=== PATIENT | male | born 1930 | race Caucasian/White ===

== ENCOUNTER → 2018-02-10 | Emergency (ER) | payer MEDICARE, OTHER ==
[~2018-02-10] VITALS: Ht 175.3 cm; Wt 63.5 kg
[~2018-02-10] MED LIST: ASPI-983 PO; CARV25TA PO; CEPH-507 PO; HYDR12.5 PO; LISI40TA PO; MINO2.5T PO; MULT-1029 PO; NAPR1TAB25 PO; NF-MINO10T PO; ONDA4TAB10 PO; OXYMETAZOLINE (AFRIN) 0.05% NA 15 ML BTL ONE; PANT40TA3 PO; SUCR1TAB PO; TRANEXAMIC ACID 100 MG/ML 10 ML INJECTION IV ONE
--- NOTE | 2018-02-10 14:48 | ED EENT ---
History of Present Illness General Chief Complaint: Nasal Problems Stated Complaint: NOSE BLEED Nursing Triage Note: PT BEGAN EXPERIENCING A SPONTANEOUS NOSE BLEED AROUND NOON TODAY, HAS BEEN UNABLE TO CONTROL WITH DIRECT PRESSURE, TAKES ASPIRIN AND PLAVIX Source: patient Exam Limitations: no limitations History of Present Illness Date Seen by Provider: Feb 10, 2018 Time Seen by Provider: 14:46 Initial Comments To ER per private vehicle with a right-sided nosebleed since noon today. Normally he is able to resolve these with direct pressure and an ice pack. He takes aspirin and Plavix for coronary artery disease. No recent illness. He is had 2 of these episodes of epistaxis in the past but is able to resolve them at home with direct pressure. Timing/Duration: abrupt Severity: moderate Location: nose Prearrival Treatment: squeezing nostrils Allergies and Home Medications Allergies Coded Allergies: Penicillins (Verified Allergy, Unknown, 10/26/15) Home Medications Aspirin 81 Mg Tablet.dr, 81 MG PO HS, (Reported) Carvedilol 25 Mg Tablet, 25 MG PO BID, (Reported) Minoxidil 10 Mg Tab, 10 MG PO DAILY, (Reported) Minoxidil 2.5 Mg Tablet, 2.5 MG PO HS, (Reported) Multivit-Min/FA/Lycopene/Lut 1 Each Tablet, 1 TAB PO DAILY, (Reported) Ondansetron HCl 4 Mg Tablet, 4 MG PO Q4H PRN for NAUSEA, (Reported) Pantoprazole Sodium 40 Mg Tablet.dr, 40 MG PO DAILY, (Reported) Sucralfate 1 Gm Tablet, 1 GM PO ACHS Prescribed by: ELAINE PRAKASH on 11/01/15 0916 Patient Home Medication List Home Medication List Reviewed: Yes Review of Systems Review of Systems Constitutional: see HPI Eyes: No Symptoms Reported Ears: No Symptoms Reported Nose: see HPI Mouth: no symptoms reported Throat: no symptoms reported Respiratory: no symptoms reported Cardiovascular: no symptoms reported Musculoskeletal: no symptoms reported Past Hrbybug-Arascy-Nrxmvd Hx Patient Social History Recent Foreign Travel: No Contact w/Someone Who Travel: No Recent Infectious Disease Expo: No Recent Hopitalizations: No Immunizations Up To Date Date of Pneumonia Vaccine: Sep 29, 2013 Date of Influenza Vaccine: Dec 30, 2014 Seasonal Allergies Seasonal Allergies: No Past Medical History Respiratory: No 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 9.6oz. 63.050615sh; 18.9 BMI Method:Stated General Appearance: WD/WN, no apparent distress Eyes: bilateral eye normal inspection, bilateral eye PERRL, bilateral eye EOMI Ears: bilateral ear auricle normal, bilateral ear canal normal, bilateral ear TM normal Nose: other (illness for 0.0The active nosebleed from the right side. Initially this was believed to be from Quick Suboxone plexus. This was cauterized chemically with silver nitrate sticks but did not control the bleeding. There is a bit more blood coming from further posterior that I'm not able to visualize. A 7.5 cm anterior/posterior rapid Rhino inflatable nasal tampon was inserted and saturated) eczema casted. We will reevaluate in 30 minutes) Neck: non-tender, full range of motion Cardiovascular: regular rate, rhythm, no murmur Respiratory: no respiratory distress, no accessory muscle use Gastrointestinal: normal bowel sounds, non tender Neurologic/Psychiatric: alert, normal mood/affect, oriented x 3 Skin: normal color, warm/dry Progress/Results/Core Measures Results/Orders Lab Results Laboratory Tests Test 02/10/18 17:45 Range/Units White Blood Count 8.0 4.3-11.0 10^3/uL Red Blood Count 3.73 L 4.35-5.85 10^6/uL Hemoglobin 11.5 L 13.3-17.7 G/DL Hematocrit 35 L 40-54 % Mean Corpuscular Volume 94 80-99 FL Mean Corpuscular Hemoglobin 31 25-34 PG Mean Corpuscular Hemoglobin Concent 33 32-36 G/DL Red Cell Distribution Width 13.8 10.0-14.5 % Platelet Count 339 130-400 10^3/uL Mean Platelet Volume 9.3 7.4-10.4 FL My Orders Orders - CARLOS EDUARDO ALVAREZ APRN Tranexamic Acid Injection (Cyklokapron I (02/10/18 14:45) Oxymetazoline 0.05% Nasal [place] (Afrin 0. (02/10/18 15:47) Iv Heplock-Insert (Order) (02/10/18 16:26) Cbc No Diff (02/10/18 16:26) Medications Given in ED Current Medications Medications Dose Ordered Sig/Joaquim Route Start Time Stop Time Status Last Admin Dose Admin Tranexamic Acid 1,000 mg STK-MED ONCE IV 02/10/18 14:40 02/10/18 14:41 DC 02/10/18 14:44 1,000 MG Vital Signs/I&O 02/10/18 14:27 Temp 97.9 Pulse 83 Resp 18 B/P (MAP) 155/69 (97) Pulse Ox 97 O2 Delivery Room Air Blood Pressure Mean: 97 Departure Communication (Admissions) I saturated a rapid Rhino anterior posterior 7.5 cm nasal tampon in TXA placed in the nose left in place for about 30 minutes and waited. I then removed this and there was increased bleeding from the right side of the nose. We then placed another rapid Rhino with Afrin in the nose. Despite placing this and clearing out the oropharynx about an hour ago I reviewed this again now and there is a new clot in the oropharynx with a small amount of active blood in the oropharynx. I spoke with Jelly Goss, nurse practitioner with Dr. Chatman. She'll be out to see the patient. 1753-[address] Rosa Goss here to evaluate pt. has removed clot, placed 2 merocel sponges. Will dc home as bleeding has stopped. Keflex prophylaxis, and follow up on saturday. Impression Primary Impression: Epistaxis Disposition: HOME, SELF-CARE Condition: Stable Departure-Patient Inst. Decision time for Depature: 17:52 Referrals: ERROL CHATMAN MD, JACQUELINE S DO (PCP/Family) Primary Care Physician Patient Instructions: Nosebleeds (DC) Add. Discharge Instructions: call call Dr. Chatman's office tomorrow to make an appointment to be seen on Saturday. Keep these nasal sponges moist with Afrin nasal spray. Return to ER for any recurrent bleeding. Antibiotics as directed. All discharge instructions reviewed with patient and/or family. Voiced understanding. Scripts Cephalexin (Keflex) 500 Mg Capsule 500 MG PO TID, #21 CAP Prov: CARLOS EDUARDO ALVAREZ APRN 02/10/18 Copy Copies To 1: ERROL CHATMAN MD, PETER J APRN Feb 10, 2018 14:48
[2018-02-10 17:47] LABS: HEMOGLOBIN 11.5 G/DL (13.3-17.7); MEAN PLATELET VOLUME 9.3 FL (7.4-10.4); RED BLOOD COUNT 3.73 10^6/uL (4.35-5.85); RED CELL DISTRIBUTION WIDTH 13.8 % (10.0-14.5)
--- NOTE | 2018-02-10 17:59 | Progress Note-Standard ---
Standard Progress Note Progress Notes/Assess & Plan Time Seen by a Provider: 17:30 Progress/Assessment & Plan Epistaxis Patient had posterior nosebleed. After informed consent was obtained 2 nasal packings were placed posterior in the right nare and flooded with Afrin. Hemostasis resulted. The packing was secured to the right nare. Patient was placed on Keflex and encouraged to keep packing moist with Afrin and nasal saline. Will make appointment with our office tomorrow for packing removal on Saturday. Final Diagnosis epistaxis DESMOND LUNA JAVA PROJECT MANAGER Feb 10, 2018 17:59
[2018-02-10 18:56] VITALS: BP 155/69
== END | disposition home or self-care (01) ==
LOC: EDUNIT# 13:59 → ER 14:00
DX: R04.0 Epistaxis (principal); I25.10 Atherosclerotic heart disease of native coronary artery without angina pectoris; Z95.810 Presence of automatic (implantable) cardiac defibrillator; Z79.82 Long term (current) use of aspirin; Z79.02 Long term (current) use of antithrombotics/antiplatelets; Z88.0 Allergy status to penicillin
CPT/HCPCS: 36415; 85027; 99284

== ENCOUNTER 2019-08-15 18:26 | Emergency (ER) | payer MEDICARE, OTHER ==
[~2019-08-15] VITALS: Ht 175 cm; Wt 59.0 kg
[~2019-08-15 18:26] MED LIST changes: +ONDA-105 PO; -ONDA4TAB10 PO; -OXYMETAZOLINE (AFRIN) 0.05% NA 15 ML BTL ONE; +OXYMETAZOLINE (AFRIN) 0.05% NA 30 ML BTL ONE; -TRANEXAMIC ACID 100 MG/ML 10 ML INJECTION IV ONE
--- OUTSIDE RECORDS SUMMARY | 2019-08-15 18:34 | XMS REPORT | CCD ---
Author Author Arnoldo Kaba D.O. Organization [facility] Address [address] [place] [address] Phone Care Team Providers Care Fire Management Technician Name Role Phone PP Unavailable CCM Unavailable Summary Purpose Interface Exchange Insurance Providers Payer name Policy type / Coverage type Covered democrat ID Effective Begin Date Effective End Date WPS MEDICARE PART B [place] Medicare Part B [id number] 2019 Unknown Medicare Part B [id number] 2019 Unknown Family History Family History data not found Social History No Social History data Allergies, Adverse Reactions, Alerts Substance Reaction Codes Entered Date Inactivated Date Status _ Unknown 11/29/2009 No Inactive Date Active * NO KNOWN FOOD ALLERGIES Unknown 11/29/2009 No Inactiv e Date Active PENICILLINS Unknown 11/29/2009 No Inactive Date Active Problems Condition Codes Effective Dates Condition Status Abnormal weight loss ICD-9: 783.21 ICD-10: R63.4 01/16/2016 Active Anemia, unspecified ICD-9: 285.9 ICD-10: D64.9 07/16/2016 Active Encounter for general adult medical examination with a bnormal findings ICD-9: V70.0 ICD-10: Z00.01 06/29/2019 Active Essential (primary) hypertension ICD-9: 401.9 ICD-10: I10 06/23/2018 Active Hypothyroidism, unspecified ICD-9: 244.9 ICD-10: E03.9 02/01/2017 Active Mixed hyperlipidemia ICD-9: 272.4 ICD-10: E78.2 06/29/2019 Active FLU VACCINE ICD-9: V04.81 ICD-10: Z23 12/25/2018 Active Disease of esophagus, unspecified ICD-9: 530.9 ICD-10: K22.9 01/16/2016 Active Pain in left knee ICD-9: 719.46 ICD-10: M25.562 07/30/2018 Active Hyperglycemia, unspecified ICD-9: 790.29 ICD-10: R73.9 01/29/2017 Active Localized edema ICD-9: 782.3 ICD-10: R60.0 07/16/2016 Active Duodenal ulcer, unspecified as acute or chronic, without hemorrhage or perforation ICD-9: 532.90 ICD-10: K26.9 01/16/2016 Active Diarrhea, unspecified ICD-9: 787.91 ICD-10: R19.7 03/09/2013 Active Nausea with vomiting, unspecified ICD-9: 787.01 ICD-10: R11.2 10/25/2015 Active Toxic gastroenteritis and colitis ICD-9: 787.91 ICD-10: K52.1 03/09/2013 Active ANEMIA NOS ICD-9: 285.9 03/09/2013 Active DIARRHEA ICD-9: 787.91 03/09/2013 Active MALAISE AND FATIGUE ICD-9: 780.79 03/09/2013 Active Gout Unknown 11/29/2009 Active Hypertension Unknown 11/29/2009 Active Right foot pain ICD-9: 729.5 11/29/2009 Active Medications Medication Codes Instructions Start Date Stop Date Status Fill Instructions levothyroxine 50 mcg tablet RxNorm: 723898 TAKE 1 TABLET DAILY 08/31 No Stop Date Active Synthroid 25 mcg tablet RxNorm: 376812 1 Tablet(s) PO QD 07/23/2017 0 09/20/2017 Inactive carvedilol 12.5 mg tablet RxNorm: 493613 1 Tablet(s) PO BID 018 07/16/2017 Inactive pantoprazole 40 mg tablet,delayed release RxNorm: 507486 1 Tablet(s) PO QD for stomach 04/18/2017 10/09/2017 Inactive pantoprazole 40 mg tablet,delayed release RxNorm: 235304 1 Tablet(s) PO QD for stomach 01/17/2017 04/18/2017 Inactive Colestid 1 gram tablet RxNorm: 6854851 1 Tablet(s) PO QD 01/17/2017 0 07/16/2017 Inactive carvedilol 12.5 mg tablet RxNorm: 204566 1 Tablet(s) PO BID 017 04/18/2017 Inactive carvedilol 12.5 mg tablet RxNorm: 425034 1 Tablet(s) PO BID 017 01/15/2017 Inactive pantoprazole 40 mg tablet,delayed release RxNorm: 314365 1 Tablet(s) PO QD for stomach 10/25/2016 01/16/2017 Inactive pantoprazole 40 mg tablet,delayed release RxNorm: 545059 1 Tablet(s) PO QD for stomach 07/24/2016 10/21/2016 Inactive Colestid 1 gram tablet RxNorm: 3587653 1 Tablet(s) PO QD 07/16/2016 1 Inactive pantoprazole 40 mg tablet,delayed release RxNorm: 549151 1 Tablet(s) PO QD for stomach 04/25/2016 07/23/2016 Inactive pantoprazole 40 mg tablet,delayed release RxNorm: 621138 1 Tablet(s) PO QD for stomach 02/27/2016 04/24/2016 Inactive Colestid 1 gram tablet RxNorm: 3097650 1 Tablet(s) PO QD 01/18/2016 0 07/15/2016 Inactive sucralfate 1 gram tablet RxNorm: 955244 1 Tablet(s) PO BID 01/17/20 16 07/15/2016 Inactive ondansetron HCl 4 mg tablet RxNorm: 553591 1 Tablet(s) PO Q4H as needed for nausea 01/17/2016 10/09/2017 Inactive pantoprazole 40 mg tablet,delayed release RxNorm: 072923 1 Tablet(s) PO QD for stomach 12/26/2015 02/23/2016 Inactive ondansetron HCl 4 mg tablet RxNorm: 913305 1 Tablet(s) PO Q4H as needed for nausea 12/13/2015 01/16/2016 Inactive colestipol 1 gram tablet RxNorm: 0418527 1 Tablet(s) PO QD 12/13/19 16 01/11/2016 Inactive sucralfate 1 gram tablet RxNorm: 762817 1 Tablet(s) PO QID (before meals and at bedtime) 11/09/2015 06/22/2018 Inactive pantoprazole 40 mg tablet,delayed release RxNorm: 061467 1 Tablet(s) PO QD for stomach 10/26/2015 12/24/2015 Inactive Zofran 4 mg tablet RxNorm: 033106 1 Tablet(s) PO Q4H as needed for nausea 10/26/2015 12/12/2015 Inactive Flagyl 500 mg tablet RxNorm: 778566 1 Tablet(s) PO TID 03/09/2013 Inactive Colchicine 0.6 mg Tab RxNorm: 558760 1 Tablet(s) PO TID take one tablet three times daily 11/29/2009 12/08/2009 Inactive minoxidil 2.5 mg tablet RxNorm: 454265 1 Tablet(s) PO QHS No Start Da te Active minoxidil 10 mg tablet RxNorm: 759251 1 Tablet(s) PO QAM No Start Date Active Aspirin 81 mg Tab RxNorm: 977645 1 Tablet(s) PO QD No Start Date Active Centrum Silver tablet RxNorm: 1 Tablet(s) PO QD No Start Date Active Lasix 40 mg tablet RxNorm: 753053 1 Tablet(s) PO QD No Start Date Active Klor-Con M20 mEq tablet,extended release RxNorm: 4447619 1 Table t(s) PO QD No Start Date Active levothyroxine 50 mcg tablet RxNorm: 696966 1 Tablet(s) PO QD No Sta rt Date 09/21/2018 Inactive Lisinopril 40 mg Tab RxNorm: 896655 1 Tablet(s) PO QD No Start Date 0 11/08/2015 Inactive Colestid 1 gram tablet RxNorm: 5087503 1 Tablet(s) PO QD No Start D ate 01/17/2016 Inactive carvedilol 25 mg tablet RxNorm: 111572 1/2 Tablet(s) PO BID No Star t Date 01/15/2017 Inactive Centrum Silver Oral RxNorm: Oral No Start Date 11/08/2015 Inact kris furosemide 20 mg tablet RxNorm: 982746 1 Tablet(s) PO QAM No Start Date 01/28/2017 Inactive Carvedilol 25 mg Tab RxNorm: 463269 1 Tablet(s) PO BID No Start Date 01/15/2017 Inactive Minoxidil 2.5 mg Tab RxNorm: 005448 1 Tablet(s) PO BID No Start Date 11/08/2015 Inactive sucralfate 1 gram tablet RxNorm: 737348 1 Tablet(s) PO BID as n eeded No Start Date 10/09/2017 Inactive ondansetron HCl 4 mg tablet RxNorm: 255589 1 Tablet(s) PO Q4H as needed for nausea No Start Date 12/12/2015 Inactive Hydrochlorothiazide 12.5 mg Tab RxNorm: 054981 1 Tablet(s) PO QAM N o Start Date 11/08/2015 Inactive sucralfate 1 gram tablet RxNorm: 838615 1 Tablet(s) PO BID No Start Date 01/16/2016 Inactive Flintstones Complete (iron) 18 mg iron chewable tablet RxNor m: 2 Tablet(s) PO BID No Start Date 07/16/2017 Inactive Medication Administered No Medication Administered data Immunizations Vaccine Codes Date Status Influenza CVX: 135 12/25/2018 Complete Influenza CVX: 135 12/25/2018 Complete Results Observation Observation Code Item Item Code Result Date S ervice Location IRON 01783 Iron 77 ug/dL 06/29/2019 Unknown GFR CALC 4660585 GFR Non Afr Amr 37 mL/min 06/29/2019 Unk nown GFR CALC 4186973 GFR Afr Amr 45 mL/min 06/29/2019 Unknown COMPREHENSIVE METABOLIC 32840 AST 17 U/L 2019 Unknown COMPREHENSIVE METABOLIC 88753 ALT 12 U/L 2019 Unknown COMPREHENSIVE METABOLIC 87963 BUN 41 mg/dL 2019 Unknown COMPREHENSIVE METABOLIC 50683 ALBUMIN 4.2 g/dL 2019 Unknown COMPREHENSIVE METABOLIC 99356 CHLORIDE 107 mmol/L 06/28 Unknown COMPREHENSIVE METABOLIC 85932 Bili Total 0.3 mg/dL 06/28 Unknown COMPREHENSIVE METABOLIC 24490 ALK PHOS 77 U/L 2019 Unknown COMPREHENSIVE METABOLIC 71387 SODIUM 142 mmol/L 06/28 Unknown COMPREHENSIVE METABOLIC 72329 CREATININE 1.74 mg/dL 06/01 Unknown COMPREHENSIVE METABOLIC 73258 CALCIUM 9.0 mg/dL 2019 Unknown COMPREHENSIVE METABOLIC 75413 POTASSIUM 4.1 mmol/L 06/28 Unknown COMPREHENSIVE METABOLIC 49572 Total Protein 6.7 g/dL Unknown COMPREHENSIVE METABOLIC 08427 Glucose 107 mg/dL 2019 Unknown COMPREHENSIVE METABOLIC 75271 Bicarbonate 22 mmol/L 06/01 Unknown COMPREHENSIVE METABOLIC 23152 AGAP 13 mmol/L 2019 Unknown IRON 72435 Iron 53 ug/dL 12/22/2018 Unknown FREE T4 53881 T4 Free 1.05 ng/dL 12/22/2018 Unknown FERRITIN 67138 FERRITIN 126.5 ng/mL 12/22/2018 Unknown COMPLETE BLOOD COUNT 6804702 WBC 7.7 10e9/L 12/23/19 19 Unknown COMPLETE BLOOD COUNT [id number] RBC 3.60 10e12/L 2018 Unknown COMPLETE BLOOD COUNT 1446394 HEMOGLOBIN 10.9 g/dL 12/23/19 19 Unknown COMPLETE BLOOD COUNT 7626363 HEMATOCRIT 34.4 % 12/23/19 19 Unknown COMPLETE BLOOD COUNT 5213997 MCV 95.6 fL 9 Unknown COMPLETE BLOOD COUNT 2547258 MCH 30.3 pg 9 Unknown COMPLETE BLOOD COUNT 9631818 MCHC 31.7 g/dL 9 Unknown COMPLETE BLOOD COUNT 0934044 PLATELET COUNT 364 10e9/L Unknown COMPLETE BLOOD COUNT 2267377 Mean Plt Volume 9.8 fL Unknown COMPLETE BLOOD COUNT 2487827 Neut Auto 81.4 % 9 Unknown COMPLETE BLOOD COUNT 0796891 Lymph Auto 12.4 % 12/23/19 19 Unknown COMPLETE BLOOD COUNT 6186036 [place] Auto 4.5 % 9 Unknown COMPLETE BLOOD COUNT 6705803 RDW 14.2 % 9 Unknown COMPLETE BLOOD COUNT 3071141 Eos Auto 1.3 % 9 Unknown COMPLETE BLOOD COUNT 7630739 Baso Auto 0.4 % 9 Unknown COMPLETE BLOOD COUNT [id number] Neutrophil Abs 6.27 10e9/L Unknown COMPLETE BLOOD COUNT 6366741 Lymphocyte Abs 0.95 10e9/L Unknown COMPLETE BLOOD COUNT 5501017 Monocyte Abs 0.35 10e9/L 12/01 Unknown COMPLETE BLOOD COUNT 9867060 Eosinophil Abs 0.10 10e9/L Unknown COMPLETE BLOOD COUNT 1446156 RDW-SD 47.2 fL 9 Unknown COMPLETE BLOOD COUNT 2302485 Basophil Abs 0.03 10e9/L 12/01 Unknown COMPREHENSIVE METABOLIC 89072 AST 19 U/L 2018 Unknown COMPREHENSIVE METABOLIC 20604 ALT 13 U/L 2018 Unknown COMPREHENSIVE METABOLIC 66744 BUN 41 mg/dL 2018 Unknown COMPREHENSIVE METABOLIC 93107 ALBUMIN 4.3 g/dL 2018 Unknown COMPREHENSIVE METABOLIC 49928 CHLORIDE 103 mmol/L 12/22 Unknown COMPREHENSIVE METABOLIC 46280 Bili Total 0.3 mg/dL 12/22 Unknown COMPREHENSIVE METABOLIC 00679 ALK PHOS 86 U/L 2018 Unknown COMPREHENSIVE METABOLIC 58108 SODIUM 138 mmol/L 12/22 Unknown COMPREHENSIVE METABOLIC 87624 CREATININE 1.69 mg/dL 12/01 Unknown COMPREHENSIVE METABOLIC 88053 CALCIUM 9.2 mg/dL 2018 Unknown COMPREHENSIVE METABOLIC 35794 POTASSIUM 4.3 mmol/L 12/22 Unknown COMPREHENSIVE METABOLIC 53469 Total Protein 6.9 g/dL Unknown COMPREHENSIVE METABOLIC 96933 Glucose 105 mg/dL 2018 Unknown COMPREHENSIVE METABOLIC 53004 Bicarbonate 21 mmol/L 12/01 Unknown COMPREHENSIVE METABOLIC 55431 AGAP 14 mmol/L 2018 Unknown THYROID STIMULATING HORMONE 48400 TSH 6.015 uIU/mL 12/22/2018 Unknown VITAMIN B 12 52232 VITAMIN B12 615 pg/mL 12/22/2018 Unkn own GFR CALC 2628194 GFR Non Afr Amr 38 mL/min 12/22/2018 Unk nown GFR CALC 8055788 GFR Afr Amr 47 mL/min 12/22/2018 Unknown FERRITIN 85470 FERRITIN 113.7 ng/mL 06/24/2018 Unknown VITAMIN B 12 11334 VITAMIN B12 651 pg/mL 06/24/2018 Unkn own COMPLETE BLOOD COUNT 8716098 WBC 6.3 10e9/L 06/24/19 19 Unknown COMPLETE BLOOD COUNT 9704862 RBC 3.33 10e12/L 2018 Unknown COMPLETE BLOOD COUNT 8769514 HEMOGLOBIN 9.8 g/dL 06/24/19 19 Unknown COMPLETE BLOOD COUNT 9984184 HEMATOCRIT 31.6 % 06/24/19 19 Unknown COMPLETE BLOOD COUNT 8379888 MCV 94.9 fL 9 Unknown COMPLETE BLOOD COUNT 9220092 MCH 29.4 pg 9 Unknown COMPLETE BLOOD COUNT 1249273 MCHC 31.0 g/dL 9 Unknown COMPLETE BLOOD COUNT 2717698 PLATELET COUNT 319 10e9/L Unknown COMPLETE BLOOD COUNT 2554975 Mean Plt Volume 9.4 fL Unknown COMPLETE BLOOD COUNT 5928761 Neut Auto 78.0 % 9 Unknown COMPLETE BLOOD COUNT 7079472 Lymph Auto 14.4 % 06/24/19 19 Unknown COMPLETE BLOOD COUNT 4298953 [place] Auto 5.2 % 9 Unknown COMPLETE BLOOD COUNT 4152138 RDW 14.2 % 9 Unknown COMPLETE BLOOD COUNT 5268102 Eos Auto 2.1 % 9 Unknown COMPLETE BLOOD COUNT 3383772 Baso Auto 0.3 % 9 Unknown COMPLETE BLOOD COUNT 3805889 Neutrophil Abs 4.91 10e9/L Unknown COMPLETE BLOOD COUNT 5124473 Lymphocyte Abs 0.91 10e9/L Unknown COMPLETE BLOOD COUNT 5663609 Monocyte Abs 0.33 10e9/L 05/31 Unknown COMPLETE BLOOD COUNT 8379826 Eosinophil Abs 0.13 10e9/L Unknown COMPLETE BLOOD COUNT 1932158 RDW-SD 47.0 fL 9 Unknown COMPLETE BLOOD COUNT [id number] Basophil Abs 0.02 10e9/L 05/31 Unknown THYROID STIMULATING HORMONE 22837 TSH 4.709 uIU/mL 06/23/2018 Unknown IRON 35039 Iron 52 ug/dL 06/23/2018 Unknown COMPREHENSIVE METABOLIC 36829 AST 16 U/L 2018 Unknown COMPREHENSIVE METABOLIC 81151 ALT 10 U/L 2018 Unknown COMPREHENSIVE METABOLIC 16730 BUN 27 mg/dL 2018 Unknown COMPREHENSIVE METABOLIC 42979 ALBUMIN 4.3 g/dL 2018 Unknown COMPREHENSIVE METABOLIC 04289 CHLORIDE 110 mmol/L 06/23 Unknown COMPREHENSIVE METABOLIC 27167 Bili Total 0.4 mg/dL 06/23 Unknown COMPREHENSIVE METABOLIC 64129 ALK PHOS 68 U/L 2018 Unknown COMPREHENSIVE METABOLIC 94765 SODIUM 140 mmol/L 06/23 Unknown COMPREHENSIVE METABOLIC 09866 CREATININE 1.60 mg/dL 05/31 Unknown COMPREHENSIVE METABOLIC 44702 CALCIUM 9.2 mg/dL 2018 Unknown COMPREHENSIVE METABOLIC 57718 POTASSIUM 4.6 mmol/L 06/23 Unknown COMPREHENSIVE METABOLIC 18829 Total Protein 6.8 g/dL Unknown COMPREHENSIVE METABOLIC 72079 Glucose 110 mg/dL 2018 Unknown COMPREHENSIVE METABOLIC 59299 Bicarbonate 19 mmol/L 05/31 Unknown COMPREHENSIVE METABOLIC 81071 AGAP 11 mmol/L 2018 Unknown GFR CALC 4368990 GFR Non Afr Amr 41 mL/min 06/23/2018 Unk nown GFR CALC 6584696 GFR Afr Amr 50 mL/min 06/23/2018 Unknown COMPLETE BLOOD COUNT 4435606 WBC 6.6 10e9/L 01/21/20 18 Unknown COMPLETE BLOOD COUNT 6765825 RBC 3.64 10e12/L 2017 Unknown COMPLETE BLOOD COUNT 4091819 HEMOGLOBIN 11.0 g/dL 01/21/20 18 Unknown COMPLETE BLOOD COUNT 8353716 HEMATOCRIT 34.6 % 01/21/20 18 Unknown COMPLETE BLOOD COUNT 9709506 MCV 95.1 fL 8 Unknown COMPLETE BLOOD COUNT 6348720 MCH 30.2 pg 8 Unknown COMPLETE BLOOD COUNT 9173331 MCHC 31.8 g/dL 8 Unknown COMPLETE BLOOD COUNT 8842513 PLATELET COUNT 386 10e9/L Unknown COMPLETE BLOOD COUNT 1643494 Mean Plt Volume 9.6 fL Unknown COMPLETE BLOOD COUNT 6704993 Neut Auto 76.6 % 8 Unknown COMPLETE BLOOD COUNT 4728428 Lymph Auto 15.6 % 01/21/20 18 Unknown COMPLETE BLOOD COUNT 4216192 [place] Auto 5.3 % 8 Unknown COMPLETE BLOOD COUNT 6685773 RDW 13.8 % 8 Unknown COMPLETE BLOOD COUNT 7348024 Eos Auto 2.0 % 8 Unknown COMPLETE BLOOD COUNT 0067938 Baso Auto 0.5 % 8 Unknown COMPLETE BLOOD COUNT 5064828 Neutrophil Abs 5.06 10e9/L Unknown COMPLETE BLOOD COUNT 0144012 Lymphocyte Abs 1.03 10e9/L Unknown COMPLETE BLOOD COUNT 6871829 Monocyte Abs 0.35 10e9/L 12/31 Unknown COMPLETE BLOOD COUNT 0568906 Eosinophil Abs 0.13 10e9/L Unknown COMPLETE BLOOD COUNT 0129530 RDW-SD 45.5 fL 8 Unknown COMPLETE BLOOD COUNT 8946669 Basophil Abs 0.03 10e9/L 12/31 Unknown COMPREHENSIVE METABOLIC 78579 AST 17 U/L 2017 Unknown COMPREHENSIVE METABOLIC 51792 ALT 14 U/L 2017 Unknown COMPREHENSIVE METABOLIC 39309 BUN 55 mg/dL 2017 Unknown COMPREHENSIVE METABOLIC 61575 ALBUMIN 4.2 g/dL 2017 Unknown COMPREHENSIVE METABOLIC 11815 CHLORIDE 106 mmol/L 01/20 Unknown COMPREHENSIVE METABOLIC 06974 Bili Total 0.4 mg/dL 01/20 Unknown COMPREHENSIVE METABOLIC 05338 ALK PHOS 75 U/L 2017 Unknown COMPREHENSIVE METABOLIC 34891 SODIUM 137 mmol/L 01/20 Unknown COMPREHENSIVE METABOLIC 44210 CREATININE 1.99 mg/dL 12/31 Unknown COMPREHENSIVE METABOLIC 51970 CALCIUM 9.5 mg/dL 2017 Unknown COMPREHENSIVE METABOLIC 03464 POTASSIUM 4.6 mmol/L 01/20 Unknown COMPREHENSIVE METABOLIC 89467 Total Protein 7.9 g/dL Unknown COMPREHENSIVE METABOLIC 87590 Glucose 105 mg/dL 2017 Unknown COMPREHENSIVE METABOLIC 73463 Bicarbonate 22 mmol/L 12/31 Unknown COMPREHENSIVE METABOLIC 05113 AGAP 9 mmol/L 2017 Unknown THYROID STIMULATING HORMONE 86637 TSH 6.119 uIU/mL 01/20/2018 Unknown GFR CALC 2123464 GFR Non Afr Amr 32 mL/min 01/20/2018 Unk nown GFR CALC 0873805 GFR Afr Amr 39 mL/min 01/20/2018 Unknown FREE T4 24331 T4 Free 1.11 ng/dL 01/20/2018 Unknown GFR CALC 3613819 GFR Non Afr Amr 38 mL/min 10/03/2017 Unk nown GFR CALC 8471319 GFR Afr Amr 46 mL/min 10/03/2017 Unknown COMPREHENSIVE METABOLIC 64223 AST 15 U/L 2017 Unknown COMPREHENSIVE METABOLIC 86655 ALT 10 U/L 2017 Unknown COMPREHENSIVE METABOLIC 57622 BUN 41 mg/dL 2017 Unknown COMPREHENSIVE METABOLIC 94290 ALBUMIN 4.0 g/dL 2017 Unknown COMPREHENSIVE METABOLIC 77326 CHLORIDE 105 mmol/L 10/03 Unknown COMPREHENSIVE METABOLIC 73945 Bili Total 0.4 mg/dL 10/03 Unknown COMPREHENSIVE METABOLIC 44521 ALK PHOS 71 U/L 2017 Unknown COMPREHENSIVE METABOLIC 83390 SODIUM 140 mmol/L 10/03 Unknown COMPREHENSIVE METABOLIC 45138 CREATININE 1.72 mg/dL 07/2017 Unknown COMPREHENSIVE METABOLIC 84742 CALCIUM 9.1 mg/dL 2017 Unknown COMPREHENSIVE METABOLIC 53882 POTASSIUM 4.1 mmol/L 10/03 Unknown COMPREHENSIVE METABOLIC 47535 Total Protein 6.5 g/dL Unknown COMPREHENSIVE METABOLIC 39196 Glucose 101 mg/dL 2017 Unknown COMPREHENSIVE METABOLIC 83122 Bicarbonate 23 mmol/L 07/2017 Unknown COMPREHENSIVE METABOLIC 21816 AGAP 12 mmol/L 2017 Unknown FREE T4 09491 T4 Free 0.81 ng/dL 10/03/2017 Unknown THYROID STIMULATING HORMONE 59012 TSH 10.964 uIU/m L 10/03/2017 Unknown COMPLETE BLOOD COUNT 7884414 WBC 5.6 10e9/L 10/04/19 18 Unknown COMPLETE BLOOD COUNT 5102364 RBC 3.36 10e12/L 2017 Unknown COMPLETE BLOOD COUNT 6065659 HEMOGLOBIN 10.3 g/dL 10/04/19 18 Unknown COMPLETE BLOOD COUNT 5871716 HEMATOCRIT 32.0 % 10/04/19 18 Unknown COMPLETE BLOOD COUNT 7177404 MCV 95.2 fL 8 Unknown COMPLETE BLOOD COUNT 8014036 MCH 30.7 pg 8 Unknown COMPLETE BLOOD COUNT 5905320 MCHC 32.2 g/dL 8 Unknown COMPLETE BLOOD COUNT 0233461 PLATELET COUNT 250 10e9/L 07/2017 Unknown COMPLETE BLOOD COUNT 7890900 Mean Plt Volume 10.2 fL 07/2017 Unknown COMPLETE BLOOD COUNT 0960864 Neut Auto 75.9 % 8 Unknown COMPLETE BLOOD COUNT 2692167 Lymph Auto 17.2 % 10/04/19 18 Unknown COMPLETE BLOOD COUNT 0659002 [place] Auto 5.3 % 8 Unknown COMPLETE BLOOD COUNT 1721524 RDW 14.0 % 8 Unknown COMPLETE BLOOD COUNT 0491340 Eos Auto 1.2 % 8 Unknown COMPLETE BLOOD COUNT 0867177 Baso Auto 0.4 % 8 Unknown COMPLETE BLOOD COUNT 7340359 Neutrophil Abs 4.25 10e9/L Unknown COMPLETE BLOOD COUNT 7158678 Lymphocyte Abs 0.96 10e9/L Unknown COMPLETE BLOOD COUNT 5790189 Monocyte Abs 0.30 10e9/L 07/2017 Unknown COMPLETE BLOOD COUNT 1255049 Eosinophil Abs 0.07 10e9/L Unknown COMPLETE BLOOD COUNT 6554142 RDW-SD 45.8 fL 8 Unknown COMPLETE BLOOD COUNT 8356172 Basophil Abs 0.02 10e9/L 07/2017 Unknown FREE T4 62666 T4 Free 0.87 ng/dL 07/17/2017 Unknown COMPREHENSIVE METABOLIC 37333 AST 19 U/L 2017 Unknown COMPREHENSIVE METABOLIC 36185 ALT 13 U/L 2017 Unknown COMPREHENSIVE METABOLIC 09261 BUN 48 mg/dL 2017 Unknown COMPREHENSIVE METABOLIC 98154 ALBUMIN 4.4 g/dL 2017 Unknown COMPREHENSIVE METABOLIC 64747 CHLORIDE 105 mmol/L 07/17 Unknown COMPREHENSIVE METABOLIC 66610 Bili Total 0.4 mg/dL 07/17 Unknown COMPREHENSIVE METABOLIC 23256 ALK PHOS 64 U/L 2017 Unknown COMPREHENSIVE METABOLIC 15161 SODIUM 141 mmol/L 07/17 Unknown COMPREHENSIVE METABOLIC 46760 CREATININE 1.72 mg/dL 06/30 Unknown COMPREHENSIVE METABOLIC 63651 CALCIUM 9.8 mg/dL 2017 Unknown COMPREHENSIVE METABOLIC 55561 POTASSIUM 4.6 mmol/L 07/17 Unknown COMPREHENSIVE METABOLIC 63178 Total Protein 7.0 g/dL Unknown COMPREHENSIVE METABOLIC 90610 Glucose 105 mg/dL 2017 Unknown COMPREHENSIVE METABOLIC 95358 Bicarbonate 25 mmol/L 06/30 Unknown COMPREHENSIVE METABOLIC 67956 AGAP 11 mmol/L 2017 Unknown LIPID GROUP 84061 Cholesterol 162 mg/dL 07/17/2017 Unkno wn LIPID GROUP 16726 Triglyceride 126 mg/dL 07/17/2017 Unkn own LIPID GROUP 48192 HDL CHOLESTEROL 39 mg/dL 07/17/2017 U nknown LIPID GROUP 74280 Chol/HDL Ratio 4.15 ratio 07/17/2017 U nknown LIPID GROUP 13344 NON-HDL Chol 123 mg/dL 07/17/2017 Unkn own LIPID GROUP 81859 LDL Cholesterol 98 mg/dL 07/17/2017 U nknown GLYCOSYLATED HEMOGLOBIN TEST 54956 Hgb A1c 24277-7 5.0 % 0 07/17/2017 Unknown THYROID STIMULATING HORMONE 17117 TSH 28.780 uIU/m L 07/17/2017 Unknown MEAN GLUC 3837881 Calc Mean Gluc 97 mg/dL 07/17/2017 Unkn own GFR CALC 6238862 GFR Non Afr Amr 38 mL/min 07/17/2017 Unk nown GFR CALC 6552519 GFR Afr Amr 46 mL/min 07/17/2017 Unknown COMPLETE BLOOD COUNT 3634873 WBC 5.8 10e9/L 07/18/19 18 Unknown COMPLETE BLOOD COUNT 0882182 RBC 3.47 10e12/L 2017 Unknown COMPLETE BLOOD COUNT 9929932 HEMOGLOBIN 10.7 g/dL 07/18/19 18 Unknown COMPLETE BLOOD COUNT 1613458 HEMATOCRIT 34.0 % 07/18/19 18 Unknown COMPLETE BLOOD COUNT 1220576 MCV 98.0 fL 8 Unknown COMPLETE BLOOD COUNT 3468971 MCH 30.8 pg 8 Unknown COMPLETE BLOOD COUNT 3253617 MCHC 31.5 g/dL 8 Unknown COMPLETE BLOOD COUNT 4318163 PLATELET COUNT 254 10e9/L Unknown COMPLETE BLOOD COUNT 4790326 Mean Plt Volume 10.0 fL Unknown COMPLETE BLOOD COUNT 7891142 Neut Auto 77.2 % 8 Unknown COMPLETE BLOOD COUNT 3384877 Lymph Auto 15.2 % 07/18/19 18 Unknown COMPLETE BLOOD COUNT 5524530 [place] Auto 5.4 % 8 Unknown COMPLETE BLOOD COUNT 4659997 RDW 13.9 % 8 Unknown COMPLETE BLOOD COUNT 6219181 Eos Auto 1.7 % 8 Unknown COMPLETE BLOOD COUNT 1836359 Baso Auto 0.5 % 8 Unknown COMPLETE BLOOD COUNT 0363009 Neutrophil Abs 4.48 10e9/L Unknown COMPLETE BLOOD COUNT 5943575 Lymphocyte Abs 0.88 10e9/L Unknown COMPLETE BLOOD COUNT 1854673 Monocyte Abs 0.31 10e9/L 06/30 Unknown COMPLETE BLOOD COUNT 6127511 Eosinophil Abs 0.10 10e9/L Unknown COMPLETE BLOOD COUNT 8585198 RDW-SD 48.0 fL 8 Unknown COMPLETE BLOOD COUNT 6438006 Basophil Abs 0.03 10e9/L 06/30 Unknown FREE T4 37356 T4 Free 0.79 ng/dL 01/31/2017 Unknown GLYCOSYLATED HEMOGLOBIN TEST 45860 Hgb A1c 57006-1 5.2 % 1 04/01/2016 Unknown MEAN GLUC 5662965 Calc Mean Gluc 103 mg/dL 01/30/2017 Unkn own IRON 66677 Iron 62 ug/dL 01/29/2017 Unknown COMPREHENSIVE METABOLIC 16324 AST 25 U/L 2016 Unknown COMPREHENSIVE METABOLIC 33998 ALT 29 U/L 2016 Unknown COMPREHENSIVE METABOLIC 47723 BUN 41 mg/dL 2016 Unknown COMPREHENSIVE METABOLIC 39793 ALBUMIN 4.4 g/dL 2016 Unknown COMPREHENSIVE METABOLIC 53550 CHLORIDE 111 mmol/L 01/29 Unknown COMPREHENSIVE METABOLIC 76244 Bili Total 0.3 mg/dL 01/29 Unknown COMPREHENSIVE METABOLIC 06650 ALK PHOS 68 U/L 2016 Unknown COMPREHENSIVE METABOLIC 41741 SODIUM 142 mmol/L 01/29 Unknown COMPREHENSIVE METABOLIC 26608 CREATININE 1.69 mg/dL 01/01 Unknown COMPREHENSIVE METABOLIC 97695 CALCIUM 9.0 mg/dL 2016 Unknown COMPREHENSIVE METABOLIC 71013 POTASSIUM 4.0 mmol/L 01/29 Unknown COMPREHENSIVE METABOLIC 91610 Total Protein 6.9 g/dL Unknown COMPREHENSIVE METABOLIC 93865 Glucose 166 mg/dL 2016 Unknown COMPREHENSIVE METABOLIC 48533 Bicarbonate 22 mmol/L 01/01 Unknown COMPREHENSIVE METABOLIC 94827 AGAP 9 mmol/L 2016 Unknown VITAMIN B 12 44556 VITAMIN B12 603 pg/mL 01/29/2017 Unkn own COMPLETE BLOOD COUNT 7101997 WBC 5.7 10e9/L 01/30/20 17 Unknown COMPLETE BLOOD COUNT 3317575 RBC 3.56 10e12/L 2016 Unknown COMPLETE BLOOD COUNT 6249075 HEMOGLOBIN 10.7 g/dL 01/30/20 17 Unknown COMPLETE BLOOD COUNT 4113388 HEMATOCRIT 33.8 % 01/30/20 17 Unknown COMPLETE BLOOD COUNT 8242372 MCV 94.9 fL 7 Unknown COMPLETE BLOOD COUNT 3835853 MCH 30.1 pg 7 Unknown COMPLETE BLOOD COUNT 6207737 MCHC 31.7 g/dL 7 Unknown COMPLETE BLOOD COUNT 0816401 PLATELET COUNT 284 10e9/L Unknown COMPLETE BLOOD COUNT 6294647 Mean Plt Volume 10.0 fL Unknown COMPLETE BLOOD COUNT 0454152 Neut Auto 79.4 % 7 Unknown COMPLETE BLOOD COUNT [id number] Lymph Auto 13.6 % 01/30/20 17 Unknown COMPLETE BLOOD COUNT [id number] [place] Auto 4.4 % 7 Unknown COMPLETE BLOOD COUNT [id number] RDW 14.9 % 7 Unknown COMPLETE BLOOD COUNT [id number] Eos Auto 2.1 % 7 Unknown COMPLETE BLOOD COUNT [id number] Baso Auto 0.5 % 7 Unknown COMPLETE BLOOD COUNT [id number] Neutrophil Abs 4.53 10e9/L Unknown COMPLETE BLOOD COUNT [id number] Lymphocyte Abs 0.78 10e9/L Unknown COMPLETE BLOOD COUNT [id number] Monocyte Abs 0.25 10e9/L 01/01 Unknown COMPLETE BLOOD COUNT [id number] Eosinophil Abs 0.12 10e9/L Unknown COMPLETE BLOOD COUNT [id number] RDW-SD 49.6 fL 7 Unknown COMPLETE BLOOD COUNT [id number] Basophil Abs 0.03 10e9/L 01/01 Unknown THYROID STIMULATING HORMONE 52041 TSH 26.132 uIU/m L 01/29/2017 Unknown GFR CALC [id number] GFR Non Afr Amr 39 mL/min 01/29/2017 Unk nown GFR CALC [id number] GFR Afr Amr 47 mL/min 01/29/2017 Unknown COMPREHENSIVE METABOLIC 37574 AST 19 U/L 2016 Unknown COMPREHENSIVE METABOLIC 87224 ALT 19 U/L 2016 Unknown COMPREHENSIVE METABOLIC 07265 BUN 30 mg/dL 2016 Unknown COMPREHENSIVE METABOLIC 53616 ALBUMIN 3.9 g/dL 2016 Unknown COMPREHENSIVE METABOLIC 86650 CHLORIDE 107 mmol/L 07/16 Unknown COMPREHENSIVE METABOLIC 24523 Bili Total 0.4 mg/dL 07/16 Unknown COMPREHENSIVE METABOLIC 02465 ALK PHOS 56 U/L 2016 Unknown COMPREHENSIVE METABOLIC 39242 SODIUM 139 mmol/L 07/16 Unknown COMPREHENSIVE METABOLIC 77889 CREATININE 1.50 mg/dL 06/30 Unknown COMPREHENSIVE METABOLIC 01362 CALCIUM 8.7 mg/dL 2016 Unknown COMPREHENSIVE METABOLIC 60640 POTASSIUM 4.2 mmol/L 07/16 Unknown COMPREHENSIVE METABOLIC 93560 Total Protein 6.5 g/dL Unknown COMPREHENSIVE METABOLIC 09280 Glucose 139 mg/dL 2016 Unknown COMPREHENSIVE METABOLIC 71371 Bicarbonate 20 mmol/L 06/30 Unknown COMPREHENSIVE METABOLIC 25838 AGAP 12 mmol/L 2016 Unknown COMPLETE BLOOD COUNT [id number] WBC 5.7 10e9/L 07/17/19 17 Unknown COMPLETE BLOOD COUNT [id number] RBC 3.10 10e12/L 2016 Unknown COMPLETE BLOOD COUNT [id number] HEMOGLOBIN 9.4 g/dL 07/17/19 17 Unknown COMPLETE BLOOD COUNT [id number] HEMATOCRIT 29.6 % 07/17/19 17 Unknown COMPLETE BLOOD COUNT [id number] MCV 95.5 fL 7 Unknown COMPLETE BLOOD COUNT 0869801 MCH 30.3 pg 7 Unknown COMPLETE BLOOD COUNT 0300402 MCHC 31.8 g/dL 7 Unknown COMPLETE BLOOD COUNT 0970487 PLATELET COUNT 286 10e9/L Unknown COMPLETE BLOOD COUNT 0271092 Mean Plt Volume 9.9 fL Unknown COMPLETE BLOOD COUNT 7282916 Neut Auto 79.4 % 7 Unknown COMPLETE BLOOD COUNT [id number] Lymph Auto 14.5 % 07/17/19 17 Unknown COMPLETE BLOOD COUNT 0034442 [place] Auto 4.6 % 7 Unknown COMPLETE BLOOD COUNT 0871314 RDW 14.2 % 7 Unknown COMPLETE BLOOD COUNT 7727158 Eos Auto 1.1 % 7 Unknown COMPLETE BLOOD COUNT 6732161 Baso Auto 0.4 % 7 Unknown COMPLETE BLOOD COUNT [id number] Neutrophil Abs 4.53 10e9/L Unknown COMPLETE BLOOD COUNT 2975617 Lymphocyte Abs 0.83 10e9/L Unknown COMPLETE BLOOD COUNT [id number] Monocyte Abs 0.26 10e9/L 06/30 Unknown COMPLETE BLOOD COUNT [id number] Eosinophil Abs 0.06 10e9/L Unknown COMPLETE BLOOD COUNT [id number] RDW-SD 47.4 fL 7 Unknown COMPLETE BLOOD COUNT [id number] Basophil Abs 0.02 10e9/L 06/30 Unknown GFR CALC [id number] GFR Non Afr Amr 44 mL/min 07/16/2016 Unk nown GFR CALC [id number] GFR Afr Amr 54 mL/min 07/16/2016 Unknown COMPLETE BLOOD COUNT [id number] WBC 4.3 10e9/L 11/08/19 16 Unknown COMPLETE BLOOD COUNT [id number] RBC 3.22 10e12/L 2015 Unknown COMPLETE BLOOD COUNT [id number] HEMOGLOBIN 9.5 g/dL 11/08/19 16 Unknown COMPLETE BLOOD COUNT [id number] HEMATOCRIT 29.7 % 11/08/19 16 Unknown COMPLETE BLOOD COUNT [id number] MCV 92.2 fL 6 Unknown COMPLETE BLOOD COUNT [id number] MCH 29.5 pg 6 Unknown COMPLETE BLOOD COUNT 1347288 MCHC 32.0 g/dL 6 Unknown COMPLETE BLOOD COUNT [id number] PLATELET COUNT 269 10e9/L 12/2015 Unknown COMPLETE BLOOD COUNT 1088362 Mean Plt Volume 9.3 fL 12/2015 Unknown COMPLETE BLOOD COUNT 0536517 Neut Auto 71.4 % 6 Unknown COMPLETE BLOOD COUNT [id number] Lymph Auto 20.2 % 11/08/19 16 Unknown COMPLETE BLOOD COUNT [id number] [place] Auto 5.1 % 6 Unknown COMPLETE BLOOD COUNT 8599841 RDW 15.2 % 6 Unknown COMPLETE BLOOD COUNT [id number] Eos Auto 2.6 % 6 Unknown COMPLETE BLOOD COUNT 8192096 Baso Auto 0.7 % 6 Unknown COMPLETE BLOOD COUNT [id number] Neutrophil Abs 3.07 10e9/L Unknown COMPLETE BLOOD COUNT [id number] Lymphocyte Abs 0.87 10e9/L Unknown COMPLETE BLOOD COUNT [id number] Monocyte Abs 0.22 10e9/L 12/2015 Unknown COMPLETE BLOOD COUNT [id number] Eosinophil Abs 0.11 10e9/L Unknown COMPLETE BLOOD COUNT 8465742 RDW-SD 49.0 fL 6 Unknown COMPLETE BLOOD COUNT [id number] Basophil Abs 0.03 10e9/L 12/2015 Unknown GFR CALC [id number] GFR Non Afr Amr 42 mL/min 11/08/2015 Unk nown GFR CALC [id number] GFR Afr Amr 51 mL/min 11/08/2015 [place] [address] Glucose 102 mg/dL 11/07 [place] [address] CREATININE 1.57 mg/dL 12/2015 [place] [address] BUN 18 mg/dL 11/07 [place] [address] SODIUM 140 mmol/L 12/2015 [place] [address] POTASSIUM 3.8 mmol/L 12/2015 [place] [address] CHLORIDE 113 mmol/L 12/2015 [place] [address] Bicarbonate 21 mmol/L 12/2015 [place] [address] AGAP 6 mmol/L 11/07 [place] [address] CALCIUM 8.8 mg/dL 11/07 Unknown COMPLETE BLOOD COUNT 0693536 WBC 8.3 10e9/L 10/26/19 16 Unknown COMPLETE BLOOD COUNT [id number] RBC 2.55 10e12/L 2015 Unknown COMPLETE BLOOD COUNT [id number] HEMOGLOBIN 7.7 g/dL 10/26/19 16 Unknown COMPLETE BLOOD COUNT 7667337 HEMATOCRIT 24.0 % 10/26/19 16 Unknown COMPLETE BLOOD COUNT 7689293 MCV 94.1 fL 6 Unknown COMPLETE BLOOD COUNT 0287432 MCH 30.2 pg 6 Unknown COMPLETE BLOOD COUNT 7105250 MCHC 32.1 g/dL 6 Unknown COMPLETE BLOOD COUNT 3928487 PLATELET COUNT 292 10e9/L Unknown COMPLETE BLOOD COUNT 8015710 Mean Plt Volume 9.8 fL Unknown COMPLETE BLOOD COUNT 2085967 Neut Auto 83.8 % 6 Unknown COMPLETE BLOOD COUNT 2443581 Lymph Auto 11.3 % 10/26/19 16 Unknown COMPLETE BLOOD COUNT 8725095 [place] Auto 4.1 % 6 Unknown COMPLETE BLOOD COUNT 7950621 RDW 14.7 % 6 Unknown COMPLETE BLOOD COUNT 4595249 Eos Auto 0.7 % 6 Unknown COMPLETE BLOOD COUNT 1740091 Baso Auto 0.1 % 6 Unknown COMPLETE BLOOD COUNT 5346933 Neutrophil Abs 6.96 10e9/L Unknown COMPLETE BLOOD COUNT 6750531 Lymphocyte Abs 0.94 10e9/L Unknown COMPLETE BLOOD COUNT 8173299 Monocyte Abs 0.34 10e9/L 09/30 Unknown COMPLETE BLOOD COUNT 7174264 Eosinophil Abs 0.06 10e9/L Unknown COMPLETE BLOOD COUNT 1978763 RDW-SD 48.2 fL 6 Unknown COMPLETE BLOOD COUNT [id number] Basophil Abs 0.01 10e9/L 09/30 Unknown LIPASE 73509 Lipase Lvl 24 IU/L 10/26/2015 Unknown FREE T4 64332 T4 Free 1.15 ng/dL 10/26/2015 Unknown COMPREHENSIVE METABOLIC 10051 AST 12 U/L 2015 Unknown COMPREHENSIVE METABOLIC 28316 ALT 9 U/L 2015 Unknown COMPREHENSIVE METABOLIC 52638 BUN 92 mg/dL 2015 Unknown COMPREHENSIVE METABOLIC 76314 ALBUMIN 3.8 g/dL 2015 Unknown COMPREHENSIVE METABOLIC 59315 CHLORIDE 98 mmol/L 2015 Unknown COMPREHENSIVE METABOLIC 75272 Bili Total 0.4 mg/dL 10/25 Unknown COMPREHENSIVE METABOLIC 92982 ALK PHOS 53 U/L 2015 Unknown COMPREHENSIVE METABOLIC 75736 SODIUM 139 mmol/L 10/25 Unknown COMPREHENSIVE METABOLIC 81579 CREATININE 4.70 mg/dL 09/30 Unknown COMPREHENSIVE METABOLIC 41305 CALCIUM 9.1 mg/dL 2015 Unknown COMPREHENSIVE METABOLIC 90954 POTASSIUM 4.5 mmol/L 10/25 Unknown COMPREHENSIVE METABOLIC 37998 Total Protein 6.6 g/dL Unknown COMPREHENSIVE METABOLIC 32048 Glucose 128 mg/dL 2015 Unknown COMPREHENSIVE METABOLIC 40851 Bicarbonate 29 mmol/L 09/30 Unknown COMPREHENSIVE METABOLIC 79875 AGAP 12 mmol/L 2015 Unknown GFR CALC 1668721 GFR Non Afr Amr 12 mL/min 10/26/2015 Unk nown GFR CALC 3393816 GFR Afr Amr 14 mL/min 10/26/2015 Unknown GLYCOSYLATED HEMOGLOBIN TEST 11801 Hgb A1c 54391-5 5.0 % 0 10/26/2015 Unknown AMYLASE 59270 Amylase Lvl 45 IU/L 10/26/2015 Unknown THYROID STIMULATING HORMONE 69740 TSH 6.114 uIU/mL 10/26/2015 Unknown MEAN GLUC 9905412 Mean Glucose 97 mg/dL 10/26/2015 Unknow n VITAMIN B 12 FOLIC ACID 98562|07318 VIT B 12 961 PG/ML 11/2012 Unknown VITAMIN B 12 FOLIC ACID 38464|31992 FOLIC ACID >24.0 NG/ML 1 05/10/2012 Unknown COMPREHENSIVE METABOLIC 74148 AST 19 U/L 2012 Unknown COMPREHENSIVE METABOLIC 25673 ALT 19 IU/L 2012 Unknown COMPREHENSIVE METABOLIC 48653 BUN 21 MG/DL 2012 Unknown COMPREHENSIVE METABOLIC 30390 ALBUMIN 4.4 GM/DL 2012 Unknown COMPREHENSIVE METABOLIC 48880 CHLORIDE 102 MMOL/L 03/09 Unknown COMPREHENSIVE METABOLIC 68924 BILI TOT 0.4 MG/DL 2012 Unknown COMPREHENSIVE METABOLIC 51684 ALK PHOS 60 U/L 2012 Unknown COMPREHENSIVE METABOLIC 53616 SODIUM 137 MMOL/L 03/09 Unknown COMPREHENSIVE METABOLIC 23557 CREATININE 1.36 MG/DL 11/2012 Unknown COMPREHENSIVE METABOLIC 02010 CALCIUM 9.7 MG/DL 2012 Unknown COMPREHENSIVE METABOLIC 88501 POTASSIUM 4.3 MMOL/L 03/09 Unknown COMPREHENSIVE METABOLIC 88863 PROT TOT 6.8 GM/DL 2012 Unknown COMPREHENSIVE METABOLIC 66557 Glucose 143 MG/DL 2012 Unknown COMPREHENSIVE METABOLIC 87938 BICARB 27 MMOL/L 2012 Unknown COMPREHENSIVE METABOLIC 11929 ANION GAP 8 MEQ/L 2012 Unknown C-REACTIVE PROTEIN (CRP) QUANT 17212 CRP 0.8 MG/DL 03/09/2013 Unknown COMPLETE BLOOD COUNT 5077949 WBC 7.6 10e9/L 03/09/20 13 Unknown COMPLETE BLOOD COUNT 6554737 RBC 3.78 10e12/L 2012 Unknown COMPLETE BLOOD COUNT 0796115 HGB 11.3 g/dL 3 Unknown COMPLETE BLOOD COUNT 2907065 HCT DET 35.6 % 3 Unknown COMPLETE BLOOD COUNT 1834888 MCV 94.2 fL 3 Unknown COMPLETE BLOOD COUNT 1804523 MCH 29.9 pg 3 Unknown COMPLETE BLOOD COUNT 8251202 MCHC 31.7 g/dL 3 Unknown COMPLETE BLOOD COUNT 9942019 PLT 314 10e9/L 03/09/20 13 Unknown COMPLETE BLOOD COUNT 5470064 MPV 9.7 fL 3 Unknown COMPLETE BLOOD COUNT 0889797 [place] % 78.7 % 3 Unknown COMPLETE BLOOD COUNT 3424127 LY % 13.7 % 3 Unknown COMPLETE BLOOD COUNT 8722062 MON % 5.0 % 3 Unknown COMPLETE BLOOD COUNT 5447849 EOS % 2.1 % 3 Unknown COMPLETE BLOOD COUNT 7731222 BASO % 0.5 % 3 Unknown COMPLETE BLOOD COUNT 4838878 RDW 13.7 % 3 Unknown COMPLETE BLOOD COUNT 7874955 ABS [place] 5.98 10e9/L 013 Unknown COMPLETE BLOOD COUNT 9567662 ABS LYMPH 1.04 10e9/L 013 Unknown COMPLETE BLOOD COUNT 6125927 ABS MONO 0.38 10e9/L 013 Unknown COMPLETE BLOOD COUNT 4408699 ABS EOS 0.16 10e9/L 013 Unknown COMPLETE BLOOD COUNT 7547848 ABS BASO 0.04 10e9/L 013 Unknown COMPLETE BLOOD COUNT 2006903 RDW-SD 45.7 fL 3 Unknown FREE T4 91680 FREE T4 1.12 NG/DL 03/09/2013 Unknown GFR CALC 6663834 GFR AA >60 ML/MIN 03/09/2013 Unknown GFR CALC 7565935 GFR NON-AA 50.0L ML/MIN 03/09/2013 Unkno wn THYROID STIMULATING HORMONE 55381 TSH 6.689 uIU/ML 03/09/2013 Unknown IRON 47456 IRON TEST 58 UG/DL 03/09/2013 Unknown COMPLETE BLOOD COUNT 93820 WBC 6.0 10e9/L 11/30/19 10 Unknown COMPLETE BLOOD COUNT 91539 RBC 4.29 10e12/L 2009 Unknown COMPLETE BLOOD COUNT 34396 HGB 12.8 g/dL 0 Unknown COMPLETE BLOOD COUNT 87563 HCT DET 39.3 % 0 Unknown COMPLETE BLOOD COUNT 83549 MCV 91.6 fL 0 Unknown COMPLETE BLOOD COUNT 86349 MCH 29.8 pg 0 Unknown COMPLETE BLOOD COUNT 16315 MCHC 32.6 g/dL 0 Unknown COMPLETE BLOOD COUNT 56725 PLT 262 10e9/L 11/30/19 10 Unknown COMPLETE BLOOD COUNT 92280 MPV 9.8 fL 0 Unknown COMPLETE BLOOD COUNT 10557 [place] % 71.4 % 0 Unknown COMPLETE BLOOD COUNT 40508 LY % 20.0 % 0 Unknown COMPLETE BLOOD COUNT 24384 MON % 7.5 % 0 Unknown COMPLETE BLOOD COUNT 57793 EOS % 0.8 % 0 Unknown COMPLETE BLOOD COUNT 64203 BASO % 0.3 % 0 Unknown COMPLETE BLOOD COUNT 83926 RDW 13.5 % 0 Unknown COMPLETE BLOOD COUNT 72825 ABS [place] 4.28 10e9/L 010 Unknown COMPLETE BLOOD COUNT 01084 ABS LYMPH 1.20 10e9/L 010 Unknown COMPLETE BLOOD COUNT 54743 ABS MONO 0.45 10e9/L 010 Unknown COMPLETE BLOOD COUNT 77038 ABS EOS 0.05 10e9/L 010 Unknown COMPLETE BLOOD COUNT 91253 ABS BASO 0.02 10e9/L 010 Unknown COMPLETE BLOOD COUNT 76539 RDW-SD 44.4 fL 0 Unknown URIC ACID 60761 URIC ACID 9.5 MG/DL 11/29/2009 Unknown GFR CALC 3657915 GFR AA 55.0L ML/MIN 11/29/2009 Unknow n GFR CALC 5217696 GFR NON-AA 46.0L ML/MIN 11/29/2009 Unkno wn COMPREHENSIVE METABOLIC 93953 AST 14 U/L 2009 Unknown COMPREHENSIVE METABOLIC 92352 ALT 12 IU/L 2009 Unknown COMPREHENSIVE METABOLIC 34763 BUN 23 MG/DL 2009 Unknown COMPREHENSIVE METABOLIC 13290 ALBUMIN 4.5 GM/DL 2009 Unknown COMPREHENSIVE METABOLIC 97380 CHLORIDE 104 MMOL/L 11/29 Unknown COMPREHENSIVE METABOLIC 72771 BILI TOT 0.5 MG/DL 2009 Unknown COMPREHENSIVE METABOLIC 52217 ALK PHOS 58 U/L 2009 Unknown COMPREHENSIVE METABOLIC 79355 SODIUM 138 MMOL/L 11/29 Unknown COMPREHENSIVE METABOLIC 11369 CREATININE 1.49 MG/DL 11/01 Unknown COMPREHENSIVE METABOLIC 49170 CALCIUM 9.5 MG/DL 2009 Unknown COMPREHENSIVE METABOLIC 45461 POTASSIUM 4.2 MMOL/L 11/29 Unknown COMPREHENSIVE METABOLIC 94108 PROT TOT 6.9 GM/DL 2009 Unknown COMPREHENSIVE METABOLIC 87737 Glucose 159 MG/DL 2009 Unknown COMPREHENSIVE METABOLIC 81397 BICARB 24 MMOL/L 2009 Unknown COMPREHENSIVE METABOLIC 47491 ANION GAP 10 MEQ/L 2009 Unknown Procedures Procedure Codes Date PPPS, subseq visit CPT-4: G0439 06/29/2019 ROUTINE VENIPUNCTURE CPT-4: 46894 06/29/2019 ASSAY OF FREE THYROXINE CPT-4: 75175 06/29/2019 ASSAY THYROID STIM HORMONE CPT-4: 53754 06/29/2019 COMPREHEN METABOLIC PANEL CPT-4: 78560 06/29/2019 COMPLETE CBC W/AUTO DIFF WBC CPT-4: 98957 06/29/2019 ASSAY OF IRON CPT-4: 92033 06/29/2019 ASSAY OF FERRITIN CPT-4: 48252 06/29/2019 FLU VACC PRSV FREE INC ANTIG 65 AND OLDER CPT-4: 88206 12/25/2018 FLU VACC PRSV FREE INC ANTIG 65 AND OLDER CPT-4: 50402 12/25/2018 ADMIN INFLUENZA VIRUS VAC CPT-4: G0008 12/25/2018 ROUTINE VENIPUNCTURE CPT-4: 42733 12/22/2018 ASSAY OF FREE THYROXINE CPT-4: 87531 12/22/2018 ASSAY THYROID STIM HORMONE CPT-4: 55187 12/22/2018 COMPREHEN METABOLIC PANEL CPT-4: 96759 12/22/2018 COMPLETE CBC W/AUTO DIFF WBC CPT-4: 21188 12/22/2018 ASSAY OF IRON CPT-4: 92277 12/22/2018 ASSAY OF FERRITIN CPT-4: 86209 12/22/2018 VITAMIN B-12 CPT-4: 06696 12/22/2018 ROUTINE VENIPUNCTURE CPT-4: 17944 06/23/2018 COMPLETE CBC W/AUTO DIFF WBC CPT-4: 10420 06/23/2018 COMPREHEN METABOLIC PANEL CPT-4: 39089 06/23/2018 ASSAY OF IRON CPT-4: 26049 06/23/2018 ASSAY THYROID STIM HORMONE CPT-4: 31091 06/23/2018 ASSAY OF FERRITIN CPT-4: 42363 06/23/2018 VITAMIN B-12 CPT-4: 30697 06/23/2018 ROUTINE VENIPUNCTURE CPT-4: 59648 01/20/2018 COMPLETE CBC W/AUTO DIFF WBC CPT-4: 83629 01/20/2018 COMPREHEN METABOLIC PANEL CPT-4: 53276 01/20/2018 ASSAY OF FREE THYROXINE CPT-4: 75659 01/20/2018 ASSAY THYROID STIM HORMONE CPT-4: 58808 01/20/2018 ROUTINE VENIPUNCTURE CPT-4: 95911 10/03/2017 ASSAY THYROID STIM HORMONE CPT-4: 53291 10/03/2017 ASSAY OF FREE THYROXINE CPT-4: 35272 10/03/2017 COMPLETE CBC W/AUTO DIFF WBC CPT-4: 48969 10/03/2017 COMPREHEN METABOLIC PANEL CPT-4: 44831 10/03/2017 ROUTINE VENIPUNCTURE CPT-4: 85018 07/17/2017 ASSAY OF FREE THYROXINE CPT-4: 72451 07/17/2017 ASSAY THYROID STIM HORMONE CPT-4: 22582 07/17/2017 COMPREHEN METABOLIC PANEL CPT-4: 32380 07/17/2017 COMPLETE CBC W/AUTO DIFF WBC CPT-4: 00284 07/17/2017 LIPID PANEL CPT-4: 78526 07/17/2017 A1C HPLC CPT-4: 55287 07/17/2017 ROUTINE VENIPUNCTURE CPT-4: 04366 01/29/2017 ASSAY THYROID STIM HORMONE CPT-4: 31921 01/29/2017 COMPREHEN METABOLIC PANEL CPT-4: 14237 01/29/2017 COMPLETE CBC W/AUTO DIFF WBC CPT-4: 17338 01/29/2017 ASSAY OF IRON CPT-4: 65141 01/29/2017 VITAMIN B-12 CPT-4: 98083 01/29/2017 A1C HPLC CPT-4: 34217 01/29/2017 ASSAY OF FREE THYROXINE CPT-4: 02417 01/29/2017 ROUTINE VENIPUNCTURE CPT-4: 89457 07/16/2016 COMPREHEN METABOLIC PANEL CPT-4: 58305 07/16/2016 COMPLETE CBC W/AUTO DIFF WBC CPT-4: 29174 07/16/2016 ROUTINE VENIPUNCTURE CPT-4: 04666 03/09/2013 ASSAY OF FREE THYROXINE CPT-4: 23695 03/09/2013 ASSAY THYROID STIM HORMONE CPT-4: 67380 03/09/2013 COMPREHEN METABOLIC PANEL CPT-4: 55686 03/09/2013 COMPLETE CBC W/AUTO DIFF WBC CPT-4: 57850 03/09/2013 C-REACTIVE PROTEIN CPT-4: 62535 03/09/2013 VITAMIN B 12 FOLIC ACID CPT-4: 97562|93186 03/09/2013 ASSAY OF IRON CPT-4: 51785 03/09/2013 PRESCRIP TRANSMIT VIA ERX SY CPT-4: G8553 03/09/2013 ASSAY OF BLOOD/URIC ACID CPT-4: 56117 11/29/2009 COMPLETE CBC W/AUTO DIFF WBC CPT-4: 19028 11/29/2009 COMPREHEN METABOLIC PANEL CPT-4: 73914 11/29/2009 ROUTINE VENIPUNCTURE CPT-4: 61443 11/29/2009 PRESCRIP TRANSMIT VIA ERX SY CPT-4: G8553 11/29/2009 Vital Signs Date Vital 06/29/2019 Blood Pressure 1: 126/54 Code: 8480-6 BMI: 19.7 Code: 43616-8 Heart Rate 1: 72 bpm Height: 5'7" Respiratory Rate: 20 bpm SpO2: 99% Tempera ture: 36.8 (C) / 98.2 (F) Weight: 126 lbs 12/22/2018 Blood Pressure 1: 132/72 Code: 8480-6 Heart Rate 1: 80 bpm SpO2: 99% Temperature: 36.6 (C) / 97.9 (F) Weight: 133 lbs 07/30/2018 Blood Pressure 1: 128/52 Code: 8480-6 Heart Rate 1: 73 bpm Respiratory Rate: 18 bpm SpO2: 96% Temperature: 37.1 (C) / 98.8 (F) We ight: 135 lbs 06/23/2018 Blood Pressure 1: 132/60 Code: 8480-6 Heart Rate 1: 84 bpm Respiratory Rate: 20 bpm SpO2: 95% Temperature: 36.7 (C) / 98.1 (F) We ight: 140 lbs 01/20/2018 Blood Pressure 1: 136/62 Code: 8480-6 BMI: 20.5 Code: 87254-4 Heart Rate 1: 76 bpm Height: 5'8" Respiratory Rate: 20 bpm SpO2: 96% Tempera ture: 36.6 (C) / 97.8 (F) Weight: 135 lbs 10/10/2017 Blood Pressure 1: 126/56 Code: 8480-6 BMI: 21.3 Code: 46175-6 Heart Rate 1: 72 bpm Height: 5'8" Respiratory Rate: 20 bpm SpO2: 96% Tempera ture: 36.8 (C) / 98.2 (F) Weight: 140 lbs 07/17/2017 Blood Pressure 1: 124/56 Code: 8480-6 BMI: 21.0 Code: 69046-0 Heart Rate 1: 68 bpm Height: 5'8" Respiratory Rate: 20 bpm Temperature: 36 .6 (C) / 97.9 (F) Weight: 138 lbs 01/29/2017 Blood Pressure 1: 142/48 Code: 8480-6 BMI: 20.8 Code: 84765-3 Heart Rate 1: 86 bpm Height: 5'8" Respiratory Rate: 20 bpm SpO2: 98% Tempera ture: 36.3 (C) / 97.3 (F) Weight: 137 lbs 07/16/2016 Blood Pressure 1: 126/54 Code: 8480-6 BMI: 22.4 Code: 11912-5 Heart Rate 1: 84 bpm Height: 5'8" Respiratory Rate: 20 bpm SpO2: 96% Tempera ture: 37.0 (C) / 98.6 (F) Weight: 147 lbs 01/17/2016 Blood Pressure 1: 128/64 Code: 8480-6 BMI: 20.2 Code: 40765-0 Heart Rate 1: 84 bpm Height: 5'8" Respiratory Rate: 20 bpm Temperature: 36 .8 (C) / 98.2 (F) Weight: 133 lbs 12/13/2015 Blood Pressure 1: 114/48 Code: 8480-6 BMI: 19.2 Code: 32795-3 Heart Rate 1: 76 bpm Height: 5'8" Respiratory Rate: 20 bpm SpO2: 95% Tempera ture: 36.8 (C) / 98.2 (F) Weight: 126 lbs 11/08/2015 Blood Pressure 1: 116/48 Code: 8480-6 BMI: 22.4 Code: 56491-9 Heart Rate 1: 84 bpm Height: 5'8" Respiratory Rate: 20 bpm Temperature: 36 .7 (C) / 98.1 (F) Weight: 147 lbs 10/26/2015 Blood Pressure 1: 114/48 Code: 8480-6 BMI: 20.2 Code: 01427-9 Heart Rate 1: 100 bpm Height: 5'8" Respiratory Rate: 20 bpm Temperature: 36 .9 (C) / 98.4 (F) Weight: 133 lbs 03/09/2013 Blood Pressure 1: 154/78 Code: 8480-6 BMI: 25.5 Code: 13925-3 Heart Rate 1: 68 bpm Height: 5'8" Respiratory Rate: 20 bpm Temperature: 36 .9 (C) / 98.5 (F) Weight: 168 lbs 11/29/2009 Blood Pressure 1: 122/72 Code: 8480-6 BMI: 27.1 Code: 02482-5 Heart Rate 1: 76 bpm Height: 5'8" Temperature: 37.4 (C) / 99.3 (F) Weight: 178 lbs Functional Status No Functional Status data Reason For Visit Reason For Visit Effective Dates Notes well man exam (65+ years) 06/29/2019 Annual [facility] injection(s) 12/25/2018 flu shot follow up 12/22/2018 on the right side of her nose. follow up 07/30/2018 left knee - twisted in on Saturday follow up 06/23/2018 follow up 01/20/2018 follow up 10/10/2017 lab draw 10/03/2017 follow up 07/17/2017 follow up 01/29/2017 6 Month follow up 07/16/2016 6mo fwup follow up 01/17/2016 1mo fwup follow up 12/13/2015 follow up 11/08/2015 Hospital fwup weight loss 10/26/2015 diarrhea 03/09/2013 gout established 11/29/2009 Encounters Encounter Performer Location Codes Date ([id number]) NURSE/OUTPATIENT VISIT EST Diagnosis: FLU VACCINE[ICD10: Z23] Honey MÉNDEZ [employer] CPT-4: 94154 12/25/2018 ([id number]) OFFICE/OUTPATIENT VISIT EST Diagnosis: Essential (primary) hypertension[ICD10: I10] Diagnosis: Hypothyroidism, unspecified[ICD10: E03.9] Diagnosis: Anemia, unspecified[ICD10: D64.9] Diagnosis: Abnormal weight loss[ICD10: R63.4] Diagnosis: Disease of esophagus, 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] Honey [facility] [employer] CPT-4: 52909 12/22/2018 ([id number]) OFFICE/OUTPATIENT VISIT EST Diagnosis: Pain in left knee[ICD10: M25.562] Honey KABA DO [facility] CPT-4: 97854 07/30/2018 ([id number]) OFFICE/OUTPATIENT VISIT EST Diagnosis: Anemia, unspecified[ICD10: D64.9] Diagnosis: Hypothyroidism, unspecified[ICD10: E03.9] Diagnosis: Essential (primary) hypertension[ICD10: I10] Honey KABA DO [facility] CPT-4: 52431 06/23/2018 ([id number]) OFFICE/OUTPATIENT VISIT EST Diagnosis: Hypothyroidism, unspecified[ICD10: E03.9] Diagnosis: Anemia, unspecified[ICD10: D64.9] Diagnosis: Disease of esophagus, 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] Honey KABA DO [facility] CPT-4: 16235 01/20/2018 ([id number]) OFFICE/OUTPATIENT VISIT EST Diagnosis: Hypothyroidism, unspecified[ICD10: E03.9] Diagnosis: Anemia, unspecified[ICD10: D64.9] Diagnosis: Disease of esophagus, 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] Honey KABA [facility] CPT-4: 16452 10/10/2017 ([id number]) NURSE/OUTPATIENT VISIT EST Diagnosis: Hypothyroidism, unspecified[ICD10: E03.9] Diagnosis: Anemia, unspecified[ICD10: D64.9] Diagnosis: Localized edema[ICD10: R60.0] Honey KABA DO [facility] CPT-4: 59604 10/03/2017 ([id number]) OFFICE/OUTPATIENT VISIT EST Diagnosis: Hypothyroidism, unspecified[ICD10: E03.9] Diagnosis: Anemia, unspecified[ICD10: D64.9] Diagnosis: Duodenal ulcer, unspecified as acute or chronic, without hemorrhage or perforation[ICD10: K26.9] Diagnosis: Disease of esophagus, 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] Diagnosis: Hyperglycemia, unspecified[ICD10: R73.9] Honey KABA DO [facility] CPT-4: 18319 07/17/2017 ([id number]) OFFICE/OUTPATIENT VISIT EST Diagnosis: Abnormal weight loss[ICD10: R63.4] Diagnosis: Diarrhea, unspecified[ICD10: R19.7] Diagnosis: Anemia, unspecified[ICD10: D64.9] Diagnosis: Hyperglycemia, unspecified[ICD10: R73.9] Honey KABA DO [facility] CPT-4: 37833 01/29/2017 ([id number]) OFFICE/OUTPATIENT VISIT EST Diagnosis: Diarrhea, unspecified[ICD10: R19.7] Diagnosis: Localized edema[ICD10: R60.0] Diagnosis: Anemia, unspecified[ICD10: D64.9] Honey KABA [employer] [facility] CPT-4: 09430 07/16/2016 ([id number]) OFFICE/OUTPATIENT VISIT EST Diagnosis: Duodenal ulcer, unspecified as acute or chronic, without hemorrhage or perforation[ICD10: K26.9] Diagnosis: Disease of esophagus, 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] Diagnosis: Abnormal weight loss[ICD10: R63.4] Diagnosis: Diarrhea, unspecified[ICD10: R19.7] Honey KABA [employer] [facility] CPT-4: 22574 01/17/2016 OFFICE/OUTPATIENT VISIT EST Diagnosis: Duodenal ulcer, unspecified as acute or chronic, without hemorrhage or perforation[ICD10: K26.9] Diagnosis: Abnormal weight loss[ICD10: R63.4] Diagnosis: Diarrhea, unspecified[ICD10: R19.7] Diagnosis: Disease of esophagus, 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] Honey KABA [employer] [facility] CPT-4: 20060 12/13/2015 ([id number]) OFFICE/OUTPATIENT VISIT EST Diagnosis: Duodenal ulcer, unspecified as acute or chronic, without hemorrhage or perforation[ICD10: K26.9] Diagnosis: Disease of esophagus, 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 CPT-4: 59860 03/09/2013 ([id number]) OFFICE/OUTPATIENT VISIT, EST Honey GLEZ Leta KABA [employer] CPT-4: 63209 11/29/2009 Plan of Care Planned Activity Notes Codes Status Date Visit Diagnosis Plan: Abnormal weight loss Discussion: Patient has refused further workup and testing as he has had numerous siblings as well as his with cancer and watched them go through suffering from treatment so would not want any cancer treatment ICD-9 : 783.21 ICD-10 : R63.4 06/29/2019 Visit Diagnosis Plan: Anemia, unspecified Discussion: Check CBC, iron, ferritin ICD-9 : 285.9 ICD-10 : D64.9 06/29/2019 Visit Diagnosis Plan: Encounter for [facility] adult medical examination with abnormal findings Discussion: Mediterranean diet Combinati on of cardio and weight bearing exercise Fasting lab drawn COVID-19 precautions discussed Patient looking at downsizing and moving possibly this summer Fwup 6mos ICD-9 : V70.0 ICD-10 : Z00.01 06/29/2019 Visit Diagnosis Plan: Hypothyroidism, unspecified Disc ussion: Check TSH, Free T4 ICD-9 : 244.9 ICD-10 : E03.9 06/29/2019 Appointment: Honey [facility] [phone] [facility] [address] [facility] [id number] [facility] 12/25/2018 Visit Diagnosis Plan: Disease of esophagus, unspecifie d Discussion: Stable ICD-9 : 530.9 ICD-10 : K22.9 12/22/2018 Visit Diagnosis Plan: Anemia, unspecified Discussion: Check CBC, iron, ferritin, ICD-9 : 285.9 ICD-10 : D64.9 12/22/2018 Visit Diagnosis Plan: Hypothyroidism, unspecified Disc ussion: Update TSH, Free T4 Follow Up: 6 months ICD-9 : 244.9 ICD-10 : E03.9 12/22/2018 Visit Diagnosis Plan: Abnormal weight loss Discussion: Stable Has deferred further workup ICD-9 : 783.21 ICD-10 : R63.4 12/22/2018 Visit Diagnosis Plan: Essential (primary) hypertension Discussion: Stable ICD-9 : 401.9 ICD-10 : I10 12/22/2018 Appointment: Honey Kaba WPtel: [address] [place] [address] US FOLLOW UP 12/22/2018 Appointment: Honey Kaba WPtel: [address] [place] [address] US CANCELED 12/16/2018 Visit Diagnosis Plan: Pain in left knee Discussion: RI CE Topical icy hot Notify if worsens ICD-9 : 719.46 ICD-10 : M25.562 07/30/2018 Appointment: Honey Kaba WPtel: [address] [place] [address] [place] FOLLOW UP 07/30/2018 Visit Diagnosis Plan: Essential (primary) hypertension Discussion: Stable ICD-9 : 401.9 ICD-10 : I10 06/23/2018 Visit Diagnosis Plan: Hypothyroidism, unspecified Disc ussion: Check TSH, Free T4 Follow Up: 6 months ICD-9 : 244.9 ICD-10 : E03.9 06/23/2018 Visit Diagnosis Plan: Anemia, unspecified Discussion: Check CBC, iron ICD-9 : 285.9 ICD-10 : D64.9 06/23/2018 Appointment: Honey Kabatel: [address] [place] [address] [place] FOLLOW UP 06/23/2018 Visit Diagnosis Plan: Disease of esophagus, unspecifie d Discussion: GI symptoms and weight stable Fwup in May ICD-9 : 530.9 ICD-10 : K22.9 01/20/2018 Visit Diagnosis Plan: Anemia, unspecified Discussion: Check CBC, iron ICD-9 : 285.9 ICD-10 : D64.9 01/20/2018 Visit Diagnosis Plan: Hypothyroidism, unspecified Disc ussion: Check TSH, free T4 Had flu shot Recommend Shingrix ICD-9 : 244.9 ICD-10 : E03.9 01/20/2018 Appointment: Honey Kaba WPtel: [address] [place], [place] [phone] FOLLOW UP 01/20/2018 Patient Education: Patient Medication Summary Completed 01/20/2018 Appointment: Honey Kaba WPtel: [address] [place], [place] [phone] [place] CANCELED 01/13/2018 Visit Diagnosis Plan: Anemia, unspecified Discussion: H/H stable Follow Up: 3 months ICD-9 : 285.9 ICD-10 : D64.9 10/10/2017 Visit Diagnosis Plan: Disease of esophagus, unspecifie d Discussion: Stable Patient has refused any further workup on esophageal mass and has been stable Daughter at visit today and did discuss this with both her and the patient ICD-9 : 530.9 ICD-10 : K22.9 10/10/2017 Visit Diagnosis Plan: Hypothyroidism, unspecified Disc ussion: Increase levothyroxine to 50mcg po daily Check TSH and free T4 in 3mos ICD-9 : 244.9 ICD-10 : E03.9 10/10/2017 Appointment: Honey Kaba WPtel: [address] [place], [place] [phone] FOLLOW UP 10/10/2017 Patient Education: Patient Medication Summary Completed 10/10/2017 Appointment: Honey Kaba WPtel: [address] [place], [place] [phone] US LAB 10/03/2017 Patient Education: Patient Medication Summary Completed 10/03/2017 Visit Diagnosis Plan: Anemia, unspecified Discussion: Check CBC ICD-9 : 285.9 ICD-10 : D64.9 07/17/2017 Visit Diagnosis Plan: Disease of esophagus, unspecifie d Discussion: Stable Has chose to not pursue further workup at this time ICD-9 : 530.9 ICD-10 : K22.9 07/17/2017 Visit Diagnosis Plan: Hyperglycemia, unspecified Follo w Up: 6 months ICD-9 : 790.29 ICD-10 : R73.9 07/17/2017 Visit Diagnosis Plan: Duodenal ulcer, un specified as acute or chronic, without hemorrhage or perforation Discussion: Stable with current meds ICD-9 : 532.90 ICD-10 : K26.9 07/17/2017 Visit Diagnosis Plan: Hypothyroidism, unspecified Disc ussion: Check TSH, Free T4 ICD-9 : 244.9 ICD-10 : E03.9 07/17/2017 Appointment: Honey Kaba WPtel: [address] [place], [place] [id number] [place] FOLLOW UP 07/17/2017 Patient Education: Patient Medication Summary Completed 07/17/2017 Patient Education: Patient Medication Summary Completed 02/01/2017 Care Plan: US EXAM OF HEAD AND NECK IN C : 37352-0 Pending 02/01/2017 Visit Diagnosis Plan: Anemia, unspecified Discussion: Check CBC, B12, iron Had flu shot Follow Up: 6 months ICD-9 : 285.9 ICD-10 : D64.9 01/29/2017 Visit Diagnosis Plan: Diarrhea, unspecified Discussion : Ongoing Patient continues to refuse going back in to look at esophageal mass or updating scopes ICD-9 : 787.91 ICD-10 : R19.7 01/29/2017 Visit Diagnosis Plan: Abnormal weight loss Discussion: Down from last visit but states appetite is good and did have lasix dose increased by cardiology a month ago so has lost some weight from getting rid of excess fluid ICD-9 : 783.21 ICD-10 : R63.4 01/29/2017 Appointment: Honey Kaba WPtel: [address] [place], [place] [id number] [place] CHECK UP 01/29/2017 Patient Education: Patient Medication Summary Completed 01/29/2017 App[facility]ment: Honey [facility]aba [facility]el[id number] 01/16/17 1455---refilled carvedilol for patient to (km) CANCELED 01/16/2017 Visit Plan: Patient has deferred any fur ther fwup on esophageal lesion/further scopes 07/16/2016 Visit Diagnosis Plan: Diarrhea, unspecified Discussion : Restart colestid ICD-9 : 787.91 ICD-10 : R19.7 07/16/2016 Visit NOS Plan: Follow Up: As needed Plan Notes: Patient has deferred any furth... 07/16/2016 Visit Diagnosis Plan: Localized edema Discussion: Can try the lasix at every other day--alternate 20mg with 40mg and take potassium daily Check CMP Follow Up: 3 months ICD-9 : 782.3 ICD-10 : R60.0 07/16/2016 Visit Diagnosis Plan: Anemia, unspecified Discussion: Check CBC ICD-9 : 285.9 ICD-10 : D64.9 07/16/2016 Appointment: Honey Kaba WPtel: [address] [place], [place] [phone] 07/12 confirmed ~sl FOLLOW UP 07/16/2016 Patient Education: Patient Medication Summary Completed 07/16/2016 Visit Plan: Continue current meds Patien t wants to hold on any further workup on esophageal mass--wants quality of life at this time rather then any workup or treatment for cancer 01/17/2016 Appointment: Honey Kaba WPtel: [address] [place], [place] [phone] 01/15 lm~sl...confirmed~lb FOLLOW UP 12/30 Patient Education: Patient Medication Summary Completed 01/17/2016 Visit Plan: Continue pantoprazole at 40m g daily Decrease sucralfate to BID Decrease Coreg to 12.5mg po BID Add colestid 1 gram daily Patient still does not want to do further evaluation on esophagus mass Diet as tolerated 12/13/2015 Appointment: Honey Kaba WPtel: [id number] 12/11 confirmed~sl FOLLOW UP 12/13/2015 Patient Education: Patient Medication Summary Completed 12/13/2015 Visit Plan: Continue off NSAIDs Continue protonix Check CBC and Chem 7 Pathology results from EGD discussed Patient not sure if he wants to repeat EGD for another biopsy of esophageal mass--sees Dr. Wang tomorrow Recheck 1month 11/08/2015 Appointment: Honey Kaba WPtel: [address] [place] [address] 11/06 confirmed~sl WORK IN 11/08/2015 Patient Education: Patient Medication Summary Completed 11/08/2015 Visit Plan: Check CBC, CMP, TSH, Free T4 , HbA1C, Amylase, Lipase Check CT scan of abdomen/pelvis Will need EGD and colonoscopy pending results of above Could also be gallbladder related but big concern for cancer Protonix daily and zofran prn 10/26/2015 Appointment: Honey Kaba WPtel: [address] [place] [address] 10/24 confirmed~sl ACUTE ILLNESS 10/26/2015 Patient Education: Patient Medication Summary Completed 10/26/2015 Care Plan: CT PELVIS W/O DYE LOINC : 361 08-9 Pending 10/26/2015 Care Plan: CT ABDOMEN W/O DYE LOINC : 36 103-0 Pending 10/26/2015 Appointment: Mara Stewart [address] [place] [address] RESCHEDULED 10/11/2015 Appointment: Honey Kaba WPtel: [address] [place] [address] ACUTE ILLNESS 12/09/2013 Appointment: Honey Kaba WPtel: [address] [place] [address] ACUTE ILLNESS 03/09/2013 Patient Education: Patient Medication Summary Completed 03/09/2013 Appointment: Amelie Carcamo WPtel: [address] [place] [address] ACUTE ILLNESS 11/29/2009 Patient Education: Patient Medication Summary Completed 11/29/2009 Instructions Comment . Patient has deferred any further fwup on esophageal lesion/further scopes . Continue current meds Patient wants to hold on any further workup on esophageal mass--wants quality of life at this time rather then any workup or treatment for cancer . Continue pantoprazole at 40mg daily Decrease sucralfate to BID Decrease Coreg to 12.5mg po BID Add colestid 1 gram daily Patient still does not want to do further evaluation on esophagus mass Diet as tolerated . Continue off NSAIDs Continue protonix Check CBC and Chem 7 Pathology results from EGD discussed Patient not sure if he wants to repeat EGD for another biopsy of esophageal mass--sees Dr. Wang tomorrow Recheck 1month . Check CBC, CMP, TSH, Free T4, HbA1C, A mylase, Lipase Check CT scan of abdomen/pelvis Will need EGD and colonoscopy pending results of above Could also be gallbladder related but big concern for cancer Protonix daily and zofran prn Medical Equipment No Medical Equipment data Health Concerns Section Health Concerns data not found Goals Section Goals data not found Interventions Section Interventions data not found Health Status Evaluations/Outcomes Section Health Status Evaluations/Outcomes data not found Advance Directives No Advance Directive data
--- NOTE | 2019-08-15 18:35 | NUR ---
7.5 RHINO ROCKET INSERTED IN R NOSTRIL BY Adina SAINI
--- OUTSIDE RECORDS SUMMARY | 2019-08-15 18:35 | XMS REPORT | CCD ---
Author Author Arnoldo Kaba D.O. Organization [facility] Address [address] [place] [address] Phone Care Team Providers Care Linux Security Administrator Name Role Phone PP Unavailable CCM Unavailable Summary Purpose Interface Exchange Insurance Providers Payer name Policy type / Coverage type Covered republican ID Effective Begin Date Effective End Date WPS MEDICARE PART B [place] Medicare Part B [id number] 2019 Unknown Medicare Part B [id number] 2019 Unknown Family History Family History data [...] Fill Instructions levothyroxine 50 mcg tablet RxNorm: 863883 TAKE 1 TABLET DAILY 08/31 No Stop Date Active Synthroid 25 mcg tablet RxNorm: 036773 1 Tablet(s) PO QD 07/23/2017 0 09/20/2017 Inactive carvedilol 12.5 mg tablet RxNorm: 192616 1 Tablet(s) PO BID 018 07/16/2017 Inactive pantoprazole 40 mg tablet,delayed release RxNorm: 702286 1 Tablet(s) PO QD for stomach 04/18/2017 10/09/2017 Inactive pantoprazole 40 mg tablet,delayed release RxNorm: 121718 1 Tablet(s) PO QD for stomach 01/17/2017 04/18/2017 Inactive Colestid 1 gram tablet RxNorm: 5705016 1 Tablet(s) PO QD 01/17/2017 0 07/16/2017 Inactive carvedilol 12.5 mg tablet RxNorm: 966146 1 Tablet(s) PO BID 017 04/18/2017 Inactive carvedilol 12.5 mg tablet RxNorm: 740775 1 Tablet(s) PO BID 017 01/15/2017 Inactive pantoprazole 40 mg tablet,delayed release RxNorm: 326963 1 Tablet(s) PO QD for stomach 10/25/2016 01/16/2017 Inactive pantoprazole 40 mg tablet,delayed release RxNorm: 860448 1 Tablet(s) PO QD for stomach 07/24/2016 10/21/2016 Inactive Colestid 1 gram tablet RxNorm: 6945368 1 Tablet(s) PO QD 07/16/2016 1 Inactive pantoprazole 40 mg tablet,delayed release RxNorm: 653764 1 Tablet(s) PO QD for stomach 04/25/2016 07/23/2016 Inactive pantoprazole 40 mg tablet,delayed release RxNorm: 234059 1 Tablet(s) PO QD for stomach 02/27/2016 04/24/2016 Inactive Colestid 1 gram tablet RxNorm: 9142110 1 Tablet(s) PO QD 01/18/2016 0 07/15/2016 Inactive sucralfate 1 gram tablet RxNorm: 844914 1 Tablet(s) PO BID 01/17/20 16 07/15/2016 Inactive ondansetron HCl 4 mg tablet RxNorm: 100288 1 Tablet(s) PO Q4H as needed for nausea 01/17/2016 10/09/2017 Inactive pantoprazole 40 mg tablet,delayed release RxNorm: 595116 1 Tablet(s) PO QD for stomach 12/26/2015 02/23/2016 Inactive ondansetron HCl 4 mg tablet RxNorm: 717255 1 Tablet(s) PO Q4H as needed for nausea 12/13/2015 01/16/2016 Inactive colestipol 1 gram tablet RxNorm: 7516659 1 Tablet(s) PO QD 12/13/19 16 01/11/2016 Inactive sucralfate 1 gram tablet RxNorm: 099076 1 Tablet(s) PO QID (before meals and at bedtime) 11/09/2015 06/22/2018 Inactive pantoprazole 40 mg tablet,delayed release RxNorm: 853654 1 Tablet(s) PO QD for stomach 10/26/2015 12/24/2015 Inactive Zofran 4 mg tablet RxNorm: 591552 1 Tablet(s) PO Q4H as needed for nausea 10/26/2015 12/12/2015 Inactive Flagyl 500 mg tablet RxNorm: 326154 1 Tablet(s) PO TID 03/09/2013 Inactive Colchicine 0.6 mg Tab RxNorm: 765768 1 Tablet(s) PO TID take one tablet three times daily 11/29/2009 12/08/2009 Inactive minoxidil 2.5 mg tablet RxNorm: 945479 1 Tablet(s) PO QHS No Start Da te Active minoxidil 10 mg tablet RxNorm: 744061 1 Tablet(s) PO QAM No Start Date Active Aspirin 81 mg Tab RxNorm: 751801 1 Tablet(s) PO QD No Start Date Active Centrum Silver tablet RxNorm: 1 Tablet(s) PO QD No Start Date Active Lasix 40 mg tablet RxNorm: 121632 1 Tablet(s) PO QD No Start Date Active Klor-Con M20 mEq tablet,extended release RxNorm: 5529015 1 Table t(s) PO QD No Start Date Active levothyroxine 50 mcg tablet RxNorm: 223859 1 Tablet(s) PO QD No Sta rt Date 09/21/2018 Inactive Lisinopril 40 mg Tab RxNorm: 724650 1 Tablet(s) PO QD No Start Date 0 11/08/2015 Inactive Colestid 1 gram tablet RxNorm: 8531446 1 Tablet(s) PO QD No Start D ate 01/17/2016 Inactive carvedilol 25 mg tablet RxNorm: 598629 1/2 Tablet(s) PO BID No Star t Date 01/15/2017 Inactive Centrum Silver Oral RxNorm: Oral No Start Date 11/08/2015 Inact kris furosemide 20 mg tablet RxNorm: 404375 1 Tablet(s) PO QAM No Start Date 01/28/2017 Inactive Carvedilol 25 mg Tab RxNorm: 155225 1 Tablet(s) PO BID No Start Date 01/15/2017 Inactive Minoxidil 2.5 mg Tab RxNorm: 580801 1 Tablet(s) PO BID No Start Date 11/08/2015 Inactive sucralfate 1 gram tablet RxNorm: 677579 1 Tablet(s) PO BID as n eeded No Start Date 10/09/2017 Inactive ondansetron HCl 4 mg tablet RxNorm: 242344 1 Tablet(s) PO Q4H as needed for nausea No Start Date 12/12/2015 Inactive Hydrochlorothiazide 12.5 mg Tab RxNorm: 120763 1 Tablet(s) PO QAM N o Start Date 11/08/2015 Inactive sucralfate 1 gram tablet RxNorm: 527473 1 Tablet(s) PO BID No Start Date 01/16/2016 Inactive Flintstones Complete (iron) 18 mg iron chewable tablet RxNor m: 2 Tablet(s) PO BID No Start Date 07/16/2017 Inactive Medication Administered No Medication Administered data Immunizations Vaccine Codes Date Status Influenza CVX: 135 12/25/2018 Complete Influenza CVX: 135 12/25/2018 Complete Results Observation Observation Code Item Item Code Result Date S ervice Location IRON 84309 Iron 53 ug/dL 12/22/2018 Unknown FREE T4 03929 T4 Free 1.05 ng/dL 12/22/2018 Unknown FERRITIN 13445 FERRITIN 126.5 ng/mL 12/22/2018 Unknown COMPLETE BLOOD COUNT 6294887 WBC 7.7 10e9/L 12/23/19 19 Unknown COMPLETE BLOOD COUNT [id number] RBC 3.60 10e12/L 2018 Unknown COMPLETE BLOOD COUNT 0946960 HEMOGLOBIN 10.9 g/dL 12/23/19 19 Unknown COMPLETE BLOOD COUNT 3858469 HEMATOCRIT 34.4 % 12/23/19 19 Unknown COMPLETE BLOOD COUNT 2819538 MCV 95.6 fL 9 Unknown COMPLETE BLOOD COUNT 3282982 MCH 30.3 pg 9 Unknown COMPLETE BLOOD COUNT 3202237 MCHC 31.7 g/dL 9 Unknown COMPLETE BLOOD COUNT [id number] PLATELET COUNT 364 10e9/L Unknown COMPLETE BLOOD COUNT 7910827 Mean Plt Volume 9.8 fL Unknown COMPLETE BLOOD COUNT 3474923 Neut Auto 81.4 % 9 Unknown COMPLETE BLOOD COUNT 6626376 Lymph Auto 12.4 % 12/23/19 19 Unknown COMPLETE BLOOD COUNT 8364830 [place] Auto 4.5 % 9 Unknown COMPLETE BLOOD COUNT 1293276 RDW 14.2 % 9 Unknown COMPLETE BLOOD COUNT 7190099 Eos Auto 1.3 % 9 Unknown COMPLETE BLOOD COUNT 2350381 Baso Auto 0.4 % 9 Unknown COMPLETE BLOOD COUNT 3718030 Neutrophil Abs 6.27 10e9/L Unknown COMPLETE BLOOD COUNT 4756611 Lymphocyte Abs 0.95 10e9/L Unknown COMPLETE BLOOD COUNT 9763262 Monocyte Abs 0.35 10e9/L 12/01 Unknown COMPLETE BLOOD COUNT 3125269 Eosinophil Abs 0.10 10e9/L Unknown COMPLETE BLOOD COUNT 5238469 RDW-SD 47.2 fL 9 Unknown COMPLETE BLOOD COUNT 5883584 Basophil Abs 0.03 10e9/L 12/01 Unknown COMPREHENSIVE METABOLIC 79668 AST 19 U/L 2018 Unknown COMPREHENSIVE METABOLIC 31941 ALT 13 U/L 2018 Unknown COMPREHENSIVE METABOLIC 72067 BUN 41 mg/dL 2018 Unknown COMPREHENSIVE METABOLIC 98429 ALBUMIN 4.3 g/dL 2018 Unknown COMPREHENSIVE METABOLIC 40169 CHLORIDE 103 mmol/L 12/22 Unknown COMPREHENSIVE METABOLIC 95568 Bili Total 0.3 mg/dL 12/22 Unknown COMPREHENSIVE METABOLIC 00586 ALK PHOS 86 U/L 2018 Unknown COMPREHENSIVE METABOLIC 17348 SODIUM 138 mmol/L 12/22 Unknown COMPREHENSIVE METABOLIC 04702 CREATININE 1.69 mg/dL 12/01 Unknown COMPREHENSIVE METABOLIC 01791 CALCIUM 9.2 mg/dL 2018 Unknown COMPREHENSIVE METABOLIC 90272 POTASSIUM 4.3 mmol/L 12/22 Unknown COMPREHENSIVE METABOLIC 81081 Total Protein 6.9 g/dL Unknown COMPREHENSIVE METABOLIC 20800 Glucose 105 mg/dL 2018 Unknown COMPREHENSIVE METABOLIC 03422 Bicarbonate 21 mmol/L 12/01 Unknown COMPREHENSIVE METABOLIC 97585 AGAP 14 mmol/L 2018 Unknown THYROID STIMULATING HORMONE 51229 TSH 6.015 uIU/mL 12/22/2018 Unknown VITAMIN B 12 18883 VITAMIN B12 615 pg/mL 12/22/2018 Unkn own GFR CALC 0786460 GFR Non Afr Amr 38 mL/min 12/22/2018 Unk nown GFR CALC 7017863 GFR Afr Amr 47 mL/min 12/22/2018 Unknown FERRITIN 13354 FERRITIN 113.7 ng/mL 06/24/2018 Unknown VITAMIN B 12 87567 VITAMIN B12 651 pg/mL 06/24/2018 Unkn own COMPLETE BLOOD COUNT 1366949 WBC 6.3 10e9/L 06/24/19 19 Unknown COMPLETE BLOOD COUNT 6582704 RBC 3.33 10e12/L 2018 Unknown COMPLETE BLOOD COUNT 0996038 HEMOGLOBIN 9.8 g/dL 06/24/19 19 Unknown COMPLETE BLOOD COUNT 7783275 HEMATOCRIT 31.6 % 06/24/19 19 Unknown COMPLETE BLOOD COUNT 9748046 MCV 94.9 fL 9 Unknown COMPLETE BLOOD COUNT 4230632 MCH 29.4 pg 9 Unknown COMPLETE BLOOD COUNT 6369566 MCHC 31.0 g/dL 9 Unknown COMPLETE BLOOD COUNT 5953265 PLATELET COUNT 319 10e9/L Unknown COMPLETE BLOOD COUNT 8461959 Mean Plt Volume 9.4 fL Unknown COMPLETE BLOOD COUNT 4022802 Neut Auto 78.0 % 9 Unknown COMPLETE BLOOD COUNT 7275490 Lymph Auto 14.4 % 06/24/19 19 Unknown COMPLETE BLOOD COUNT 0041767 [place] Auto 5.2 % 9 Unknown COMPLETE BLOOD COUNT 7757567 RDW 14.2 % 9 Unknown COMPLETE BLOOD COUNT 5976033 Eos Auto 2.1 % 9 Unknown COMPLETE BLOOD COUNT 8700191 Baso Auto 0.3 % 9 Unknown COMPLETE BLOOD COUNT 3577067 Neutrophil Abs 4.91 10e9/L Unknown COMPLETE BLOOD COUNT 8688139 Lymphocyte Abs 0.91 10e9/L Unknown COMPLETE BLOOD COUNT 9998271 Monocyte Abs 0.33 10e9/L 05/31 Unknown COMPLETE BLOOD COUNT 8810191 Eosinophil Abs 0.13 10e9/L Unknown COMPLETE BLOOD COUNT 0017025 RDW-SD 47.0 fL 9 Unknown COMPLETE BLOOD COUNT 2133827 Basophil Abs 0.02 10e9/L 05/31 Unknown THYROID STIMULATING HORMONE 29952 TSH 4.709 uIU/mL 06/23/2018 Unknown IRON 49832 Iron 52 ug/dL 06/23/2018 Unknown COMPREHENSIVE METABOLIC 63828 AST 16 U/L 2018 Unknown COMPREHENSIVE METABOLIC 65102 ALT 10 U/L 2018 Unknown COMPREHENSIVE METABOLIC 78068 BUN 27 mg/dL 2018 Unknown COMPREHENSIVE METABOLIC 31559 ALBUMIN 4.3 g/dL 2018 Unknown COMPREHENSIVE METABOLIC 32284 CHLORIDE 110 mmol/L 06/23 Unknown COMPREHENSIVE METABOLIC 68878 Bili Total 0.4 mg/dL 06/23 Unknown COMPREHENSIVE METABOLIC 01625 ALK PHOS 68 U/L 2018 Unknown COMPREHENSIVE METABOLIC 46303 SODIUM 140 mmol/L 06/23 Unknown COMPREHENSIVE METABOLIC 32659 CREATININE 1.60 mg/dL 05/31 Unknown COMPREHENSIVE METABOLIC 01589 CALCIUM 9.2 mg/dL 2018 Unknown COMPREHENSIVE METABOLIC 91471 POTASSIUM 4.6 mmol/L 06/23 Unknown COMPREHENSIVE METABOLIC 44540 Total Protein 6.8 g/dL Unknown COMPREHENSIVE METABOLIC 31099 Glucose 110 mg/dL 2018 Unknown COMPREHENSIVE METABOLIC 85361 Bicarbonate 19 mmol/L 05/31 Unknown COMPREHENSIVE METABOLIC 09020 AGAP 11 mmol/L 2018 Unknown GFR CALC 9823591 GFR Non Afr Amr 41 mL/min 06/23/2018 Unk nown GFR CALC 6530387 GFR Afr Amr 50 mL/min 06/23/2018 Unknown COMPLETE BLOOD COUNT 9449348 WBC 6.6 10e9/L 01/21/20 18 Unknown COMPLETE BLOOD COUNT 8898691 RBC 3.64 10e12/L 2017 Unknown COMPLETE BLOOD COUNT 0285701 HEMOGLOBIN 11.0 g/dL 01/21/20 18 Unknown COMPLETE BLOOD COUNT 0330431 HEMATOCRIT 34.6 % 01/21/20 18 Unknown COMPLETE BLOOD COUNT 3961365 MCV 95.1 fL 8 Unknown COMPLETE BLOOD COUNT 2183488 MCH 30.2 pg 8 Unknown COMPLETE BLOOD COUNT 5434169 MCHC 31.8 g/dL 8 Unknown COMPLETE BLOOD COUNT 7142984 PLATELET COUNT 386 10e9/L Unknown COMPLETE BLOOD COUNT 7679657 Mean Plt Volume 9.6 fL Unknown COMPLETE BLOOD COUNT 3714691 Neut Auto 76.6 % 8 Unknown COMPLETE BLOOD COUNT 9043605 Lymph Auto 15.6 % 01/21/20 18 Unknown COMPLETE BLOOD COUNT 4022033 [place] Auto 5.3 % 8 Unknown COMPLETE BLOOD COUNT 8623437 RDW 13.8 % 8 Unknown COMPLETE BLOOD COUNT 6452684 Eos Auto 2.0 % 8 Unknown COMPLETE BLOOD COUNT 2765888 Baso Auto 0.5 % 8 Unknown COMPLETE BLOOD COUNT 1642699 Neutrophil Abs 5.06 10e9/L Unknown COMPLETE BLOOD COUNT 6185784 Lymphocyte Abs 1.03 10e9/L Unknown COMPLETE BLOOD COUNT 8677516 Monocyte Abs 0.35 10e9/L 12/31 Unknown COMPLETE BLOOD COUNT 7559509 Eosinophil Abs 0.13 10e9/L Unknown COMPLETE BLOOD COUNT 3543151 RDW-SD 45.5 fL 8 Unknown COMPLETE BLOOD COUNT 0097264 Basophil Abs 0.03 10e9/L 12/31 Unknown COMPREHENSIVE METABOLIC 33058 AST 17 U/L 2017 Unknown COMPREHENSIVE METABOLIC 23466 ALT 14 U/L 2017 Unknown COMPREHENSIVE METABOLIC 08379 BUN 55 mg/dL 2017 Unknown COMPREHENSIVE METABOLIC 26435 ALBUMIN 4.2 g/dL 2017 Unknown COMPREHENSIVE METABOLIC 86623 CHLORIDE 106 mmol/L 01/20 Unknown COMPREHENSIVE METABOLIC 00639 Bili Total 0.4 mg/dL 01/20 Unknown COMPREHENSIVE METABOLIC 21931 ALK PHOS 75 U/L 2017 Unknown COMPREHENSIVE METABOLIC 25679 SODIUM 137 mmol/L 01/20 Unknown COMPREHENSIVE METABOLIC 88673 CREATININE 1.99 mg/dL 12/31 Unknown COMPREHENSIVE METABOLIC 20486 CALCIUM 9.5 mg/dL 2017 Unknown COMPREHENSIVE METABOLIC 85837 POTASSIUM 4.6 mmol/L 01/20 Unknown COMPREHENSIVE METABOLIC 03866 Total Protein 7.9 g/dL Unknown COMPREHENSIVE METABOLIC 14062 Glucose 105 mg/dL 2017 Unknown COMPREHENSIVE METABOLIC 13989 Bicarbonate 22 mmol/L 12/31 Unknown COMPREHENSIVE METABOLIC 48957 AGAP 9 mmol/L 2017 Unknown THYROID STIMULATING HORMONE 23887 TSH 6.119 uIU/mL 01/20/2018 Unknown GFR CALC 4797190 GFR Non Afr Amr 32 mL/min 01/20/2018 Unk nown GFR CALC 3010899 GFR Afr Amr 39 mL/min 01/20/2018 Unknown FREE T4 43969 T4 Free 1.11 ng/dL 01/20/2018 Unknown GFR CALC 5406984 GFR Non Afr Amr 38 mL/min 10/03/2017 Unk nown GFR CALC 0359564 GFR Afr Amr 46 mL/min 10/03/2017 Unknown COMPREHENSIVE METABOLIC 02545 AST 15 U/L 2017 Unknown COMPREHENSIVE METABOLIC 28723 ALT 10 U/L 2017 Unknown COMPREHENSIVE METABOLIC 69182 BUN 41 mg/dL 2017 Unknown COMPREHENSIVE METABOLIC 77090 ALBUMIN 4.0 g/dL 2017 Unknown COMPREHENSIVE METABOLIC 36506 CHLORIDE 105 mmol/L 10/03 Unknown COMPREHENSIVE METABOLIC 82868 Bili Total 0.4 mg/dL 10/03 Unknown COMPREHENSIVE METABOLIC 50975 ALK PHOS 71 U/L 2017 Unknown COMPREHENSIVE METABOLIC 88659 SODIUM 140 mmol/L 10/03 Unknown COMPREHENSIVE METABOLIC 20294 CREATININE 1.72 mg/dL 07/2017 Unknown COMPREHENSIVE METABOLIC 31199 CALCIUM 9.1 mg/dL 2017 Unknown COMPREHENSIVE METABOLIC 66223 POTASSIUM 4.1 mmol/L 10/03 Unknown COMPREHENSIVE METABOLIC 99999 Total Protein 6.5 g/dL Unknown COMPREHENSIVE METABOLIC 49904 Glucose 101 mg/dL 2017 Unknown COMPREHENSIVE METABOLIC 04330 Bicarbonate 23 mmol/L 07/2017 Unknown COMPREHENSIVE METABOLIC 06001 AGAP 12 mmol/L 2017 Unknown FREE T4 84119 T4 Free 0.81 ng/dL 10/03/2017 Unknown THYROID STIMULATING HORMONE 40965 TSH 10.964 uIU/m L 10/03/2017 Unknown COMPLETE BLOOD COUNT 4735708 WBC 5.6 10e9/L 10/04/19 18 Unknown COMPLETE BLOOD COUNT 6159208 RBC 3.36 10e12/L 2017 Unknown COMPLETE BLOOD COUNT 5422490 HEMOGLOBIN 10.3 g/dL 10/04/19 18 Unknown COMPLETE BLOOD COUNT 4358607 HEMATOCRIT 32.0 % 10/04/19 18 Unknown COMPLETE BLOOD COUNT 1707422 MCV 95.2 fL 8 Unknown COMPLETE BLOOD COUNT 5843808 MCH 30.7 pg 8 Unknown COMPLETE BLOOD COUNT 3810623 MCHC 32.2 g/dL 8 Unknown COMPLETE BLOOD COUNT 4948790 PLATELET COUNT 250 10e9/L 07/2017 Unknown COMPLETE BLOOD COUNT 2181715 Mean Plt Volume 10.2 fL 07/2017 Unknown COMPLETE BLOOD COUNT 3753101 Neut Auto 75.9 % 8 Unknown COMPLETE BLOOD COUNT 3909869 Lymph Auto 17.2 % 10/04/19 18 Unknown COMPLETE BLOOD COUNT 1578480 [place] Auto 5.3 % 8 Unknown COMPLETE BLOOD COUNT 1665939 RDW 14.0 % 8 Unknown COMPLETE BLOOD COUNT 7711801 Eos Auto 1.2 % 8 Unknown COMPLETE BLOOD COUNT 2259078 Baso Auto 0.4 % 8 Unknown COMPLETE BLOOD COUNT 6281699 Neutrophil Abs 4.25 10e9/L Unknown COMPLETE BLOOD COUNT 4701723 Lymphocyte Abs 0.96 10e9/L Unknown COMPLETE BLOOD COUNT 4445884 Monocyte Abs 0.30 10e9/L 07/2017 Unknown COMPLETE BLOOD COUNT 0935553 Eosinophil Abs 0.07 10e9/L Unknown COMPLETE BLOOD COUNT 5256370 RDW-SD 45.8 fL 8 Unknown COMPLETE BLOOD COUNT 8461761 Basophil Abs 0.02 10e9/L 07/2017 Unknown FREE T4 42871 T4 Free 0.87 ng/dL 07/17/2017 Unknown COMPREHENSIVE METABOLIC 32139 AST 19 U/L 2017 Unknown COMPREHENSIVE METABOLIC 31884 ALT 13 U/L 2017 Unknown COMPREHENSIVE METABOLIC 76948 BUN 48 mg/dL 2017 Unknown COMPREHENSIVE METABOLIC 27037 ALBUMIN 4.4 g/dL 2017 Unknown COMPREHENSIVE METABOLIC 32945 CHLORIDE 105 mmol/L 07/17 Unknown COMPREHENSIVE METABOLIC 53772 Bili Total 0.4 mg/dL 07/17 Unknown COMPREHENSIVE METABOLIC 50063 ALK PHOS 64 U/L 2017 Unknown COMPREHENSIVE METABOLIC 82269 SODIUM 141 mmol/L 07/17 Unknown COMPREHENSIVE METABOLIC 54959 CREATININE 1.72 mg/dL 06/30 Unknown COMPREHENSIVE METABOLIC 76951 CALCIUM 9.8 mg/dL 2017 Unknown COMPREHENSIVE METABOLIC 29285 POTASSIUM 4.6 mmol/L 07/17 Unknown COMPREHENSIVE METABOLIC 87812 Total Protein 7.0 g/dL Unknown COMPREHENSIVE METABOLIC 08174 Glucose 105 mg/dL 2017 Unknown COMPREHENSIVE METABOLIC 08700 Bicarbonate 25 mmol/L 06/30 Unknown COMPREHENSIVE METABOLIC 35092 AGAP 11 mmol/L 2017 Unknown LIPID GROUP 97561 Cholesterol 162 mg/dL 07/17/2017 Unkno wn LIPID GROUP 83668 Triglyceride 126 mg/dL 07/17/2017 Unkn own LIPID GROUP 39586 HDL CHOLESTEROL 39 mg/dL 07/17/2017 U nknown LIPID GROUP 64457 Chol/HDL Ratio 4.15 ratio 07/17/2017 U nknown LIPID GROUP 98782 NON-HDL Chol 123 mg/dL 07/17/2017 Unkn own LIPID GROUP 64139 LDL Cholesterol 98 mg/dL 07/17/2017 U nknown GLYCOSYLATED HEMOGLOBIN TEST 88008 Hgb A1c 82497-9 5.0 % 0 07/17/2017 Unknown THYROID STIMULATING HORMONE 05164 TSH 28.780 uIU/m L 07/17/2017 Unknown MEAN GLUC 9887529 Calc Mean Gluc 97 mg/dL 07/17/2017 Unkn own GFR CALC 0342317 GFR Non Afr Amr 38 mL/min 07/17/2017 Unk nown GFR CALC 3502014 GFR Afr Amr 46 mL/min 07/17/2017 Unknown COMPLETE BLOOD COUNT 8823611 WBC 5.8 10e9/L 07/18/19 18 Unknown COMPLETE BLOOD COUNT 2720476 RBC 3.47 10e12/L 2017 Unknown COMPLETE BLOOD COUNT 0995379 HEMOGLOBIN 10.7 g/dL 07/18/19 18 Unknown COMPLETE BLOOD COUNT 4426219 HEMATOCRIT 34.0 % 07/18/19 18 Unknown COMPLETE BLOOD COUNT 7389641 MCV 98.0 fL 8 Unknown COMPLETE BLOOD COUNT 6021574 MCH 30.8 pg 8 Unknown COMPLETE BLOOD COUNT 9387055 MCHC 31.5 g/dL 8 Unknown COMPLETE BLOOD COUNT 2234539 PLATELET COUNT 254 10e9/L Unknown COMPLETE BLOOD COUNT 6835487 Mean Plt Volume 10.0 fL Unknown COMPLETE BLOOD COUNT 0893879 Neut Auto 77.2 % 8 Unknown COMPLETE BLOOD COUNT 0153512 Lymph Auto 15.2 % 07/18/19 18 Unknown COMPLETE BLOOD COUNT 0187104 [place] Auto 5.4 % 8 Unknown COMPLETE BLOOD COUNT 7403123 RDW 13.9 % 8 Unknown COMPLETE BLOOD COUNT 3727828 Eos Auto 1.7 % 8 Unknown COMPLETE BLOOD COUNT 4894004 Baso Auto 0.5 % 8 Unknown COMPLETE BLOOD COUNT 4192142 Neutrophil Abs 4.48 10e9/L Unknown COMPLETE BLOOD COUNT 4010681 Lymphocyte Abs 0.88 10e9/L Unknown COMPLETE BLOOD COUNT 6284752 Monocyte Abs 0.31 10e9/L 06/30 Unknown COMPLETE BLOOD COUNT 7016780 Eosinophil Abs 0.10 10e9/L Unknown COMPLETE BLOOD COUNT 2973751 RDW-SD 48.0 fL 8 Unknown COMPLETE BLOOD COUNT 0618326 Basophil Abs 0.03 10e9/L 06/30 Unknown FREE T4 79146 T4 Free 0.79 ng/dL 01/31/2017 Unknown GLYCOSYLATED HEMOGLOBIN TEST 79970 Hgb A1c 52956-8 5.2 % 1 04/01/2016 Unknown MEAN GLUC 6966741 Calc Mean Gluc 103 mg/dL 01/30/2017 Unkn own IRON 23546 Iron 62 ug/dL 01/29/2017 Unknown COMPREHENSIVE METABOLIC 26168 AST 25 U/L 2016 Unknown COMPREHENSIVE METABOLIC 43585 ALT 29 U/L 2016 Unknown COMPREHENSIVE METABOLIC 06912 BUN 41 mg/dL 2016 Unknown COMPREHENSIVE METABOLIC 47034 ALBUMIN 4.4 g/dL 2016 Unknown COMPREHENSIVE METABOLIC 89366 CHLORIDE 111 mmol/L 01/29 Unknown COMPREHENSIVE METABOLIC 55977 Bili Total 0.3 mg/dL 01/29 Unknown COMPREHENSIVE METABOLIC 09833 ALK PHOS 68 U/L 2016 Unknown COMPREHENSIVE METABOLIC 56227 SODIUM 142 mmol/L 01/29 Unknown COMPREHENSIVE METABOLIC 15530 CREATININE 1.69 mg/dL 01/01 Unknown COMPREHENSIVE METABOLIC 85617 CALCIUM 9.0 mg/dL 2016 Unknown COMPREHENSIVE METABOLIC 99996 POTASSIUM 4.0 mmol/L 01/29 Unknown COMPREHENSIVE METABOLIC 77006 Total Protein 6.9 g/dL Unknown COMPREHENSIVE METABOLIC 07611 Glucose 166 mg/dL 2016 Unknown COMPREHENSIVE METABOLIC 23976 Bicarbonate 22 mmol/L 01/01 Unknown COMPREHENSIVE METABOLIC 23392 AGAP 9 mmol/L 2016 Unknown VITAMIN B 12 42511 VITAMIN B12 603 pg/mL 01/29/2017 Unkn own COMPLETE BLOOD COUNT 6291127 WBC 5.7 10e9/L 01/30/20 17 Unknown COMPLETE BLOOD COUNT 7212598 RBC 3.56 10e12/L 2016 Unknown COMPLETE BLOOD COUNT 0713835 HEMOGLOBIN 10.7 g/dL 01/30/20 17 Unknown COMPLETE BLOOD COUNT 9505856 HEMATOCRIT 33.8 % 01/30/20 17 Unknown COMPLETE BLOOD COUNT 8631989 MCV 94.9 fL 7 Unknown COMPLETE BLOOD COUNT 6071809 MCH 30.1 pg 7 Unknown COMPLETE BLOOD COUNT 0772131 MCHC 31.7 g/dL 7 Unknown COMPLETE BLOOD COUNT 5950995 PLATELET COUNT 284 10e9/L Unknown COMPLETE BLOOD COUNT 4576900 Mean Plt Volume 10.0 fL Unknown COMPLETE BLOOD COUNT 3269250 Neut Auto 79.4 % 7 Unknown COMPLETE BLOOD COUNT 8098900 Lymph Auto 13.6 % 01/30/20 17 Unknown COMPLETE BLOOD COUNT 8791496 [place] Auto 4.4 % 7 Unknown COMPLETE BLOOD COUNT 0638494 RDW 14.9 % 7 Unknown COMPLETE BLOOD COUNT 8538658 Eos Auto 2.1 % 7 Unknown COMPLETE BLOOD COUNT 7040834 Baso Auto 0.5 % 7 Unknown COMPLETE BLOOD COUNT 4682684 Neutrophil Abs 4.53 10e9/L Unknown COMPLETE BLOOD COUNT 0634492 Lymphocyte Abs 0.78 10e9/L Unknown COMPLETE BLOOD COUNT 6672042 Monocyte Abs 0.25 10e9/L 01/01 Unknown COMPLETE BLOOD COUNT 9973487 Eosinophil Abs 0.12 10e9/L Unknown COMPLETE BLOOD COUNT 3487710 RDW-SD 49.6 fL 7 Unknown COMPLETE BLOOD COUNT 9400814 Basophil Abs 0.03 10e9/L 01/01 Unknown THYROID STIMULATING HORMONE 92779 TSH 26.132 uIU/m L 01/29/2017 Unknown GFR CALC 5135407 GFR Non Afr Amr 39 mL/min 01/29/2017 Unk nown GFR CALC 6411867 GFR Afr Amr 47 mL/min 01/29/2017 Unknown COMPREHENSIVE METABOLIC 45848 AST 19 U/L 2016 Unknown COMPREHENSIVE METABOLIC 90633 ALT 19 U/L 2016 Unknown COMPREHENSIVE METABOLIC 58286 BUN 30 mg/dL 2016 Unknown COMPREHENSIVE METABOLIC 15014 ALBUMIN 3.9 g/dL 2016 Unknown COMPREHENSIVE METABOLIC 93433 CHLORIDE 107 mmol/L 07/16 Unknown COMPREHENSIVE METABOLIC 54488 Bili Total 0.4 mg/dL 07/16 Unknown COMPREHENSIVE METABOLIC 54258 ALK PHOS 56 U/L 2016 Unknown COMPREHENSIVE METABOLIC 75135 SODIUM 139 mmol/L 07/16 Unknown COMPREHENSIVE METABOLIC 28223 CREATININE 1.50 mg/dL 06/30 Unknown COMPREHENSIVE METABOLIC 62345 CALCIUM 8.7 mg/dL 2016 Unknown COMPREHENSIVE METABOLIC 16770 POTASSIUM 4.2 mmol/L 07/16 Unknown COMPREHENSIVE METABOLIC 15004 Total Protein 6.5 g/dL Unknown COMPREHENSIVE METABOLIC 32196 Glucose 139 mg/dL 2016 Unknown COMPREHENSIVE METABOLIC 86471 Bicarbonate 20 mmol/L 06/30 Unknown COMPREHENSIVE METABOLIC 68416 AGAP 12 mmol/L 2016 Unknown COMPLETE BLOOD COUNT 6094066 WBC 5.7 10e9/L 07/17/19 17 Unknown COMPLETE BLOOD COUNT 7822520 RBC 3.10 10e12/L 2016 Unknown COMPLETE BLOOD COUNT 8827502 HEMOGLOBIN 9.4 g/dL 07/17/19 17 Unknown COMPLETE BLOOD COUNT 8139447 HEMATOCRIT 29.6 % 07/17/19 17 Unknown COMPLETE BLOOD COUNT 7335548 MCV 95.5 fL 7 Unknown COMPLETE BLOOD COUNT 8799176 MCH 30.3 pg 7 Unknown COMPLETE BLOOD COUNT 2027837 MCHC 31.8 g/dL 7 Unknown COMPLETE BLOOD COUNT 9171893 PLATELET COUNT 286 10e9/L Unknown COMPLETE BLOOD COUNT 9286981 Mean Plt Volume 9.9 fL Unknown COMPLETE BLOOD COUNT 3489453 Neut Auto 79.4 % 7 Unknown COMPLETE BLOOD COUNT 8759560 Lymph Auto 14.5 % 07/17/19 17 Unknown COMPLETE BLOOD COUNT 1868815 [place] Auto 4.6 % 7 Unknown COMPLETE BLOOD COUNT 2374828 RDW 14.2 % 7 Unknown COMPLETE BLOOD COUNT 9074182 Eos Auto 1.1 % 7 Unknown COMPLETE BLOOD COUNT 2694472 Baso Auto 0.4 % 7 Unknown COMPLETE BLOOD COUNT [id number] Neutrophil Abs 4.53 10e9/L Unknown COMPLETE BLOOD COUNT [id number] Lymphocyte Abs 0.83 10e9/L Unknown COMPLETE BLOOD COUNT [id number] Monocyte Abs 0.26 10e9/L 06/30 Unknown COMPLETE BLOOD COUNT [id number] Eosinophil Abs 0.06 10e9/L Unknown COMPLETE BLOOD COUNT [id number] RDW-SD 47.4 fL 7 Unknown COMPLETE BLOOD COUNT [id number] Basophil Abs 0.02 10e9/L 06/30 Unknown GFR CALC [id number] GFR Non Afr Amr 44 mL/min 07/16/2016 Unk nown GFR CALC [id number] GFR Afr Amr 54 mL/min 07/16/2016 Unknown COMPLETE BLOOD COUNT [id number] WBC 4.3 10e9/L 11/08/19 16 Unknown COMPLETE BLOOD COUNT [id number] RBC 3.22 10e12/L 2015 Unknown COMPLETE BLOOD COUNT [id number] HEMOGLOBIN 9.5 g/dL 11/08/19 16 Unknown COMPLETE BLOOD COUNT [id number] HEMATOCRIT 29.7 % 11/08/19 16 Unknown COMPLETE BLOOD COUNT [id number] MCV 92.2 fL 6 Unknown COMPLETE BLOOD COUNT [id number] MCH 29.5 pg 6 Unknown COMPLETE BLOOD COUNT [id number] MCHC 32.0 g/dL 6 Unknown COMPLETE BLOOD COUNT [id number] PLATELET COUNT 269 10e9/L 12/2015 Unknown COMPLETE BLOOD COUNT [id number] Mean Plt Volume 9.3 fL 12/2015 Unknown COMPLETE BLOOD COUNT [id number] Neut Auto 71.4 % 6 Unknown COMPLETE BLOOD COUNT [id number] Lymph Auto 20.2 % 11/08/19 16 Unknown COMPLETE BLOOD COUNT [id number] [place] Auto 5.1 % 6 Unknown COMPLETE BLOOD COUNT [id number] RDW 15.2 % 6 Unknown COMPLETE BLOOD COUNT [id number] Eos Auto 2.6 % 6 Unknown COMPLETE BLOOD COUNT [id number] Baso Auto 0.7 % 6 Unknown COMPLETE BLOOD COUNT [id number] Neutrophil Abs 3.07 10e9/L Unknown COMPLETE BLOOD COUNT [id number] Lymphocyte Abs 0.87 10e9/L Unknown COMPLETE BLOOD COUNT [id number] Monocyte Abs 0.22 10e9/L 12/2015 Unknown COMPLETE BLOOD COUNT [id number] Eosinophil Abs 0.11 10e9/L Unknown COMPLETE BLOOD COUNT [id number] RDW-SD 49.0 fL 6 Unknown COMPLETE BLOOD COUNT [id number] Basophil Abs 0.03 10e9/L 12/2015 Unknown GFR CALC [id number] GFR Non Afr Amr 42 mL/min 11/08/2015 Unk nown GFR CALC [id number] GFR Afr Amr 51 mL/min 11/08/2015 [place] [address] Glucose 102 mg/dL 11/07 [place] [address] CREATININE 1.57 mg/dL 12/2015 [place] [address] BUN 18 mg/dL 11/07 [place] [address] SODIUM 140 mmol/L 12/2015 [place] [address] POTASSIUM 3.8 mmol/L 12/2015 [place] [address] CHLORIDE 113 mmol/L 12/2015 [place] [address] Bicarbonate 21 mmol/L 12/2015 [place] [address] AGAP 6 mmol/L 11/07 [place] [address] CALCIUM 8.8 mg/dL 11/07 Unknown COMPLETE BLOOD COUNT [id number] WBC 8.3 10e9/L 10/26/19 16 Unknown COMPLETE BLOOD COUNT [id number] RBC 2.55 10e12/L 2015 Unknown COMPLETE BLOOD COUNT [id number] HEMOGLOBIN 7.7 g/dL 10/26/19 16 Unknown COMPLETE BLOOD COUNT [id number] HEMATOCRIT 24.0 % 10/26/19 16 Unknown COMPLETE BLOOD COUNT [id number] MCV 94.1 fL 6 Unknown COMPLETE BLOOD COUNT [id number] MCH 30.2 pg 6 Unknown COMPLETE BLOOD COUNT [id number] MCHC 32.1 g/dL 6 Unknown COMPLETE BLOOD COUNT [id number] PLATELET COUNT 292 10e9/L Unknown COMPLETE BLOOD COUNT [id number] Mean Plt Volume 9.8 fL Unknown COMPLETE BLOOD COUNT [id number] Neut Auto 83.8 % 6 Unknown COMPLETE BLOOD COUNT [id number] Lymph Auto 11.3 % 10/26/19 16 Unknown COMPLETE BLOOD COUNT [id number] [place] Auto 4.1 % 6 Unknown COMPLETE BLOOD COUNT [id number] RDW 14.7 % 6 Unknown COMPLETE BLOOD COUNT [id number] Eos Auto 0.7 % 6 Unknown COMPLETE BLOOD COUNT 1094623 Baso Auto 0.1 % 6 Unknown COMPLETE BLOOD COUNT [id number] Neutrophil Abs 6.96 10e9/L Unknown COMPLETE BLOOD COUNT [id number] Lymphocyte Abs 0.94 10e9/L Unknown COMPLETE BLOOD COUNT [id number] Monocyte Abs 0.34 10e9/L 09/30 Unknown COMPLETE BLOOD COUNT [id number] Eosinophil Abs 0.06 10e9/L Unknown COMPLETE BLOOD COUNT [id number] RDW-SD 48.2 fL 6 Unknown COMPLETE BLOOD COUNT [id number] Basophil Abs 0.01 10e9/L 09/30 Unknown LIPASE 44078 Lipase Lvl 24 IU/L 10/26/2015 Unknown FREE T4 12900 T4 Free 1.15 ng/dL 10/26/2015 Unknown COMPREHENSIVE METABOLIC 35567 AST 12 U/L 2015 Unknown COMPREHENSIVE METABOLIC 47759 ALT 9 U/L 2015 Unknown COMPREHENSIVE METABOLIC 42919 BUN 92 mg/dL 2015 Unknown COMPREHENSIVE METABOLIC 01557 ALBUMIN 3.8 g/dL 2015 Unknown COMPREHENSIVE METABOLIC 95879 CHLORIDE 98 mmol/L 2015 Unknown COMPREHENSIVE METABOLIC 74387 Bili Total 0.4 mg/dL 10/25 Unknown COMPREHENSIVE METABOLIC 20372 ALK PHOS 53 U/L 2015 Unknown COMPREHENSIVE METABOLIC 59238 SODIUM 139 mmol/L 10/25 Unknown COMPREHENSIVE METABOLIC 18460 CREATININE 4.70 mg/dL 09/30 Unknown COMPREHENSIVE METABOLIC 18965 CALCIUM 9.1 mg/dL 2015 Unknown COMPREHENSIVE METABOLIC 33089 POTASSIUM 4.5 mmol/L 10/25 Unknown COMPREHENSIVE METABOLIC 81732 Total Protein 6.6 g/dL Unknown COMPREHENSIVE METABOLIC 22229 Glucose 128 mg/dL 2015 Unknown COMPREHENSIVE METABOLIC 51410 Bicarbonate 29 mmol/L 09/30 Unknown COMPREHENSIVE METABOLIC 32706 AGAP 12 mmol/L 2015 Unknown GFR CALC [id number] GFR Non Afr Amr 12 mL/min 10/26/2015 Unk nown GFR CALC [id number] GFR Afr Amr 14 mL/min 10/26/2015 Unknown GLYCOSYLATED HEMOGLOBIN TEST 09387 Hgb A1c 64459-1 5.0 % 0 10/26/2015 Unknown AMYLASE 44498 Amylase Lvl 45 IU/L 10/26/2015 Unknown THYROID STIMULATING HORMONE 17619 TSH 6.114 uIU/mL 10/26/2015 Unknown MEAN GLUC 0477091 Mean Glucose 97 mg/dL 10/26/2015 Unknow n VITAMIN B 12 FOLIC ACID 35302|30098 VIT B 12 961 PG/ML 11/2012 Unknown VITAMIN B 12 FOLIC ACID 98146|04491 FOLIC ACID >24.0 NG/ML 1 05/10/2012 Unknown COMPREHENSIVE METABOLIC 46360 AST 19 U/L 2012 Unknown COMPREHENSIVE METABOLIC 73836 ALT 19 IU/L 2012 Unknown COMPREHENSIVE METABOLIC 72755 BUN 21 MG/DL 2012 Unknown COMPREHENSIVE METABOLIC 18632 ALBUMIN 4.4 GM/DL 2012 Unknown COMPREHENSIVE METABOLIC 09216 CHLORIDE 102 MMOL/L 03/09 Unknown COMPREHENSIVE METABOLIC 64420 BILI TOT 0.4 MG/DL 2012 Unknown COMPREHENSIVE METABOLIC 15460 ALK PHOS 60 U/L 2012 Unknown COMPREHENSIVE METABOLIC 17750 SODIUM 137 MMOL/L 03/09 Unknown COMPREHENSIVE METABOLIC 56911 CREATININE 1.36 MG/DL 11/2012 Unknown COMPREHENSIVE METABOLIC 11606 CALCIUM 9.7 MG/DL 2012 Unknown COMPREHENSIVE METABOLIC 00931 POTASSIUM 4.3 MMOL/L 03/09 Unknown COMPREHENSIVE METABOLIC 92653 PROT TOT 6.8 GM/DL 2012 Unknown COMPREHENSIVE METABOLIC 03838 Glucose 143 MG/DL 2012 Unknown COMPREHENSIVE METABOLIC 39956 BICARB 27 MMOL/L 2012 Unknown COMPREHENSIVE METABOLIC 87008 ANION GAP 8 MEQ/L 2012 Unknown C-REACTIVE PROTEIN (CRP) QUANT 34977 CRP 0.8 MG/DL 03/09/2013 Unknown COMPLETE BLOOD COUNT [id number] WBC 7.6 10e9/L 03/09/20 13 Unknown COMPLETE BLOOD COUNT 1048543 RBC 3.78 10e12/L 2012 Unknown COMPLETE BLOOD COUNT [id number] HGB 11.3 g/dL 3 Unknown COMPLETE BLOOD COUNT [id number] HCT DET 35.6 % 3 Unknown COMPLETE BLOOD COUNT [id number] MCV 94.2 fL 3 Unknown COMPLETE BLOOD COUNT 4749596 MCH 29.9 pg 3 Unknown COMPLETE BLOOD COUNT 2386924 MCHC 31.7 g/dL 3 Unknown COMPLETE BLOOD COUNT 3221325 PLT 314 10e9/L 03/09/20 13 Unknown COMPLETE BLOOD COUNT 4558888 MPV 9.7 fL 3 Unknown COMPLETE BLOOD COUNT [id number] TORITO % 78.7 % 3 Unknown COMPLETE BLOOD COUNT [id number] LY % 13.7 % 3 Unknown COMPLETE BLOOD COUNT 1261856 MON % 5.0 % 3 Unknown COMPLETE BLOOD COUNT 2784813 EOS % 2.1 % 3 Unknown COMPLETE BLOOD COUNT [id number] BASO % 0.5 % 3 Unknown COMPLETE BLOOD COUNT 1941816 RDW 13.7 % 3 Unknown COMPLETE BLOOD COUNT [id number] ABS TORITO 5.98 10e9/L 013 Unknown COMPLETE BLOOD COUNT 1480747 ABS LYMPH 1.04 10e9/L 013 Unknown COMPLETE BLOOD COUNT [id number] ABS MONO 0.38 10e9/L 013 Unknown COMPLETE BLOOD COUNT [id number] ABS EOS 0.16 10e9/L 013 Unknown COMPLETE BLOOD COUNT [id number] ABS BASO 0.04 10e9/L 013 Unknown COMPLETE BLOOD COUNT [id number] RDW-SD 45.7 fL 3 Unknown FREE T4 20447 FREE T4 1.12 NG/DL 03/09/2013 Unknown GFR CALC 6259628 GFR AA >60 ML/MIN 03/09/2013 Unknown GFR CALC 5438144 GFR NON-AA 50.0L ML/MIN 03/09/2013 Unkno wn THYROID STIMULATING HORMONE 46099 TSH 6.689 uIU/ML 03/09/2013 Unknown IRON 40441 IRON TEST 58 UG/DL 03/09/2013 Unknown COMPLETE BLOOD COUNT 26579 WBC 6.0 10e9/L 11/30/19 10 Unknown COMPLETE BLOOD COUNT 63407 RBC 4.29 10e12/L 2009 Unknown COMPLETE BLOOD COUNT 27269 HGB 12.8 g/dL 0 Unknown COMPLETE BLOOD COUNT 74692 HCT DET 39.3 % 0 Unknown COMPLETE BLOOD COUNT 85329 MCV 91.6 fL 0 Unknown COMPLETE BLOOD COUNT 87456 MCH 29.8 pg 0 Unknown COMPLETE BLOOD COUNT 70989 MCHC 32.6 g/dL 0 Unknown COMPLETE BLOOD COUNT 70620 PLT 262 10e9/L 11/30/19 10 Unknown COMPLETE BLOOD COUNT 63191 MPV 9.8 fL 0 Unknown COMPLETE BLOOD COUNT 31446 TORITO % 71.4 % 0 Unknown COMPLETE BLOOD COUNT 26710 LY % 20.0 % 0 Unknown COMPLETE BLOOD COUNT 55747 MON % 7.5 % 0 Unknown COMPLETE BLOOD COUNT 58812 EOS % 0.8 % 0 Unknown COMPLETE BLOOD COUNT 01205 BASO % 0.3 % 0 Unknown COMPLETE BLOOD COUNT 20898 RDW 13.5 % 0 Unknown COMPLETE BLOOD COUNT 60369 ABS TORITO 4.28 10e9/L 010 Unknown COMPLETE BLOOD COUNT 15454 ABS LYMPH 1.20 10e9/L 010 Unknown COMPLETE BLOOD COUNT 51002 ABS MONO 0.45 10e9/L 010 Unknown COMPLETE BLOOD COUNT 16515 ABS EOS 0.05 10e9/L 010 Unknown COMPLETE BLOOD COUNT 13731 ABS BASO 0.02 10e9/L 010 Unknown COMPLETE BLOOD COUNT 58449 RDW-SD 44.4 fL 0 Unknown URIC ACID 33469 URIC ACID 9.5 MG/DL 11/29/2009 Unknown GFR CALC 0597821 GFR AA 55.0L ML/MIN 11/29/2009 Unknow n GFR CALC 4887174 GFR NON-AA 46.0L ML/MIN 11/29/2009 Unkno wn COMPREHENSIVE METABOLIC 66555 AST 14 U/L 2009 Unknown COMPREHENSIVE METABOLIC 75659 ALT 12 IU/L 2009 Unknown COMPREHENSIVE METABOLIC 27021 BUN 23 MG/DL 2009 Unknown COMPREHENSIVE METABOLIC 76200 ALBUMIN 4.5 GM/DL 2009 Unknown COMPREHENSIVE METABOLIC 54751 CHLORIDE 104 MMOL/L 11/29 Unknown COMPREHENSIVE METABOLIC 40377 BILI TOT 0.5 MG/DL 2009 Unknown COMPREHENSIVE METABOLIC 77417 ALK PHOS 58 U/L 2009 Unknown COMPREHENSIVE METABOLIC 25394 SODIUM 138 MMOL/L 11/29 Unknown COMPREHENSIVE METABOLIC 75302 CREATININE 1.49 MG/DL 11/01 Unknown COMPREHENSIVE METABOLIC 99929 CALCIUM 9.5 MG/DL 2009 Unknown COMPREHENSIVE METABOLIC 11942 POTASSIUM 4.2 MMOL/L 11/29 Unknown COMPREHENSIVE METABOLIC 44386 PROT TOT 6.9 GM/DL 2009 Unknown COMPREHENSIVE METABOLIC 70733 Glucose 159 MG/DL 2009 Unknown COMPREHENSIVE METABOLIC 93120 BICARB 24 MMOL/L 2009 Unknown COMPREHENSIVE METABOLIC 43717 ANION GAP 10 MEQ/L 2009 Unknown Procedures Procedure Codes Date PPPS, subseq visit CPT-4: G0439 06/29/2019 ROUTINE VENIPUNCTURE CPT-4: 09444 06/29/2019 ASSAY OF FREE THYROXINE CPT-4: 23216 06/29/2019 ASSAY THYROID STIM HORMONE CPT-4: 29132 06/29/2019 COMPREHEN METABOLIC PANEL CPT-4: 12668 06/29/2019 COMPLETE CBC W/AUTO DIFF WBC CPT-4: 80129 06/29/2019 ASSAY OF IRON CPT-4: 88670 06/29/2019 ASSAY OF FERRITIN CPT-4: 61630 06/29/2019 FLU VACC PRSV FREE INC ANTIG 65 AND OLDER CPT-4: 69802 12/25/2018 FLU VACC PRSV FREE INC ANTIG 65 AND OLDER CPT-4: 85696 12/25/2018 ADMIN INFLUENZA VIRUS VAC CPT-4: G0008 12/25/2018 ROUTINE VENIPUNCTURE CPT-4: 03376 12/22/2018 ASSAY OF FREE THYROXINE CPT-4: 56401 12/22/2018 ASSAY THYROID STIM HORMONE CPT-4: 68889 12/22/2018 COMPREHEN METABOLIC PANEL CPT-4: 69814 12/22/2018 COMPLETE CBC W/AUTO DIFF WBC CPT-4: 74906 12/22/2018 ASSAY OF IRON CPT-4: 35222 12/22/2018 ASSAY OF FERRITIN CPT-4: 46471 12/22/2018 VITAMIN B-12 CPT-4: 29666 12/22/2018 ROUTINE VENIPUNCTURE CPT-4: 14858 06/23/2018 COMPLETE CBC W/AUTO DIFF WBC CPT-4: 60532 06/23/2018 COMPREHEN METABOLIC PANEL CPT-4: 47497 06/23/2018 ASSAY OF IRON CPT-4: 26292 06/23/2018 ASSAY THYROID STIM HORMONE CPT-4: 78141 06/23/2018 ASSAY OF FERRITIN CPT-4: 97495 06/23/2018 VITAMIN B-12 CPT-4: 82233 06/23/2018 ROUTINE VENIPUNCTURE CPT-4: 62909 01/20/2018 COMPLETE CBC W/AUTO DIFF WBC CPT-4: 32688 01/20/2018 COMPREHEN METABOLIC PANEL CPT-4: 95794 01/20/2018 ASSAY OF FREE THYROXINE CPT-4: 66976 01/20/2018 ASSAY THYROID STIM HORMONE CPT-4: 80719 01/20/2018 ROUTINE VENIPUNCTURE CPT-4: 24662 10/03/2017 ASSAY THYROID STIM HORMONE CPT-4: 87489 10/03/2017 ASSAY OF FREE THYROXINE CPT-4: 62151 10/03/2017 COMPLETE CBC W/AUTO DIFF WBC CPT-4: 66300 10/03/2017 COMPREHEN METABOLIC PANEL CPT-4: 07285 10/03/2017 ROUTINE VENIPUNCTURE CPT-4: 12391 07/17/2017 ASSAY OF FREE THYROXINE CPT-4: 23093 07/17/2017 ASSAY THYROID STIM HORMONE CPT-4: 79886 07/17/2017 COMPREHEN METABOLIC PANEL CPT-4: 95206 07/17/2017 COMPLETE CBC W/AUTO DIFF WBC CPT-4: 89828 07/17/2017 LIPID PANEL CPT-4: 27610 07/17/2017 A1C HPLC CPT-4: 50499 07/17/2017 ROUTINE VENIPUNCTURE CPT-4: 53797 01/29/2017 ASSAY THYROID STIM HORMONE CPT-4: 17062 01/29/2017 COMPREHEN METABOLIC PANEL CPT-4: 25336 01/29/2017 COMPLETE CBC W/AUTO DIFF WBC CPT-4: 86684 01/29/2017 ASSAY OF IRON CPT-4: 47168 01/29/2017 VITAMIN B-12 CPT-4: 31797 01/29/2017 A1C HPLC CPT-4: 30983 01/29/2017 ASSAY OF FREE THYROXINE CPT-4: 14640 01/29/2017 ROUTINE VENIPUNCTURE CPT-4: 10564 07/16/2016 COMPREHEN METABOLIC PANEL CPT-4: 72115 07/16/2016 COMPLETE CBC W/AUTO DIFF WBC CPT-4: 72426 07/16/2016 ROUTINE VENIPUNCTURE CPT-4: 51770 03/09/2013 ASSAY OF FREE THYROXINE CPT-4: 50960 03/09/2013 ASSAY THYROID STIM HORMONE CPT-4: 47899 03/09/2013 COMPREHEN METABOLIC PANEL CPT-4: 67515 03/09/2013 COMPLETE CBC W/AUTO DIFF WBC CPT-4: 77935 03/09/2013 C-REACTIVE PROTEIN CPT-4: 42867 03/09/2013 VITAMIN B 12 FOLIC ACID CPT-4: 06197|19308 03/09/2013 ASSAY OF IRON CPT-4: 96293 03/09/2013 PRESCRIP TRANSMIT VIA ERX SY CPT-4: G8553 03/09/2013 ASSAY OF BLOOD/URIC ACID CPT-4: 24708 11/29/2009 COMPLETE CBC W/AUTO DIFF WBC CPT-4: 59538 11/29/2009 COMPREHEN METABOLIC PANEL CPT-4: 90514 11/29/2009 ROUTINE VENIPUNCTURE CPT-4: 06911 11/29/2009 PRESCRIP TRANSMIT VIA ERX SY CPT-4: G8553 11/29/2009 Vital Signs Date Vital 06/29/2019 Blood Pressure 1: 126/54 Code: 8480-6 BMI: 19.7 Code: 29700-4 Heart Rate 1: 72 bpm Height: 5'7" [...] 1: 136/62 Code: 8480-6 BMI: 20.5 Code: 45428-9 Heart Rate 1: 76 bpm Height: 5'8" Respiratory Rate: 20 bpm SpO2: 96% Tempera ture: 36.6 (C) / 97.8 (F) Weight: 135 lbs 10/10/2017 Blood Pressure 1: 126/56 Code: 8480-6 BMI: 21.3 Code: 95401-4 Heart Rate 1: 72 bpm Height: 5'8" Respiratory Rate: 20 bpm SpO2: 96% Tempera ture: 36.8 (C) / 98.2 (F) Weight: 140 lbs 07/17/2017 Blood Pressure 1: 124/56 Code: 8480-6 BMI: 21.0 Code: 68602-6 Heart Rate 1: 68 bpm Height: 5'8" Respiratory Rate: 20 bpm Temperature: 36 .6 (C) / 97.9 (F) Weight: 138 lbs 01/29/2017 Blood Pressure 1: 142/48 Code: 8480-6 BMI: 20.8 Code: 82041-2 Heart Rate 1: 86 bpm Height: 5'8" Respiratory Rate: 20 bpm SpO2: 98% Tempera ture: 36.3 (C) / 97.3 (F) Weight: 137 lbs 07/16/2016 Blood Pressure 1: 126/54 Code: 8480-6 BMI: 22.4 Code: 43176-3 Heart Rate 1: 84 bpm Height: 5'8" Respiratory Rate: 20 bpm SpO2: 96% Tempera ture: 37.0 (C) / 98.6 (F) Weight: 147 lbs 01/17/2016 Blood Pressure 1: 128/64 Code: 8480-6 BMI: 20.2 Code: 11851-4 Heart Rate 1: 84 bpm Height: 5'8" Respiratory Rate: 20 bpm Temperature: 36 .8 (C) / 98.2 (F) Weight: 133 lbs 12/13/2015 Blood Pressure 1: 114/48 Code: 8480-6 BMI: 19.2 Code: 66306-4 Heart Rate 1: 76 bpm Height: 5'8" Respiratory Rate: 20 bpm SpO2: 95% Tempera ture: 36.8 (C) / 98.2 (F) Weight: 126 lbs 11/08/2015 Blood Pressure 1: 116/48 Code: 8480-6 BMI: 22.4 Code: 17090-8 Heart Rate 1: 84 bpm Height: 5'8" Respiratory Rate: 20 bpm Temperature: 36 .7 (C) / 98.1 (F) Weight: 147 lbs 10/26/2015 Blood Pressure 1: 114/48 Code: 8480-6 BMI: 20.2 Code: 72805-7 Heart Rate 1: 100 bpm Height: 5'8" Respiratory Rate: 20 bpm Temperature: 36 .9 (C) / 98.4 (F) Weight: 133 lbs 03/09/2013 Blood Pressure 1: 154/78 Code: 8480-6 BMI: 25.5 Code: 51470-2 Heart Rate 1: 68 bpm Height: 5'8" Respiratory Rate: 20 bpm Temperature: 36 .9 (C) / 98.5 (F) Weight: 168 lbs 11/29/2009 Blood Pressure 1: 122/72 Code: 8480-6 BMI: 27.1 Code: 68823-2 Heart Rate 1: 76 bpm Height: 5'8" [...] 11/29/2009 Encounters Encounter Performer Location Codes Date ([id number]) NURSE/OUTPATIENT VISIT EST Diagnosis: FLU VACCINE[ICD10: Z23] Honey TORRES DO [email or web address] CPT-4: 25550 12/25/2018 ([id number]) OFFICE/OUTPATIENT VISIT EST Diagnosis: Essential (primary) hypertension[ICD10: I10] Diagnosis: Hypothyroidism, unspecified[ICD10: E03.9] Diagnosis: Anemia, unspecified[ICD10: D64.9] Diagnosis: Abnormal weight loss[ICD10: R63.4] Diagnosis: Disease of esophagus, 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] Honey KABA DO [email or web address] CPT-4: 28133 12/22/2018 ([id number]) OFFICE/OUTPATIENT VISIT EST Diagnosis: Pain in left knee[ICD10: M25.562] Honey KABA DO [email or web address] CPT-4: 51247 07/30/2018 ([id number]) OFFICE/OUTPATIENT VISIT EST Diagnosis: Anemia, unspecified[ICD10: D64.9] Diagnosis: Hypothyroidism, unspecified[ICD10: E03.9] Diagnosis: Essential (primary) hypertension[ICD10: I10] Honey KABA DO [email or web address] CPT-4: 34195 06/23/2018 ([id number]) OFFICE/OUTPATIENT VISIT EST Diagnosis: Hypothyroidism, unspecified[ICD10: E03.9] Diagnosis: Anemia, unspecified[ICD10: D64.9] Diagnosis: Disease of esophagus, 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] Honey KABA DO [email or web address] CPT-4: 58521 01/20/2018 ([id number]) OFFICE/OUTPATIENT VISIT EST Diagnosis: Hypothyroidism, unspecified[ICD10: E03.9] Diagnosis: Anemia, unspecified[ICD10: D64.9] Diagnosis: Disease of esophagus, 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] Honey KABA DO [email or web address] CPT-4: 22763 10/10/2017 ([id number]) NURSE/OUTPATIENT VISIT EST Diagnosis: Hypothyroidism, unspecified[ICD10: E03.9] Diagnosis: Anemia, unspecified[ICD10: D64.9] Diagnosis: Localized edema[ICD10: R60.0] Honey KABA DO [facility] CPT-4: 30110 10/03/2017 ([id number]) OFFICE/OUTPATIENT VISIT EST Diagnosis: Hypothyroidism, unspecified[ICD10: E03.9] Diagnosis: Anemia, unspecified[ICD10: D64.9] Diagnosis: Duodenal ulcer, unspecified as acute or chronic, without hemorrhage or perforation[ICD10: K26.9] Diagnosis: Disease of esophagus, 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] Diagnosis: Hyperglycemia, unspecified[ICD10: R73.9] Honey MOLINE Leta KABA DO [facility] CPT-4: 79837 07/17/2017 ([id number]) OFFICE/OUTPATIENT VISIT EST Diagnosis: Abnormal weight loss[ICD10: R63.4] Diagnosis: Diarrhea, unspecified[ICD10: R19.7] Diagnosis: Anemia, unspecified[ICD10: D64.9] Diagnosis: Hyperglycemia, unspecified[ICD10: R73.9] Honey MOLINE Leta KABA [employer] [facility] CPT-4: 57151 01/29/2017 ([id number]) OFFICE/OUTPATIENT VISIT EST Diagnosis: Diarrhea, unspecified[ICD10: R19.7] Diagnosis: Localized edema[ICD10: R60.0] Diagnosis: Anemia, unspecified[ICD10: D64.9] Honey Sunilmookfausto MELISSA Pino Leta KABA [employer] [facility] CPT-4: 47532 07/16/2016 ([id number]) OFFICE/OUTPATIENT VISIT EST Diagnosis: Duodenal ulcer, unspecified as acute or chronic, without hemorrhage or perforation[ICD10: K26.9] Diagnosis: Disease of esophagus, 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] Diagnosis: Abnormal weight loss[ICD10: R63.4] Diagnosis: Diarrhea, unspecified[ICD10: R19.7] Honey JOHNSON Leta KABA [employer] [facility] CPT-4: 32694 01/17/2016 OFFICE/OUTPATIENT VISIT EST Diagnosis: Duodenal ulcer, unspecified as acute or chronic, without hemorrhage or perforation[ICD10: K26.9] Diagnosis: Abnormal weight loss[ICD10: R63.4] Diagnosis: Diarrhea, unspecified[ICD10: R19.7] Diagnosis: Disease of esophagus, 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] Honey KABA [employer] [facility] CPT-4: 56019 12/13/2015 ([id number]) OFFICE/OUTPATIENT VISIT EST Diagnosis: Duodenal ulcer, unspecified as acute or chronic, without hemorrhage or perforation[ICD10: K26.9] Diagnosis: Disease of esophagus, 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] Honey KABA DO [facility] CPT-4: 49580 11/08/2015 ([id number]) OFFICE/OUTPATIENT VISIT EST Diagnosis: Nausea with vomiting, unspecified[ICD10: R11.2] Diagnosis: Toxic gastroenteritis and colitis[ICD10: K52.1] Diagnosis: Abnormal weight loss[ICD10: R63.4] Honey Sunilmookfausto BARNES [employer] [facility] CPT-4: 64615 10/26/2015 ([id number]) OFFICE/OUTPATIENT VISIT EST Diagnosis: DIARRHEA[ICD9: 787.91] Diagnosis: MALAISE AND FATIGUE[ICD9: 780.79] Diagnosis: ANEMIA NOS[ICD9: 285.9] Honey BARNES [employer] [facility] CPT-4: 21097 03/09/2013 ([id number]) OFFICE/OUTPATIENT VISIT, EST Honey Barbermookfausto KABA [employer] [facility] CPT-4: 82962 11/29/2009 Plan of Care Planned Activity Notes Codes Status Date Visit Diagnosis Plan: Hypothyroidism, unspecified Disc ussion: Check TSH, Free T4 ICD-9 : 244.9 ICD-10 : E03.9 06/29/2019 Visit Diagnosis Plan: Encounter for [facility] adult medical examination with abnormal findings Discussion: Mediterranean diet Combinati on of cardio and weight bearing exercise Fasting lab drawn COVID-19 precautions discussed Patient looking at downsizing and moving possibly this summer Fwup 6mos ICD-9 : V70.0 ICD-10 : Z00.01 06/29/2019 Visit Diagnosis Plan: Anemia, unspecified Discussion: Check CBC, iron, ferritin ICD-9 : 285.9 ICD-10 : D64.9 06/29/2019 Visit Diagnosis Plan: Abnormal weight loss Discussion: Patient has refused further workup and testing as he has had numerous siblings as well as his with cancer and watched them go through suffering from treatment so would not want any cancer treatment ICD-9 : 783.21 ICD-10 : R63.4 06/29/2019 Appointment: Honey Kaba WPtel: [address] [place], [place] [phone] [place] INJECTION 12/25/2018 Visit Diagnosis Plan: Disease [...] : I10 12/22/2018 Appointment: Honey Kaba WPtel: [address] [place], [place] [phone] [place] FOLLOW UP 12/22/2018 Appointment: Honey Kaba WPtel: [address] [place], [place] [phone] [place] CANCELED 12/16/2018 Visit Diagnosis Plan: Pain in left knee Discussion: RI CE Topical icy hot Notify if worsens ICD-9 : 719.46 ICD-10 : M25.562 07/30/2018 Appointment: Honey Kaba WPtel: [address] [place], [place] [phone] [place] FOLLOW UP 07/30/2018 Visit Diagnosis Plan: Essential (primary) hypertension Discussion: Stable ICD-9 : 401.9 ICD-10 : I10 06/23/2018 Visit Diagnosis Plan: Anemia, unspecified Discussion: Check CBC, iron ICD-9 : 285.9 ICD-10 : D64.9 06/23/2018 Visit Diagnosis Plan: Hypothyroidism, unspecified Disc ussion: Check TSH, Free T4 Follow Up: 6 months ICD-9 : 244.9 ICD-10 : E03.9 06/23/2018 Appointment: Honey Kaba WPtel: [address] [place] [address] [place] FOLLOW UP 06/23/2018 Visit Diagnosis Plan: Disease of esophagus, unspecifie d Discussion: GI symptoms and weight stable Fwup in May ICD-9 : 530.9 ICD-10 : K22.9 01/20/2018 Visit Diagnosis Plan: Hypothyroidism, unspecified Disc ussion: Check TSH, free T4 Had flu shot Recommend Shingrix ICD-9 : 244.9 ICD-10 : E03.9 01/20/2018 Visit Diagnosis Plan: Anemia, unspecified Discussion: Check CBC, iron ICD-9 : 285.9 ICD-10 : D64.9 01/20/2018 Appointment: Honey Kaba WPtel: [address] [place] [address] [place] FOLLOW UP 01/20/2018 Patient Education: Patient Medication Summary Completed 01/20/2018 Appointment: Honey Kaba WPtel: [address] [place], [place] [phone] [place] CANCELED 01/13/2018 Visit Diagnosis Plan: Hypothyroidism, unspecified Disc ussion: Increase levothyroxine to 50mcg po daily Check TSH and free T4 in 3mos ICD-9 : 244.9 ICD-10 : E03.9 10/10/2017 Visit Diagnosis Plan: Disease of esophagus, unspecifie d Discussion: Stable Patient has refused any further workup on esophageal mass and has been stable Daughter at visit today and did discuss this with both her and the patient ICD-9 : 530.9 ICD-10 : K22.9 10/10/2017 Visit Diagnosis Plan: Anemia, unspecified Discussion: H/H stable Follow Up: 3 months ICD-9 : 285.9 ICD-10 : D64.9 10/10/2017 Appointment: Honey Kaba WPtel: [address] [place], [place] [phone] FOLLOW UP 10/10/2017 Patient Education: Patient Medication Summary Completed 10/10/2017 Appointment: Honey Kaba WPtel: [address] [place], [place] [phone] [place] LAB 10/03/2017 Patient Education: Patient Medication Summary Completed 10/03/2017 Visit Diagnosis Plan: Duodenal ulcer, un specified as acute or chronic, without hemorrhage or perforation Discussion: Stable with current meds ICD-9 : 532.90 ICD-10 : K26.9 07/17/2017 Visit Diagnosis Plan: Hypothyroidism, unspecified Disc ussion: Check TSH, Free T4 ICD-9 : 244.9 ICD-10 : E03.9 07/17/2017 Visit Diagnosis Plan: Disease of esophagus, unspecifie d Discussion: Stable Has chose to not pursue further workup at this time ICD-9 : 530.9 ICD-10 : K22.9 07/17/2017 Visit Diagnosis Plan: Hyperglycemia, unspecified Follo w Up: 6 months ICD-9 : 790.29 ICD-10 : R73.9 07/17/2017 Visit Diagnosis Plan: Anemia, unspecified Discussion: Check CBC ICD-9 : 285.9 ICD-10 : D64.9 07/17/2017 Appointment: Honey Kaba WPtel: [address] [place], [place] [phone] US FOLLOW UP 07/17/2017 Patient Education: Patient Medication Summary Completed 07/17/2017 Patient Education: Patient Medication Summary Completed 02/01/2017 Care Plan: US EXAM OF HEAD AND NECK LOIN C : [id number] Pending 02/01/2017 Visit Diagnosis Plan: Anemia, unspecified Discussion: Check CBC, B12, iron Had flu shot Follow Up: 6 months ICD-9 : 285.9 ICD-10 : D64.9 01/29/2017 Visit Diagnosis Plan: Abnormal weight loss Discussion: Down from last visit but states appetite is good and did have lasix dose increased by cardiology a month ago so has lost some weight from getting rid of excess fluid ICD-9 : 783.21 ICD-10 : R63.4 01/29/2017 Visit Diagnosis Plan: Diarrhea, unspecified Discussion : Ongoing Patient continues to refuse going back in to look at esophageal mass or updating scopes ICD-9 : 787.91 ICD-10 : R19.7 01/29/2017 Appointment: Honey Kaba WPtel: [phone] [facility] [address] CHECK UP 01/29/2017 Patient Education: Patient Medication Summary Completed 01/29/2017 Appointment: Honey Kaba WPtel: [phone] [facility] [address] 01/16/17 1455---refilled carvedilol for patient to () CANCELED 01/16/2017 Visit Plan: Patient has deferred any fur ther fwup on esophageal lesion/further scopes 07/16/2016 Visit Diagnosis Plan: Diarrhea, unspecified Discussion : Restart colestid ICD-9 : 787.91 ICD-10 : R19.7 07/16/2016 Visit Diagnosis Plan: Localized edema Discussion: Can try the lasix at every other day--alternate 20mg with 40mg and take potassium daily Check CMP Follow Up: 3 months ICD-9 : 782.3 ICD-10 : R60.0 07/16/2016 Visit Diagnosis Plan: Anemia, unspecified Discussion: Check CBC ICD-9 : 285.9 ICD-10 : D64.9 07/16/2016 Visit NOS Plan: Follow Up: As needed Plan Notes: Patient has deferred any furth... 07/16/2016 Appointment: Honey Kaba WPtel: [phone] [facility] [address] 07/12 confirmed ~sl FOLLOW UP 07/16/2016 Patient Education: Patient Medication Summary Completed 07/16/2016 Visit Plan: Continue current meds Patien t wants to hold on any further workup on esophageal mass--wants quality of life at this time rather then any workup or treatment for cancer 01/17/2016 [facility]ment[phone] [facility] 01/15 lm~sl...confirmed~lb FOLLOW UP 12/30 Patient Education: Patient Medication Summary Completed 01/17/2016 Visit Plan: Continue pantoprazole at 40m g daily Decrease sucralfate to BID Decrease Coreg to 12.5mg po BID Add colestid 1 gram daily Patient 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 Wang tomorrow Recheck 1month 11/08/2015 Appointment: Honey Kaba WPtel: [address] [place] [id number] 11/06 confirmed~sl WORK IN 11/08/2015 Patient Education: Patient Medication Summary Completed 11/08/2015 Visit Plan: Check CBC, CMP, TSH, Free T4 , HbA1C, Amylase, Lipase Check CT scan of abdomen/pelvis Will need EGD and colonoscopy pending results of above Could also be gallbladder related but big concern for cancer Protonix daily and zofran prn 10/26/2015 App[facility]ment: [facility]el[facility] [phone] [facility] 10/24 confirmed~sl ACUTE ILLNESS 10/26/2015 Patient Education: Patient Medication Summary Completed 10/26/2015 Care Plan: CT PELVIS W/O DYE LOINC : 361 08-9 Pending 10/26/2015 Care Plan: CT ABDOMEN W/O DYE LOINC : 36 103-0 Pending 10/26/2015 [facility] [facility] 10/11/2015 Appointment: Honey Kabatel: [phone] [facility] [address] ACUTE ILLNESS 12/09/2013 Appointment: Honey Kaba WPtel: [phone] [facility] [address] ACUTE ILLNESS 03/09/2013 Patient Education: Patient Medication Summary Completed 03/09/2013 Appointment: Amelie Carcamo WPtel: [phone] [facility] ACUTE ILLNESS 11/29/2009 Patient Education: Patient Medication [...]
--- OUTSIDE RECORDS SUMMARY | 2019-08-15 18:36 | XMS REPORT | CCD ---
Author Author Arnoldo Kaba D.O. Organization [facility] Address [address] [place] [address] Phone Care Team Providers Care Biotechnologist Name Role Phone PP Unavailable CCM Unavailable Summary Purpose Interface Exchange Insurance Providers Payer name Policy type / Coverage type Covered green party ID Effective Begin Date Effective End Date W[place] MEDICARE PART B [place] Medicare Part B [id number] 2018 Unknown Medicare Part B [id number] 2018 Unknown Family History Family History data not [...] Fill Instructions levothyroxine 50 mcg tablet RxNorm: 646870 TAKE 1 TABLET DAILY 08/31 No Stop Date Active Synthroid 25 mcg tablet RxNorm: 132817 1 Tablet(s) PO QD 07/23/2017 0 09/20/2017 Inactive carvedilol 12.5 mg tablet RxNorm: 488725 1 Tablet(s) PO BID 018 07/16/2017 Inactive pantoprazole 40 mg tablet,delayed release RxNorm: 379587 1 Tablet(s) PO QD for stomach 04/18/2017 10/09/2017 Inactive pantoprazole 40 mg tablet,delayed release RxNorm: 030252 1 Tablet(s) PO QD for stomach 01/17/2017 04/18/2017 Inactive Colestid 1 gram tablet RxNorm: 7908080 1 Tablet(s) PO QD 01/17/2017 0 07/16/2017 Inactive carvedilol 12.5 mg tablet RxNorm: 719457 1 Tablet(s) PO BID 017 04/18/2017 Inactive carvedilol 12.5 mg tablet RxNorm: 018331 1 Tablet(s) PO BID 017 01/15/2017 Inactive pantoprazole 40 mg tablet,delayed release RxNorm: 701787 1 Tablet(s) PO QD for stomach 10/25/2016 01/16/2017 Inactive pantoprazole 40 mg tablet,delayed release RxNorm: 331393 1 Tablet(s) PO QD for stomach 07/24/2016 10/21/2016 Inactive Colestid 1 gram tablet RxNorm: 8875440 1 Tablet(s) PO QD 07/16/2016 1 Inactive pantoprazole 40 mg tablet,delayed release RxNorm: 445102 1 Tablet(s) PO QD for stomach 04/25/2016 07/23/2016 Inactive pantoprazole 40 mg tablet,delayed release RxNorm: 584453 1 Tablet(s) PO QD for stomach 02/27/2016 04/24/2016 Inactive Colestid 1 gram tablet RxNorm: 9372614 1 Tablet(s) PO QD 01/18/2016 0 07/15/2016 Inactive sucralfate 1 gram tablet RxNorm: 470888 1 Tablet(s) PO BID 01/17/20 16 07/15/2016 Inactive ondansetron HCl 4 mg tablet RxNorm: 384431 1 Tablet(s) PO Q4H as needed for nausea 01/17/2016 10/09/2017 Inactive pantoprazole 40 mg tablet,delayed release RxNorm: 608754 1 Tablet(s) PO QD for stomach 12/26/2015 02/23/2016 Inactive ondansetron HCl 4 mg tablet RxNorm: 947700 1 Tablet(s) PO Q4H as needed for nausea 12/13/2015 01/16/2016 Inactive colestipol 1 gram tablet RxNorm: 3200635 1 Tablet(s) PO QD 12/13/19 16 01/11/2016 Inactive sucralfate 1 gram tablet RxNorm: 418397 1 Tablet(s) PO QID (before meals and at bedtime) 11/09/2015 06/22/2018 Inactive pantoprazole 40 mg tablet,delayed release RxNorm: 677923 1 Tablet(s) PO QD for stomach 10/26/2015 12/24/2015 Inactive Zofran 4 mg tablet RxNorm: 794299 1 Tablet(s) PO Q4H as needed for nausea 10/26/2015 12/12/2015 Inactive Flagyl 500 mg tablet RxNorm: 240591 1 Tablet(s) PO TID 03/09/2013 Inactive Colchicine 0.6 mg Tab RxNorm: 521104 1 Tablet(s) PO TID take one tablet three times daily 11/29/2009 12/08/2009 Inactive minoxidil 2.5 mg tablet RxNorm: 728319 1 Tablet(s) PO QHS No Start Da te Active minoxidil 10 mg tablet RxNorm: 427552 1 Tablet(s) PO QAM No Start Date Active Aspirin 81 mg Tab RxNorm: 357669 1 Tablet(s) PO QD No Start Date Active Centrum Silver tablet RxNorm: 1 Tablet(s) PO QD No Start Date Active Lasix 40 mg tablet RxNorm: 757374 1 Tablet(s) PO QD No Start Date Active Klor-Con M20 mEq tablet,extended release RxNorm: 6104550 1 Table t(s) PO QD No Start Date Active levothyroxine 50 mcg tablet RxNorm: 222690 1 Tablet(s) PO QD No Sta rt Date 09/21/2018 Inactive Lisinopril 40 mg Tab RxNorm: 672777 1 Tablet(s) PO QD No Start Date 0 11/08/2015 Inactive Colestid 1 gram tablet RxNorm: 5626762 1 Tablet(s) PO QD No Start D ate 01/17/2016 Inactive carvedilol 25 mg tablet RxNorm: 091602 1/2 Tablet(s) PO BID No Star t Date 01/15/2017 Inactive Centrum Silver Oral RxNorm: Oral No Start Date 11/08/2015 Inact kris furosemide 20 mg tablet RxNorm: 012927 1 Tablet(s) PO QAM No Start Date 01/28/2017 Inactive Carvedilol 25 mg Tab RxNorm: 153274 1 Tablet(s) PO BID No Start Date 01/15/2017 Inactive Minoxidil 2.5 mg Tab RxNorm: 521270 1 Tablet(s) PO BID No Start Date 11/08/2015 Inactive sucralfate 1 gram tablet RxNorm: 925044 1 Tablet(s) PO BID as n eeded No Start Date 10/09/2017 Inactive ondansetron HCl 4 mg tablet RxNorm: 644853 1 Tablet(s) PO Q4H as needed for nausea No Start Date 12/12/2015 Inactive Hydrochlorothiazide 12.5 mg Tab RxNorm: 941362 1 Tablet(s) PO QAM N o Start Date 11/08/2015 Inactive sucralfate 1 gram tablet RxNorm: 629310 1 Tablet(s) PO BID No Start Date 01/16/2016 Inactive Flintstones Complete (iron) 18 mg iron chewable tablet RxNor m: 2 Tablet(s) PO BID No Start Date 07/16/2017 Inactive Medication Administered No Medication Administered data Immunizations Vaccine Codes Date Status Influenza CVX: 135 12/25/2018 Complete Influenza CVX: 135 12/25/2018 Complete Results Observation Observation Code Item Item Code Result Date S ervice Location IRON 68724 Iron 53 ug/dL 12/22/2018 Unknown FREE T4 97343 T4 Free 1.05 ng/dL 12/22/2018 Unknown FERRITIN 42837 FERRITIN 126.5 ng/mL 12/22/2018 Unknown COMPLETE BLOOD COUNT [id number] WBC 7.7 10e9/L 12/23/19 19 Unknown COMPLETE BLOOD COUNT [id number] RBC 3.60 10e12/L 2018 Unknown COMPLETE BLOOD COUNT [id number] HEMOGLOBIN 10.9 g/dL 12/23/19 19 Unknown COMPLETE BLOOD COUNT [id number] HEMATOCRIT 34.4 % 12/23/19 19 Unknown COMPLETE BLOOD COUNT 1508187 MCV 95.6 fL 9 Unknown COMPLETE BLOOD COUNT 0935358 MCH 30.3 pg 9 Unknown COMPLETE BLOOD COUNT 7959735 MCHC 31.7 g/dL 9 Unknown COMPLETE BLOOD COUNT 6079515 PLATELET COUNT 364 10e9/L Unknown COMPLETE BLOOD COUNT 9701760 Mean Plt Volume 9.8 fL Unknown COMPLETE BLOOD COUNT 8385259 Neut Auto 81.4 % 9 Unknown COMPLETE BLOOD COUNT 0206408 Lymph Auto 12.4 % 12/23/19 19 Unknown COMPLETE BLOOD COUNT 9383145 [place] Auto 4.5 % 9 Unknown COMPLETE BLOOD COUNT 7113849 RDW 14.2 % 9 Unknown COMPLETE BLOOD COUNT 8693237 Eos Auto 1.3 % 9 Unknown COMPLETE BLOOD COUNT 5433629 Baso Auto 0.4 % 9 Unknown COMPLETE BLOOD COUNT 2261231 Neutrophil Abs 6.27 10e9/L Unknown COMPLETE BLOOD COUNT 3962227 Lymphocyte Abs 0.95 10e9/L Unknown COMPLETE BLOOD COUNT 1058651 Monocyte Abs 0.35 10e9/L 12/01 Unknown COMPLETE BLOOD COUNT 5060492 Eosinophil Abs 0.10 10e9/L Unknown COMPLETE BLOOD COUNT 1177174 RDW-SD 47.2 fL 9 Unknown COMPLETE BLOOD COUNT [id number] Basophil Abs 0.03 10e9/L 12/01 Unknown COMPREHENSIVE METABOLIC 12516 AST 19 U/L 2018 Unknown COMPREHENSIVE METABOLIC 69694 ALT 13 U/L 2018 Unknown COMPREHENSIVE METABOLIC 37944 BUN 41 mg/dL 2018 Unknown COMPREHENSIVE METABOLIC 49236 ALBUMIN 4.3 g/dL 2018 Unknown COMPREHENSIVE METABOLIC 62840 CHLORIDE 103 mmol/L 12/22 Unknown COMPREHENSIVE METABOLIC 56705 Bili Total 0.3 mg/dL 12/22 Unknown COMPREHENSIVE METABOLIC 46268 ALK PHOS 86 U/L 2018 Unknown COMPREHENSIVE METABOLIC 56118 SODIUM 138 mmol/L 12/22 Unknown COMPREHENSIVE METABOLIC 89648 CREATININE 1.69 mg/dL 12/01 Unknown COMPREHENSIVE METABOLIC 29883 CALCIUM 9.2 mg/dL 2018 Unknown COMPREHENSIVE METABOLIC 90612 POTASSIUM 4.3 mmol/L 12/22 Unknown COMPREHENSIVE METABOLIC 42242 Total Protein 6.9 g/dL Unknown COMPREHENSIVE METABOLIC 81595 Glucose 105 mg/dL 2018 Unknown COMPREHENSIVE METABOLIC 28764 Bicarbonate 21 mmol/L 12/01 Unknown COMPREHENSIVE METABOLIC 16321 AGAP 14 mmol/L 2018 Unknown THYROID STIMULATING HORMONE 24280 TSH 6.015 uIU/mL 12/22/2018 Unknown VITAMIN B 12 95895 VITAMIN B12 615 pg/mL 12/22/2018 Unkn own GFR CALC 6245947 GFR Non Afr Amr 38 mL/min 12/22/2018 Unk nown GFR CALC 9160072 GFR Afr Amr 47 mL/min 12/22/2018 Unknown FERRITIN 16466 FERRITIN 113.7 ng/mL 06/24/2018 Unknown VITAMIN B 12 48736 VITAMIN B12 651 pg/mL 06/24/2018 Unkn own COMPLETE BLOOD COUNT 7241075 WBC 6.3 10e9/L 06/24/19 19 Unknown COMPLETE BLOOD COUNT 2077515 RBC 3.33 10e12/L 2018 Unknown COMPLETE BLOOD COUNT 6681388 HEMOGLOBIN 9.8 g/dL 06/24/19 19 Unknown COMPLETE BLOOD COUNT 5572399 HEMATOCRIT 31.6 % 06/24/19 19 Unknown COMPLETE BLOOD COUNT 0897982 MCV 94.9 fL 9 Unknown COMPLETE BLOOD COUNT 1948022 MCH 29.4 pg 9 Unknown COMPLETE BLOOD COUNT 0226921 MCHC 31.0 g/dL 9 Unknown COMPLETE BLOOD COUNT 6828041 PLATELET COUNT 319 10e9/L Unknown COMPLETE BLOOD COUNT 1936930 Mean Plt Volume 9.4 fL Unknown COMPLETE BLOOD COUNT 0343586 Neut Auto 78.0 % 9 Unknown COMPLETE BLOOD COUNT 4917356 Lymph Auto 14.4 % 06/24/19 19 Unknown COMPLETE BLOOD COUNT 1812914 [place] Auto 5.2 % 9 Unknown COMPLETE BLOOD COUNT 3163976 RDW 14.2 % 9 Unknown COMPLETE BLOOD COUNT 2574878 Eos Auto 2.1 % 9 Unknown COMPLETE BLOOD COUNT 2909979 Baso Auto 0.3 % 9 Unknown COMPLETE BLOOD COUNT 8816341 Neutrophil Abs 4.91 10e9/L Unknown COMPLETE BLOOD COUNT 5914923 Lymphocyte Abs 0.91 10e9/L Unknown COMPLETE BLOOD COUNT 3358460 Monocyte Abs 0.33 10e9/L 05/31 Unknown COMPLETE BLOOD COUNT 1148070 Eosinophil Abs 0.13 10e9/L Unknown COMPLETE BLOOD COUNT 5245077 RDW-SD 47.0 fL 9 Unknown COMPLETE BLOOD COUNT [id number] Basophil Abs 0.02 10e9/L 05/31 Unknown THYROID STIMULATING HORMONE 50692 TSH 4.709 uIU/mL 06/23/2018 Unknown IRON 18349 Iron 52 ug/dL 06/23/2018 Unknown COMPREHENSIVE METABOLIC 60157 AST 16 U/L 2018 Unknown COMPREHENSIVE METABOLIC 84159 ALT 10 U/L 2018 Unknown COMPREHENSIVE METABOLIC 36297 BUN 27 mg/dL 2018 Unknown COMPREHENSIVE METABOLIC 30076 ALBUMIN 4.3 g/dL 2018 Unknown COMPREHENSIVE METABOLIC 54099 CHLORIDE 110 mmol/L 06/23 Unknown COMPREHENSIVE METABOLIC 90484 Bili Total 0.4 mg/dL 06/23 Unknown COMPREHENSIVE METABOLIC 52543 ALK PHOS 68 U/L 2018 Unknown COMPREHENSIVE METABOLIC 84053 SODIUM 140 mmol/L 06/23 Unknown COMPREHENSIVE METABOLIC 68302 CREATININE 1.60 mg/dL 05/31 Unknown COMPREHENSIVE METABOLIC 96846 CALCIUM 9.2 mg/dL 2018 Unknown COMPREHENSIVE METABOLIC 05597 POTASSIUM 4.6 mmol/L 06/23 Unknown COMPREHENSIVE METABOLIC 06866 Total Protein 6.8 g/dL Unknown COMPREHENSIVE METABOLIC 13694 Glucose 110 mg/dL 2018 Unknown COMPREHENSIVE METABOLIC 60706 Bicarbonate 19 mmol/L 05/31 Unknown COMPREHENSIVE METABOLIC 37759 AGAP 11 mmol/L 2018 Unknown GFR CALC 8950073 GFR Non Afr Amr 41 mL/min 06/23/2018 Unk nown GFR CALC 0552081 GFR Afr Amr 50 mL/min 06/23/2018 Unknown COMPLETE BLOOD COUNT 8834092 WBC 6.6 10e9/L 01/21/20 18 Unknown COMPLETE BLOOD COUNT [id number] RBC 3.64 10e12/L 2017 Unknown COMPLETE BLOOD COUNT 1811485 HEMOGLOBIN 11.0 g/dL 01/21/20 18 Unknown COMPLETE BLOOD COUNT 3453494 HEMATOCRIT 34.6 % 01/21/20 18 Unknown COMPLETE BLOOD COUNT 0864316 MCV 95.1 fL 8 Unknown COMPLETE BLOOD COUNT 0935816 MCH 30.2 pg 8 Unknown COMPLETE BLOOD COUNT 3834456 MCHC 31.8 g/dL 8 Unknown COMPLETE BLOOD COUNT 1264692 PLATELET COUNT 386 10e9/L Unknown COMPLETE BLOOD COUNT 3932874 Mean Plt Volume 9.6 fL Unknown COMPLETE BLOOD COUNT 4098378 Neut Auto 76.6 % 8 Unknown COMPLETE BLOOD COUNT 0782971 Lymph Auto 15.6 % 01/21/20 18 Unknown COMPLETE BLOOD COUNT 2439653 [place] Auto 5.3 % 8 Unknown COMPLETE BLOOD COUNT 8225536 RDW 13.8 % 8 Unknown COMPLETE BLOOD COUNT 0531587 Eos Auto 2.0 % 8 Unknown COMPLETE BLOOD COUNT 6057970 Baso Auto 0.5 % 8 Unknown COMPLETE BLOOD COUNT 8757300 Neutrophil Abs 5.06 10e9/L Unknown COMPLETE BLOOD COUNT 6459695 Lymphocyte Abs 1.03 10e9/L Unknown COMPLETE BLOOD COUNT 7748981 Monocyte Abs 0.35 10e9/L 12/31 Unknown COMPLETE BLOOD COUNT 4576618 Eosinophil Abs 0.13 10e9/L Unknown COMPLETE BLOOD COUNT 6887834 RDW-SD 45.5 fL 8 Unknown COMPLETE BLOOD COUNT 1369318 Basophil Abs 0.03 10e9/L 12/31 Unknown COMPREHENSIVE METABOLIC 01220 AST 17 U/L 2017 Unknown COMPREHENSIVE METABOLIC 55886 ALT 14 U/L 2017 Unknown COMPREHENSIVE METABOLIC 27176 BUN 55 mg/dL 2017 Unknown COMPREHENSIVE METABOLIC 97401 ALBUMIN 4.2 g/dL 2017 Unknown COMPREHENSIVE METABOLIC 87946 CHLORIDE 106 mmol/L 01/20 Unknown COMPREHENSIVE METABOLIC 60633 Bili Total 0.4 mg/dL 01/20 Unknown COMPREHENSIVE METABOLIC 06798 ALK PHOS 75 U/L 2017 Unknown COMPREHENSIVE METABOLIC 78340 SODIUM 137 mmol/L 01/20 Unknown COMPREHENSIVE METABOLIC 72499 CREATININE 1.99 mg/dL 12/31 Unknown COMPREHENSIVE METABOLIC 54224 CALCIUM 9.5 mg/dL 2017 Unknown COMPREHENSIVE METABOLIC 12035 POTASSIUM 4.6 mmol/L 01/20 Unknown COMPREHENSIVE METABOLIC 47559 Total Protein 7.9 g/dL Unknown COMPREHENSIVE METABOLIC 36457 Glucose 105 mg/dL 2017 Unknown COMPREHENSIVE METABOLIC 37670 Bicarbonate 22 mmol/L 12/31 Unknown COMPREHENSIVE METABOLIC 97063 AGAP 9 mmol/L 2017 Unknown THYROID STIMULATING HORMONE 21371 TSH 6.119 uIU/mL 01/20/2018 Unknown GFR CALC 0283220 GFR Non Afr Amr 32 mL/min 01/20/2018 Unk nown GFR CALC 2718227 GFR Afr Amr 39 mL/min 01/20/2018 Unknown FREE T4 60475 T4 Free 1.11 ng/dL 01/20/2018 Unknown GFR CALC 9955980 GFR Non Afr Amr 38 mL/min 10/03/2017 Unk nown GFR CALC 4170896 GFR Afr Amr 46 mL/min 10/03/2017 Unknown COMPREHENSIVE METABOLIC 70506 AST 15 U/L 2017 Unknown COMPREHENSIVE METABOLIC 41110 ALT 10 U/L 2017 Unknown COMPREHENSIVE METABOLIC 82338 BUN 41 mg/dL 2017 Unknown COMPREHENSIVE METABOLIC 83065 ALBUMIN 4.0 g/dL 2017 Unknown COMPREHENSIVE METABOLIC 71833 CHLORIDE 105 mmol/L 10/03 Unknown COMPREHENSIVE METABOLIC 58293 Bili Total 0.4 mg/dL 10/03 Unknown COMPREHENSIVE METABOLIC 94476 ALK PHOS 71 U/L 2017 Unknown COMPREHENSIVE METABOLIC 40847 SODIUM 140 mmol/L 10/03 Unknown COMPREHENSIVE METABOLIC 82382 CREATININE 1.72 mg/dL 07/2017 Unknown COMPREHENSIVE METABOLIC 91156 CALCIUM 9.1 mg/dL 2017 Unknown COMPREHENSIVE METABOLIC 47054 POTASSIUM 4.1 mmol/L 10/03 Unknown COMPREHENSIVE METABOLIC 74534 Total Protein 6.5 g/dL Unknown COMPREHENSIVE METABOLIC 94797 Glucose 101 mg/dL 2017 Unknown COMPREHENSIVE METABOLIC 65855 Bicarbonate 23 mmol/L 07/2017 Unknown COMPREHENSIVE METABOLIC 24031 AGAP 12 mmol/L 2017 Unknown FREE T4 95005 T4 Free 0.81 ng/dL 10/03/2017 Unknown THYROID STIMULATING HORMONE 96624 TSH 10.964 uIU/m L 10/03/2017 Unknown COMPLETE BLOOD COUNT 8306375 WBC 5.6 10e9/L 10/04/19 18 Unknown COMPLETE BLOOD COUNT 0990412 RBC 3.36 10e12/L 2017 Unknown COMPLETE BLOOD COUNT 7478458 HEMOGLOBIN 10.3 g/dL 10/04/19 18 Unknown COMPLETE BLOOD COUNT 1323145 HEMATOCRIT 32.0 % 10/04/19 18 Unknown COMPLETE BLOOD COUNT 2097180 MCV 95.2 fL 8 Unknown COMPLETE BLOOD COUNT 5529119 MCH 30.7 pg 8 Unknown COMPLETE BLOOD COUNT 3886635 MCHC 32.2 g/dL 8 Unknown COMPLETE BLOOD COUNT 6015448 PLATELET COUNT 250 10e9/L 07/2017 Unknown COMPLETE BLOOD COUNT 0664622 Mean Plt Volume 10.2 fL 07/2017 Unknown COMPLETE BLOOD COUNT 3052933 Neut Auto 75.9 % 8 Unknown COMPLETE BLOOD COUNT 4207863 Lymph Auto 17.2 % 10/04/19 18 Unknown COMPLETE BLOOD COUNT 1018426 [place] Auto 5.3 % 8 Unknown COMPLETE BLOOD COUNT 6010450 RDW 14.0 % 8 Unknown COMPLETE BLOOD COUNT 3236571 Eos Auto 1.2 % 8 Unknown COMPLETE BLOOD COUNT 2757710 Baso Auto 0.4 % 8 Unknown COMPLETE BLOOD COUNT 1769630 Neutrophil Abs 4.25 10e9/L Unknown COMPLETE BLOOD COUNT 3756680 Lymphocyte Abs 0.96 10e9/L Unknown COMPLETE BLOOD COUNT 3609109 Monocyte Abs 0.30 10e9/L 07/2017 Unknown COMPLETE BLOOD COUNT 7131965 Eosinophil Abs 0.07 10e9/L Unknown COMPLETE BLOOD COUNT 3456716 RDW-SD 45.8 fL 8 Unknown COMPLETE BLOOD COUNT 1568012 Basophil Abs 0.02 10e9/L 07/2017 Unknown FREE T4 54552 T4 Free 0.87 ng/dL 07/17/2017 Unknown COMPREHENSIVE METABOLIC 48428 AST 19 U/L 2017 Unknown COMPREHENSIVE METABOLIC 35563 ALT 13 U/L 2017 Unknown COMPREHENSIVE METABOLIC 39711 BUN 48 mg/dL 2017 Unknown COMPREHENSIVE METABOLIC 16888 ALBUMIN 4.4 g/dL 2017 Unknown COMPREHENSIVE METABOLIC 15868 CHLORIDE 105 mmol/L 07/17 Unknown COMPREHENSIVE METABOLIC 02218 Bili Total 0.4 mg/dL 07/17 Unknown COMPREHENSIVE METABOLIC 41692 ALK PHOS 64 U/L 2017 Unknown COMPREHENSIVE METABOLIC 46746 SODIUM 141 mmol/L 07/17 Unknown COMPREHENSIVE METABOLIC 43550 CREATININE 1.72 mg/dL 06/30 Unknown COMPREHENSIVE METABOLIC 66557 CALCIUM 9.8 mg/dL 2017 Unknown COMPREHENSIVE METABOLIC 08729 POTASSIUM 4.6 mmol/L 07/17 Unknown COMPREHENSIVE METABOLIC 66000 Total Protein 7.0 g/dL Unknown COMPREHENSIVE METABOLIC 92689 Glucose 105 mg/dL 2017 Unknown COMPREHENSIVE METABOLIC 78878 Bicarbonate 25 mmol/L 06/30 Unknown COMPREHENSIVE METABOLIC 53657 AGAP 11 mmol/L 2017 Unknown LIPID GROUP 40729 Cholesterol 162 mg/dL 07/17/2017 Unkno wn LIPID GROUP 60875 Triglyceride 126 mg/dL 07/17/2017 Unkn own LIPID GROUP 98959 HDL CHOLESTEROL 39 mg/dL 07/17/2017 U nknown LIPID GROUP 26561 Chol/HDL Ratio 4.15 ratio 07/17/2017 U nknown LIPID GROUP 59261 NON-HDL Chol 123 mg/dL 07/17/2017 Unkn own LIPID GROUP 81927 LDL Cholesterol 98 mg/dL 07/17/2017 U nknown GLYCOSYLATED HEMOGLOBIN TEST 57552 Hgb A1c 93965-5 5.0 % 0 07/17/2017 Unknown THYROID STIMULATING HORMONE 04821 TSH 28.780 uIU/m L 07/17/2017 Unknown MEAN GLUC 7207351 Calc Mean Gluc 97 mg/dL 07/17/2017 Unkn own GFR CALC 4358995 GFR Non Afr Amr 38 mL/min 07/17/2017 Unk nown GFR CALC 9142976 GFR Afr Amr 46 mL/min 07/17/2017 Unknown COMPLETE BLOOD COUNT 9374761 WBC 5.8 10e9/L 07/18/19 18 Unknown COMPLETE BLOOD COUNT 3653604 RBC 3.47 10e12/L 2017 Unknown COMPLETE BLOOD COUNT 0660139 HEMOGLOBIN 10.7 g/dL 07/18/19 18 Unknown COMPLETE BLOOD COUNT 5080222 HEMATOCRIT 34.0 % 07/18/19 18 Unknown COMPLETE BLOOD COUNT 9822093 MCV 98.0 fL 8 Unknown COMPLETE BLOOD COUNT 7591738 MCH 30.8 pg 8 Unknown COMPLETE BLOOD COUNT 7930217 MCHC 31.5 g/dL 8 Unknown COMPLETE BLOOD COUNT 2813098 PLATELET COUNT 254 10e9/L Unknown COMPLETE BLOOD COUNT 1487800 Mean Plt Volume 10.0 fL Unknown COMPLETE BLOOD COUNT 3536416 Neut Auto 77.2 % 8 Unknown COMPLETE BLOOD COUNT 8398894 Lymph Auto 15.2 % 07/18/19 18 Unknown COMPLETE BLOOD COUNT 7236108 [place] Auto 5.4 % 8 Unknown COMPLETE BLOOD COUNT 4011647 RDW 13.9 % 8 Unknown COMPLETE BLOOD COUNT 8114527 Eos Auto 1.7 % 8 Unknown COMPLETE BLOOD COUNT 2174320 Baso Auto 0.5 % 8 Unknown COMPLETE BLOOD COUNT 5143065 Neutrophil Abs 4.48 10e9/L Unknown COMPLETE BLOOD COUNT 5849446 Lymphocyte Abs 0.88 10e9/L Unknown COMPLETE BLOOD COUNT 4677192 Monocyte Abs 0.31 10e9/L 06/30 Unknown COMPLETE BLOOD COUNT 2785477 Eosinophil Abs 0.10 10e9/L Unknown COMPLETE BLOOD COUNT 8795645 RDW-SD 48.0 fL 8 Unknown COMPLETE BLOOD COUNT 3560878 Basophil Abs 0.03 10e9/L 06/30 Unknown FREE T4 07066 T4 Free 0.79 ng/dL 01/31/2017 Unknown GLYCOSYLATED HEMOGLOBIN TEST 74660 Hgb A1c 49389-0 5.2 % 1 04/01/2016 Unknown MEAN GLUC 5976495 Calc Mean Gluc 103 mg/dL 01/30/2017 Unkn own IRON 57929 Iron 62 ug/dL 01/29/2017 Unknown COMPREHENSIVE METABOLIC 31081 AST 25 U/L 2016 Unknown COMPREHENSIVE METABOLIC 19854 ALT 29 U/L 2016 Unknown COMPREHENSIVE METABOLIC 84690 BUN 41 mg/dL 2016 Unknown COMPREHENSIVE METABOLIC 01353 ALBUMIN 4.4 g/dL 2016 Unknown COMPREHENSIVE METABOLIC 01351 CHLORIDE 111 mmol/L 01/29 Unknown COMPREHENSIVE METABOLIC 58844 Bili Total 0.3 mg/dL 01/29 Unknown COMPREHENSIVE METABOLIC 07768 ALK PHOS 68 U/L 2016 Unknown COMPREHENSIVE METABOLIC 22417 SODIUM 142 mmol/L 01/29 Unknown COMPREHENSIVE METABOLIC 43039 CREATININE 1.69 mg/dL 01/01 Unknown COMPREHENSIVE METABOLIC 99866 CALCIUM 9.0 mg/dL 2016 Unknown COMPREHENSIVE METABOLIC 52360 POTASSIUM 4.0 mmol/L 01/29 Unknown COMPREHENSIVE METABOLIC 19268 Total Protein 6.9 g/dL Unknown COMPREHENSIVE METABOLIC 54312 Glucose 166 mg/dL 2016 Unknown COMPREHENSIVE METABOLIC 18477 Bicarbonate 22 mmol/L 01/01 Unknown COMPREHENSIVE METABOLIC 38415 AGAP 9 mmol/L 2016 Unknown VITAMIN B 12 75163 VITAMIN B12 603 pg/mL 01/29/2017 Unkn own COMPLETE BLOOD COUNT 4464648 WBC 5.7 10e9/L 01/30/20 17 Unknown COMPLETE BLOOD COUNT 6997788 RBC 3.56 10e12/L 2016 Unknown COMPLETE BLOOD COUNT 4738631 HEMOGLOBIN 10.7 g/dL 01/30/20 17 Unknown COMPLETE BLOOD COUNT 8062883 HEMATOCRIT 33.8 % 01/30/20 17 Unknown COMPLETE BLOOD COUNT 6161888 MCV 94.9 fL 7 Unknown COMPLETE BLOOD COUNT 6531397 MCH 30.1 pg 7 Unknown COMPLETE BLOOD COUNT 7418437 MCHC 31.7 g/dL 7 Unknown COMPLETE BLOOD COUNT 0455154 PLATELET COUNT 284 10e9/L Unknown COMPLETE BLOOD COUNT 5748184 Mean Plt Volume 10.0 fL Unknown COMPLETE BLOOD COUNT 3499380 Neut Auto 79.4 % 7 Unknown COMPLETE BLOOD COUNT 0806746 Lymph Auto 13.6 % 01/30/20 17 Unknown COMPLETE BLOOD COUNT 4374694 [place] Auto 4.4 % 7 Unknown COMPLETE BLOOD COUNT 6942302 RDW 14.9 % 7 Unknown COMPLETE BLOOD COUNT 8074560 Eos Auto 2.1 % 7 Unknown COMPLETE BLOOD COUNT 7459498 Baso Auto 0.5 % 7 Unknown COMPLETE BLOOD COUNT 7662782 Neutrophil Abs 4.53 10e9/L Unknown COMPLETE BLOOD COUNT 2479557 Lymphocyte Abs 0.78 10e9/L Unknown COMPLETE BLOOD COUNT 7724469 Monocyte Abs 0.25 10e9/L 01/01 Unknown COMPLETE BLOOD COUNT 2198383 Eosinophil Abs 0.12 10e9/L Unknown COMPLETE BLOOD COUNT 4583163 RDW-SD 49.6 fL 7 Unknown COMPLETE BLOOD COUNT 0069062 Basophil Abs 0.03 10e9/L 01/01 Unknown THYROID STIMULATING HORMONE 56765 TSH 26.132 uIU/m L 01/29/2017 Unknown GFR CALC 7215727 GFR Non Afr Amr 39 mL/min 01/29/2017 Unk nown GFR CALC 2412635 GFR Afr Amr 47 mL/min 01/29/2017 Unknown COMPREHENSIVE METABOLIC 84903 AST 19 U/L 2016 Unknown COMPREHENSIVE METABOLIC 67542 ALT 19 U/L 2016 Unknown COMPREHENSIVE METABOLIC 67671 BUN 30 mg/dL 2016 Unknown COMPREHENSIVE METABOLIC 74581 ALBUMIN 3.9 g/dL 2016 Unknown COMPREHENSIVE METABOLIC 52898 CHLORIDE 107 mmol/L 07/16 Unknown COMPREHENSIVE METABOLIC 75626 Bili Total 0.4 mg/dL 07/16 Unknown COMPREHENSIVE METABOLIC 46338 ALK PHOS 56 U/L 2016 Unknown COMPREHENSIVE METABOLIC 98007 SODIUM 139 mmol/L 07/16 Unknown COMPREHENSIVE METABOLIC 33328 CREATININE 1.50 mg/dL 06/30 Unknown COMPREHENSIVE METABOLIC 59744 CALCIUM 8.7 mg/dL 2016 Unknown COMPREHENSIVE METABOLIC 78697 POTASSIUM 4.2 mmol/L 07/16 Unknown COMPREHENSIVE METABOLIC 69713 Total Protein 6.5 g/dL Unknown COMPREHENSIVE METABOLIC 93754 Glucose 139 mg/dL 2016 Unknown COMPREHENSIVE METABOLIC 20780 Bicarbonate 20 mmol/L 06/30 Unknown COMPREHENSIVE METABOLIC 58896 AGAP 12 mmol/L 2016 Unknown COMPLETE BLOOD COUNT 1457453 WBC 5.7 10e9/L 07/17/19 17 Unknown COMPLETE BLOOD COUNT 1839554 RBC 3.10 10e12/L 2016 Unknown COMPLETE BLOOD COUNT 2812775 HEMOGLOBIN 9.4 g/dL 07/17/19 17 Unknown COMPLETE BLOOD COUNT 3224907 HEMATOCRIT 29.6 % 07/17/19 17 Unknown COMPLETE BLOOD COUNT 0542490 MCV 95.5 fL 7 Unknown COMPLETE BLOOD COUNT 0441349 MCH 30.3 pg 7 Unknown COMPLETE BLOOD COUNT 3291739 MCHC 31.8 g/dL 7 Unknown COMPLETE BLOOD COUNT 6411732 PLATELET COUNT 286 10e9/L Unknown COMPLETE BLOOD COUNT 5053492 Mean Plt Volume 9.9 fL Unknown COMPLETE BLOOD COUNT 1696818 Neut Auto 79.4 % 7 Unknown COMPLETE BLOOD COUNT 7006460 Lymph Auto 14.5 % 07/17/19 17 Unknown COMPLETE BLOOD COUNT 0404955 [place] Auto 4.6 % 7 Unknown COMPLETE BLOOD COUNT 2794172 RDW 14.2 % 7 Unknown COMPLETE BLOOD COUNT 7246597 Eos Auto 1.1 % 7 Unknown COMPLETE BLOOD COUNT 2313011 Baso Auto 0.4 % 7 Unknown COMPLETE BLOOD COUNT 1144760 Neutrophil Abs 4.53 10e9/L Unknown COMPLETE BLOOD COUNT [id number] Lymphocyte Abs 0.83 10e9/L Unknown COMPLETE BLOOD COUNT [id number] Monocyte Abs 0.26 10e9/L 06/30 Unknown COMPLETE BLOOD COUNT [id number] Eosinophil Abs 0.06 10e9/L Unknown COMPLETE BLOOD COUNT [id number] RDW-SD 47.4 fL 7 Unknown COMPLETE BLOOD COUNT [id number] Basophil Abs 0.02 10e9/L 06/30 Unknown GFR CALC [id number] GFR Non Afr Amr 44 mL/min 07/16/2016 Unk nown GFR CALC [id number] GFR Afr Amr 54 mL/min 07/16/2016 Unknown COMPLETE BLOOD COUNT [id number] WBC 4.3 10e9/L 11/08/19 16 Unknown COMPLETE BLOOD COUNT [id number] RBC 3.22 10e12/L 2015 Unknown COMPLETE BLOOD COUNT [id number] HEMOGLOBIN 9.5 g/dL 11/08/19 16 Unknown COMPLETE BLOOD COUNT [id number] HEMATOCRIT 29.7 % 11/08/19 16 Unknown COMPLETE BLOOD COUNT [id number] MCV 92.2 fL 6 Unknown COMPLETE BLOOD COUNT [id number] MCH 29.5 pg 6 Unknown COMPLETE BLOOD COUNT [id number] MCHC 32.0 g/dL 6 Unknown COMPLETE BLOOD COUNT [id number] PLATELET COUNT 269 10e9/L 12/2015 Unknown COMPLETE BLOOD COUNT [id number] Mean Plt Volume 9.3 fL 12/2015 Unknown COMPLETE BLOOD COUNT [id number] Neut Auto 71.4 % 6 Unknown COMPLETE BLOOD COUNT [id number] Lymph Auto 20.2 % 11/08/19 16 Unknown COMPLETE BLOOD COUNT [id number] [place] Auto 5.1 % 6 Unknown COMPLETE BLOOD COUNT [id number] RDW 15.2 % 6 Unknown COMPLETE BLOOD COUNT [id number] Eos Auto 2.6 % 6 Unknown COMPLETE BLOOD COUNT [id number] Baso Auto 0.7 % 6 Unknown COMPLETE BLOOD COUNT [id number] Neutrophil Abs 3.07 10e9/L Unknown COMPLETE BLOOD COUNT [id number] Lymphocyte Abs 0.87 10e9/L Unknown COMPLETE BLOOD COUNT [id number] Monocyte Abs 0.22 10e9/L 12/2015 Unknown COMPLETE BLOOD COUNT [id number] Eosinophil Abs 0.11 10e9/L Unknown COMPLETE BLOOD COUNT [id number] RDW-SD 49.0 fL 6 Unknown COMPLETE BLOOD COUNT [id number] Basophil Abs 0.03 10e9/L 12/2015 Unknown GFR CALC [id number] GFR Non Afr Amr 42 mL/min 11/08/2015 Unk nown GFR CALC 9846823 GFR Afr Amr 51 mL/min 11/08/2015 [place] [address] Glucose 102 mg/dL 11/07 [place] [address] CREATININE 1.57 mg/dL 12/2015 [place] [address] BUN 18 mg/dL 11/07 [place] [address] SODIUM 140 mmol/L 12/2015 [place] [address] POTASSIUM 3.8 mmol/L 12/2015 [place] [address] CHLORIDE 113 mmol/L 12/2015 [place] [address] Bicarbonate 21 mmol/L 12/2015 [place] [address] AGAP 6 mmol/L 11/07 [place] [address] CALCIUM 8.8 mg/dL 11/07 Unknown COMPLETE BLOOD COUNT [id number] WBC 8.3 10e9/L 10/26/19 16 Unknown COMPLETE BLOOD COUNT [id number] RBC 2.55 10e12/L 2015 Unknown COMPLETE BLOOD COUNT [id number] HEMOGLOBIN 7.7 g/dL 10/26/19 16 Unknown COMPLETE BLOOD COUNT [id number] HEMATOCRIT 24.0 % 10/26/19 16 Unknown COMPLETE BLOOD COUNT [id number] MCV 94.1 fL 6 Unknown COMPLETE BLOOD COUNT 8121006 MCH 30.2 pg 6 Unknown COMPLETE BLOOD COUNT 8968282 MCHC 32.1 g/dL 6 Unknown COMPLETE BLOOD COUNT [id number] PLATELET COUNT 292 10e9/L Unknown COMPLETE BLOOD COUNT 6864016 Mean Plt Volume 9.8 fL Unknown COMPLETE BLOOD COUNT [id number] Neut Auto 83.8 % 6 Unknown COMPLETE BLOOD COUNT [id number] Lymph Auto 11.3 % 10/26/19 16 Unknown COMPLETE BLOOD COUNT [id number] [place] Auto 4.1 % 6 Unknown COMPLETE BLOOD COUNT [id number] RDW 14.7 % 6 Unknown COMPLETE BLOOD COUNT [id number] Eos Auto 0.7 % 6 Unknown COMPLETE BLOOD COUNT 0814575 Baso Auto 0.1 % 6 Unknown COMPLETE BLOOD COUNT [id number] Neutrophil Abs 6.96 10e9/L Unknown COMPLETE BLOOD COUNT 6204754 Lymphocyte Abs 0.94 10e9/L Unknown COMPLETE BLOOD COUNT [id number] Monocyte Abs 0.34 10e9/L 09/30 Unknown COMPLETE BLOOD COUNT [id number] Eosinophil Abs 0.06 10e9/L Unknown COMPLETE BLOOD COUNT [id number] RDW-SD 48.2 fL 6 Unknown COMPLETE BLOOD COUNT [id number] Basophil Abs 0.01 10e9/L 09/30 Unknown LIPASE 40402 Lipase Lvl 24 IU/L 10/26/2015 Unknown FREE T4 66080 T4 Free 1.15 ng/dL 10/26/2015 Unknown COMPREHENSIVE METABOLIC 87476 AST 12 U/L 2015 Unknown COMPREHENSIVE METABOLIC 63330 ALT 9 U/L 2015 Unknown COMPREHENSIVE METABOLIC 15720 BUN 92 mg/dL 2015 Unknown COMPREHENSIVE METABOLIC 36906 ALBUMIN 3.8 g/dL 2015 Unknown COMPREHENSIVE METABOLIC 06343 CHLORIDE 98 mmol/L 2015 Unknown COMPREHENSIVE METABOLIC 77799 Bili Total 0.4 mg/dL 10/25 Unknown COMPREHENSIVE METABOLIC 28947 ALK PHOS 53 U/L 2015 Unknown COMPREHENSIVE METABOLIC 09632 SODIUM 139 mmol/L 10/25 Unknown COMPREHENSIVE METABOLIC 94569 CREATININE 4.70 mg/dL 09/30 Unknown COMPREHENSIVE METABOLIC 55462 CALCIUM 9.1 mg/dL 2015 Unknown COMPREHENSIVE METABOLIC 90030 POTASSIUM 4.5 mmol/L 10/25 Unknown COMPREHENSIVE METABOLIC 93158 Total Protein 6.6 g/dL Unknown COMPREHENSIVE METABOLIC 01557 Glucose 128 mg/dL 2015 Unknown COMPREHENSIVE METABOLIC 69610 Bicarbonate 29 mmol/L 09/30 Unknown COMPREHENSIVE METABOLIC 15604 AGAP 12 mmol/L 2015 Unknown GFR CALC 0220953 GFR Non Afr Amr 12 mL/min 10/26/2015 Unk nown GFR CALC 7646648 GFR Afr Amr 14 mL/min 10/26/2015 Unknown GLYCOSYLATED HEMOGLOBIN TEST 54363 Hgb A1c 38248-5 5.0 % 0 10/26/2015 Unknown AMYLASE 64913 Amylase Lvl 45 IU/L 10/26/2015 Unknown THYROID STIMULATING HORMONE 55840 TSH 6.114 uIU/mL 10/26/2015 Unknown MEAN GLUC 5133356 Mean Glucose 97 mg/dL 10/26/2015 Unknow n VITAMIN B 12 FOLIC ACID 16202|96008 VIT B 12 961 PG/ML 11/2012 Unknown VITAMIN B 12 FOLIC ACID 08663|74548 FOLIC ACID >24.0 NG/ML 1 05/10/2012 Unknown COMPREHENSIVE METABOLIC 87114 AST 19 U/L 2012 Unknown COMPREHENSIVE METABOLIC 62776 ALT 19 IU/L 2012 Unknown COMPREHENSIVE METABOLIC 35788 BUN 21 MG/DL 2012 Unknown COMPREHENSIVE METABOLIC 02988 ALBUMIN 4.4 GM/DL 2012 Unknown COMPREHENSIVE METABOLIC 29015 CHLORIDE 102 MMOL/L 03/09 Unknown COMPREHENSIVE METABOLIC 78903 BILI TOT 0.4 MG/DL 2012 Unknown COMPREHENSIVE METABOLIC 43763 ALK PHOS 60 U/L 2012 Unknown COMPREHENSIVE METABOLIC 06552 SODIUM 137 MMOL/L 03/09 Unknown COMPREHENSIVE METABOLIC 61866 CREATININE 1.36 MG/DL 11/2012 Unknown COMPREHENSIVE METABOLIC 42642 CALCIUM 9.7 MG/DL 2012 Unknown COMPREHENSIVE METABOLIC 57047 POTASSIUM 4.3 MMOL/L 03/09 Unknown COMPREHENSIVE METABOLIC 78817 PROT TOT 6.8 GM/DL 2012 Unknown COMPREHENSIVE METABOLIC 98745 Glucose 143 MG/DL 2012 Unknown COMPREHENSIVE METABOLIC 71412 BICARB 27 MMOL/L 2012 Unknown COMPREHENSIVE METABOLIC 74728 ANION GAP 8 MEQ/L 2012 Unknown C-REACTIVE PROTEIN (CRP) QUANT 14173 CRP 0.8 MG/DL 03/09/2013 Unknown COMPLETE BLOOD COUNT 3697957 WBC 7.6 10e9/L 03/09/20 13 Unknown COMPLETE BLOOD COUNT 0974943 RBC 3.78 10e12/L 2012 Unknown COMPLETE BLOOD COUNT 7980470 HGB 11.3 g/dL 3 Unknown COMPLETE BLOOD COUNT 0978115 HCT DET 35.6 % 3 Unknown COMPLETE BLOOD COUNT 9409535 MCV 94.2 fL 3 Unknown COMPLETE BLOOD COUNT 0559839 MCH 29.9 pg 3 Unknown COMPLETE BLOOD COUNT 7922625 MCHC 31.7 g/dL 3 Unknown COMPLETE BLOOD COUNT 6255630 PLT 314 10e9/L 03/09/20 13 Unknown COMPLETE BLOOD COUNT 9635145 MPV 9.7 fL 3 Unknown COMPLETE BLOOD COUNT 1390465 [place] % 78.7 % 3 Unknown COMPLETE BLOOD COUNT 0119518 LY % 13.7 % 3 Unknown COMPLETE BLOOD COUNT 5175609 MON % 5.0 % 3 Unknown COMPLETE BLOOD COUNT 2302274 EOS % 2.1 % 3 Unknown COMPLETE BLOOD COUNT 3890705 BASO % 0.5 % 3 Unknown COMPLETE BLOOD COUNT 3419156 RDW 13.7 % 3 Unknown COMPLETE BLOOD COUNT 6254938 ABS [place]OR[place] 5.98 10e9/L 013 Unknown COMPLETE BLOOD COUNT 5433300 ABS LYMPH 1.04 10e9/L 013 Unknown COMPLETE BLOOD COUNT [id number] ABS MONO 0.38 10e9/L 013 Unknown COMPLETE BLOOD COUNT 2980241 ABS EOS 0.16 10e9/L 013 Unknown COMPLETE BLOOD COUNT 7899982 ABS BASO 0.04 10e9/L 013 Unknown COMPLETE BLOOD COUNT 8866808 RDW-SD 45.7 fL 3 Unknown FREE T4 03226 FREE T4 1.12 NG/DL 03/09/2013 Unknown GFR CALC 4030400 GFR AA >60 ML/MIN 03/09/2013 Unknown GFR CALC 8934385 GFR NON-AA 50.0L ML/MIN 03/09/2013 Unkno wn THYROID STIMULATING HORMONE 68213 TSH 6.689 uIU/ML 03/09/2013 Unknown IRON 14051 IRON TEST 58 UG/DL 03/09/2013 Unknown COMPLETE BLOOD COUNT 29204 WBC 6.0 10e9/L 11/30/19 10 Unknown COMPLETE BLOOD COUNT 54709 RBC 4.29 10e12/L 2009 Unknown COMPLETE BLOOD COUNT 03206 HGB 12.8 g/dL 0 Unknown COMPLETE BLOOD COUNT 24999 HCT DET 39.3 % 0 Unknown COMPLETE BLOOD COUNT 86659 MCV 91.6 fL 0 Unknown COMPLETE BLOOD COUNT 19602 MCH 29.8 pg 0 Unknown COMPLETE BLOOD COUNT 08620 MCHC 32.6 g/dL 0 Unknown COMPLETE BLOOD COUNT 66860 PLT 262 10e9/L 11/30/19 10 Unknown COMPLETE BLOOD COUNT 48510 MPV 9.8 fL 0 Unknown COMPLETE BLOOD COUNT 07131 [place] % 71.4 % 0 Unknown COMPLETE BLOOD COUNT 44397 LY % 20.0 % 0 Unknown COMPLETE BLOOD COUNT 54408 MON % 7.5 % 0 Unknown COMPLETE BLOOD COUNT 20760 EOS % 0.8 % 0 Unknown COMPLETE BLOOD COUNT 29022 BASO % 0.3 % 0 Unknown COMPLETE BLOOD COUNT 43628 RDW 13.5 % 0 Unknown COMPLETE BLOOD COUNT 78871 ABS [place]OR[place] 4.28 10e9/L 010 Unknown COMPLETE BLOOD COUNT 81830 ABS LYMPH 1.20 10e9/L 010 Unknown COMPLETE BLOOD COUNT 10118 ABS MONO 0.45 10e9/L 010 Unknown COMPLETE BLOOD COUNT 05466 ABS EOS 0.05 10e9/L 010 Unknown COMPLETE BLOOD COUNT 17550 ABS BASO 0.02 10e9/L 010 Unknown COMPLETE BLOOD COUNT 53011 RDW-SD 44.4 fL 0 Unknown URIC ACID 13753 URIC ACID 9.5 MG/DL 11/29/2009 Unknown GFR CALC 1296257 GFR AA 55.0L ML/MIN 11/29/2009 Unknow n GFR CALC 0610594 GFR NON-AA 46.0L ML/MIN 11/29/2009 Unkno wn COMPREHENSIVE METABOLIC 36933 AST 14 U/L 2009 Unknown COMPREHENSIVE METABOLIC 84376 ALT 12 IU/L 2009 Unknown COMPREHENSIVE METABOLIC 92183 BUN 23 MG/DL 2009 Unknown COMPREHENSIVE METABOLIC 66724 ALBUMIN 4.5 GM/DL 2009 Unknown COMPREHENSIVE METABOLIC 52928 CHLORIDE 104 MMOL/L 11/29 Unknown COMPREHENSIVE METABOLIC 29534 BILI TOT 0.5 MG/DL 2009 Unknown COMPREHENSIVE METABOLIC 89351 ALK PHOS 58 U/L 2009 Unknown COMPREHENSIVE METABOLIC 91406 SODIUM 138 MMOL/L 11/29 Unknown COMPREHENSIVE METABOLIC 62060 CREATININE 1.49 MG/DL 11/01 Unknown COMPREHENSIVE METABOLIC 83240 CALCIUM 9.5 MG/DL 2009 Unknown COMPREHENSIVE METABOLIC 39674 POTASSIUM 4.2 MMOL/L 11/29 Unknown COMPREHENSIVE METABOLIC 44380 PROT TOT 6.9 GM/DL 2009 Unknown COMPREHENSIVE METABOLIC 88749 Glucose 159 MG/DL 2009 Unknown COMPREHENSIVE METABOLIC 77657 BICARB 24 MMOL/L 2009 Unknown COMPREHENSIVE METABOLIC 91669 ANION GAP 10 MEQ/L 2009 Unknown Procedures Procedure Codes Date PPPS, subseq visit CPT-4: G0439 06/29/2019 FLU VACC PRSV FREE INC ANTIG 65 AND OLDER CPT-4: 38222 12/25/2018 FLU VACC PRSV FREE INC ANTIG 65 AND OLDER CPT-4: 41351 12/25/2018 ADMIN INFLUENZA VIRUS VAC CPT-4: G0008 12/25/2018 ROUTINE VENIPUNCTURE CPT-4: 05479 12/22/2018 ASSAY OF FREE THYROXINE CPT-4: 10492 12/22/2018 ASSAY THYROID STIM HORMONE CPT-4: 08327 12/22/2018 COMPREHEN METABOLIC PANEL CPT-4: 90276 12/22/2018 COMPLETE CBC W/AUTO DIFF WBC CPT-4: 31075 12/22/2018 ASSAY OF IRON CPT-4: 59516 12/22/2018 ASSAY OF FERRITIN CPT-4: 98462 12/22/2018 VITAMIN B-12 CPT-4: 07886 12/22/2018 ROUTINE VENIPUNCTURE CPT-4: 77548 06/23/2018 COMPLETE CBC W/AUTO DIFF WBC CPT-4: 57920 06/23/2018 COMPREHEN METABOLIC PANEL CPT-4: 63354 06/23/2018 ASSAY OF IRON CPT-4: 60752 06/23/2018 ASSAY THYROID STIM HORMONE CPT-4: 86540 06/23/2018 ASSAY OF FERRITIN CPT-4: 83503 06/23/2018 VITAMIN B-12 CPT-4: 64378 06/23/2018 ROUTINE VENIPUNCTURE CPT-4: 94287 01/20/2018 COMPLETE CBC W/AUTO DIFF WBC CPT-4: 12729 01/20/2018 COMPREHEN METABOLIC PANEL CPT-4: 45305 01/20/2018 ASSAY OF FREE THYROXINE CPT-4: 66326 01/20/2018 ASSAY THYROID STIM HORMONE CPT-4: 30516 01/20/2018 ROUTINE VENIPUNCTURE CPT-4: 98727 10/03/2017 ASSAY THYROID STIM HORMONE CPT-4: 18471 10/03/2017 ASSAY OF FREE THYROXINE CPT-4: 04499 10/03/2017 COMPLETE CBC W/AUTO DIFF WBC CPT-4: 94606 10/03/2017 COMPREHEN METABOLIC PANEL CPT-4: 81992 10/03/2017 ROUTINE VENIPUNCTURE CPT-4: 79582 07/17/2017 ASSAY OF FREE THYROXINE CPT-4: 70113 07/17/2017 ASSAY THYROID STIM HORMONE CPT-4: 56929 07/17/2017 COMPREHEN METABOLIC PANEL CPT-4: 07123 07/17/2017 COMPLETE CBC W/AUTO DIFF WBC CPT-4: 30846 07/17/2017 LIPID PANEL CPT-4: 57727 07/17/2017 A1C HPLC CPT-4: 53685 07/17/2017 ROUTINE VENIPUNCTURE CPT-4: 37546 01/29/2017 ASSAY THYROID STIM HORMONE CPT-4: 66702 01/29/2017 COMPREHEN METABOLIC PANEL CPT-4: 79203 01/29/2017 COMPLETE CBC W/AUTO DIFF WBC CPT-4: 20713 01/29/2017 ASSAY OF IRON CPT-4: 77597 01/29/2017 VITAMIN B-12 CPT-4: 46151 01/29/2017 A1C HPLC CPT-4: 04053 01/29/2017 ASSAY OF FREE THYROXINE CPT-4: 57979 01/29/2017 ROUTINE VENIPUNCTURE CPT-4: 80452 07/16/2016 COMPREHEN METABOLIC PANEL CPT-4: 06470 07/16/2016 COMPLETE CBC W/AUTO DIFF WBC CPT-4: 80830 07/16/2016 ROUTINE VENIPUNCTURE CPT-4: 55768 03/09/2013 ASSAY OF FREE THYROXINE CPT-4: 59876 03/09/2013 ASSAY THYROID STIM HORMONE CPT-4: 09483 03/09/2013 COMPREHEN METABOLIC PANEL CPT-4: 18748 03/09/2013 COMPLETE CBC W/AUTO DIFF WBC CPT-4: 25581 03/09/2013 C-REACTIVE PROTEIN CPT-4: 47530 03/09/2013 VITAMIN B 12 FOLIC ACID CPT-4: 67565|84480 03/09/2013 ASSAY OF IRON CPT-4: 99555 03/09/2013 PRESCRIP TRANSMIT VIA ERX SY CPT-4: G8553 03/09/2013 ASSAY OF BLOOD/URIC ACID CPT-4: 53654 11/29/2009 COMPLETE CBC W/AUTO DIFF WBC CPT-4: 55445 11/29/2009 COMPREHEN METABOLIC PANEL CPT-4: 91632 11/29/2009 ROUTINE VENIPUNCTURE CPT-4: 00294 11/29/2009 PRESCRIP TRANSMIT VIA ERX SY CPT-4: G8553 11/29/2009 Vital Signs Date Vital 06/29/2019 Blood Pressure 1: 126/54 Code: 8480-6 BMI: 19.7 Code: 24274-5 Heart Rate 1: 72 bpm Height: 5'7" [...] 1: 136/62 Code: 8480-6 BMI: 20.5 Code: 36705-8 Heart Rate 1: 76 bpm Height: 5'8" Respiratory Rate: 20 bpm SpO2: 96% Tempera ture: 36.6 (C) / 97.8 (F) Weight: 135 lbs 10/10/2017 Blood Pressure 1: 126/56 Code: 8480-6 BMI: 21.3 Code: 07123-3 Heart Rate 1: 72 bpm Height: 5'8" Respiratory Rate: 20 bpm SpO2: 96% Tempera ture: 36.8 (C) / 98.2 (F) Weight: 140 lbs 07/17/2017 Blood Pressure 1: 124/56 Code: 8480-6 BMI: 21.0 Code: 34225-5 Heart Rate 1: 68 bpm Height: 5'8" Respiratory Rate: 20 bpm Temperature: 36 .6 (C) / 97.9 (F) Weight: 138 lbs 01/29/2017 Blood Pressure 1: 142/48 Code: 8480-6 BMI: 20.8 Code: 46039-7 Heart Rate 1: 86 bpm Height: 5'8" Respiratory Rate: 20 bpm SpO2: 98% Tempera ture: 36.3 (C) / 97.3 (F) Weight: 137 lbs 07/16/2016 Blood Pressure 1: 126/54 Code: 8480-6 BMI: 22.4 Code: 35218-4 Heart Rate 1: 84 bpm Height: 5'8" Respiratory Rate: 20 bpm SpO2: 96% Tempera ture: 37.0 (C) / 98.6 (F) Weight: 147 lbs 01/17/2016 Blood Pressure 1: 128/64 Code: 8480-6 BMI: 20.2 Code: 17351-2 Heart Rate 1: 84 bpm Height: 5'8" Respiratory Rate: 20 bpm Temperature: 36 .8 (C) / 98.2 (F) Weight: 133 lbs 12/13/2015 Blood Pressure 1: 114/48 Code: 8480-6 BMI: 19.2 Code: 80877-0 Heart Rate 1: 76 bpm Height: 5'8" Respiratory Rate: 20 bpm SpO2: 95% Tempera ture: 36.8 (C) / 98.2 (F) Weight: 126 lbs 11/08/2015 Blood Pressure 1: 116/48 Code: 8480-6 BMI: 22.4 Code: 67715-9 Heart Rate 1: 84 bpm Height: 5'8" Respiratory Rate: 20 bpm Temperature: 36 .7 (C) / 98.1 (F) Weight: 147 lbs 10/26/2015 Blood Pressure 1: 114/48 Code: 8480-6 BMI: 20.2 Code: 35241-6 Heart Rate 1: 100 bpm Height: 5'8" Respiratory Rate: 20 bpm Temperature: 36 .9 (C) / 98.4 (F) Weight: 133 lbs 03/09/2013 Blood Pressure 1: 154/78 Code: 8480-6 BMI: 25.5 Code: 66351-1 Heart Rate 1: 68 bpm Height: 5'8" Respiratory Rate: 20 bpm Temperature: 36 .9 (C) / 98.5 (F) Weight: 168 lbs 11/29/2009 Blood Pressure 1: 122/72 Code: 8480-6 BMI: 27.1 Code: 86722-6 Heart Rate 1: 76 bpm Height: 5'8" [...] 11/29/2009 Encounters Encounter Performer Location Codes Date ([id number]) NURSE/OUTPATIENT VISIT EST Diagnosis: FLU VACCINE[ICD10: Z23] Honey TORRES DO [facility] CPT-4: 08287 12/25/2018 ([id number]) OFFICE/OUTPATIENT VISIT EST Diagnosis: Essential (primary) hypertension[ICD10: I10] Diagnosis: Hypothyroidism, unspecified[ICD10: E03.9] Diagnosis: Anemia, unspecified[ICD10: D64.9] Diagnosis: Abnormal weight loss[ICD10: R63.4] Diagnosis: Disease of esophagus, 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] oHney KABA DO [facility] CPT-4: 25326 12/22/2018 ([id number]) OFFICE/OUTPATIENT VISIT EST Diagnosis: Pain in left knee[ICD10: M25.562] Honey KABA DO [facility] CPT-4: 80406 07/30/2018 ([id number]) OFFICE/OUTPATIENT VISIT EST Diagnosis: Anemia, unspecified[ICD10: D64.9] Diagnosis: Hypothyroidism, unspecified[ICD10: E03.9] Diagnosis: Essential (primary) hypertension[ICD10: I10] Honey KABA DO [facility] CPT-4: 78699 06/23/2018 ([id number]) OFFICE/OUTPATIENT VISIT EST Diagnosis: Hypothyroidism, unspecified[ICD10: E03.9] Diagnosis: Anemia, unspecified[ICD10: D64.9] Diagnosis: Disease of esophagus, 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] Honey KABA DO [facility] CPT-4: 49704 01/20/2018 ([id number]) OFFICE/OUTPATIENT VISIT EST Diagnosis: Hypothyroidism, unspecified[ICD10: E03.9] Diagnosis: Anemia, unspecified[ICD10: D64.9] Diagnosis: Disease of esophagus, 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] Honey KABA DO [facility] CPT-4: 22386 10/10/2017 ([id number]) NURSE/OUTPATIENT VISIT EST Diagnosis: Hypothyroidism, unspecified[ICD10: E03.9] Diagnosis: Anemia, unspecified[ICD10: D64.9] Diagnosis: Localized edema[ICD10: R60.0] Honey KABA DO [facility] CPT-4: 83151 10/03/2017 ([id number]) OFFICE/OUTPATIENT VISIT EST Diagnosis: Hypothyroidism, unspecified[ICD10: E03.9] Diagnosis: Anemia, unspecified[ICD10: D64.9] Diagnosis: Duodenal ulcer, unspecified as acute or chronic, without hemorrhage or perforation[ICD10: K26.9] Diagnosis: Disease of esophagus, 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] Diagnosis: Hyperglycemia, unspecified[ICD10: R73.9] Honey KABA DO [facility] CPT-4: 46996 07/17/2017 ([id number]) OFFICE/OUTPATIENT VISIT EST Diagnosis: Abnormal weight loss[ICD10: R63.4] Diagnosis: Diarrhea, unspecified[ICD10: R19.7] Diagnosis: Anemia, unspecified[ICD10: D64.9] Diagnosis: Hyperglycemia, unspecified[ICD10: R73.9] Honey KABA DO [facility] CPT-4: 80149 01/29/2017 ([id number]) OFFICE/OUTPATIENT VISIT EST Diagnosis: Diarrhea, unspecified[ICD10: R19.7] Diagnosis: Localized edema[ICD10: R60.0] Diagnosis: Anemia, unspecified[ICD10: D64.9] Honey KABA [employer] [facility] CPT-4: 58990 07/16/2016 ([id number]) OFFICE/OUTPATIENT VISIT EST Diagnosis: Duodenal ulcer, unspecified as acute or chronic, without hemorrhage or perforation[ICD10: K26.9] Diagnosis: Disease of esophagus, 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] Diagnosis: Abnormal weight loss[ICD10: R63.4] Diagnosis: Diarrhea, unspecified[ICD10: R19.7] Honey MODavid JOHNSON Leta KABA [employer] [facility] CPT-4: 09880 01/17/2016 OFFICE/OUTPATIENT VISIT EST Diagnosis: Duodenal ulcer, unspecified as acute or chronic, without hemorrhage or perforation[ICD10: K26.9] Diagnosis: Abnormal weight loss[ICD10: R63.4] Diagnosis: Diarrhea, unspecified[ICD10: R19.7] Diagnosis: Disease of esophagus, 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] Honeymabel KABA DO [facility] CPT-4: 74086 12/13/2015 ([id number]) OFFICE/OUTPATIENT VISIT EST Diagnosis: Duodenal ulcer, unspecified as acute or chronic, without hemorrhage or perforation[ICD10: K26.9] Diagnosis: Disease of esophagus, 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] Honey MÉNDEZ Leta KABA [employer] CPT-4: 36555 11/08/2015 ([id number]) OFFICE/OUTPATIENT VISIT EST Diagnosis: Nausea with vomiting, unspecified[ICD10: R11.2] Diagnosis: Toxic gastroenteritis and colitis[ICD10: K52.1] Diagnosis: Abnormal weight loss[ICD10: R63.4] Honey CHAVES DANIELLE KABA [employer] CPT-4: 76920 10/26/2015 ([id number]) OFFICE/OUTPATIENT VISIT EST Diagnosis: DIARRHEA[ICD9: 787.91] Diagnosis: MALAISE AND FATIGUE[ICD9: 780.79] Diagnosis: ANEMIA NOS[ICD9: 285.9] Hnoey MÉNDEZ Leta TORRES [facility] CPT-4: 55665 03/09/2013 ([id number]) OFFICE/OUTPATIENT VISIT, EST Honey GLEZ RamonaBrendan VICTORINA [facility] CPT-4: 56984 11/29/2009 Plan of Care Planned Activity Notes Codes Status Date Visit Diagnosis Plan: Hypothyroidism, unspecified Disc ussion: Check TSH, Free T4 ICD-9 : 244.9 ICD-10 : E03.9 06/29/2019 Visit Diagnosis Plan: Encounter for [facility] adult medical examination with abnormal findings [...] : R63.4 06/29/2019 Appointment: Honey Kaba WPtel: [address] [place], [place] [phone] [place] INJECTION 12/25/2018 Visit Diagnosis Plan: Disease [...] 401.9 ICD-10 : I10 12/22/2018 Appointment: Honey Kabatel: [address] [place] [address] US FOLLOW UP 12/22/2018 Appointment: Honey Kabatel: [address] [place] [address] US CANCELED 12/16/2018 Visit Diagnosis Plan: Pain in left knee Discussion: RI CE Topical icy hot Notify if worsens ICD-9 : 719.46 ICD-10 : M25.562 07/30/2018 Appointment: Honey Kabatel: [address] [place] [address] US FOLLOW UP 07/30/2018 Visit Diagnosis Plan: Essential (primary) hypertension Discussion: Stable ICD-9 : 401.9 ICD-10 : I10 06/23/2018 Visit Diagnosis Plan: Anemia, unspecified Discussion: Check CBC, iron ICD-9 : 285.9 ICD-10 : D64.9 06/23/2018 Visit Diagnosis Plan: Hypothyroidism, unspecified Disc ussion: Check TSH, Free T4 Follow Up: 6 months ICD-9 : 244.9 ICD-10 : E03.9 06/23/2018 Appointment: Honey Kabatel: [address] [place], [place] [phone] [place] FOLLOW UP 06/23/2018 Visit Diagnosis Plan: [...] 285.9 ICD-10 : D64.9 01/20/2018 Appointment: Honey Kabatel: [address] [place] [address] FOLLOW UP 01/20/2018 Patient Education: Patient Medication Summary Completed 01/20/2018 Appointment: Honey Kabatel: [address] [place] [address] US CANCELED 01/13/2018 Visit Diagnosis Plan: Hypothyroidism, [...] 285.9 ICD-10 : D64.9 10/10/2017 Appointment: Honey Kabatel: [address] [place], [place] [phone] US FOLLOW UP 10/10/2017 Patient Education: Patient Medication Summary Completed 10/10/2017 Appointment: Honey Kabatel: [address] [place], [place] [phone] US LAB 10/03/2017 Patient Education: Patient Medication [...] : D64.9 07/17/2017 Appointment: Honey Kaba WPtel: [id number] [facility] 07/17/2017 Patient Education: Patient Medication Summary Completed 07/17/2017 Patient Education: Patient Medication Summary Completed 02/01/2017 Care Plan: US EXAM OF HEAD AND NECK LOIN C : 40074-1 Pending 02/01/2017 Visit Diagnosis Plan: Anemia, unspecified [...] R19.7 01/29/2017 Appointment: Honey Kaba WPtel: [phone] [id number] [facility] 01/29/2017 Patient Education: Patient Medication Summary Completed 01/29/2017 Appointment: Honey Kaba WPtel: [address] [place], [place] [phone] 01/16/17 1455---refilled carvedilol for patient to ([place]) CANCELED 01/16/2017 Visit Plan: Patient has deferred [...] any furth... 07/16/2016 Appointment: Honey Kaba WPtel: [address] [place], [place] [phone] 07/12 confirmed ~sl FOLLOW UP 07/16/2016 Patient Education: Patient Medication Summary Completed 07/16/2016 Visit Plan: Continue current meds Patien t wants to hold on any further workup on esophageal mass--wants quality of life at this time rather then any workup or treatment for cancer 01/17/2016 Appointment: Honey Kaba WPtel: [id number] 01/15 lm~sl...confirmed~lb FOLLOW UP 12/30 Patient Education: Patient Medication Summary Completed 01/17/2016 Visit Plan: Continue pantoprazole at 40m g daily Decrease sucralfate to BID Decrease Coreg to 12.5mg po BID Add colestid 1 gram daily Patient still does not want to do further evaluation on esophagus mass Diet as tolerated 12/13/2015 Appointment: Honey Kaba WPtel: [address] [place], [place] [phone] 12/11 confirmed~sl FOLLOW UP 12/13/2015 Patient Education: Patient Medication Summary Completed 12/13/2015 Visit Plan: Continue off NSAIDs Continue protonix Check CBC and Chem 7 Pathology results from EGD discussed Patient not sure if he wants to repeat EGD for another biopsy of esophageal mass--sees Dr. Wang tomorrow Recheck 1month 11/08/2015 Appointment: Honey Kaba WPtel: [address] [place], [place] [phone] 11/06 confirmed~sl WORK IN 11/08/2015 Patient Education: Patient Medication Summary Completed 11/08/2015 Visit Plan: Check CBC, CMP, TSH, Free T4 , HbA1C, Amylase, Lipase Check CT scan of abdomen/pelvis Will need EGD and colonoscopy pending results of above Could also be gallbladder related but big concern for cancer Protonix daily and zofran prn 10/26/2015 Appointment: Honey Kaba WPtel: [address] [place], [place] [phone] 10/24 confirmed~sl ACUTE ILLNESS 10/26/2015 Patient Education: Patient Medication Summary Completed 10/26/2015 Care Plan: CT PELVIS W/O DYE LOINC : 361 08-9 Pending 10/26/2015 Care Plan: CT ABDOMEN W/O DYE LOINC : 36 103-0 Pending 10/26/2015 Appointment: Mara Stewart [id number] [id number] RESCHEDULED 10/11/2015 Appointment: Honey Kaba WPtel: [address] [place], [place] [phone] ACUTE ILLNESS 12/09/2013 Appointment: Honey Kaba WPtel: [address] [place], [place] [phone] ACUTE ILLNESS 03/09/2013 Patient Education: Patient Medication Summary Completed 03/09/2013 Appointment: Amelie Carcamo WPtel: [phone] [id number] ACUTE ILLNESS 11/29/2009 Patient Education: Patient Medication [...]
--- OUTSIDE RECORDS SUMMARY | 2019-08-15 18:36 | XMS REPORT | CCD ---
Author Author Arnoldo Kaba D.O. Organization [facility] Address [address] [place] [address] Phone Care Team Providers Care Journeyman Pressman Name Role Phone PP Unavailable CCM Unavailable Summary Purpose Interface Exchange Insurance Providers Payer name Policy type / Coverage type Covered green party ID Effective Begin Date Effective End Date WPS MEDICARE PART B [place] Medicare Part B [id number] 2018 Unknown Medicare Part B [id number] 2018 Unknown Family History Family History data [...] Fill Instructions levothyroxine 50 mcg tablet RxNorm: 822184 TAKE 1 TABLET DAILY 08/31 No Stop Date Active Synthroid 25 mcg tablet RxNorm: 610916 1 Tablet(s) PO QD 07/23/2017 0 09/20/2017 Inactive carvedilol 12.5 mg tablet RxNorm: 979054 1 Tablet(s) PO BID 018 07/16/2017 Inactive pantoprazole 40 mg tablet,delayed release RxNorm: 869638 1 Tablet(s) PO QD for stomach 04/18/2017 10/09/2017 Inactive pantoprazole 40 mg tablet,delayed release RxNorm: 990216 1 Tablet(s) PO QD for stomach 01/17/2017 04/18/2017 Inactive Colestid 1 gram tablet RxNorm: 0699074 1 Tablet(s) PO QD 01/17/2017 0 07/16/2017 Inactive carvedilol 12.5 mg tablet RxNorm: 820429 1 Tablet(s) PO BID 017 04/18/2017 Inactive carvedilol 12.5 mg tablet RxNorm: 577820 1 Tablet(s) PO BID 017 01/15/2017 Inactive pantoprazole 40 mg tablet,delayed release RxNorm: 762548 1 Tablet(s) PO QD for stomach 10/25/2016 01/16/2017 Inactive pantoprazole 40 mg tablet,delayed release RxNorm: 610548 1 Tablet(s) PO QD for stomach 07/24/2016 10/21/2016 Inactive Colestid 1 gram tablet RxNorm: 7355406 1 Tablet(s) PO QD 07/16/2016 1 Inactive pantoprazole 40 mg tablet,delayed release RxNorm: 239276 1 Tablet(s) PO QD for stomach 04/25/2016 07/23/2016 Inactive pantoprazole 40 mg tablet,delayed release RxNorm: 928999 1 Tablet(s) PO QD for stomach 02/27/2016 04/24/2016 Inactive Colestid 1 gram tablet RxNorm: 0902325 1 Tablet(s) PO QD 01/18/2016 0 07/15/2016 Inactive sucralfate 1 gram tablet RxNorm: 486764 1 Tablet(s) PO BID 01/17/20 16 07/15/2016 Inactive ondansetron HCl 4 mg tablet RxNorm: 146701 1 Tablet(s) PO Q4H as needed for nausea 01/17/2016 10/09/2017 Inactive pantoprazole 40 mg tablet,delayed release RxNorm: 355329 1 Tablet(s) PO QD for stomach 12/26/2015 02/23/2016 Inactive ondansetron HCl 4 mg tablet RxNorm: 546551 1 Tablet(s) PO Q4H as needed for nausea 12/13/2015 01/16/2016 Inactive colestipol 1 gram tablet RxNorm: 9280666 1 Tablet(s) PO QD 12/13/19 16 01/11/2016 Inactive sucralfate 1 gram tablet RxNorm: 741704 1 Tablet(s) PO QID (before meals and at bedtime) 11/09/2015 06/22/2018 Inactive pantoprazole 40 mg tablet,delayed release RxNorm: 942040 1 Tablet(s) PO QD for stomach 10/26/2015 12/24/2015 Inactive Zofran 4 mg tablet RxNorm: 574241 1 Tablet(s) PO Q4H as needed for nausea 10/26/2015 12/12/2015 Inactive Flagyl 500 mg tablet RxNorm: 356221 1 Tablet(s) PO TID 03/09/2013 Inactive Colchicine 0.6 mg Tab RxNorm: 600115 1 Tablet(s) PO TID take one tablet three times daily 11/29/2009 12/08/2009 Inactive minoxidil 2.5 mg tablet RxNorm: 266421 1 Tablet(s) PO QHS No Start Da te Active minoxidil 10 mg tablet RxNorm: 634156 1 Tablet(s) PO QAM No Start Date Active Aspirin 81 mg Tab RxNorm: 486836 1 Tablet(s) PO QD No Start Date Active Centrum Silver tablet RxNorm: 1 Tablet(s) PO QD No Start Date Active Lasix 40 mg tablet RxNorm: 887306 1 Tablet(s) PO QD No Start Date Active Klor-Con M20 mEq tablet,extended release RxNorm: 9570979 1 Table t(s) PO QD No Start Date Active levothyroxine 50 mcg tablet RxNorm: 512001 1 Tablet(s) PO QD No Sta rt Date 09/21/2018 Inactive Lisinopril 40 mg Tab RxNorm: 768482 1 Tablet(s) PO QD No Start Date 0 11/08/2015 Inactive Colestid 1 gram tablet RxNorm: 1896647 1 Tablet(s) PO QD No Start D ate 01/17/2016 Inactive carvedilol 25 mg tablet RxNorm: 507808 1/2 Tablet(s) PO BID No Star t Date 01/15/2017 Inactive Centrum Silver Oral RxNorm: Oral No Start Date 11/08/2015 Inact kris furosemide 20 mg tablet RxNorm: 087918 1 Tablet(s) PO QAM No Start Date 01/28/2017 Inactive Carvedilol 25 mg Tab RxNorm: 994799 1 Tablet(s) PO BID No Start Date 01/15/2017 Inactive Minoxidil 2.5 mg Tab RxNorm: 889080 1 Tablet(s) PO BID No Start Date 11/08/2015 Inactive sucralfate 1 gram tablet RxNorm: 084337 1 Tablet(s) PO BID as n eeded No Start Date 10/09/2017 Inactive ondansetron HCl 4 mg tablet RxNorm: 712177 1 Tablet(s) PO Q4H as needed for nausea No Start Date 12/12/2015 Inactive Hydrochlorothiazide 12.5 mg Tab RxNorm: 439741 1 Tablet(s) PO QAM N o Start Date 11/08/2015 Inactive sucralfate 1 gram tablet RxNorm: 797659 1 Tablet(s) PO BID No Start Date 01/16/2016 Inactive Flintstones Complete (iron) 18 mg iron chewable tablet RxNor m: 2 Tablet(s) PO BID No Start Date 07/16/2017 Inactive Medication Administered No Medication Administered data Immunizations Vaccine Codes Date Status Influenza CVX: 135 12/25/2018 Complete Influenza CVX: 135 12/25/2018 Complete Results Observation Observation Code Item Item Code Result Date S ervice Location IRON 93197 Iron 53 ug/dL 12/22/2018 Unknown FREE T4 35870 T4 Free 1.05 ng/dL 12/22/2018 Unknown FERRITIN 49685 FERRITIN 126.5 ng/mL 12/22/2018 Unknown COMPLETE BLOOD COUNT [id number] WBC 7.7 10e9/L 12/23/19 19 Unknown COMPLETE BLOOD COUNT [id number] RBC 3.60 10e12/L 2018 Unknown COMPLETE BLOOD COUNT [id number] HEMOGLOBIN 10.9 g/dL 12/23/19 19 Unknown COMPLETE BLOOD COUNT [id number] HEMATOCRIT 34.4 % 12/23/19 19 Unknown COMPLETE BLOOD COUNT [id number] MCV 95.6 fL 9 Unknown COMPLETE BLOOD COUNT 7489907 MCH 30.3 pg 9 Unknown COMPLETE BLOOD COUNT 0126341 MCHC 31.7 g/dL 9 Unknown COMPLETE BLOOD COUNT 2645907 PLATELET COUNT 364 10e9/L Unknown COMPLETE BLOOD COUNT 4696777 Mean Plt Volume 9.8 fL Unknown COMPLETE BLOOD COUNT 5588100 Neut Auto 81.4 % 9 Unknown COMPLETE BLOOD COUNT 5463182 Lymph Auto 12.4 % 12/23/19 19 Unknown COMPLETE BLOOD COUNT 2018220 [place] Auto 4.5 % 9 Unknown COMPLETE BLOOD COUNT 9155415 RDW 14.2 % 9 Unknown COMPLETE BLOOD COUNT 5760551 Eos Auto 1.3 % 9 Unknown COMPLETE BLOOD COUNT 1673806 Baso Auto 0.4 % 9 Unknown COMPLETE BLOOD COUNT 5654749 Neutrophil Abs 6.27 10e9/L Unknown COMPLETE BLOOD COUNT 1096267 Lymphocyte Abs 0.95 10e9/L Unknown COMPLETE BLOOD COUNT 4569063 Monocyte Abs 0.35 10e9/L 12/01 Unknown COMPLETE BLOOD COUNT 5058181 Eosinophil Abs 0.10 10e9/L Unknown COMPLETE BLOOD COUNT 6305120 RDW-SD 47.2 fL 9 Unknown COMPLETE BLOOD COUNT [id number] Basophil Abs 0.03 10e9/L 12/01 Unknown COMPREHENSIVE METABOLIC 91968 AST 19 U/L 2018 Unknown COMPREHENSIVE METABOLIC 96324 ALT 13 U/L 2018 Unknown COMPREHENSIVE METABOLIC 52269 BUN 41 mg/dL 2018 Unknown COMPREHENSIVE METABOLIC 74907 ALBUMIN 4.3 g/dL 2018 Unknown COMPREHENSIVE METABOLIC 81265 CHLORIDE 103 mmol/L 12/22 Unknown COMPREHENSIVE METABOLIC 56115 Bili Total 0.3 mg/dL 12/22 Unknown COMPREHENSIVE METABOLIC 83414 ALK PHOS 86 U/L 2018 Unknown COMPREHENSIVE METABOLIC 42874 SODIUM 138 mmol/L 12/22 Unknown COMPREHENSIVE METABOLIC 95787 CREATININE 1.69 mg/dL 12/01 Unknown COMPREHENSIVE METABOLIC 45970 CALCIUM 9.2 mg/dL 2018 Unknown COMPREHENSIVE METABOLIC 52086 POTASSIUM 4.3 mmol/L 12/22 Unknown COMPREHENSIVE METABOLIC 85107 Total Protein 6.9 g/dL Unknown COMPREHENSIVE METABOLIC 56821 Glucose 105 mg/dL 2018 Unknown COMPREHENSIVE METABOLIC 21568 Bicarbonate 21 mmol/L 12/01 Unknown COMPREHENSIVE METABOLIC 49547 AGAP 14 mmol/L 2018 Unknown THYROID STIMULATING HORMONE 29751 TSH 6.015 uIU/mL 12/22/2018 Unknown VITAMIN B 12 90145 VITAMIN B12 615 pg/mL 12/22/2018 Unkn own GFR CALC 5833349 GFR Non Afr Amr 38 mL/min 12/22/2018 Unk nown GFR CALC 0044024 GFR Afr Amr 47 mL/min 12/22/2018 Unknown FERRITIN 42241 FERRITIN 113.7 ng/mL 06/24/2018 Unknown VITAMIN B 12 44643 VITAMIN B12 651 pg/mL 06/24/2018 Unkn own COMPLETE BLOOD COUNT [id number] WBC 6.3 10e9/L 06/24/19 19 Unknown COMPLETE BLOOD COUNT 2352389 RBC 3.33 10e12/L 2018 Unknown COMPLETE BLOOD COUNT 8906751 HEMOGLOBIN 9.8 g/dL 06/24/19 19 Unknown COMPLETE BLOOD COUNT 8180867 HEMATOCRIT 31.6 % 06/24/19 19 Unknown COMPLETE BLOOD COUNT 1599818 MCV 94.9 fL 9 Unknown COMPLETE BLOOD COUNT 8865842 MCH 29.4 pg 9 Unknown COMPLETE BLOOD COUNT 4205551 MCHC 31.0 g/dL 9 Unknown COMPLETE BLOOD COUNT 2312446 PLATELET COUNT 319 10e9/L Unknown COMPLETE BLOOD COUNT 9976332 Mean Plt Volume 9.4 fL Unknown COMPLETE BLOOD COUNT 0060246 Neut Auto 78.0 % 9 Unknown COMPLETE BLOOD COUNT 3078056 Lymph Auto 14.4 % 06/24/19 19 Unknown COMPLETE BLOOD COUNT 4016421 [place] Auto 5.2 % 9 Unknown COMPLETE BLOOD COUNT 9617199 RDW 14.2 % 9 Unknown COMPLETE BLOOD COUNT 2847063 Eos Auto 2.1 % 9 Unknown COMPLETE BLOOD COUNT 0900580 Baso Auto 0.3 % 9 Unknown COMPLETE BLOOD COUNT 3653842 Neutrophil Abs 4.91 10e9/L Unknown COMPLETE BLOOD COUNT 0998285 Lymphocyte Abs 0.91 10e9/L Unknown COMPLETE BLOOD COUNT 2902323 Monocyte Abs 0.33 10e9/L 05/31 Unknown COMPLETE BLOOD COUNT 4554265 Eosinophil Abs 0.13 10e9/L Unknown COMPLETE BLOOD COUNT 6037295 RDW-SD 47.0 fL 9 Unknown COMPLETE BLOOD COUNT 4206508 Basophil Abs 0.02 10e9/L 05/31 Unknown THYROID STIMULATING HORMONE 38152 TSH 4.709 uIU/mL 06/23/2018 Unknown IRON 65149 Iron 52 ug/dL 06/23/2018 Unknown COMPREHENSIVE METABOLIC 27187 AST 16 U/L 2018 Unknown COMPREHENSIVE METABOLIC 69757 ALT 10 U/L 2018 Unknown COMPREHENSIVE METABOLIC 63337 BUN 27 mg/dL 2018 Unknown COMPREHENSIVE METABOLIC 77669 ALBUMIN 4.3 g/dL 2018 Unknown COMPREHENSIVE METABOLIC 04801 CHLORIDE 110 mmol/L 06/23 Unknown COMPREHENSIVE METABOLIC 26644 Bili Total 0.4 mg/dL 06/23 Unknown COMPREHENSIVE METABOLIC 12383 ALK PHOS 68 U/L 2018 Unknown COMPREHENSIVE METABOLIC 63363 SODIUM 140 mmol/L 06/23 Unknown COMPREHENSIVE METABOLIC 60978 CREATININE 1.60 mg/dL 05/31 Unknown COMPREHENSIVE METABOLIC 43226 CALCIUM 9.2 mg/dL 2018 Unknown COMPREHENSIVE METABOLIC 90504 POTASSIUM 4.6 mmol/L 06/23 Unknown COMPREHENSIVE METABOLIC 66619 Total Protein 6.8 g/dL Unknown COMPREHENSIVE METABOLIC 96813 Glucose 110 mg/dL 2018 Unknown COMPREHENSIVE METABOLIC 71632 Bicarbonate 19 mmol/L 05/31 Unknown COMPREHENSIVE METABOLIC 32420 AGAP 11 mmol/L 2018 Unknown GFR CALC 1090090 GFR Non Afr Amr 41 mL/min 06/23/2018 Unk nown GFR CALC 2991982 GFR Afr Amr 50 mL/min 06/23/2018 Unknown COMPLETE BLOOD COUNT 7263945 WBC 6.6 10e9/L 01/21/20 18 Unknown COMPLETE BLOOD COUNT 5734342 RBC 3.64 10e12/L 2017 Unknown COMPLETE BLOOD COUNT 2514493 HEMOGLOBIN 11.0 g/dL 01/21/20 18 Unknown COMPLETE BLOOD COUNT 4798417 HEMATOCRIT 34.6 % 01/21/20 18 Unknown COMPLETE BLOOD COUNT 9734839 MCV 95.1 fL 8 Unknown COMPLETE BLOOD COUNT 9754806 MCH 30.2 pg 8 Unknown COMPLETE BLOOD COUNT 7557312 MCHC 31.8 g/dL 8 Unknown COMPLETE BLOOD COUNT 6377047 PLATELET COUNT 386 10e9/L Unknown COMPLETE BLOOD COUNT 8630975 Mean Plt Volume 9.6 fL Unknown COMPLETE BLOOD COUNT 4705295 Neut Auto 76.6 % 8 Unknown COMPLETE BLOOD COUNT 9116664 Lymph Auto 15.6 % 01/21/20 18 Unknown COMPLETE BLOOD COUNT 1521159 [place] Auto 5.3 % 8 Unknown COMPLETE BLOOD COUNT 5192031 RDW 13.8 % 8 Unknown COMPLETE BLOOD COUNT 0958662 Eos Auto 2.0 % 8 Unknown COMPLETE BLOOD COUNT 8593242 Baso Auto 0.5 % 8 Unknown COMPLETE BLOOD COUNT 9134167 Neutrophil Abs 5.06 10e9/L Unknown COMPLETE BLOOD COUNT 3771927 Lymphocyte Abs 1.03 10e9/L Unknown COMPLETE BLOOD COUNT 4178491 Monocyte Abs 0.35 10e9/L 12/31 Unknown COMPLETE BLOOD COUNT 1459751 Eosinophil Abs 0.13 10e9/L Unknown COMPLETE BLOOD COUNT 5752360 RDW-SD 45.5 fL 8 Unknown COMPLETE BLOOD COUNT 0139873 Basophil Abs 0.03 10e9/L 12/31 Unknown COMPREHENSIVE METABOLIC 35285 AST 17 U/L 2017 Unknown COMPREHENSIVE METABOLIC 76195 ALT 14 U/L 2017 Unknown COMPREHENSIVE METABOLIC 10657 BUN 55 mg/dL 2017 Unknown COMPREHENSIVE METABOLIC 38671 ALBUMIN 4.2 g/dL 2017 Unknown COMPREHENSIVE METABOLIC 05623 CHLORIDE 106 mmol/L 01/20 Unknown COMPREHENSIVE METABOLIC 11576 Bili Total 0.4 mg/dL 01/20 Unknown COMPREHENSIVE METABOLIC 78489 ALK PHOS 75 U/L 2017 Unknown COMPREHENSIVE METABOLIC 21850 SODIUM 137 mmol/L 01/20 Unknown COMPREHENSIVE METABOLIC 91169 CREATININE 1.99 mg/dL 12/31 Unknown COMPREHENSIVE METABOLIC 22890 CALCIUM 9.5 mg/dL 2017 Unknown COMPREHENSIVE METABOLIC 53374 POTASSIUM 4.6 mmol/L 01/20 Unknown COMPREHENSIVE METABOLIC 19912 Total Protein 7.9 g/dL Unknown COMPREHENSIVE METABOLIC 36840 Glucose 105 mg/dL 2017 Unknown COMPREHENSIVE METABOLIC 34683 Bicarbonate 22 mmol/L 12/31 Unknown COMPREHENSIVE METABOLIC 13971 AGAP 9 mmol/L 2017 Unknown THYROID STIMULATING HORMONE 74983 TSH 6.119 uIU/mL 01/20/2018 Unknown GFR CALC 4634913 GFR Non Afr Amr 32 mL/min 01/20/2018 Unk nown GFR CALC 5284339 GFR Afr Amr 39 mL/min 01/20/2018 Unknown FREE T4 62312 T4 Free 1.11 ng/dL 01/20/2018 Unknown GFR CALC 3349646 GFR Non Afr Amr 38 mL/min 10/03/2017 Unk nown GFR CALC 0639048 GFR Afr Amr 46 mL/min 10/03/2017 Unknown COMPREHENSIVE METABOLIC 54856 AST 15 U/L 2017 Unknown COMPREHENSIVE METABOLIC 38477 ALT 10 U/L 2017 Unknown COMPREHENSIVE METABOLIC 48140 BUN 41 mg/dL 2017 Unknown COMPREHENSIVE METABOLIC 23804 ALBUMIN 4.0 g/dL 2017 Unknown COMPREHENSIVE METABOLIC 25726 CHLORIDE 105 mmol/L 10/03 Unknown COMPREHENSIVE METABOLIC 31229 Bili Total 0.4 mg/dL 10/03 Unknown COMPREHENSIVE METABOLIC 62892 ALK PHOS 71 U/L 2017 Unknown COMPREHENSIVE METABOLIC 92536 SODIUM 140 mmol/L 10/03 Unknown COMPREHENSIVE METABOLIC 01460 CREATININE 1.72 mg/dL 07/2017 Unknown COMPREHENSIVE METABOLIC 05487 CALCIUM 9.1 mg/dL 2017 Unknown COMPREHENSIVE METABOLIC 61677 POTASSIUM 4.1 mmol/L 10/03 Unknown COMPREHENSIVE METABOLIC 82680 Total Protein 6.5 g/dL Unknown COMPREHENSIVE METABOLIC 32792 Glucose 101 mg/dL 2017 Unknown COMPREHENSIVE METABOLIC 58795 Bicarbonate 23 mmol/L 07/2017 Unknown COMPREHENSIVE METABOLIC 10343 AGAP 12 mmol/L 2017 Unknown FREE T4 03760 T4 Free 0.81 ng/dL 10/03/2017 Unknown THYROID STIMULATING HORMONE 49181 TSH 10.964 uIU/m L 10/03/2017 Unknown COMPLETE BLOOD COUNT 0419283 WBC 5.6 10e9/L 10/04/19 18 Unknown COMPLETE BLOOD COUNT 8143711 RBC 3.36 10e12/L 2017 Unknown COMPLETE BLOOD COUNT 6994793 HEMOGLOBIN 10.3 g/dL 10/04/19 18 Unknown COMPLETE BLOOD COUNT 6562143 HEMATOCRIT 32.0 % 10/04/19 18 Unknown COMPLETE BLOOD COUNT 6481288 MCV 95.2 fL 8 Unknown COMPLETE BLOOD COUNT 9639877 MCH 30.7 pg 8 Unknown COMPLETE BLOOD COUNT 1909311 MCHC 32.2 g/dL 8 Unknown COMPLETE BLOOD COUNT 1079827 PLATELET COUNT 250 10e9/L 07/2017 Unknown COMPLETE BLOOD COUNT 9722063 Mean Plt Volume 10.2 fL 07/2017 Unknown COMPLETE BLOOD COUNT 1764064 Neut Auto 75.9 % 8 Unknown COMPLETE BLOOD COUNT 5949997 Lymph Auto 17.2 % 10/04/19 18 Unknown COMPLETE BLOOD COUNT 3875614 [place] Auto 5.3 % 8 Unknown COMPLETE BLOOD COUNT 3330935 RDW 14.0 % 8 Unknown COMPLETE BLOOD COUNT 7988668 Eos Auto 1.2 % 8 Unknown COMPLETE BLOOD COUNT 4922372 Baso Auto 0.4 % 8 Unknown COMPLETE BLOOD COUNT 1747824 Neutrophil Abs 4.25 10e9/L Unknown COMPLETE BLOOD COUNT 9060749 Lymphocyte Abs 0.96 10e9/L Unknown COMPLETE BLOOD COUNT 3272530 Monocyte Abs 0.30 10e9/L 07/2017 Unknown COMPLETE BLOOD COUNT 9750431 Eosinophil Abs 0.07 10e9/L Unknown COMPLETE BLOOD COUNT 7417168 RDW-SD 45.8 fL 8 Unknown COMPLETE BLOOD COUNT 6575337 Basophil Abs 0.02 10e9/L 07/2017 Unknown FREE T4 68331 T4 Free 0.87 ng/dL 07/17/2017 Unknown COMPREHENSIVE METABOLIC 84858 AST 19 U/L 2017 Unknown COMPREHENSIVE METABOLIC 41192 ALT 13 U/L 2017 Unknown COMPREHENSIVE METABOLIC 53370 BUN 48 mg/dL 2017 Unknown COMPREHENSIVE METABOLIC 18112 ALBUMIN 4.4 g/dL 2017 Unknown COMPREHENSIVE METABOLIC 97193 CHLORIDE 105 mmol/L 07/17 Unknown COMPREHENSIVE METABOLIC 90907 Bili Total 0.4 mg/dL 07/17 Unknown COMPREHENSIVE METABOLIC 94342 ALK PHOS 64 U/L 2017 Unknown COMPREHENSIVE METABOLIC 47141 SODIUM 141 mmol/L 07/17 Unknown COMPREHENSIVE METABOLIC 45729 CREATININE 1.72 mg/dL 06/30 Unknown COMPREHENSIVE METABOLIC 17167 CALCIUM 9.8 mg/dL 2017 Unknown COMPREHENSIVE METABOLIC 22201 POTASSIUM 4.6 mmol/L 07/17 Unknown COMPREHENSIVE METABOLIC 20800 Total Protein 7.0 g/dL Unknown COMPREHENSIVE METABOLIC 99430 Glucose 105 mg/dL 2017 Unknown COMPREHENSIVE METABOLIC 72650 Bicarbonate 25 mmol/L 06/30 Unknown COMPREHENSIVE METABOLIC 76667 AGAP 11 mmol/L 2017 Unknown LIPID GROUP 47082 Cholesterol 162 mg/dL 07/17/2017 Unkno wn LIPID GROUP 92692 Triglyceride 126 mg/dL 07/17/2017 Unkn own LIPID GROUP 86122 HDL CHOLESTEROL 39 mg/dL 07/17/2017 U nknown LIPID GROUP 95222 Chol/HDL Ratio 4.15 ratio 07/17/2017 U nknown LIPID GROUP 21669 NON-HDL Chol 123 mg/dL 07/17/2017 Unkn own LIPID GROUP 63798 LDL Cholesterol 98 mg/dL 07/17/2017 U nknown GLYCOSYLATED HEMOGLOBIN TEST 55049 Hgb A1c 27975-8 5.0 % 0 07/17/2017 Unknown THYROID STIMULATING HORMONE 85728 TSH 28.780 uIU/m L 07/17/2017 Unknown MEAN GLUC 7318521 Calc Mean Gluc 97 mg/dL 07/17/2017 Unkn own GFR CALC 9599630 GFR Non Afr Amr 38 mL/min 07/17/2017 Unk nown GFR CALC 8093672 GFR Afr Amr 46 mL/min 07/17/2017 Unknown COMPLETE BLOOD COUNT 5798744 WBC 5.8 10e9/L 07/18/19 18 Unknown COMPLETE BLOOD COUNT [id number] RBC 3.47 10e12/L 2017 Unknown COMPLETE BLOOD COUNT 9676323 HEMOGLOBIN 10.7 g/dL 07/18/19 18 Unknown COMPLETE BLOOD COUNT 8619411 HEMATOCRIT 34.0 % 07/18/19 18 Unknown COMPLETE BLOOD COUNT 4656499 MCV 98.0 fL 8 Unknown COMPLETE BLOOD COUNT 2748326 MCH 30.8 pg 8 Unknown COMPLETE BLOOD COUNT 3076839 MCHC 31.5 g/dL 8 Unknown COMPLETE BLOOD COUNT 0789805 PLATELET COUNT 254 10e9/L Unknown COMPLETE BLOOD COUNT 6678551 Mean Plt Volume 10.0 fL Unknown COMPLETE BLOOD COUNT 3436493 Neut Auto 77.2 % 8 Unknown COMPLETE BLOOD COUNT 4155582 Lymph Auto 15.2 % 07/18/19 18 Unknown COMPLETE BLOOD COUNT 5580089 [place] Auto 5.4 % 8 Unknown COMPLETE BLOOD COUNT 7751860 RDW 13.9 % 8 Unknown COMPLETE BLOOD COUNT 2565877 Eos Auto 1.7 % 8 Unknown COMPLETE BLOOD COUNT 6558269 Baso Auto 0.5 % 8 Unknown COMPLETE BLOOD COUNT 1888047 Neutrophil Abs 4.48 10e9/L Unknown COMPLETE BLOOD COUNT 1666134 Lymphocyte Abs 0.88 10e9/L Unknown COMPLETE BLOOD COUNT 4278368 Monocyte Abs 0.31 10e9/L 06/30 Unknown COMPLETE BLOOD COUNT 8699275 Eosinophil Abs 0.10 10e9/L Unknown COMPLETE BLOOD COUNT 0680712 RDW-SD 48.0 fL 8 Unknown COMPLETE BLOOD COUNT 4521040 Basophil Abs 0.03 10e9/L 06/30 Unknown FREE T4 67144 T4 Free 0.79 ng/dL 01/31/2017 Unknown GLYCOSYLATED HEMOGLOBIN TEST 23976 Hgb A1c 41003-8 5.2 % 1 04/01/2016 Unknown MEAN GLUC 1469579 Calc Mean Gluc 103 mg/dL 01/30/2017 Unkn own IRON 30835 Iron 62 ug/dL 01/29/2017 Unknown COMPREHENSIVE METABOLIC 46628 AST 25 U/L 2016 Unknown COMPREHENSIVE METABOLIC 64522 ALT 29 U/L 2016 Unknown COMPREHENSIVE METABOLIC 42206 BUN 41 mg/dL 2016 Unknown COMPREHENSIVE METABOLIC 89468 ALBUMIN 4.4 g/dL 2016 Unknown COMPREHENSIVE METABOLIC 25306 CHLORIDE 111 mmol/L 01/29 Unknown COMPREHENSIVE METABOLIC 85206 Bili Total 0.3 mg/dL 01/29 Unknown COMPREHENSIVE METABOLIC 45741 ALK PHOS 68 U/L 2016 Unknown COMPREHENSIVE METABOLIC 16668 SODIUM 142 mmol/L 01/29 Unknown COMPREHENSIVE METABOLIC 95863 CREATININE 1.69 mg/dL 01/01 Unknown COMPREHENSIVE METABOLIC 81728 CALCIUM 9.0 mg/dL 2016 Unknown COMPREHENSIVE METABOLIC 70962 POTASSIUM 4.0 mmol/L 01/29 Unknown COMPREHENSIVE METABOLIC 31037 Total Protein 6.9 g/dL Unknown COMPREHENSIVE METABOLIC 19472 Glucose 166 mg/dL 2016 Unknown COMPREHENSIVE METABOLIC 99247 Bicarbonate 22 mmol/L 01/01 Unknown COMPREHENSIVE METABOLIC 15264 AGAP 9 mmol/L 2016 Unknown VITAMIN B 12 75213 VITAMIN B12 603 pg/mL 01/29/2017 Unkn own COMPLETE BLOOD COUNT 2830478 WBC 5.7 10e9/L 01/30/20 17 Unknown COMPLETE BLOOD COUNT 2668263 RBC 3.56 10e12/L 2016 Unknown COMPLETE BLOOD COUNT 1012675 HEMOGLOBIN 10.7 g/dL 01/30/20 17 Unknown COMPLETE BLOOD COUNT 3876056 HEMATOCRIT 33.8 % 01/30/20 17 Unknown COMPLETE BLOOD COUNT 7354508 MCV 94.9 fL 7 Unknown COMPLETE BLOOD COUNT 4730374 MCH 30.1 pg 7 Unknown COMPLETE BLOOD COUNT 7475693 MCHC 31.7 g/dL 7 Unknown COMPLETE BLOOD COUNT 9608335 PLATELET COUNT 284 10e9/L Unknown COMPLETE BLOOD COUNT 3710586 Mean Plt Volume 10.0 fL Unknown COMPLETE BLOOD COUNT 9284686 Neut Auto 79.4 % 7 Unknown COMPLETE BLOOD COUNT 1624276 Lymph Auto 13.6 % 01/30/20 17 Unknown COMPLETE BLOOD COUNT 2158309 [place] Auto 4.4 % 7 Unknown COMPLETE BLOOD COUNT 2011712 RDW 14.9 % 7 Unknown COMPLETE BLOOD COUNT 2440981 Eos Auto 2.1 % 7 Unknown COMPLETE BLOOD COUNT 3173422 Baso Auto 0.5 % 7 Unknown COMPLETE BLOOD COUNT 7460025 Neutrophil Abs 4.53 10e9/L Unknown COMPLETE BLOOD COUNT 6233817 Lymphocyte Abs 0.78 10e9/L Unknown COMPLETE BLOOD COUNT 5224008 Monocyte Abs 0.25 10e9/L 01/01 Unknown COMPLETE BLOOD COUNT 3352096 Eosinophil Abs 0.12 10e9/L Unknown COMPLETE BLOOD COUNT 0120855 RDW-SD 49.6 fL 7 Unknown COMPLETE BLOOD COUNT 8252425 Basophil Abs 0.03 10e9/L 01/01 Unknown THYROID STIMULATING HORMONE 34253 TSH 26.132 uIU/m L 01/29/2017 Unknown GFR CALC 8262558 GFR Non Afr Amr 39 mL/min 01/29/2017 Unk nown GFR CALC 9519158 GFR Afr Amr 47 mL/min 01/29/2017 Unknown COMPREHENSIVE METABOLIC 36602 AST 19 U/L 2016 Unknown COMPREHENSIVE METABOLIC 42941 ALT 19 U/L 2016 Unknown COMPREHENSIVE METABOLIC 94551 BUN 30 mg/dL 2016 Unknown COMPREHENSIVE METABOLIC 91477 ALBUMIN 3.9 g/dL 2016 Unknown COMPREHENSIVE METABOLIC 01920 CHLORIDE 107 mmol/L 07/16 Unknown COMPREHENSIVE METABOLIC 04796 Bili Total 0.4 mg/dL 07/16 Unknown COMPREHENSIVE METABOLIC 56555 ALK PHOS 56 U/L 2016 Unknown COMPREHENSIVE METABOLIC 56132 SODIUM 139 mmol/L 07/16 Unknown COMPREHENSIVE METABOLIC 28480 CREATININE 1.50 mg/dL 06/30 Unknown COMPREHENSIVE METABOLIC 89302 CALCIUM 8.7 mg/dL 2016 Unknown COMPREHENSIVE METABOLIC 80020 POTASSIUM 4.2 mmol/L 07/16 Unknown COMPREHENSIVE METABOLIC 76386 Total Protein 6.5 g/dL Unknown COMPREHENSIVE METABOLIC 27573 Glucose 139 mg/dL 2016 Unknown COMPREHENSIVE METABOLIC 54865 Bicarbonate 20 mmol/L 06/30 Unknown COMPREHENSIVE METABOLIC 48354 AGAP 12 mmol/L 2016 Unknown COMPLETE BLOOD COUNT 2295542 WBC 5.7 10e9/L 07/17/19 17 Unknown COMPLETE BLOOD COUNT 9429168 RBC 3.10 10e12/L 2016 Unknown COMPLETE BLOOD COUNT 6577414 HEMOGLOBIN 9.4 g/dL 07/17/19 17 Unknown COMPLETE BLOOD COUNT 7722666 HEMATOCRIT 29.6 % 07/17/19 17 Unknown COMPLETE BLOOD COUNT 4971399 MCV 95.5 fL 7 Unknown COMPLETE BLOOD COUNT 5932413 MCH 30.3 pg 7 Unknown COMPLETE BLOOD COUNT 2946677 MCHC 31.8 g/dL 7 Unknown COMPLETE BLOOD COUNT 9176114 PLATELET COUNT 286 10e9/L Unknown COMPLETE BLOOD COUNT 5897310 Mean Plt Volume 9.9 fL Unknown COMPLETE BLOOD COUNT 7713059 Neut Auto 79.4 % 7 Unknown COMPLETE BLOOD COUNT 1306032 Lymph Auto 14.5 % 07/17/19 17 Unknown COMPLETE BLOOD COUNT 6088986 [place] Auto 4.6 % 7 Unknown COMPLETE BLOOD COUNT 2832634 RDW 14.2 % 7 Unknown COMPLETE BLOOD COUNT 1410019 Eos Auto 1.1 % 7 Unknown COMPLETE BLOOD COUNT 4067182 Baso Auto 0.4 % 7 Unknown COMPLETE BLOOD COUNT [id number] Neutrophil Abs 4.53 10e9/L Unknown COMPLETE BLOOD COUNT 6641043 Lymphocyte Abs 0.83 10e9/L Unknown COMPLETE BLOOD COUNT [id number] Monocyte Abs 0.26 10e9/L 06/30 Unknown COMPLETE BLOOD COUNT [id number] Eosinophil Abs 0.06 10e9/L Unknown COMPLETE BLOOD COUNT [id number] RDW-SD 47.4 fL 7 Unknown COMPLETE BLOOD COUNT [id number] Basophil Abs 0.02 10e9/L 06/30 Unknown GFR CALC [id number] GFR Non Afr Amr 44 mL/min 07/16/2016 Unk nown GFR CALC [id number] GFR Afr Amr 54 mL/min 07/16/2016 Unknown COMPLETE BLOOD COUNT [id number] WBC 4.3 10e9/L 11/08/19 16 Unknown COMPLETE BLOOD COUNT [id number] RBC 3.22 10e12/L 2015 Unknown COMPLETE BLOOD COUNT [id number] HEMOGLOBIN 9.5 g/dL 11/08/19 16 Unknown COMPLETE BLOOD COUNT [id number] HEMATOCRIT 29.7 % 11/08/19 16 Unknown COMPLETE BLOOD COUNT [id number] MCV 92.2 fL 6 Unknown COMPLETE BLOOD COUNT [id number] MCH 29.5 pg 6 Unknown COMPLETE BLOOD COUNT [id number] MCHC 32.0 g/dL 6 Unknown COMPLETE BLOOD COUNT [id number] PLATELET COUNT 269 10e9/L 12/2015 Unknown COMPLETE BLOOD COUNT [id number] Mean Plt Volume 9.3 fL 12/2015 Unknown COMPLETE BLOOD COUNT [id number] Neut Auto 71.4 % 6 Unknown COMPLETE BLOOD COUNT [id number] Lymph Auto 20.2 % 11/08/19 16 Unknown COMPLETE BLOOD COUNT [id number] [place] Auto 5.1 % 6 Unknown COMPLETE BLOOD COUNT [id number] RDW 15.2 % 6 Unknown COMPLETE BLOOD COUNT [id number] Eos Auto 2.6 % 6 Unknown COMPLETE BLOOD COUNT [id number] Baso Auto 0.7 % 6 Unknown COMPLETE BLOOD COUNT [id number] Neutrophil Abs 3.07 10e9/L Unknown COMPLETE BLOOD COUNT [id number] Lymphocyte Abs 0.87 10e9/L Unknown COMPLETE BLOOD COUNT [id number] Monocyte Abs 0.22 10e9/L 12/2015 Unknown COMPLETE BLOOD COUNT [id number] Eosinophil Abs 0.11 10e9/L Unknown COMPLETE BLOOD COUNT [id number] RDW-SD 49.0 fL 6 Unknown COMPLETE BLOOD COUNT [id number] Basophil Abs 0.03 10e9/L 12/2015 Unknown GFR CALC [id number] GFR Non Afr Amr 42 mL/min 11/08/2015 Unk nown GFR CALC [id number] GFR Afr Amr 51 mL/min 11/08/2015 [place] [address] Glucose 102 mg/dL 11/07 [place] [address] CREATININE 1.57 mg/dL 12/2015 [place] [address] BUN 18 mg/dL 11/07 [place] [address] SODIUM 140 mmol/L 12/2015 [place] [address] POTASSIUM 3.8 mmol/L 12/2015 [place] [address] CHLORIDE 113 mmol/L 12/2015 [place] [address] Bicarbonate 21 mmol/L 12/2015 [place] [address] AGAP 6 mmol/L 11/07 [place] [address] CALCIUM 8.8 mg/dL 11/07 Unknown COMPLETE BLOOD COUNT [id number] WBC 8.3 10e9/L 10/26/19 16 Unknown COMPLETE BLOOD COUNT [id number] RBC 2.55 10e12/L 2015 Unknown COMPLETE BLOOD COUNT [id number] HEMOGLOBIN 7.7 g/dL 10/26/19 16 Unknown COMPLETE BLOOD COUNT [id number] HEMATOCRIT 24.0 % 10/26/19 16 Unknown COMPLETE BLOOD COUNT [id number] MCV 94.1 fL 6 Unknown COMPLETE BLOOD COUNT [id number] MCH 30.2 pg 6 Unknown COMPLETE BLOOD COUNT [id number] MCHC 32.1 g/dL 6 Unknown COMPLETE BLOOD COUNT [id number] PLATELET COUNT 292 10e9/L Unknown COMPLETE BLOOD COUNT [id number] Mean Plt Volume 9.8 fL Unknown COMPLETE BLOOD COUNT [id number] Neut Auto 83.8 % 6 Unknown COMPLETE BLOOD COUNT [id number] Lymph Auto 11.3 % 10/26/19 16 Unknown COMPLETE BLOOD COUNT [id number] [place] Auto 4.1 % 6 Unknown COMPLETE BLOOD COUNT [id number] RDW 14.7 % 6 Unknown COMPLETE BLOOD COUNT [id number] Eos Auto 0.7 % 6 Unknown COMPLETE BLOOD COUNT [id number] Baso Auto 0.1 % 6 Unknown COMPLETE BLOOD COUNT [id number] Neutrophil Abs 6.96 10e9/L Unknown COMPLETE BLOOD COUNT [id number] Lymphocyte Abs 0.94 10e9/L Unknown COMPLETE BLOOD COUNT [id number] Monocyte Abs 0.34 10e9/L 09/30 Unknown COMPLETE BLOOD COUNT [id number] Eosinophil Abs 0.06 10e9/L Unknown COMPLETE BLOOD COUNT [id number] RDW-SD 48.2 fL 6 Unknown COMPLETE BLOOD COUNT [id number] Basophil Abs 0.01 10e9/L 09/30 Unknown LIPASE 53401 Lipase Lvl 24 IU/L 10/26/2015 Unknown FREE T4 46144 T4 Free 1.15 ng/dL 10/26/2015 Unknown COMPREHENSIVE METABOLIC 68463 AST 12 U/L 2015 Unknown COMPREHENSIVE METABOLIC 24562 ALT 9 U/L 2015 Unknown COMPREHENSIVE METABOLIC 68342 BUN 92 mg/dL 2015 Unknown COMPREHENSIVE METABOLIC 91575 ALBUMIN 3.8 g/dL 2015 Unknown COMPREHENSIVE METABOLIC 97542 CHLORIDE 98 mmol/L 2015 Unknown COMPREHENSIVE METABOLIC 30432 Bili Total 0.4 mg/dL 10/25 Unknown COMPREHENSIVE METABOLIC 46198 ALK PHOS 53 U/L 2015 Unknown COMPREHENSIVE METABOLIC 49023 SODIUM 139 mmol/L 10/25 Unknown COMPREHENSIVE METABOLIC 95494 CREATININE 4.70 mg/dL 09/30 Unknown COMPREHENSIVE METABOLIC 76937 CALCIUM 9.1 mg/dL 2015 Unknown COMPREHENSIVE METABOLIC 66171 POTASSIUM 4.5 mmol/L 10/25 Unknown COMPREHENSIVE METABOLIC 05276 Total Protein 6.6 g/dL Unknown COMPREHENSIVE METABOLIC 51971 Glucose 128 mg/dL 2015 Unknown COMPREHENSIVE METABOLIC 35654 Bicarbonate 29 mmol/L 09/30 Unknown COMPREHENSIVE METABOLIC 66986 AGAP 12 mmol/L 2015 Unknown GFR CALC [id number] GFR Non Afr Amr 12 mL/min 10/26/2015 Unk nown GFR CALC 1705101 GFR Afr Amr 14 mL/min 10/26/2015 Unknown GLYCOSYLATED HEMOGLOBIN TEST 25802 Hgb A1c 96526-9 5.0 % 0 10/26/2015 Unknown AMYLASE 87468 Amylase Lvl 45 IU/L 10/26/2015 Unknown THYROID STIMULATING HORMONE 04615 TSH 6.114 uIU/mL 10/26/2015 Unknown MEAN GLUC 4736818 Mean Glucose 97 mg/dL 10/26/2015 Unknow n VITAMIN B 12 FOLIC ACID 32531|44393 VIT B 12 961 PG/ML 11/2012 Unknown VITAMIN B 12 FOLIC ACID 42790|05094 FOLIC ACID >24.0 NG/ML 1 05/10/2012 Unknown COMPREHENSIVE METABOLIC 51771 AST 19 U/L 2012 Unknown COMPREHENSIVE METABOLIC 09430 ALT 19 IU/L 2012 Unknown COMPREHENSIVE METABOLIC 10089 BUN 21 MG/DL 2012 Unknown COMPREHENSIVE METABOLIC 63606 ALBUMIN 4.4 GM/DL 2012 Unknown COMPREHENSIVE METABOLIC 03138 CHLORIDE 102 MMOL/L 03/09 Unknown COMPREHENSIVE METABOLIC 94330 BILI TOT 0.4 MG/DL 2012 Unknown COMPREHENSIVE METABOLIC 19085 ALK PHOS 60 U/L 2012 Unknown COMPREHENSIVE METABOLIC 52788 SODIUM 137 MMOL/L 03/09 Unknown COMPREHENSIVE METABOLIC 61276 CREATININE 1.36 MG/DL 11/2012 Unknown COMPREHENSIVE METABOLIC 42120 CALCIUM 9.7 MG/DL 2012 Unknown COMPREHENSIVE METABOLIC 51831 POTASSIUM 4.3 MMOL/L 03/09 Unknown COMPREHENSIVE METABOLIC 77490 PROT TOT 6.8 GM/DL 2012 Unknown COMPREHENSIVE METABOLIC 17162 Glucose 143 MG/DL 2012 Unknown COMPREHENSIVE METABOLIC 69694 BICARB 27 MMOL/L 2012 Unknown COMPREHENSIVE METABOLIC 13148 ANION GAP 8 MEQ/L 2012 Unknown C-REACTIVE PROTEIN (CRP) QUANT 27874 CRP 0.8 MG/DL 03/09/2013 Unknown COMPLETE BLOOD COUNT 8878191 WBC 7.6 10e9/L 03/09/20 13 Unknown COMPLETE BLOOD COUNT [id number] RBC 3.78 10e12/L 2012 Unknown COMPLETE BLOOD COUNT 8603631 HGB 11.3 g/dL 3 Unknown COMPLETE BLOOD COUNT 3078596 HCT DET 35.6 % 3 Unknown COMPLETE BLOOD COUNT 0704398 MCV 94.2 fL 3 Unknown COMPLETE BLOOD COUNT 0594279 MCH 29.9 pg 3 Unknown COMPLETE BLOOD COUNT 8660141 MCHC 31.7 g/dL 3 Unknown COMPLETE BLOOD COUNT 7807738 PLT 314 10e9/L 03/09/20 13 Unknown COMPLETE BLOOD COUNT 9433884 MPV 9.7 fL 3 Unknown COMPLETE BLOOD COUNT [id number] TORITO % 78.7 % 3 Unknown COMPLETE BLOOD COUNT 9807071 LY % 13.7 % 3 Unknown COMPLETE BLOOD COUNT [id number] MON % 5.0 % 3 Unknown COMPLETE BLOOD COUNT 5058370 EOS % 2.1 % 3 Unknown COMPLETE BLOOD COUNT 7667436 BASO % 0.5 % 3 Unknown COMPLETE BLOOD COUNT [id number] RDW 13.7 % 3 Unknown COMPLETE BLOOD COUNT [id number] ABS TORITO 5.98 10e9/L 013 Unknown COMPLETE BLOOD COUNT 7015376 ABS LYMPH 1.04 10e9/L 013 Unknown COMPLETE BLOOD COUNT [id number] ABS MONO 0.38 10e9/L 013 Unknown COMPLETE BLOOD COUNT [id number] ABS EOS 0.16 10e9/L 013 Unknown COMPLETE BLOOD COUNT 4015160 ABS BASO 0.04 10e9/L 013 Unknown COMPLETE BLOOD COUNT [id number] RDW-SD 45.7 fL 3 Unknown FREE T4 44022 FREE T4 1.12 NG/DL 03/09/2013 Unknown GFR CALC 9871353 GFR AA >60 ML/MIN 03/09/2013 Unknown GFR CALC 2718198 GFR NON-AA 50.0L ML/MIN 03/09/2013 Unkno wn THYROID STIMULATING HORMONE 98787 TSH 6.689 uIU/ML 03/09/2013 Unknown IRON 32560 IRON TEST 58 UG/DL 03/09/2013 Unknown COMPLETE BLOOD COUNT 65353 WBC 6.0 10e9/L 11/30/19 10 Unknown COMPLETE BLOOD COUNT 62769 RBC 4.29 10e12/L 2009 Unknown COMPLETE BLOOD COUNT 51038 HGB 12.8 g/dL 0 Unknown COMPLETE BLOOD COUNT 49100 HCT DET 39.3 % 0 Unknown COMPLETE BLOOD COUNT 93262 MCV 91.6 fL 0 Unknown COMPLETE BLOOD COUNT 97393 MCH 29.8 pg 0 Unknown COMPLETE BLOOD COUNT 31028 MCHC 32.6 g/dL 0 Unknown COMPLETE BLOOD COUNT 08917 PLT 262 10e9/L 11/30/19 10 Unknown COMPLETE BLOOD COUNT 93060 MPV 9.8 fL 0 Unknown COMPLETE BLOOD COUNT 93616 TORITO % 71.4 % 0 Unknown COMPLETE BLOOD COUNT 00228 LY % 20.0 % 0 Unknown COMPLETE BLOOD COUNT 01096 MON % 7.5 % 0 Unknown COMPLETE BLOOD COUNT 43758 EOS % 0.8 % 0 Unknown COMPLETE BLOOD COUNT 58361 BASO % 0.3 % 0 Unknown COMPLETE BLOOD COUNT 33349 RDW 13.5 % 0 Unknown COMPLETE BLOOD COUNT 56958 ABS TORITO 4.28 10e9/L 010 Unknown COMPLETE BLOOD COUNT 56754 ABS LYMPH 1.20 10e9/L 010 Unknown COMPLETE BLOOD COUNT 08512 ABS MONO 0.45 10e9/L 010 Unknown COMPLETE BLOOD COUNT 17829 ABS EOS 0.05 10e9/L 010 Unknown COMPLETE BLOOD COUNT 08232 ABS BASO 0.02 10e9/L 010 Unknown COMPLETE BLOOD COUNT 26324 RDW-SD 44.4 fL 0 Unknown URIC ACID 78298 URIC ACID 9.5 MG/DL 11/29/2009 Unknown GFR CALC 8485839 GFR AA 55.0L ML/MIN 11/29/2009 Unknow n GFR CALC 1709935 GFR NON-AA 46.0L ML/MIN 11/29/2009 Unkno wn COMPREHENSIVE METABOLIC 34050 AST 14 U/L 2009 Unknown COMPREHENSIVE METABOLIC 45997 ALT 12 IU/L 2009 Unknown COMPREHENSIVE METABOLIC 81841 BUN 23 MG/DL 2009 Unknown COMPREHENSIVE METABOLIC 15291 ALBUMIN 4.5 GM/DL 2009 Unknown COMPREHENSIVE METABOLIC 00412 CHLORIDE 104 MMOL/L 11/29 Unknown COMPREHENSIVE METABOLIC 34474 BILI TOT 0.5 MG/DL 2009 Unknown COMPREHENSIVE METABOLIC 09111 ALK PHOS 58 U/L 2009 Unknown COMPREHENSIVE METABOLIC 11933 SODIUM 138 MMOL/L 11/29 Unknown COMPREHENSIVE METABOLIC 15104 CREATININE 1.49 MG/DL 11/01 Unknown COMPREHENSIVE METABOLIC 03898 CALCIUM 9.5 MG/DL 2009 Unknown COMPREHENSIVE METABOLIC 46365 POTASSIUM 4.2 MMOL/L 11/29 Unknown COMPREHENSIVE METABOLIC 74569 PROT TOT 6.9 GM/DL 2009 Unknown COMPREHENSIVE METABOLIC 10972 Glucose 159 MG/DL 2009 Unknown COMPREHENSIVE METABOLIC 79334 BICARB 24 MMOL/L 2009 Unknown COMPREHENSIVE METABOLIC 05008 ANION GAP 10 MEQ/L 2009 Unknown Procedures Procedure Codes Date PPPS, subseq visit CPT-4: G0439 06/29/2019 FLU VACC PRSV FREE INC ANTIG 65 AND OLDER CPT-4: 10193 12/25/2018 FLU VACC PRSV FREE INC ANTIG 65 AND OLDER CPT-4: 82907 12/25/2018 ADMIN INFLUENZA VIRUS VAC CPT-4: G0008 12/25/2018 ROUTINE VENIPUNCTURE CPT-4: 67200 12/22/2018 ASSAY OF FREE THYROXINE CPT-4: 73140 12/22/2018 ASSAY THYROID STIM HORMONE CPT-4: 13223 12/22/2018 COMPREHEN METABOLIC PANEL CPT-4: 44094 12/22/2018 COMPLETE CBC W/AUTO DIFF WBC CPT-4: 66699 12/22/2018 ASSAY OF IRON CPT-4: 70905 12/22/2018 ASSAY OF FERRITIN CPT-4: 09198 12/22/2018 VITAMIN B-12 CPT-4: 40765 12/22/2018 ROUTINE VENIPUNCTURE CPT-4: 76525 06/23/2018 COMPLETE CBC W/AUTO DIFF WBC CPT-4: 94595 06/23/2018 COMPREHEN METABOLIC PANEL CPT-4: 20361 06/23/2018 ASSAY OF IRON CPT-4: 17324 06/23/2018 ASSAY THYROID STIM HORMONE CPT-4: 61876 06/23/2018 ASSAY OF FERRITIN CPT-4: 34042 06/23/2018 VITAMIN B-12 CPT-4: 43206 06/23/2018 ROUTINE VENIPUNCTURE CPT-4: 68020 01/20/2018 COMPLETE CBC W/AUTO DIFF WBC CPT-4: 34551 01/20/2018 COMPREHEN METABOLIC PANEL CPT-4: 78192 01/20/2018 ASSAY OF FREE THYROXINE CPT-4: 68865 01/20/2018 ASSAY THYROID STIM HORMONE CPT-4: 85450 01/20/2018 ROUTINE VENIPUNCTURE CPT-4: 89479 10/03/2017 ASSAY THYROID STIM HORMONE CPT-4: 83540 10/03/2017 ASSAY OF FREE THYROXINE CPT-4: 18949 10/03/2017 COMPLETE CBC W/AUTO DIFF WBC CPT-4: 35972 10/03/2017 COMPREHEN METABOLIC PANEL CPT-4: 48843 10/03/2017 ROUTINE VENIPUNCTURE CPT-4: 18018 07/17/2017 ASSAY OF FREE THYROXINE CPT-4: 57452 07/17/2017 ASSAY THYROID STIM HORMONE CPT-4: 39778 07/17/2017 COMPREHEN METABOLIC PANEL CPT-4: 65199 07/17/2017 COMPLETE CBC W/AUTO DIFF WBC CPT-4: 89122 07/17/2017 LIPID PANEL CPT-4: 65213 07/17/2017 A1C HPLC CPT-4: 67314 07/17/2017 ROUTINE VENIPUNCTURE CPT-4: 57849 01/29/2017 ASSAY THYROID STIM HORMONE CPT-4: 43908 01/29/2017 COMPREHEN METABOLIC PANEL CPT-4: 11594 01/29/2017 COMPLETE CBC W/AUTO DIFF WBC CPT-4: 40049 01/29/2017 ASSAY OF IRON CPT-4: 71982 01/29/2017 VITAMIN B-12 CPT-4: 10816 01/29/2017 A1C HPLC CPT-4: 78697 01/29/2017 ASSAY OF FREE THYROXINE CPT-4: 46145 01/29/2017 ROUTINE VENIPUNCTURE CPT-4: 03946 07/16/2016 COMPREHEN METABOLIC PANEL CPT-4: 00831 07/16/2016 COMPLETE CBC W/AUTO DIFF WBC CPT-4: 83974 07/16/2016 ROUTINE VENIPUNCTURE CPT-4: 84232 03/09/2013 ASSAY OF FREE THYROXINE CPT-4: 51249 03/09/2013 ASSAY THYROID STIM HORMONE CPT-4: 77114 03/09/2013 COMPREHEN METABOLIC PANEL CPT-4: 91947 03/09/2013 COMPLETE CBC W/AUTO DIFF WBC CPT-4: 88734 03/09/2013 C-REACTIVE PROTEIN CPT-4: 22595 03/09/2013 VITAMIN B 12 FOLIC ACID CPT-4: 10845|96018 03/09/2013 ASSAY OF IRON CPT-4: 51394 03/09/2013 PRESCRIP TRANSMIT VIA ERX SY CPT-4: G8553 03/09/2013 ASSAY OF BLOOD/URIC ACID CPT-4: 92296 11/29/2009 COMPLETE CBC W/AUTO DIFF WBC CPT-4: 64712 11/29/2009 COMPREHEN METABOLIC PANEL CPT-4: 27023 11/29/2009 ROUTINE VENIPUNCTURE CPT-4: 56395 11/29/2009 PRESCRIP TRANSMIT VIA ERX SY CPT-4: G8553 11/29/2009 Vital Signs Date Vital 06/29/2019 Blood Pressure 1: 126/54 Code: 8480-6 BMI: 19.7 Code: 13098-4 Heart Rate 1: 72 bpm Height: 5'7" [...] 1: 136/62 Code: 8480-6 BMI: 20.5 Code: 30908-3 Heart Rate 1: 76 bpm Height: 5'8" Respiratory Rate: 20 bpm SpO2: 96% Tempera ture: 36.6 (C) / 97.8 (F) Weight: 135 lbs 10/10/2017 Blood Pressure 1: 126/56 Code: 8480-6 BMI: 21.3 Code: 99611-3 Heart Rate 1: 72 bpm Height: 5'8" Respiratory Rate: 20 bpm SpO2: 96% Tempera ture: 36.8 (C) / 98.2 (F) Weight: 140 lbs 07/17/2017 Blood Pressure 1: 124/56 Code: 8480-6 BMI: 21.0 Code: 10626-6 Heart Rate 1: 68 bpm Height: 5'8" Respiratory Rate: 20 bpm Temperature: 36 .6 (C) / 97.9 (F) Weight: 138 lbs 01/29/2017 Blood Pressure 1: 142/48 Code: 8480-6 BMI: 20.8 Code: 17171-6 Heart Rate 1: 86 bpm Height: 5'8" Respiratory Rate: 20 bpm SpO2: 98% Tempera ture: 36.3 (C) / 97.3 (F) Weight: 137 lbs 07/16/2016 Blood Pressure 1: 126/54 Code: 8480-6 BMI: 22.4 Code: 09955-6 Heart Rate 1: 84 bpm Height: 5'8" Respiratory Rate: 20 bpm SpO2: 96% Tempera ture: 37.0 (C) / 98.6 (F) Weight: 147 lbs 01/17/2016 Blood Pressure 1: 128/64 Code: 8480-6 BMI: 20.2 Code: 19528-1 Heart Rate 1: 84 bpm Height: 5'8" Respiratory Rate: 20 bpm Temperature: 36 .8 (C) / 98.2 (F) Weight: 133 lbs 12/13/2015 Blood Pressure 1: 114/48 Code: 8480-6 BMI: 19.2 Code: 94715-4 Heart Rate 1: 76 bpm Height: 5'8" Respiratory Rate: 20 bpm SpO2: 95% Tempera ture: 36.8 (C) / 98.2 (F) Weight: 126 lbs 11/08/2015 Blood Pressure 1: 116/48 Code: 8480-6 BMI: 22.4 Code: 31920-3 Heart Rate 1: 84 bpm Height: 5'8" Respiratory Rate: 20 bpm Temperature: 36 .7 (C) / 98.1 (F) Weight: 147 lbs 10/26/2015 Blood Pressure 1: 114/48 Code: 8480-6 BMI: 20.2 Code: 95641-0 Heart Rate 1: 100 bpm Height: 5'8" Respiratory Rate: 20 bpm Temperature: 36 .9 (C) / 98.4 (F) Weight: 133 lbs 03/09/2013 Blood Pressure 1: 154/78 Code: 8480-6 BMI: 25.5 Code: 41571-8 Heart Rate 1: 68 bpm Height: 5'8" Respiratory Rate: 20 bpm Temperature: 36 .9 (C) / 98.5 (F) Weight: 168 lbs 11/29/2009 Blood Pressure 1: 122/72 Code: 8480-6 BMI: 27.1 Code: 97719-3 Heart Rate 1: 76 bpm Height: 5'8" [...] 11/29/2009 Encounters Encounter Performer Location Codes Date ([id number]) NURSE/OUTPATIENT VISIT EST Diagnosis: FLU VACCINE[ICD10: Z23] Honey TORRES DO [facility] CPT-4: 03215 12/25/2018 ([id number]) OFFICE/OUTPATIENT VISIT EST Diagnosis: Essential (primary) hypertension[ICD10: I10] Diagnosis: Hypothyroidism, unspecified[ICD10: E03.9] Diagnosis: Anemia, unspecified[ICD10: D64.9] Diagnosis: Abnormal weight loss[ICD10: R63.4] Diagnosis: Disease of esophagus, 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] Honey KABA DO [facility] CPT-4: 09348 12/22/2018 ([id number]) OFFICE/OUTPATIENT VISIT EST Diagnosis: Pain in left knee[ICD10: M25.562] Honey KABA DO [facility] CPT-4: 80393 07/30/2018 ([id number]) OFFICE/OUTPATIENT VISIT EST Diagnosis: Anemia, unspecified[ICD10: D64.9] Diagnosis: Hypothyroidism, unspecified[ICD10: E03.9] Diagnosis: Essential (primary) hypertension[ICD10: I10] Honey KABA DO [facility] CPT-4: 22978 06/23/2018 ([id number]) OFFICE/OUTPATIENT VISIT EST Diagnosis: Hypothyroidism, unspecified[ICD10: E03.9] Diagnosis: Anemia, unspecified[ICD10: D64.9] Diagnosis: Disease of esophagus, 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] Honey KABA DO [facility] CPT-4: 55853 01/20/2018 ([id number]) OFFICE/OUTPATIENT VISIT EST Diagnosis: Hypothyroidism, unspecified[ICD10: E03.9] Diagnosis: Anemia, unspecified[ICD10: D64.9] Diagnosis: Disease of esophagus, 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] Honey KABA DO [facility] CPT-4: 56444 10/10/2017 ([id number]) NURSE/OUTPATIENT VISIT EST Diagnosis: Hypothyroidism, unspecified[ICD10: E03.9] Diagnosis: Anemia, unspecified[ICD10: D64.9] Diagnosis: Localized edema[ICD10: R60.0] Honey KABA DO [facility] CPT-4: 76575 10/03/2017 ([id number]) OFFICE/OUTPATIENT VISIT EST Diagnosis: Hypothyroidism, unspecified[ICD10: E03.9] Diagnosis: Anemia, unspecified[ICD10: D64.9] Diagnosis: Duodenal ulcer, unspecified as acute or chronic, without hemorrhage or perforation[ICD10: K26.9] Diagnosis: Disease of esophagus, 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] Diagnosis: Hyperglycemia, unspecified[ICD10: R73.9] Honey KABA DO [facility] CPT-4: 19682 07/17/2017 ([id number]) OFFICE/OUTPATIENT VISIT EST Diagnosis: Abnormal weight loss[ICD10: R63.4] Diagnosis: Diarrhea, unspecified[ICD10: R19.7] Diagnosis: Anemia, unspecified[ICD10: D64.9] Diagnosis: Hyperglycemia, unspecified[ICD10: R73.9] Honey KABA DO [facility] CPT-4: 62157 01/29/2017 ([id number]) OFFICE/OUTPATIENT VISIT EST Diagnosis: Diarrhea, unspecified[ICD10: R19.7] Diagnosis: Localized edema[ICD10: R60.0] Diagnosis: Anemia, unspecified[ICD10: D64.9] Honey KABA [employer] [facility] CPT-4: 56865 07/16/2016 ([id number]) OFFICE/OUTPATIENT VISIT EST Diagnosis: Duodenal ulcer, unspecified as acute or chronic, without hemorrhage or perforation[ICD10: K26.9] Diagnosis: Disease of esophagus, 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] Diagnosis: Abnormal weight loss[ICD10: R63.4] Diagnosis: Diarrhea, unspecified[ICD10: R19.7] Honey MODavid JOHNSON Leta KABA [employer] [facility] CPT-4: 39790 01/17/2016 OFFICE/OUTPATIENT VISIT EST Diagnosis: Duodenal ulcer, unspecified as acute or chronic, without hemorrhage or perforation[ICD10: K26.9] Diagnosis: Abnormal weight loss[ICD10: R63.4] Diagnosis: Diarrhea, unspecified[ICD10: R19.7] Diagnosis: Disease of esophagus, 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] Honeymabel KABA DO [facility] CPT-4: 90125 12/13/2015 ([id number]) OFFICE/OUTPATIENT VISIT EST Diagnosis: Duodenal ulcer, unspecified as acute or chronic, without hemorrhage or perforation[ICD10: K26.9] Diagnosis: Disease of esophagus, 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] Honey MÉNDEZ Leta KABA [facility] CPT-4: 19998 11/08/2015 ([id number]) OFFICE/OUTPATIENT VISIT EST Diagnosis: Nausea with vomiting, unspecified[ICD10: R11.2] Diagnosis: Toxic gastroenteritis and colitis[ICD10: K52.1] Diagnosis: Abnormal weight loss[ICD10: R63.4] Honey CHAVES DANIELLE KABA [facility] CPT-4: 89387 10/26/2015 ([id number]) OFFICE/OUTPATIENT VISIT EST Diagnosis: DIARRHEA[ICD9: 787.91] Diagnosis: MALAISE AND FATIGUE[ICD9: 780.79] Diagnosis: ANEMIA NOS[ICD9: 285.9] Honey MÉNDEZ Leta TORRES [facility] CPT-4: 33023 03/09/2013 ([id number]) OFFICE/OUTPATIENT VISIT, EST Honey GLEZ RamonaBrendan VICTORINA [facility] CPT-4: 40520 11/29/2009 Plan of Care Planned Activity Notes Codes Status Date Visit Diagnosis Plan: Hypothyroidism, unspecified Disc ussion: Check TSH, Free T4 ICD-9 : 244.9 ICD-10 : E03.9 06/29/2019 Visit Diagnosis Plan: Encounter for [facility] adult medical examination with abnormal findings Discussion: [...] : R63.4 06/29/2019 Appointment: Honey Kaba WPtel: [address] [place], [place] [phone] [place] INJECTION 12/25/2018 Visit Diagnosis Plan: Disease [...] ICD-10 : I10 12/22/2018 Appointment: Honey Kabatel: [address] [place] [address] [place] FOLLOW UP 12/22/2018 Appointment: Honey Kabatel: [address] [place] [address] [place] CANCELED 12/16/2018 Visit Diagnosis Plan: Pain in left knee Discussion: RI CE Topical icy hot Notify if worsens ICD-9 : 719.46 ICD-10 : M25.562 07/30/2018 Appointment: Honey Kabatel: [address] [place] [address] [place] FOLLOW UP 07/30/2018 Visit Diagnosis Plan: Essential (primary) hypertension Discussion: Stable ICD-9 : 401.9 ICD-10 : I10 06/23/2018 Visit Diagnosis Plan: Anemia, unspecified Discussion: Check CBC, iron ICD-9 : 285.9 ICD-10 : D64.9 06/23/2018 Visit Diagnosis Plan: Hypothyroidism, unspecified Disc ussion: Check TSH, Free T4 Follow Up: 6 months ICD-9 : 244.9 ICD-10 : E03.9 06/23/2018 Appointment: Honey Kabatel: [address] [place], [place] [phone] [place] FOLLOW UP 06/23/2018 Visit Diagnosis Plan: [...] ICD-10 : D64.9 01/20/2018 Appointment: Honey Kabatel: [address] [place] [address] FOLLOW UP 01/20/2018 Patient Education: Patient Medication Summary Completed 01/20/2018 Appointment: Honey Kabatel: [address] [place] [address] [place] CANCELED 01/13/2018 Visit Diagnosis Plan: Hypothyroidism, [...] ICD-10 : D64.9 10/10/2017 Appointment: Honey Kabatel: [address] [place], [place] [address] US FOLLOW UP 10/10/2017 Patient Education: Patient Medication Summary Completed 10/10/2017 Appointment: Honey Kabatel: [address] [place], [place] [phone] [place] LAB 10/03/2017 Patient Education: Patient Medication [...] : D64.9 07/17/2017 Appointment: Honey Kaba WPtel: [facility] [place] 07/17/2017 Patient Education: Patient Medication Summary Completed 07/17/2017 Patient Education: Patient Medication Summary Completed 02/01/2017 Care Plan: US EXAM OF HEAD AND NECK LOIN C : 12844-7 Pending 02/01/2017 Visit Diagnosis Plan: Anemia, unspecified [...] R19.7 01/29/2017 Appointment: Honey Kaba WPtel: [phone] [facility] [place] [place] UP 01/29/2017 Patient Education: Patient Medication Summary Completed 01/29/2017 Appointment: Honey Kaba WPtel: [address] [place], [place] [id number] 01/16/17 1455---refilled carvedilol for patient to ([place]) [...] any furth... 07/16/2016 Appointment: Honey Kaba WPtel: [address] [place], [place] [phone] 07/12 confirmed ~sl FOLLOW UP 07/16/2016 Patient Education: Patient Medication Summary Completed 07/16/2016 Visit Plan: Continue current meds Patien t wants to hold on any further workup on esophageal mass--wants quality of life at this time rather then any workup or treatment for cancer 01/17/2016 Appointment: Honey Kaba WPtel: [facility] 01/15 lm~sl...confirmed~lb FOLLOW UP 12/30 Patient Education: Patient Medication Summary Completed 01/17/2016 Visit Plan: Continue pantoprazole at 40m g daily Decrease sucralfate to BID Decrease Coreg to 12.5mg po BID Add colestid 1 gram daily Patient still does not want to do further evaluation on esophagus mass Diet as tolerated 12/13/2015 Appointment: Honey Kaba WPtel: [address] [place], [place] [id number] 12/11 confirmed~sl FOLLOW UP 12/13/2015 Patient Education: Patient Medication Summary Completed 12/13/2015 Visit Plan: Continue off NSAIDs Continue protonix Check CBC and Chem 7 Pathology results from EGD discussed Patient not sure if he wants to repeat EGD for another biopsy of esophageal mass--sees Dr. Wang tomorrow Recheck 1month 11/08/2015 Appointment: Honey Kaba WPtel: [address] [place], [place] [phone] 11/06 confirmed~sl WORK IN 11/08/2015 Patient Education: Patient Medication Summary Completed 11/08/2015 Visit Plan: Check CBC, CMP, TSH, Free T4 , HbA1C, Amylase, Lipase Check CT scan of abdomen/pelvis Will need EGD and colonoscopy pending results of above Could also be gallbladder related but big concern for cancer Protonix daily and zofran prn 10/26/2015 Appointment: Honey Kaba WPtel: [address] [place], [place] [phone] 10/24 confirmed~sl ACUTE ILLNESS 10/26/2015 Patient Education: Patient Medication Summary Completed 10/26/2015 Care Plan: CT PELVIS W/O DYE LOINC : 361 08-9 Pending 10/26/2015 Care Plan: CT ABDOMEN W/O DYE LOINC : 36 103-0 Pending 10/26/2015 Appointment: Mara Stewart [id number] [id number] RESCHEDULED 10/11/2015 Appointment: Honey Kaba WPtel: [address] [place], [place] [phone] ACUTE ILLNESS 12/09/2013 Appointment: Honey Kaba WPtel: [address] [place], [place] [phone] ACUTE ILLNESS 03/09/2013 Patient Education: Patient Medication [...]
--- OUTSIDE RECORDS SUMMARY | 2019-08-15 18:37 | XMS REPORT | CCD ---
Author Author Arnoldo Kaba D.O. Organization [facility] Address [address] [place] [address] Phone Care Team Providers Care Sheet Layer Name Role Phone PP Unavailable CCM Unavailable Summary Purpose Interface Exchange Insurance Providers Payer name Policy type / Coverage type Covered green party ID Effective Begin Date Effective End Date WPS MEDICARE PART B [place] Medicare Part B [id number] 2018 Unknown Medicare Part B [id number] 2018 Unknown Family History Family History data [...] Fill Instructions levothyroxine 50 mcg tablet RxNorm: 054038 TAKE 1 TABLET DAILY 08/31 No Stop Date Active Synthroid 25 mcg tablet RxNorm: 765405 1 Tablet(s) PO QD 07/23/2017 0 09/20/2017 Inactive carvedilol 12.5 mg tablet RxNorm: 332743 1 Tablet(s) PO BID 018 07/16/2017 Inactive pantoprazole 40 mg tablet,delayed release RxNorm: 658215 1 Tablet(s) PO QD for stomach 04/18/2017 10/09/2017 Inactive pantoprazole 40 mg tablet,delayed release RxNorm: 602161 1 Tablet(s) PO QD for stomach 01/17/2017 04/18/2017 Inactive Colestid 1 gram tablet RxNorm: 9893075 1 Tablet(s) PO QD 01/17/2017 0 07/16/2017 Inactive carvedilol 12.5 mg tablet RxNorm: 855388 1 Tablet(s) PO BID 017 04/18/2017 Inactive carvedilol 12.5 mg tablet RxNorm: 848247 1 Tablet(s) PO BID 017 01/15/2017 Inactive pantoprazole 40 mg tablet,delayed release RxNorm: 514120 1 Tablet(s) PO QD for stomach 10/25/2016 01/16/2017 Inactive pantoprazole 40 mg tablet,delayed release RxNorm: 535551 1 Tablet(s) PO QD for stomach 07/24/2016 10/21/2016 Inactive Colestid 1 gram tablet RxNorm: 5785387 1 Tablet(s) PO QD 07/16/2016 1 Inactive pantoprazole 40 mg tablet,delayed release RxNorm: 430021 1 Tablet(s) PO QD for stomach 04/25/2016 07/23/2016 Inactive pantoprazole 40 mg tablet,delayed release RxNorm: 491950 1 Tablet(s) PO QD for stomach 02/27/2016 04/24/2016 Inactive Colestid 1 gram tablet RxNorm: 8355809 1 Tablet(s) PO QD 01/18/2016 0 07/15/2016 Inactive sucralfate 1 gram tablet RxNorm: 778333 1 Tablet(s) PO BID 01/17/20 16 07/15/2016 Inactive ondansetron HCl 4 mg tablet RxNorm: 075487 1 Tablet(s) PO Q4H as needed for nausea 01/17/2016 10/09/2017 Inactive pantoprazole 40 mg tablet,delayed release RxNorm: 755832 1 Tablet(s) PO QD for stomach 12/26/2015 02/23/2016 Inactive ondansetron HCl 4 mg tablet RxNorm: 377364 1 Tablet(s) PO Q4H as needed for nausea 12/13/2015 01/16/2016 Inactive colestipol 1 gram tablet RxNorm: 7973955 1 Tablet(s) PO QD 12/13/19 16 01/11/2016 Inactive sucralfate 1 gram tablet RxNorm: 834300 1 Tablet(s) PO QID (before meals and at bedtime) 11/09/2015 06/22/2018 Inactive pantoprazole 40 mg tablet,delayed release RxNorm: 099383 1 Tablet(s) PO QD for stomach 10/26/2015 12/24/2015 Inactive Zofran 4 mg tablet RxNorm: 374150 1 Tablet(s) PO Q4H as needed for nausea 10/26/2015 12/12/2015 Inactive Flagyl 500 mg tablet RxNorm: 097915 1 Tablet(s) PO TID 03/09/2013 Inactive Colchicine 0.6 mg Tab RxNorm: 630664 1 Tablet(s) PO TID take one tablet three times daily 11/29/2009 12/08/2009 Inactive minoxidil 2.5 mg tablet RxNorm: 572324 1 Tablet(s) PO QHS No Start Da te Active minoxidil 10 mg tablet RxNorm: 219041 1 Tablet(s) PO QAM No Start Date Active Aspirin 81 mg Tab RxNorm: 677181 1 Tablet(s) PO QD No Start Date Active Centrum Silver tablet RxNorm: 1 Tablet(s) PO QD No Start Date Active Lasix 40 mg tablet RxNorm: 647808 1 Tablet(s) PO QD No Start Date Active Klor-Con M20 mEq tablet,extended release RxNorm: 9974161 1 Table t(s) PO QD No Start Date Active levothyroxine 50 mcg tablet RxNorm: 295058 1 Tablet(s) PO QD No Sta rt Date 09/21/2018 Inactive Lisinopril 40 mg Tab RxNorm: 647965 1 Tablet(s) PO QD No Start Date 0 11/08/2015 Inactive Colestid 1 gram tablet RxNorm: 5280022 1 Tablet(s) PO QD No Start D ate 01/17/2016 Inactive carvedilol 25 mg tablet RxNorm: 275208 1/2 Tablet(s) PO BID No Star t Date 01/15/2017 Inactive Centrum Silver Oral RxNorm: Oral No Start Date 11/08/2015 Inact kris furosemide 20 mg tablet RxNorm: 154977 1 Tablet(s) PO QAM No Start Date 01/28/2017 Inactive Carvedilol 25 mg Tab RxNorm: 615171 1 Tablet(s) PO BID No Start Date 01/15/2017 Inactive Minoxidil 2.5 mg Tab RxNorm: 775284 1 Tablet(s) PO BID No Start Date 11/08/2015 Inactive sucralfate 1 gram tablet RxNorm: 556354 1 Tablet(s) PO BID as n eeded No Start Date 10/09/2017 Inactive ondansetron HCl 4 mg tablet RxNorm: 996639 1 Tablet(s) PO Q4H as needed for nausea No Start Date 12/12/2015 Inactive Hydrochlorothiazide 12.5 mg Tab RxNorm: 990700 1 Tablet(s) PO QAM N o Start Date 11/08/2015 Inactive sucralfate 1 gram tablet RxNorm: 502615 1 Tablet(s) PO BID No Start Date 01/16/2016 Inactive Flintstones Complete (iron) 18 mg iron chewable tablet RxNor m: 2 Tablet(s) PO BID No Start Date 07/16/2017 Inactive Medication Administered No Medication Administered data Immunizations Vaccine Codes Date Status Influenza CVX: 135 12/25/2018 Complete Influenza CVX: 135 12/25/2018 Complete Results Observation Observation Code Item Item Code Result Date S ervice Location IRON 04439 Iron 53 ug/dL 12/22/2018 Unknown FREE T4 71317 T4 Free 1.05 ng/dL 12/22/2018 Unknown FERRITIN 21031 FERRITIN 126.5 ng/mL 12/22/2018 Unknown COMPLETE BLOOD COUNT [id number] WBC 7.7 10e9/L 12/23/19 19 Unknown COMPLETE BLOOD COUNT [id number] RBC 3.60 10e12/L 2018 Unknown COMPLETE BLOOD COUNT [id number] HEMOGLOBIN 10.9 g/dL 12/23/19 19 Unknown COMPLETE BLOOD COUNT 4269337 HEMATOCRIT 34.4 % 12/23/19 19 Unknown COMPLETE BLOOD COUNT 4434476 MCV 95.6 fL 9 Unknown COMPLETE BLOOD COUNT 0310058 MCH 30.3 pg 9 Unknown COMPLETE BLOOD COUNT 3106438 MCHC 31.7 g/dL 9 Unknown COMPLETE BLOOD COUNT 9194415 PLATELET COUNT 364 10e9/L Unknown COMPLETE BLOOD COUNT 1305676 Mean Plt Volume 9.8 fL Unknown COMPLETE BLOOD COUNT 3028965 Neut Auto 81.4 % 9 Unknown COMPLETE BLOOD COUNT 6522892 Lymph Auto 12.4 % 12/23/19 19 Unknown COMPLETE BLOOD COUNT 9747489 Tyrrell Auto 4.5 % 9 Unknown COMPLETE BLOOD COUNT 7812089 RDW 14.2 % 9 Unknown COMPLETE BLOOD COUNT 8544736 Eos Auto 1.3 % 9 Unknown COMPLETE BLOOD COUNT 2029773 Baso Auto 0.4 % 9 Unknown COMPLETE BLOOD COUNT 9428947 Neutrophil Abs 6.27 10e9/L Unknown COMPLETE BLOOD COUNT 7070065 Lymphocyte Abs 0.95 10e9/L Unknown COMPLETE BLOOD COUNT 3440448 Monocyte Abs 0.35 10e9/L 12/01 Unknown COMPLETE BLOOD COUNT 3662392 Eosinophil Abs 0.10 10e9/L Unknown COMPLETE BLOOD COUNT 3018411 RDW-SD 47.2 fL 9 Unknown COMPLETE BLOOD COUNT 9194538 Basophil Abs 0.03 10e9/L 12/01 Unknown COMPREHENSIVE METABOLIC 77801 AST 19 U/L 2018 Unknown COMPREHENSIVE METABOLIC 51529 ALT 13 U/L 2018 Unknown COMPREHENSIVE METABOLIC 62892 BUN 41 mg/dL 2018 Unknown COMPREHENSIVE METABOLIC 96018 ALBUMIN 4.3 g/dL 2018 Unknown COMPREHENSIVE METABOLIC 34451 CHLORIDE 103 mmol/L 12/22 Unknown COMPREHENSIVE METABOLIC 03291 Bili Total 0.3 mg/dL 12/22 Unknown COMPREHENSIVE METABOLIC 22622 ALK PHOS 86 U/L 2018 Unknown COMPREHENSIVE METABOLIC 24982 SODIUM 138 mmol/L 12/22 Unknown COMPREHENSIVE METABOLIC 61527 CREATININE 1.69 mg/dL 12/01 Unknown COMPREHENSIVE METABOLIC 91048 CALCIUM 9.2 mg/dL 2018 Unknown COMPREHENSIVE METABOLIC 58889 POTASSIUM 4.3 mmol/L 12/22 Unknown COMPREHENSIVE METABOLIC 69990 Total Protein 6.9 g/dL Unknown COMPREHENSIVE METABOLIC 61531 Glucose 105 mg/dL 2018 Unknown COMPREHENSIVE METABOLIC 12660 Bicarbonate 21 mmol/L 12/01 Unknown COMPREHENSIVE METABOLIC 41538 AGAP 14 mmol/L 2018 Unknown THYROID STIMULATING HORMONE 10032 TSH 6.015 uIU/mL 12/22/2018 Unknown VITAMIN B 12 58052 VITAMIN B12 615 pg/mL 12/22/2018 Unkn own GFR CALC 2406544 GFR Non Afr Amr 38 mL/min 12/22/2018 Unk nown GFR CALC 2450662 GFR Afr Amr 47 mL/min 12/22/2018 Unknown FERRITIN 50649 FERRITIN 113.7 ng/mL 06/24/2018 Unknown VITAMIN B 12 29264 VITAMIN B12 651 pg/mL 06/24/2018 Unkn own COMPLETE BLOOD COUNT 1980749 WBC 6.3 10e9/L 06/24/19 19 Unknown COMPLETE BLOOD COUNT 9883578 RBC 3.33 10e12/L 2018 Unknown COMPLETE BLOOD COUNT 7821426 HEMOGLOBIN 9.8 g/dL 06/24/19 19 Unknown COMPLETE BLOOD COUNT 0755671 HEMATOCRIT 31.6 % 06/24/19 19 Unknown COMPLETE BLOOD COUNT 4137089 MCV 94.9 fL 9 Unknown COMPLETE BLOOD COUNT 3380405 MCH 29.4 pg 9 Unknown COMPLETE BLOOD COUNT 5938891 MCHC 31.0 g/dL 9 Unknown COMPLETE BLOOD COUNT 4264224 PLATELET COUNT 319 10e9/L Unknown COMPLETE BLOOD COUNT 9199220 Mean Plt Volume 9.4 fL Unknown COMPLETE BLOOD COUNT 1020406 Neut Auto 78.0 % 9 Unknown COMPLETE BLOOD COUNT 0119138 Lymph Auto 14.4 % 06/24/19 19 Unknown COMPLETE BLOOD COUNT 4243579 Tyrrell Auto 5.2 % 9 Unknown COMPLETE BLOOD COUNT 3493924 RDW 14.2 % 9 Unknown COMPLETE BLOOD COUNT 1373327 Eos Auto 2.1 % 9 Unknown COMPLETE BLOOD COUNT 2703239 Baso Auto 0.3 % 9 Unknown COMPLETE BLOOD COUNT 2867131 Neutrophil Abs 4.91 10e9/L Unknown COMPLETE BLOOD COUNT 2701698 Lymphocyte Abs 0.91 10e9/L Unknown COMPLETE BLOOD COUNT 1821563 Monocyte Abs 0.33 10e9/L 05/31 Unknown COMPLETE BLOOD COUNT 7583786 Eosinophil Abs 0.13 10e9/L Unknown COMPLETE BLOOD COUNT 0406779 RDW-SD 47.0 fL 9 Unknown COMPLETE BLOOD COUNT 9736176 Basophil Abs 0.02 10e9/L 05/31 Unknown THYROID STIMULATING HORMONE 81727 TSH 4.709 uIU/mL 06/23/2018 Unknown IRON 39755 Iron 52 ug/dL 06/23/2018 Unknown COMPREHENSIVE METABOLIC 05820 AST 16 U/L 2018 Unknown COMPREHENSIVE METABOLIC 20629 ALT 10 U/L 2018 Unknown COMPREHENSIVE METABOLIC 78744 BUN 27 mg/dL 2018 Unknown COMPREHENSIVE METABOLIC 83216 ALBUMIN 4.3 g/dL 2018 Unknown COMPREHENSIVE METABOLIC 23948 CHLORIDE 110 mmol/L 06/23 Unknown COMPREHENSIVE METABOLIC 56470 Bili Total 0.4 mg/dL 06/23 Unknown COMPREHENSIVE METABOLIC 85917 ALK PHOS 68 U/L 2018 Unknown COMPREHENSIVE METABOLIC 37221 SODIUM 140 mmol/L 06/23 Unknown COMPREHENSIVE METABOLIC 17936 CREATININE 1.60 mg/dL 05/31 Unknown COMPREHENSIVE METABOLIC 87374 CALCIUM 9.2 mg/dL 2018 Unknown COMPREHENSIVE METABOLIC 81736 POTASSIUM 4.6 mmol/L 06/23 Unknown COMPREHENSIVE METABOLIC 66930 Total Protein 6.8 g/dL Unknown COMPREHENSIVE METABOLIC 72332 Glucose 110 mg/dL 2018 Unknown COMPREHENSIVE METABOLIC 91757 Bicarbonate 19 mmol/L 05/31 Unknown COMPREHENSIVE METABOLIC 32962 AGAP 11 mmol/L 2018 Unknown GFR CALC 0761210 GFR Non Afr Amr 41 mL/min 06/23/2018 Unk nown GFR CALC 2998460 GFR Afr Amr 50 mL/min 06/23/2018 Unknown COMPLETE BLOOD COUNT 6914841 WBC 6.6 10e9/L 01/21/20 18 Unknown COMPLETE BLOOD COUNT 6261273 RBC 3.64 10e12/L 2017 Unknown COMPLETE BLOOD COUNT 8345134 HEMOGLOBIN 11.0 g/dL 01/21/20 18 Unknown COMPLETE BLOOD COUNT 1266923 HEMATOCRIT 34.6 % 01/21/20 18 Unknown COMPLETE BLOOD COUNT 5764002 MCV 95.1 fL 8 Unknown COMPLETE BLOOD COUNT 7688939 MCH 30.2 pg 8 Unknown COMPLETE BLOOD COUNT 4385605 MCHC 31.8 g/dL 8 Unknown COMPLETE BLOOD COUNT 0979152 PLATELET COUNT 386 10e9/L Unknown COMPLETE BLOOD COUNT 7781377 Mean Plt Volume 9.6 fL Unknown COMPLETE BLOOD COUNT 8550787 Neut Auto 76.6 % 8 Unknown COMPLETE BLOOD COUNT 5655530 Lymph Auto 15.6 % 01/21/20 18 Unknown COMPLETE BLOOD COUNT 7735922 Tyrrell Auto 5.3 % 8 Unknown COMPLETE BLOOD COUNT 9034626 RDW 13.8 % 8 Unknown COMPLETE BLOOD COUNT 6097001 Eos Auto 2.0 % 8 Unknown COMPLETE BLOOD COUNT 1848612 Baso Auto 0.5 % 8 Unknown COMPLETE BLOOD COUNT 6963988 Neutrophil Abs 5.06 10e9/L Unknown COMPLETE BLOOD COUNT 4744831 Lymphocyte Abs 1.03 10e9/L Unknown COMPLETE BLOOD COUNT 3157085 Monocyte Abs 0.35 10e9/L 12/31 Unknown COMPLETE BLOOD COUNT 7259604 Eosinophil Abs 0.13 10e9/L Unknown COMPLETE BLOOD COUNT 5376802 RDW-SD 45.5 fL 8 Unknown COMPLETE BLOOD COUNT 2869818 Basophil Abs 0.03 10e9/L 12/31 Unknown COMPREHENSIVE METABOLIC 55330 AST 17 U/L 2017 Unknown COMPREHENSIVE METABOLIC 53448 ALT 14 U/L 2017 Unknown COMPREHENSIVE METABOLIC 75900 BUN 55 mg/dL 2017 Unknown COMPREHENSIVE METABOLIC 78165 ALBUMIN 4.2 g/dL 2017 Unknown COMPREHENSIVE METABOLIC 21950 CHLORIDE 106 mmol/L 01/20 Unknown COMPREHENSIVE METABOLIC 97636 Bili Total 0.4 mg/dL 01/20 Unknown COMPREHENSIVE METABOLIC 01844 ALK PHOS 75 U/L 2017 Unknown COMPREHENSIVE METABOLIC 21966 SODIUM 137 mmol/L 01/20 Unknown COMPREHENSIVE METABOLIC 51493 CREATININE 1.99 mg/dL 12/31 Unknown COMPREHENSIVE METABOLIC 36494 CALCIUM 9.5 mg/dL 2017 Unknown COMPREHENSIVE METABOLIC 29746 POTASSIUM 4.6 mmol/L 01/20 Unknown COMPREHENSIVE METABOLIC 19851 Total Protein 7.9 g/dL Unknown COMPREHENSIVE METABOLIC 58314 Glucose 105 mg/dL 2017 Unknown COMPREHENSIVE METABOLIC 53916 Bicarbonate 22 mmol/L 12/31 Unknown COMPREHENSIVE METABOLIC 76921 AGAP 9 mmol/L 2017 Unknown THYROID STIMULATING HORMONE 45798 TSH 6.119 uIU/mL 01/20/2018 Unknown GFR CALC 6461058 GFR Non Afr Amr 32 mL/min 01/20/2018 Unk nown GFR CALC 4545972 GFR Afr Amr 39 mL/min 01/20/2018 Unknown FREE T4 77366 T4 Free 1.11 ng/dL 01/20/2018 Unknown GFR CALC 3640094 GFR Non Afr Amr 38 mL/min 10/03/2017 Unk nown GFR CALC 3769715 GFR Afr Amr 46 mL/min 10/03/2017 Unknown COMPREHENSIVE METABOLIC 30164 AST 15 U/L 2017 Unknown COMPREHENSIVE METABOLIC 88767 ALT 10 U/L 2017 Unknown COMPREHENSIVE METABOLIC 56431 BUN 41 mg/dL 2017 Unknown COMPREHENSIVE METABOLIC 90522 ALBUMIN 4.0 g/dL 2017 Unknown COMPREHENSIVE METABOLIC 98538 CHLORIDE 105 mmol/L 10/03 Unknown COMPREHENSIVE METABOLIC 69027 Bili Total 0.4 mg/dL 10/03 Unknown COMPREHENSIVE METABOLIC 26622 ALK PHOS 71 U/L 2017 Unknown COMPREHENSIVE METABOLIC 45781 SODIUM 140 mmol/L 10/03 Unknown COMPREHENSIVE METABOLIC 74083 CREATININE 1.72 mg/dL 07/2017 Unknown COMPREHENSIVE METABOLIC 33524 CALCIUM 9.1 mg/dL 2017 Unknown COMPREHENSIVE METABOLIC 08762 POTASSIUM 4.1 mmol/L 10/03 Unknown COMPREHENSIVE METABOLIC 35876 Total Protein 6.5 g/dL Unknown COMPREHENSIVE METABOLIC 58330 Glucose 101 mg/dL 2017 Unknown COMPREHENSIVE METABOLIC 76987 Bicarbonate 23 mmol/L 07/2017 Unknown COMPREHENSIVE METABOLIC 72445 AGAP 12 mmol/L 2017 Unknown FREE T4 54461 T4 Free 0.81 ng/dL 10/03/2017 Unknown THYROID STIMULATING HORMONE 31927 TSH 10.964 uIU/m L 10/03/2017 Unknown COMPLETE BLOOD COUNT 4950091 WBC 5.6 10e9/L 10/04/19 18 Unknown COMPLETE BLOOD COUNT 5427661 RBC 3.36 10e12/L 2017 Unknown COMPLETE BLOOD COUNT 4524355 HEMOGLOBIN 10.3 g/dL 10/04/19 18 Unknown COMPLETE BLOOD COUNT 3759986 HEMATOCRIT 32.0 % 10/04/19 18 Unknown COMPLETE BLOOD COUNT 9275471 MCV 95.2 fL 8 Unknown COMPLETE BLOOD COUNT 1357769 MCH 30.7 pg 8 Unknown COMPLETE BLOOD COUNT 7188192 MCHC 32.2 g/dL 8 Unknown COMPLETE BLOOD COUNT 3724122 PLATELET COUNT 250 10e9/L 07/2017 Unknown COMPLETE BLOOD COUNT 4767098 Mean Plt Volume 10.2 fL 07/2017 Unknown COMPLETE BLOOD COUNT 9825205 Neut Auto 75.9 % 8 Unknown COMPLETE BLOOD COUNT 3967183 Lymph Auto 17.2 % 10/04/19 18 Unknown COMPLETE BLOOD COUNT 4585169 Tyrrell Auto 5.3 % 8 Unknown COMPLETE BLOOD COUNT 6138342 RDW 14.0 % 8 Unknown COMPLETE BLOOD COUNT 3058896 Eos Auto 1.2 % 8 Unknown COMPLETE BLOOD COUNT 0588337 Baso Auto 0.4 % 8 Unknown COMPLETE BLOOD COUNT 8609806 Neutrophil Abs 4.25 10e9/L Unknown COMPLETE BLOOD COUNT 9639906 Lymphocyte Abs 0.96 10e9/L Unknown COMPLETE BLOOD COUNT 8763552 Monocyte Abs 0.30 10e9/L 07/2017 Unknown COMPLETE BLOOD COUNT 6476449 Eosinophil Abs 0.07 10e9/L Unknown COMPLETE BLOOD COUNT 2082197 RDW-SD 45.8 fL 8 Unknown COMPLETE BLOOD COUNT 2900201 Basophil Abs 0.02 10e9/L 07/2017 Unknown FREE T4 40543 T4 Free 0.87 ng/dL 07/17/2017 Unknown COMPREHENSIVE METABOLIC 14292 AST 19 U/L 2017 Unknown COMPREHENSIVE METABOLIC 15031 ALT 13 U/L 2017 Unknown COMPREHENSIVE METABOLIC 93181 BUN 48 mg/dL 2017 Unknown COMPREHENSIVE METABOLIC 64972 ALBUMIN 4.4 g/dL 2017 Unknown COMPREHENSIVE METABOLIC 13741 CHLORIDE 105 mmol/L 07/17 Unknown COMPREHENSIVE METABOLIC 74983 Bili Total 0.4 mg/dL 07/17 Unknown COMPREHENSIVE METABOLIC 47991 ALK PHOS 64 U/L 2017 Unknown COMPREHENSIVE METABOLIC 35844 SODIUM 141 mmol/L 07/17 Unknown COMPREHENSIVE METABOLIC 62888 CREATININE 1.72 mg/dL 06/30 Unknown COMPREHENSIVE METABOLIC 44182 CALCIUM 9.8 mg/dL 2017 Unknown COMPREHENSIVE METABOLIC 19986 POTASSIUM 4.6 mmol/L 07/17 Unknown COMPREHENSIVE METABOLIC 10422 Total Protein 7.0 g/dL Unknown COMPREHENSIVE METABOLIC 29466 Glucose 105 mg/dL 2017 Unknown COMPREHENSIVE METABOLIC 95262 Bicarbonate 25 mmol/L 06/30 Unknown COMPREHENSIVE METABOLIC 90970 AGAP 11 mmol/L 2017 Unknown LIPID GROUP 94379 Cholesterol 162 mg/dL 07/17/2017 Unkno wn LIPID GROUP 86419 Triglyceride 126 mg/dL 07/17/2017 Unkn own LIPID GROUP 76567 HDL CHOLESTEROL 39 mg/dL 07/17/2017 U nknown LIPID GROUP 21565 Chol/HDL Ratio 4.15 ratio 07/17/2017 U nknown LIPID GROUP 50690 NON-HDL Chol 123 mg/dL 07/17/2017 Unkn own LIPID GROUP 07148 LDL Cholesterol 98 mg/dL 07/17/2017 U nknown GLYCOSYLATED HEMOGLOBIN TEST 09151 Hgb A1c 25533-2 5.0 % 0 07/17/2017 Unknown THYROID STIMULATING HORMONE 99169 TSH 28.780 uIU/m L 07/17/2017 Unknown MEAN GLUC 9918093 Calc Mean Gluc 97 mg/dL 07/17/2017 Unkn own GFR CALC 5715786 GFR Non Afr Amr 38 mL/min 07/17/2017 Unk nown GFR CALC 2401937 GFR Afr Amr 46 mL/min 07/17/2017 Unknown COMPLETE BLOOD COUNT 2986704 WBC 5.8 10e9/L 07/18/19 18 Unknown COMPLETE BLOOD COUNT 6317180 RBC 3.47 10e12/L 2017 Unknown COMPLETE BLOOD COUNT 0209331 HEMOGLOBIN 10.7 g/dL 07/18/19 18 Unknown COMPLETE BLOOD COUNT 7057720 HEMATOCRIT 34.0 % 07/18/19 18 Unknown COMPLETE BLOOD COUNT 0995351 MCV 98.0 fL 8 Unknown COMPLETE BLOOD COUNT 1454402 MCH 30.8 pg 8 Unknown COMPLETE BLOOD COUNT 4449726 MCHC 31.5 g/dL 8 Unknown COMPLETE BLOOD COUNT 5530429 PLATELET COUNT 254 10e9/L Unknown COMPLETE BLOOD COUNT 2728381 Mean Plt Volume 10.0 fL Unknown COMPLETE BLOOD COUNT 8278837 Neut Auto 77.2 % 8 Unknown COMPLETE BLOOD COUNT 4850162 Lymph Auto 15.2 % 07/18/19 18 Unknown COMPLETE BLOOD COUNT 9540181 Tyrrell Auto 5.4 % 8 Unknown COMPLETE BLOOD COUNT 5714014 RDW 13.9 % 8 Unknown COMPLETE BLOOD COUNT 4498698 Eos Auto 1.7 % 8 Unknown COMPLETE BLOOD COUNT 8891221 Baso Auto 0.5 % 8 Unknown COMPLETE BLOOD COUNT 2068443 Neutrophil Abs 4.48 10e9/L Unknown COMPLETE BLOOD COUNT 9914042 Lymphocyte Abs 0.88 10e9/L Unknown COMPLETE BLOOD COUNT 9659082 Monocyte Abs 0.31 10e9/L 06/30 Unknown COMPLETE BLOOD COUNT 3805787 Eosinophil Abs 0.10 10e9/L Unknown COMPLETE BLOOD COUNT 2520312 RDW-SD 48.0 fL 8 Unknown COMPLETE BLOOD COUNT 8685003 Basophil Abs 0.03 10e9/L 06/30 Unknown FREE T4 63051 T4 Free 0.79 ng/dL 01/31/2017 Unknown GLYCOSYLATED HEMOGLOBIN TEST 39127 Hgb A1c 24726-0 5.2 % 1 04/01/2016 Unknown MEAN GLUC 9535394 Calc Mean Gluc 103 mg/dL 01/30/2017 Unkn own IRON 18146 Iron 62 ug/dL 01/29/2017 Unknown COMPREHENSIVE METABOLIC 02670 AST 25 U/L 2016 Unknown COMPREHENSIVE METABOLIC 96712 ALT 29 U/L 2016 Unknown COMPREHENSIVE METABOLIC 46926 BUN 41 mg/dL 2016 Unknown COMPREHENSIVE METABOLIC 58974 ALBUMIN 4.4 g/dL 2016 Unknown COMPREHENSIVE METABOLIC 60022 CHLORIDE 111 mmol/L 01/29 Unknown COMPREHENSIVE METABOLIC 22930 Bili Total 0.3 mg/dL 01/29 Unknown COMPREHENSIVE METABOLIC 52784 ALK PHOS 68 U/L 2016 Unknown COMPREHENSIVE METABOLIC 72985 SODIUM 142 mmol/L 01/29 Unknown COMPREHENSIVE METABOLIC 91786 CREATININE 1.69 mg/dL 01/01 Unknown COMPREHENSIVE METABOLIC 06233 CALCIUM 9.0 mg/dL 2016 Unknown COMPREHENSIVE METABOLIC 32945 POTASSIUM 4.0 mmol/L 01/29 Unknown COMPREHENSIVE METABOLIC 32834 Total Protein 6.9 g/dL Unknown COMPREHENSIVE METABOLIC 87319 Glucose 166 mg/dL 2016 Unknown COMPREHENSIVE METABOLIC 27633 Bicarbonate 22 mmol/L 01/01 Unknown COMPREHENSIVE METABOLIC 91288 AGAP 9 mmol/L 2016 Unknown VITAMIN B 12 77163 VITAMIN B12 603 pg/mL 01/29/2017 Unkn own COMPLETE BLOOD COUNT 0679362 WBC 5.7 10e9/L 01/30/20 17 Unknown COMPLETE BLOOD COUNT 9271223 RBC 3.56 10e12/L 2016 Unknown COMPLETE BLOOD COUNT 2139612 HEMOGLOBIN 10.7 g/dL 01/30/20 17 Unknown COMPLETE BLOOD COUNT 7594130 HEMATOCRIT 33.8 % 01/30/20 17 Unknown COMPLETE BLOOD COUNT 8119707 MCV 94.9 fL 7 Unknown COMPLETE BLOOD COUNT 2106148 MCH 30.1 pg 7 Unknown COMPLETE BLOOD COUNT 6051690 MCHC 31.7 g/dL 7 Unknown COMPLETE BLOOD COUNT 7655988 PLATELET COUNT 284 10e9/L Unknown COMPLETE BLOOD COUNT 8551481 Mean Plt Volume 10.0 fL Unknown COMPLETE BLOOD COUNT 9067330 Neut Auto 79.4 % 7 Unknown COMPLETE BLOOD COUNT 1687484 Lymph Auto 13.6 % 01/30/20 17 Unknown COMPLETE BLOOD COUNT 6560247 Tyrrell Auto 4.4 % 7 Unknown COMPLETE BLOOD COUNT 4382781 RDW 14.9 % 7 Unknown COMPLETE BLOOD COUNT 4733499 Eos Auto 2.1 % 7 Unknown COMPLETE BLOOD COUNT 2262813 Baso Auto 0.5 % 7 Unknown COMPLETE BLOOD COUNT 4057144 Neutrophil Abs 4.53 10e9/L Unknown COMPLETE BLOOD COUNT 2974559 Lymphocyte Abs 0.78 10e9/L Unknown COMPLETE BLOOD COUNT 4173794 Monocyte Abs 0.25 10e9/L 01/01 Unknown COMPLETE BLOOD COUNT 3420963 Eosinophil Abs 0.12 10e9/L Unknown COMPLETE BLOOD COUNT 3011836 RDW-SD 49.6 fL 7 Unknown COMPLETE BLOOD COUNT 7126444 Basophil Abs 0.03 10e9/L 01/01 Unknown THYROID STIMULATING HORMONE 93472 TSH 26.132 uIU/m L 01/29/2017 Unknown GFR CALC 7727111 GFR Non Afr Amr 39 mL/min 01/29/2017 Unk nown GFR CALC 9278121 GFR Afr Amr 47 mL/min 01/29/2017 Unknown COMPREHENSIVE METABOLIC 25177 AST 19 U/L 2016 Unknown COMPREHENSIVE METABOLIC 32729 ALT 19 U/L 2016 Unknown COMPREHENSIVE METABOLIC 64475 BUN 30 mg/dL 2016 Unknown COMPREHENSIVE METABOLIC 64407 ALBUMIN 3.9 g/dL 2016 Unknown COMPREHENSIVE METABOLIC 43061 CHLORIDE 107 mmol/L 07/16 Unknown COMPREHENSIVE METABOLIC 15996 Bili Total 0.4 mg/dL 07/16 Unknown COMPREHENSIVE METABOLIC 13932 ALK PHOS 56 U/L 2016 Unknown COMPREHENSIVE METABOLIC 52004 SODIUM 139 mmol/L 07/16 Unknown COMPREHENSIVE METABOLIC 36979 CREATININE 1.50 mg/dL 06/30 Unknown COMPREHENSIVE METABOLIC 86895 CALCIUM 8.7 mg/dL 2016 Unknown COMPREHENSIVE METABOLIC 29106 POTASSIUM 4.2 mmol/L 07/16 Unknown COMPREHENSIVE METABOLIC 02574 Total Protein 6.5 g/dL Unknown COMPREHENSIVE METABOLIC 33440 Glucose 139 mg/dL 2016 Unknown COMPREHENSIVE METABOLIC 14354 Bicarbonate 20 mmol/L 06/30 Unknown COMPREHENSIVE METABOLIC 96434 AGAP 12 mmol/L 2016 Unknown COMPLETE BLOOD COUNT 3271893 WBC 5.7 10e9/L 07/17/19 17 Unknown COMPLETE BLOOD COUNT 6364724 RBC 3.10 10e12/L 2016 Unknown COMPLETE BLOOD COUNT 8927102 HEMOGLOBIN 9.4 g/dL 07/17/19 17 Unknown COMPLETE BLOOD COUNT 0766974 HEMATOCRIT 29.6 % 07/17/19 17 Unknown COMPLETE BLOOD COUNT 6646095 MCV 95.5 fL 7 Unknown COMPLETE BLOOD COUNT 0512079 MCH 30.3 pg 7 Unknown COMPLETE BLOOD COUNT 5969377 MCHC 31.8 g/dL 7 Unknown COMPLETE BLOOD COUNT 9214236 PLATELET COUNT 286 10e9/L Unknown COMPLETE BLOOD COUNT 4839343 Mean Plt Volume 9.9 fL Unknown COMPLETE BLOOD COUNT 3153449 Neut Auto 79.4 % 7 Unknown COMPLETE BLOOD COUNT 1324100 Lymph Auto 14.5 % 07/17/19 17 Unknown COMPLETE BLOOD COUNT 8121787 Tyrrell Auto 4.6 % 7 Unknown COMPLETE BLOOD COUNT 6324171 RDW 14.2 % 7 Unknown COMPLETE BLOOD COUNT 7321043 Eos Auto 1.1 % 7 Unknown COMPLETE BLOOD COUNT 3015889 Baso Auto 0.4 % 7 Unknown COMPLETE BLOOD COUNT 4794826 Neutrophil Abs 4.53 10e9/L Unknown COMPLETE BLOOD COUNT [id number] Lymphocyte Abs 0.83 10e9/L Unknown COMPLETE BLOOD COUNT [id number] Monocyte Abs 0.26 10e9/L 06/30 Unknown COMPLETE BLOOD COUNT [id number] Eosinophil Abs 0.06 10e9/L Unknown COMPLETE BLOOD COUNT [id number] RDW-SD 47.4 fL 7 Unknown COMPLETE BLOOD COUNT [id number] Basophil Abs 0.02 10e9/L 06/30 Unknown GFR CALC [id number] GFR Non Afr Amr 44 mL/min 07/16/2016 Unk nown GFR CALC [id number] GFR Afr Amr 54 mL/min 07/16/2016 Unknown COMPLETE BLOOD COUNT [id number] WBC 4.3 10e9/L 11/08/19 16 Unknown COMPLETE BLOOD COUNT [id number] RBC 3.22 10e12/L 2015 Unknown COMPLETE BLOOD COUNT [id number] HEMOGLOBIN 9.5 g/dL 11/08/19 16 Unknown COMPLETE BLOOD COUNT [id number] HEMATOCRIT 29.7 % 11/08/19 16 Unknown COMPLETE BLOOD COUNT [id number] MCV 92.2 fL 6 Unknown COMPLETE BLOOD COUNT [id number] MCH 29.5 pg 6 Unknown COMPLETE BLOOD COUNT [id number] MCHC 32.0 g/dL 6 Unknown COMPLETE BLOOD COUNT [id number] PLATELET COUNT 269 10e9/L 12/2015 Unknown COMPLETE BLOOD COUNT [id number] Mean Plt Volume 9.3 fL 12/2015 Unknown COMPLETE BLOOD COUNT [id number] Neut Auto 71.4 % 6 Unknown COMPLETE BLOOD COUNT [id number] Lymph Auto 20.2 % 11/08/19 16 Unknown COMPLETE BLOOD COUNT [id number] Tyrrell Auto 5.1 % 6 Unknown COMPLETE BLOOD COUNT [id number] RDW 15.2 % 6 Unknown COMPLETE BLOOD COUNT [id number] Eos Auto 2.6 % 6 Unknown COMPLETE BLOOD COUNT [id number] Baso Auto 0.7 % 6 Unknown COMPLETE BLOOD COUNT [id number] Neutrophil Abs 3.07 10e9/L Unknown COMPLETE BLOOD COUNT [id number] Lymphocyte Abs 0.87 10e9/L Unknown COMPLETE BLOOD COUNT [id number] Monocyte Abs 0.22 10e9/L 12/2015 Unknown COMPLETE BLOOD COUNT [id number] Eosinophil Abs 0.11 10e9/L Unknown COMPLETE BLOOD COUNT [id number] RDW-SD 49.0 fL 6 Unknown COMPLETE BLOOD COUNT [id number] Basophil Abs 0.03 10e9/L 12/2015 Unknown GFR CALC [id number] GFR Non Afr Amr 42 mL/min 11/08/2015 Unk nown GFR CALC 6449566 GFR Afr Amr 51 mL/min 11/08/2015 [place] [address] Glucose 102 mg/dL 11/07 [place] [address] CREATININE 1.57 mg/dL 12/2015 [place] [address] BUN 18 mg/dL 11/07 [place] [address] SODIUM 140 mmol/L 12/2015 [place] [address] POTASSIUM 3.8 mmol/L 12/2015 [place] [address] CHLORIDE 113 mmol/L 12/2015 [place] [address] Bicarbonate 21 mmol/L 12/2015 [place] [address] AGAP 6 mmol/L 11/07 [place] [address] CALCIUM 8.8 mg/dL 11/07 Unknown COMPLETE BLOOD COUNT [id number] WBC 8.3 10e9/L 10/26/19 16 Unknown COMPLETE BLOOD COUNT [id number] RBC 2.55 10e12/L 2015 Unknown COMPLETE BLOOD COUNT [id number] HEMOGLOBIN 7.7 g/dL 10/26/19 16 Unknown COMPLETE BLOOD COUNT [id number] HEMATOCRIT 24.0 % 10/26/19 16 Unknown COMPLETE BLOOD COUNT [id number] MCV 94.1 fL 6 Unknown COMPLETE BLOOD COUNT 0752133 MCH 30.2 pg 6 Unknown COMPLETE BLOOD COUNT 6176516 MCHC 32.1 g/dL 6 Unknown COMPLETE BLOOD COUNT 5330100 PLATELET COUNT 292 10e9/L Unknown COMPLETE BLOOD COUNT 2368874 Mean Plt Volume 9.8 fL Unknown COMPLETE BLOOD COUNT [id number] Neut Auto 83.8 % 6 Unknown COMPLETE BLOOD COUNT [id number] Lymph Auto 11.3 % 10/26/19 16 Unknown COMPLETE BLOOD COUNT [id number] Tyrrell Auto 4.1 % 6 Unknown COMPLETE BLOOD COUNT [id number] RDW 14.7 % 6 Unknown COMPLETE BLOOD COUNT 5337954 Eos Auto 0.7 % 6 Unknown COMPLETE BLOOD COUNT 4686866 Baso Auto 0.1 % 6 Unknown COMPLETE BLOOD COUNT 0834994 Neutrophil Abs 6.96 10e9/L Unknown COMPLETE BLOOD COUNT [id number] Lymphocyte Abs 0.94 10e9/L Unknown COMPLETE BLOOD COUNT [id number] Monocyte Abs 0.34 10e9/L 09/30 Unknown COMPLETE BLOOD COUNT [id number] Eosinophil Abs 0.06 10e9/L Unknown COMPLETE BLOOD COUNT [id number] RDW-SD 48.2 fL 6 Unknown COMPLETE BLOOD COUNT [id number] Basophil Abs 0.01 10e9/L 09/30 Unknown LIPASE 85402 Lipase Lvl 24 IU/L 10/26/2015 Unknown FREE T4 85682 T4 Free 1.15 ng/dL 10/26/2015 Unknown COMPREHENSIVE METABOLIC 00312 AST 12 U/L 2015 Unknown COMPREHENSIVE METABOLIC 96658 ALT 9 U/L 2015 Unknown COMPREHENSIVE METABOLIC 28682 BUN 92 mg/dL 2015 Unknown COMPREHENSIVE METABOLIC 44626 ALBUMIN 3.8 g/dL 2015 Unknown COMPREHENSIVE METABOLIC 55730 CHLORIDE 98 mmol/L 2015 Unknown COMPREHENSIVE METABOLIC 20189 Bili Total 0.4 mg/dL 10/25 Unknown COMPREHENSIVE METABOLIC 33664 ALK PHOS 53 U/L 2015 Unknown COMPREHENSIVE METABOLIC 31453 SODIUM 139 mmol/L 10/25 Unknown COMPREHENSIVE METABOLIC 41136 CREATININE 4.70 mg/dL 09/30 Unknown COMPREHENSIVE METABOLIC 40486 CALCIUM 9.1 mg/dL 2015 Unknown COMPREHENSIVE METABOLIC 90324 POTASSIUM 4.5 mmol/L 10/25 Unknown COMPREHENSIVE METABOLIC 29433 Total Protein 6.6 g/dL Unknown COMPREHENSIVE METABOLIC 33511 Glucose 128 mg/dL 2015 Unknown COMPREHENSIVE METABOLIC 81991 Bicarbonate 29 mmol/L 09/30 Unknown COMPREHENSIVE METABOLIC 05444 AGAP 12 mmol/L 2015 Unknown GFR CALC [id number] GFR Non Afr Amr 12 mL/min 10/26/2015 Unk nown GFR CALC 2458535 GFR Afr Amr 14 mL/min 10/26/2015 Unknown GLYCOSYLATED HEMOGLOBIN TEST 18814 Hgb A1c 32090-5 5.0 % 0 10/26/2015 Unknown AMYLASE 19069 Amylase Lvl 45 IU/L 10/26/2015 Unknown THYROID STIMULATING HORMONE 66620 TSH 6.114 uIU/mL 10/26/2015 Unknown MEAN GLUC 3880188 Mean Glucose 97 mg/dL 10/26/2015 Unknow n VITAMIN B 12 FOLIC ACID 68287|45464 VIT B 12 961 PG/ML 11/2012 Unknown VITAMIN B 12 FOLIC ACID 60097|35058 FOLIC ACID >24.0 NG/ML 1 05/10/2012 Unknown COMPREHENSIVE METABOLIC 39058 AST 19 U/L 2012 Unknown COMPREHENSIVE METABOLIC 94184 ALT 19 IU/L 2012 Unknown COMPREHENSIVE METABOLIC 83710 BUN 21 MG/DL 2012 Unknown COMPREHENSIVE METABOLIC 94165 ALBUMIN 4.4 GM/DL 2012 Unknown COMPREHENSIVE METABOLIC 18802 CHLORIDE 102 MMOL/L 03/09 Unknown COMPREHENSIVE METABOLIC 09786 BILI TOT 0.4 MG/DL 2012 Unknown COMPREHENSIVE METABOLIC 96711 ALK PHOS 60 U/L 2012 Unknown COMPREHENSIVE METABOLIC 20161 SODIUM 137 MMOL/L 03/09 Unknown COMPREHENSIVE METABOLIC 38499 CREATININE 1.36 MG/DL 11/2012 Unknown COMPREHENSIVE METABOLIC 40066 CALCIUM 9.7 MG/DL 2012 Unknown COMPREHENSIVE METABOLIC 66287 POTASSIUM 4.3 MMOL/L 03/09 Unknown COMPREHENSIVE METABOLIC 37351 PROT TOT 6.8 GM/DL 2012 Unknown COMPREHENSIVE METABOLIC 55497 Glucose 143 MG/DL 2012 Unknown COMPREHENSIVE METABOLIC 19042 BICARB 27 MMOL/L 2012 Unknown COMPREHENSIVE METABOLIC 71100 ANION GAP 8 MEQ/L 2012 Unknown C-REACTIVE PROTEIN (CRP) QUANT 97617 CRP 0.8 MG/DL 03/09/2013 Unknown COMPLETE BLOOD COUNT [id number] WBC 7.6 10e9/L 03/09/20 13 Unknown COMPLETE BLOOD COUNT [id number] RBC 3.78 10e12/L 2012 Unknown COMPLETE BLOOD COUNT 1535047 HGB 11.3 g/dL 3 Unknown COMPLETE BLOOD COUNT [id number] HCT DET 35.6 % 3 Unknown COMPLETE BLOOD COUNT 4659540 MCV 94.2 fL 3 Unknown COMPLETE BLOOD COUNT 1246966 MCH 29.9 pg 3 Unknown COMPLETE BLOOD COUNT 3802876 MCHC 31.7 g/dL 3 Unknown COMPLETE BLOOD COUNT 9687783 PLT 314 10e9/L 03/09/20 13 Unknown COMPLETE BLOOD COUNT 2914171 MPV 9.7 fL 3 Unknown COMPLETE BLOOD COUNT 3862497 TORITO % 78.7 % 3 Unknown COMPLETE BLOOD COUNT 7548058 LY % 13.7 % 3 Unknown COMPLETE BLOOD COUNT [id number] MON % 5.0 % 3 Unknown COMPLETE BLOOD COUNT 7643567 EOS % 2.1 % 3 Unknown COMPLETE BLOOD COUNT 6890341 BASO % 0.5 % 3 Unknown COMPLETE BLOOD COUNT 4867071 RDW 13.7 % 3 Unknown COMPLETE BLOOD COUNT 8147255 ABS TORITO 5.98 10e9/L 013 Unknown COMPLETE BLOOD COUNT [id number] ABS LYMPH 1.04 10e9/L 013 Unknown COMPLETE BLOOD COUNT [id number] ABS MONO 0.38 10e9/L 013 Unknown COMPLETE BLOOD COUNT [id number] ABS EOS 0.16 10e9/L 013 Unknown COMPLETE BLOOD COUNT 6496810 ABS BASO 0.04 10e9/L 013 Unknown COMPLETE BLOOD COUNT 8568817 RDW-SD 45.7 fL 3 Unknown FREE T4 95952 FREE T4 1.12 NG/DL 03/09/2013 Unknown GFR CALC 6303871 GFR AA >60 ML/MIN 03/09/2013 Unknown GFR CALC 1685109 GFR NON-AA 50.0L ML/MIN 03/09/2013 Unkno wn THYROID STIMULATING HORMONE 46237 TSH 6.689 uIU/ML 03/09/2013 Unknown IRON 97339 IRON TEST 58 UG/DL 03/09/2013 Unknown COMPLETE BLOOD COUNT 20965 WBC 6.0 10e9/L 11/30/19 10 Unknown COMPLETE BLOOD COUNT 54029 RBC 4.29 10e12/L 2009 Unknown COMPLETE BLOOD COUNT 04866 HGB 12.8 g/dL 0 Unknown COMPLETE BLOOD COUNT 48213 HCT DET 39.3 % 0 Unknown COMPLETE BLOOD COUNT 07499 MCV 91.6 fL 0 Unknown COMPLETE BLOOD COUNT 72422 MCH 29.8 pg 0 Unknown COMPLETE BLOOD COUNT 65096 MCHC 32.6 g/dL 0 Unknown COMPLETE BLOOD COUNT 30482 PLT 262 10e9/L 11/30/19 10 Unknown COMPLETE BLOOD COUNT 09618 MPV 9.8 fL 0 Unknown COMPLETE BLOOD COUNT 21146 TORITO % 71.4 % 0 Unknown COMPLETE BLOOD COUNT 94761 LY % 20.0 % 0 Unknown COMPLETE BLOOD COUNT 82827 MON % 7.5 % 0 Unknown COMPLETE BLOOD COUNT 71245 EOS % 0.8 % 0 Unknown COMPLETE BLOOD COUNT 47869 BASO % 0.3 % 0 Unknown COMPLETE BLOOD COUNT 79400 RDW 13.5 % 0 Unknown COMPLETE BLOOD COUNT 33529 ABS TORITO 4.28 10e9/L 010 Unknown COMPLETE BLOOD COUNT 58384 ABS LYMPH 1.20 10e9/L 010 Unknown COMPLETE BLOOD COUNT 57662 ABS MONO 0.45 10e9/L 010 Unknown COMPLETE BLOOD COUNT 95792 ABS EOS 0.05 10e9/L 010 Unknown COMPLETE BLOOD COUNT 67906 ABS BASO 0.02 10e9/L 010 Unknown COMPLETE BLOOD COUNT 27416 RDW-SD 44.4 fL 0 Unknown URIC ACID 19784 URIC ACID 9.5 MG/DL 11/29/2009 Unknown GFR CALC 7678330 GFR AA 55.0L ML/MIN 11/29/2009 Unknow n GFR CALC 1504974 GFR NON-AA 46.0L ML/MIN 11/29/2009 Unkno wn COMPREHENSIVE METABOLIC 70355 AST 14 U/L 2009 Unknown COMPREHENSIVE METABOLIC 62725 ALT 12 IU/L 2009 Unknown COMPREHENSIVE METABOLIC 50889 BUN 23 MG/DL 2009 Unknown COMPREHENSIVE METABOLIC 68420 ALBUMIN 4.5 GM/DL 2009 Unknown COMPREHENSIVE METABOLIC 36539 CHLORIDE 104 MMOL/L 11/29 Unknown COMPREHENSIVE METABOLIC 29565 BILI TOT 0.5 MG/DL 2009 Unknown COMPREHENSIVE METABOLIC 27570 ALK PHOS 58 U/L 2009 Unknown COMPREHENSIVE METABOLIC 08691 SODIUM 138 MMOL/L 11/29 Unknown COMPREHENSIVE METABOLIC 78712 CREATININE 1.49 MG/DL 11/01 Unknown COMPREHENSIVE METABOLIC 24994 CALCIUM 9.5 MG/DL 2009 Unknown COMPREHENSIVE METABOLIC 64792 POTASSIUM 4.2 MMOL/L 11/29 Unknown COMPREHENSIVE METABOLIC 84252 PROT TOT 6.9 GM/DL 2009 Unknown COMPREHENSIVE METABOLIC 75255 Glucose 159 MG/DL 2009 Unknown COMPREHENSIVE METABOLIC 04694 BICARB 24 MMOL/L 2009 Unknown COMPREHENSIVE METABOLIC 98070 ANION GAP 10 MEQ/L 2009 Unknown Procedures Procedure Codes Date PPPS, subseq visit CPT-4: G0439 06/29/2019 FLU VACC PRSV FREE INC ANTIG 65 AND OLDER CPT-4: 47898 12/25/2018 FLU VACC PRSV FREE INC ANTIG 65 AND OLDER CPT-4: 71196 12/25/2018 ADMIN INFLUENZA VIRUS VAC CPT-4: G0008 12/25/2018 ROUTINE VENIPUNCTURE CPT-4: 27865 12/22/2018 ASSAY OF FREE THYROXINE CPT-4: 22911 12/22/2018 ASSAY THYROID STIM HORMONE CPT-4: 22751 12/22/2018 COMPREHEN METABOLIC PANEL CPT-4: 56043 12/22/2018 COMPLETE CBC W/AUTO DIFF WBC CPT-4: 45631 12/22/2018 ASSAY OF IRON CPT-4: 17954 12/22/2018 ASSAY OF FERRITIN CPT-4: 23251 12/22/2018 VITAMIN B-12 CPT-4: 89574 12/22/2018 ROUTINE VENIPUNCTURE CPT-4: 73325 06/23/2018 COMPLETE CBC W/AUTO DIFF WBC CPT-4: 76824 06/23/2018 COMPREHEN METABOLIC PANEL CPT-4: 40445 06/23/2018 ASSAY OF IRON CPT-4: 23711 06/23/2018 ASSAY THYROID STIM HORMONE CPT-4: 81529 06/23/2018 ASSAY OF FERRITIN CPT-4: 02103 06/23/2018 VITAMIN B-12 CPT-4: 18611 06/23/2018 ROUTINE VENIPUNCTURE CPT-4: 09169 01/20/2018 COMPLETE CBC W/AUTO DIFF WBC CPT-4: 94319 01/20/2018 COMPREHEN METABOLIC PANEL CPT-4: 85822 01/20/2018 ASSAY OF FREE THYROXINE CPT-4: 48300 01/20/2018 ASSAY THYROID STIM HORMONE CPT-4: 59092 01/20/2018 ROUTINE VENIPUNCTURE CPT-4: 08861 10/03/2017 ASSAY THYROID STIM HORMONE CPT-4: 10161 10/03/2017 ASSAY OF FREE THYROXINE CPT-4: 53976 10/03/2017 COMPLETE CBC W/AUTO DIFF WBC CPT-4: 29953 10/03/2017 COMPREHEN METABOLIC PANEL CPT-4: 77126 10/03/2017 ROUTINE VENIPUNCTURE CPT-4: 11575 07/17/2017 ASSAY OF FREE THYROXINE CPT-4: 27495 07/17/2017 ASSAY THYROID STIM HORMONE CPT-4: 40693 07/17/2017 COMPREHEN METABOLIC PANEL CPT-4: 21455 07/17/2017 COMPLETE CBC W/AUTO DIFF WBC CPT-4: 92363 07/17/2017 LIPID PANEL CPT-4: 42356 07/17/2017 A1C HPLC CPT-4: 43180 07/17/2017 ROUTINE VENIPUNCTURE CPT-4: 32886 01/29/2017 ASSAY THYROID STIM HORMONE CPT-4: 15242 01/29/2017 COMPREHEN METABOLIC PANEL CPT-4: 07313 01/29/2017 COMPLETE CBC W/AUTO DIFF WBC CPT-4: 33503 01/29/2017 ASSAY OF IRON CPT-4: 81822 01/29/2017 VITAMIN B-12 CPT-4: 60213 01/29/2017 A1C HPLC CPT-4: 29841 01/29/2017 ASSAY OF FREE THYROXINE CPT-4: 10125 01/29/2017 ROUTINE VENIPUNCTURE CPT-4: 93362 07/16/2016 COMPREHEN METABOLIC PANEL CPT-4: 35393 07/16/2016 COMPLETE CBC W/AUTO DIFF WBC CPT-4: 05975 07/16/2016 ROUTINE VENIPUNCTURE CPT-4: 33843 03/09/2013 ASSAY OF FREE THYROXINE CPT-4: 25813 03/09/2013 ASSAY THYROID STIM HORMONE CPT-4: 14040 03/09/2013 COMPREHEN METABOLIC PANEL CPT-4: 61012 03/09/2013 COMPLETE CBC W/AUTO DIFF WBC CPT-4: 11865 03/09/2013 C-REACTIVE PROTEIN CPT-4: 41954 03/09/2013 VITAMIN B 12 FOLIC ACID CPT-4: 51614|29405 03/09/2013 ASSAY OF IRON CPT-4: 77945 03/09/2013 PRESCRIP TRANSMIT VIA ERX SY CPT-4: G8553 03/09/2013 ASSAY OF BLOOD/URIC ACID CPT-4: 93655 11/29/2009 COMPLETE CBC W/AUTO DIFF WBC CPT-4: 54151 11/29/2009 COMPREHEN METABOLIC PANEL CPT-4: 84276 11/29/2009 ROUTINE VENIPUNCTURE CPT-4: 94683 11/29/2009 PRESCRIP TRANSMIT VIA ERX SY CPT-4: G8553 11/29/2009 Vital Signs Date Vital 06/29/2019 Blood Pressure 1: 126/54 Code: 8480-6 BMI: 19.7 Code: 75647-4 Heart Rate 1: 72 bpm Height: 5'7" [...] 1: 136/62 Code: 8480-6 BMI: 20.5 Code: 85409-8 Heart Rate 1: 76 bpm Height: 5'8" Respiratory Rate: 20 bpm SpO2: 96% Tempera ture: 36.6 (C) / 97.8 (F) Weight: 135 lbs 10/10/2017 Blood Pressure 1: 126/56 Code: 8480-6 BMI: 21.3 Code: 13100-8 Heart Rate 1: 72 bpm Height: 5'8" Respiratory Rate: 20 bpm SpO2: 96% Tempera ture: 36.8 (C) / 98.2 (F) Weight: 140 lbs 07/17/2017 Blood Pressure 1: 124/56 Code: 8480-6 BMI: 21.0 Code: 78226-1 Heart Rate 1: 68 bpm Height: 5'8" Respiratory Rate: 20 bpm Temperature: 36 .6 (C) / 97.9 (F) Weight: 138 lbs 01/29/2017 Blood Pressure 1: 142/48 Code: 8480-6 BMI: 20.8 Code: 48652-4 Heart Rate 1: 86 bpm Height: 5'8" Respiratory Rate: 20 bpm SpO2: 98% Tempera ture: 36.3 (C) / 97.3 (F) Weight: 137 lbs 07/16/2016 Blood Pressure 1: 126/54 Code: 8480-6 BMI: 22.4 Code: 62378-9 Heart Rate 1: 84 bpm Height: 5'8" Respiratory Rate: 20 bpm SpO2: 96% Tempera ture: 37.0 (C) / 98.6 (F) Weight: 147 lbs 01/17/2016 Blood Pressure 1: 128/64 Code: 8480-6 BMI: 20.2 Code: 71598-1 Heart Rate 1: 84 bpm Height: 5'8" Respiratory Rate: 20 bpm Temperature: 36 .8 (C) / 98.2 (F) Weight: 133 lbs 12/13/2015 Blood Pressure 1: 114/48 Code: 8480-6 BMI: 19.2 Code: 87455-4 Heart Rate 1: 76 bpm Height: 5'8" Respiratory Rate: 20 bpm SpO2: 95% Tempera ture: 36.8 (C) / 98.2 (F) Weight: 126 lbs 11/08/2015 Blood Pressure 1: 116/48 Code: 8480-6 BMI: 22.4 Code: 50607-5 Heart Rate 1: 84 bpm Height: 5'8" Respiratory Rate: 20 bpm Temperature: 36 .7 (C) / 98.1 (F) Weight: 147 lbs 10/26/2015 Blood Pressure 1: 114/48 Code: 8480-6 BMI: 20.2 Code: 04003-5 Heart Rate 1: 100 bpm Height: 5'8" Respiratory Rate: 20 bpm Temperature: 36 .9 (C) / 98.4 (F) Weight: 133 lbs 03/09/2013 Blood Pressure 1: 154/78 Code: 8480-6 BMI: 25.5 Code: 52442-9 Heart Rate 1: 68 bpm Height: 5'8" Respiratory Rate: 20 bpm Temperature: 36 .9 (C) / 98.5 (F) Weight: 168 lbs 11/29/2009 Blood Pressure 1: 122/72 Code: 8480-6 BMI: 27.1 Code: 94123-7 Heart Rate 1: 76 bpm Height: 5'8" [...] 11/29/2009 Encounters Encounter Performer Location Codes Date ([id number]) NURSE/OUTPATIENT VISIT EST Diagnosis: FLU VACCINE[ICD10: Z23] Honey TORRES DO [facility] CPT-4: 04066 12/25/2018 ([id number]) OFFICE/OUTPATIENT VISIT EST Diagnosis: Essential (primary) hypertension[ICD10: I10] Diagnosis: Hypothyroidism, unspecified[ICD10: E03.9] Diagnosis: Anemia, unspecified[ICD10: D64.9] Diagnosis: Abnormal weight loss[ICD10: R63.4] Diagnosis: Disease of esophagus, 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] Honey KABA DO [facility] CPT-4: 88085 12/22/2018 ([id number]) OFFICE/OUTPATIENT VISIT EST Diagnosis: Pain in left knee[ICD10: M25.562] Honey KABA DO [facility] CPT-4: 87715 07/30/2018 ([id number]) OFFICE/OUTPATIENT VISIT EST Diagnosis: Anemia, unspecified[ICD10: D64.9] Diagnosis: Hypothyroidism, unspecified[ICD10: E03.9] Diagnosis: Essential (primary) hypertension[ICD10: I10] Honey KABA DO [facility] CPT-4: 86908 06/23/2018 ([id number]) OFFICE/OUTPATIENT VISIT EST Diagnosis: Hypothyroidism, unspecified[ICD10: E03.9] Diagnosis: Anemia, unspecified[ICD10: D64.9] Diagnosis: Disease of esophagus, 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] Honey KABA DO [facility] CPT-4: 87624 01/20/2018 ([id number]) OFFICE/OUTPATIENT VISIT EST Diagnosis: Hypothyroidism, unspecified[ICD10: E03.9] Diagnosis: Anemia, unspecified[ICD10: D64.9] Diagnosis: Disease of esophagus, 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] Honey KABA DO [facility] CPT-4: 93188 10/10/2017 ([id number]) NURSE/OUTPATIENT VISIT EST Diagnosis: Hypothyroidism, unspecified[ICD10: E03.9] Diagnosis: Anemia, unspecified[ICD10: D64.9] Diagnosis: Localized edema[ICD10: R60.0] Honey KABA DO [facility] CPT-4: 26323 10/03/2017 ([id number]) OFFICE/OUTPATIENT VISIT EST Diagnosis: Hypothyroidism, unspecified[ICD10: E03.9] Diagnosis: Anemia, unspecified[ICD10: D64.9] Diagnosis: Duodenal ulcer, unspecified as acute or chronic, without hemorrhage or perforation[ICD10: K26.9] Diagnosis: Disease of esophagus, 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] Diagnosis: Hyperglycemia, unspecified[ICD10: R73.9] Honey KABA DO [facility] CPT-4: 39591 07/17/2017 ([id number]) OFFICE/OUTPATIENT VISIT EST Diagnosis: Abnormal weight loss[ICD10: R63.4] Diagnosis: Diarrhea, unspecified[ICD10: R19.7] Diagnosis: Anemia, unspecified[ICD10: D64.9] Diagnosis: Hyperglycemia, unspecified[ICD10: R73.9] Honey KABA DO [facility] CPT-4: 42570 01/29/2017 ([id number]) OFFICE/OUTPATIENT VISIT EST Diagnosis: Diarrhea, unspecified[ICD10: R19.7] Diagnosis: Localized edema[ICD10: R60.0] Diagnosis: Anemia, unspecified[ICD10: D64.9] Honey KABA [employer] [facility] CPT-4: 89172 07/16/2016 ([id number]) OFFICE/OUTPATIENT VISIT EST Diagnosis: Duodenal ulcer, unspecified as acute or chronic, without hemorrhage or perforation[ICD10: K26.9] Diagnosis: Disease of esophagus, 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] Diagnosis: Abnormal weight loss[ICD10: R63.4] Diagnosis: Diarrhea, unspecified[ICD10: R19.7] Honey MODavid JOHNSON Leta KABA [employer] [facility] CPT-4: 65484 01/17/2016 OFFICE/OUTPATIENT VISIT EST Diagnosis: Duodenal ulcer, unspecified as acute or chronic, without hemorrhage or perforation[ICD10: K26.9] Diagnosis: Abnormal weight loss[ICD10: R63.4] Diagnosis: Diarrhea, unspecified[ICD10: R19.7] Diagnosis: Disease of esophagus, 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] Honeymabel KABA DO [facility] CPT-4: 81774 12/13/2015 ([id number]) OFFICE/OUTPATIENT VISIT EST Diagnosis: Duodenal ulcer, unspecified as acute or chronic, without hemorrhage or perforation[ICD10: K26.9] Diagnosis: Disease of esophagus, 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] Honey MÉNDEZ Leta KABA [employer] CPT-4: 42050 11/08/2015 ([id number]) OFFICE/OUTPATIENT VISIT EST Diagnosis: Nausea with vomiting, unspecified[ICD10: R11.2] Diagnosis: Toxic gastroenteritis and colitis[ICD10: K52.1] Diagnosis: Abnormal weight loss[ICD10: R63.4] Honey CHAVES DANIELLE KABA [employer] CPT-4: 29930 10/26/2015 ([id number]) OFFICE/OUTPATIENT VISIT EST Diagnosis: DIARRHEA[ICD9: 787.91] Diagnosis: MALAISE AND FATIGUE[ICD9: 780.79] Diagnosis: ANEMIA NOS[ICD9: 285.9] Honey MÉNDEZ Leta TORRES [employer] CPT-4: 41755 03/09/2013 ([id number]) OFFICE/OUTPATIENT VISIT, EST Honey GLEZ RamonaBrendan VICTORINA [employer] CPT-4: 56554 11/29/2009 Plan of Care Planned Activity Notes Codes Status Date Visit Diagnosis Plan: Hypothyroidism, unspecified Disc ussion: Check TSH, Free T4 ICD-9 : 244.9 ICD-10 : E03.9 06/29/2019 Visit Diagnosis Plan: Encounter for [facility] adult medical examination with abnormal findings Discussion: [...] : R63.4 06/29/2019 Appointment: Honey Kaba WPtel: [address] [place], [place] [phone] [place] INJECTION 12/25/2018 Visit Diagnosis Plan: Disease [...] ICD-10 : I10 12/22/2018 Appointment: Honey Kabatel: [address] [place] [address] US FOLLOW UP 12/22/2018 Appointment: Honey Kabatel: [address] [place] [address] US CANCELED 12/16/2018 Visit Diagnosis Plan: Pain in left knee Discussion: RI CE Topical icy hot Notify if worsens ICD-9 : 719.46 ICD-10 : M25.562 07/30/2018 Appointment: Honey Kabatel: [address] [place] [address] US FOLLOW UP 07/30/2018 Visit Diagnosis Plan: Essential (primary) hypertension Discussion: Stable ICD-9 : 401.9 ICD-10 : I10 06/23/2018 Visit Diagnosis Plan: Anemia, unspecified Discussion: Check CBC, iron ICD-9 : 285.9 ICD-10 : D64.9 06/23/2018 Visit Diagnosis Plan: Hypothyroidism, unspecified Disc ussion: Check TSH, Free T4 Follow Up: 6 months ICD-9 : 244.9 ICD-10 : E03.9 06/23/2018 Appointment: Honey Kabatel: [address] [place], [place] [phone] [place] FOLLOW UP 06/23/2018 Visit Diagnosis Plan: [...] ICD-10 : D64.9 01/20/2018 Appointment: Honey Kabatel: [address] [place] [address] FOLLOW UP 01/20/2018 Patient Education: Patient Medication Summary Completed 01/20/2018 Appointment: Honey Kabatel: [address] [place] [address] US CANCELED 01/13/2018 Visit Diagnosis Plan: Hypothyroidism, [...] ICD-10 : D64.9 10/10/2017 Appointment: Honey Kabatel: [address] [place], [place] [phone] US FOLLOW UP 10/10/2017 Patient Education: Patient Medication Summary Completed 10/10/2017 Appointment: Honey Kabatel: [address] [place], [place] [phone] US LAB 10/03/2017 Patient Education: Patient Medication [...] : D64.9 07/17/2017 Appointment: Honey Kaba [facility]Ptel[facility] [facility] 07/17/2017 Patient Education: Patient Medication Summary Completed 07/17/2017 Patient Education: Patient Medication Summary Completed 02/01/2017 Care Plan: US EXAM OF HEAD AND NECK LOIN C : 21020-8 Pending 02/01/2017 Visit Diagnosis Plan: Anemia, unspecified [...] R19.7 01/29/2017 Appointment: Honey Kaba WPtel[facility] [phone] [facility] [facility] 01/29/2017 Patient Education: Patient Medication Summary Completed 01/29/2017 Appointment: Honey Kaba WPtel: [address] [place], [place] [id number] 01/16/17 1455---refilled carvedilol for patient to ([place]) [...] any furth... 07/16/2016 Appointment: Honey Kaba WPtel: [address] [place], [place] [phone] 07/12 confirmed ~sl FOLLOW UP 07/16/2016 Patient Education: Patient Medication Summary Completed 07/16/2016 Visit Plan: Continue current meds Patien t wants to hold on any further workup on esophageal mass--wants quality of life at this time rather then any workup or treatment for cancer 01/17/2016 Appointment: Honey Kaba WPtel[facility] 01/15 lm~sl...confirmed~lb FOLLOW UP 12/30 Patient Education: Patient Medication Summary Completed 01/17/2016 Visit Plan: Continue pantoprazole at 40m g daily Decrease sucralfate to BID Decrease Coreg to 12.5mg po BID Add colestid 1 gram daily Patient still does not want to do further evaluation on esophagus mass Diet as tolerated 12/13/2015 Appointment: Honey Kaba WPtel: [address] [place], [place] [id number] 12/11 confirmed~sl FOLLOW UP 12/13/2015 Patient Education: Patient Medication Summary Completed 12/13/2015 Visit Plan: Continue off NSAIDs Continue protonix Check CBC and Chem 7 Pathology results from EGD discussed Patient not sure if he wants to repeat EGD for another biopsy of esophageal mass--sees Dr. Wang tomorrow Recheck 1month 11/08/2015 Appointment: Honey Kaba WPtel: [address] [place], [place] [phone] 11/06 confirmed~sl WORK IN 11/08/2015 Patient Education: Patient Medication Summary Completed 11/08/2015 Visit Plan: Check CBC, CMP, TSH, Free T4 , HbA1C, Amylase, Lipase Check CT scan of abdomen/pelvis Will need EGD and colonoscopy pending results of above Could also be gallbladder related but big concern for cancer Protonix daily and zofran prn 10/26/2015 Appointment: Honey Kaba WPtel: [address] [place], [place] [phone] 10/24 confirmed~sl ACUTE ILLNESS 10/26/2015 Patient Education: Patient Medication Summary Completed 10/26/2015 Care Plan: CT PELVIS W/O DYE LOINC : 361 08-9 Pending 10/26/2015 Care Plan: CT ABDOMEN W/O DYE LOINC : 36 103-0 Pending 10/26/2015 Appointment: Mara Stewart [id number] [id number] RESCHEDULED 10/11/2015 Appointment: Honey Kaba WPtel: [address] [place], [place] [phone] ACUTE ILLNESS 12/09/2013 Appointment: Honey Kaba WPtel: [address] [place], [place] [phone] ACUTE ILLNESS 03/09/2013 Patient Education: Patient Medication [...]
--- OUTSIDE RECORDS SUMMARY | 2019-08-15 18:38 | XMS REPORT | CCD ---
Author Author Arnoldo Kaba D.O. Organization [facility] Address [address] [place] [address] Phone Care Team Providers Care Contact Lens Flashing Puncher Name Role Phone PP Unavailable CCM Unavailable Summary Purpose Interface Exchange Insurance Providers Payer name Policy type / Coverage type Covered libertarian ID Effective Begin Date Effective End Date WPS MEDICARE PART B [place] Medicare Part B [id number] 2018 Unknown Medicare Part B [id number] 2018 Unknown Family History Family History data [...] Fill Instructions levothyroxine 50 mcg tablet RxNorm: 333151 TAKE 1 TABLET DAILY 08/31 No Stop Date Active Synthroid 25 mcg tablet RxNorm: 277026 1 Tablet(s) PO QD 07/23/2017 0 09/20/2017 Inactive carvedilol 12.5 mg tablet RxNorm: 202986 1 Tablet(s) PO BID 018 07/16/2017 Inactive pantoprazole 40 mg tablet,delayed release RxNorm: 293647 1 Tablet(s) PO QD for stomach 04/18/2017 10/09/2017 Inactive pantoprazole 40 mg tablet,delayed release RxNorm: 969357 1 Tablet(s) PO QD for stomach 01/17/2017 04/18/2017 Inactive Colestid 1 gram tablet RxNorm: 3298438 1 Tablet(s) PO QD 01/17/2017 0 07/16/2017 Inactive carvedilol 12.5 mg tablet RxNorm: 553992 1 Tablet(s) PO BID 017 04/18/2017 Inactive carvedilol 12.5 mg tablet RxNorm: 136505 1 Tablet(s) PO BID 017 01/15/2017 Inactive pantoprazole 40 mg tablet,delayed release RxNorm: 306362 1 Tablet(s) PO QD for stomach 10/25/2016 01/16/2017 Inactive pantoprazole 40 mg tablet,delayed release RxNorm: 685549 1 Tablet(s) PO QD for stomach 07/24/2016 10/21/2016 Inactive Colestid 1 gram tablet RxNorm: 9292611 1 Tablet(s) PO QD 07/16/2016 1 Inactive pantoprazole 40 mg tablet,delayed release RxNorm: 374557 1 Tablet(s) PO QD for stomach 04/25/2016 07/23/2016 Inactive pantoprazole 40 mg tablet,delayed release RxNorm: 058974 1 Tablet(s) PO QD for stomach 02/27/2016 04/24/2016 Inactive Colestid 1 gram tablet RxNorm: 1990290 1 Tablet(s) PO QD 01/18/2016 0 07/15/2016 Inactive sucralfate 1 gram tablet RxNorm: 112500 1 Tablet(s) PO BID 01/17/20 16 07/15/2016 Inactive ondansetron HCl 4 mg tablet RxNorm: 212536 1 Tablet(s) PO Q4H as needed for nausea 01/17/2016 10/09/2017 Inactive pantoprazole 40 mg tablet,delayed release RxNorm: 409390 1 Tablet(s) PO QD for stomach 12/26/2015 02/23/2016 Inactive ondansetron HCl 4 mg tablet RxNorm: 584736 1 Tablet(s) PO Q4H as needed for nausea 12/13/2015 01/16/2016 Inactive colestipol 1 gram tablet RxNorm: 4164658 1 Tablet(s) PO QD 12/13/19 16 01/11/2016 Inactive sucralfate 1 gram tablet RxNorm: 076692 1 Tablet(s) PO QID (before meals and at bedtime) 11/09/2015 06/22/2018 Inactive pantoprazole 40 mg tablet,delayed release RxNorm: 071121 1 Tablet(s) PO QD for stomach 10/26/2015 12/24/2015 Inactive Zofran 4 mg tablet RxNorm: 459189 1 Tablet(s) PO Q4H as needed for nausea 10/26/2015 12/12/2015 Inactive Flagyl 500 mg tablet RxNorm: 173857 1 Tablet(s) PO TID 03/09/2013 Inactive Colchicine 0.6 mg Tab RxNorm: 408919 1 Tablet(s) PO TID take one tablet three times daily 11/29/2009 12/08/2009 Inactive minoxidil 2.5 mg tablet RxNorm: 802209 1 Tablet(s) PO QHS No Start Da te Active minoxidil 10 mg tablet RxNorm: 414092 1 Tablet(s) PO QAM No Start Date Active Aspirin 81 mg Tab RxNorm: 241279 1 Tablet(s) PO QD No Start Date Active Centrum Silver tablet RxNorm: 1 Tablet(s) PO QD No Start Date Active Lasix 40 mg tablet RxNorm: 165514 1 Tablet(s) PO QD No Start Date Active Klor-Con M20 mEq tablet,extended release RxNorm: 8996238 1 Table t(s) PO QD No Start Date Active levothyroxine 50 mcg tablet RxNorm: 224780 1 Tablet(s) PO QD No Sta rt Date 09/21/2018 Inactive Lisinopril 40 mg Tab RxNorm: 916904 1 Tablet(s) PO QD No Start Date 0 11/08/2015 Inactive Colestid 1 gram tablet RxNorm: 8742397 1 Tablet(s) PO QD No Start D ate 01/17/2016 Inactive carvedilol 25 mg tablet RxNorm: 602889 1/2 Tablet(s) PO BID No Star t Date 01/15/2017 Inactive Centrum Silver Oral RxNorm: Oral No Start Date 11/08/2015 Inact kris furosemide 20 mg tablet RxNorm: 316707 1 Tablet(s) PO QAM No Start Date 01/28/2017 Inactive Carvedilol 25 mg Tab RxNorm: 237853 1 Tablet(s) PO BID No Start Date 01/15/2017 Inactive Minoxidil 2.5 mg Tab RxNorm: 960184 1 Tablet(s) PO BID No Start Date 11/08/2015 Inactive sucralfate 1 gram tablet RxNorm: 140585 1 Tablet(s) PO BID as n eeded No Start Date 10/09/2017 Inactive ondansetron HCl 4 mg tablet RxNorm: 651547 1 Tablet(s) PO Q4H as needed for nausea No Start Date 12/12/2015 Inactive Hydrochlorothiazide 12.5 mg Tab RxNorm: 862340 1 Tablet(s) PO QAM N o Start Date 11/08/2015 Inactive sucralfate 1 gram tablet RxNorm: 329007 1 Tablet(s) PO BID No Start Date 01/16/2016 Inactive Flintstones Complete (iron) 18 mg iron chewable tablet RxNor m: 2 Tablet(s) PO BID No Start Date 07/16/2017 Inactive Medication Administered No Medication Administered data Immunizations Vaccine Codes Date Status Influenza CVX: 135 12/25/2018 Complete Influenza CVX: 135 12/25/2018 Complete Results Observation Observation Code Item Item Code Result Date S ervice Location IRON 82070 Iron 53 ug/dL 12/22/2018 Unknown FREE T4 56286 T4 Free 1.05 ng/dL 12/22/2018 Unknown FERRITIN 25439 FERRITIN 126.5 ng/mL 12/22/2018 Unknown COMPLETE BLOOD COUNT [id number] WBC 7.7 10e9/L 12/23/19 19 Unknown COMPLETE BLOOD COUNT [id number] RBC 3.60 10e12/L 2018 Unknown COMPLETE BLOOD COUNT [id number] HEMOGLOBIN 10.9 g/dL 12/23/19 19 Unknown COMPLETE BLOOD COUNT [id number] HEMATOCRIT 34.4 % 12/23/19 19 Unknown COMPLETE BLOOD COUNT [id number] MCV 95.6 fL 9 Unknown COMPLETE BLOOD COUNT 9340778 MCH 30.3 pg 9 Unknown COMPLETE BLOOD COUNT 8354932 MCHC 31.7 g/dL 9 Unknown COMPLETE BLOOD COUNT 9179012 PLATELET COUNT 364 10e9/L Unknown COMPLETE BLOOD COUNT 7742171 Mean Plt Volume 9.8 fL Unknown COMPLETE BLOOD COUNT 7537452 Neut Auto 81.4 % 9 Unknown COMPLETE BLOOD COUNT 6144001 Lymph Auto 12.4 % 12/23/19 19 Unknown COMPLETE BLOOD COUNT 8096858 Kane Auto 4.5 % 9 Unknown COMPLETE BLOOD COUNT 7185093 Eos Auto 1.3 % 9 Unknown COMPLETE BLOOD COUNT 8226941 RDW 14.2 % 9 Unknown COMPLETE BLOOD COUNT 8251545 Baso Auto 0.4 % 9 Unknown COMPLETE BLOOD COUNT 1525588 Neutrophil Abs 6.27 10e9/L Unknown COMPLETE BLOOD COUNT 7277231 Lymphocyte Abs 0.95 10e9/L Unknown COMPLETE BLOOD COUNT 1535149 Monocyte Abs 0.35 10e9/L 12/01 Unknown COMPLETE BLOOD COUNT 9584109 Eosinophil Abs 0.10 10e9/L Unknown COMPLETE BLOOD COUNT 8603949 Basophil Abs 0.03 10e9/L 12/01 Unknown COMPLETE BLOOD COUNT 8969617 RDW-SD 47.2 fL 9 Unknown COMPREHENSIVE METABOLIC 47515 AST 19 U/L 2018 Unknown COMPREHENSIVE METABOLIC 77937 ALT 13 U/L 2018 Unknown COMPREHENSIVE METABOLIC 95664 BUN 41 mg/dL 2018 Unknown COMPREHENSIVE METABOLIC 79506 ALBUMIN 4.3 g/dL 2018 Unknown COMPREHENSIVE METABOLIC 82400 CHLORIDE 103 mmol/L 12/22 Unknown COMPREHENSIVE METABOLIC 94781 Bili Total 0.3 mg/dL 12/22 Unknown COMPREHENSIVE METABOLIC 00469 ALK PHOS 86 U/L 2018 Unknown COMPREHENSIVE METABOLIC 29481 SODIUM 138 mmol/L 12/22 Unknown COMPREHENSIVE METABOLIC 31939 CREATININE 1.69 mg/dL 12/01 Unknown COMPREHENSIVE METABOLIC 77221 CALCIUM 9.2 mg/dL 2018 Unknown COMPREHENSIVE METABOLIC 61918 POTASSIUM 4.3 mmol/L 12/22 Unknown COMPREHENSIVE METABOLIC 15391 Total Protein 6.9 g/dL Unknown COMPREHENSIVE METABOLIC 09153 Glucose 105 mg/dL 2018 Unknown COMPREHENSIVE METABOLIC 53877 Bicarbonate 21 mmol/L 12/01 Unknown COMPREHENSIVE METABOLIC 60040 AGAP 14 mmol/L 2018 Unknown THYROID STIMULATING HORMONE 65014 TSH 6.015 uIU/mL 12/22/2018 Unknown VITAMIN B 12 52472 VITAMIN B12 615 pg/mL 12/22/2018 Unkn own GFR CALC [id number] GFR Non Afr Amr 38 mL/min 12/22/2018 Unk nown GFR CALC 8599218 GFR Afr Amr 47 mL/min 12/22/2018 Unknown FERRITIN 78801 FERRITIN 113.7 ng/mL 06/24/2018 Unknown VITAMIN B 12 43113 VITAMIN B12 651 pg/mL 06/24/2018 Unkn own COMPLETE BLOOD COUNT 6265068 WBC 6.3 10e9/L 06/24/19 19 Unknown COMPLETE BLOOD COUNT 5555830 RBC 3.33 10e12/L 2018 Unknown COMPLETE BLOOD COUNT 3689683 HEMOGLOBIN 9.8 g/dL 06/24/19 19 Unknown COMPLETE BLOOD COUNT 5005830 HEMATOCRIT 31.6 % 06/24/19 19 Unknown COMPLETE BLOOD COUNT 0006093 MCV 94.9 fL 9 Unknown COMPLETE BLOOD COUNT 7002421 MCH 29.4 pg 9 Unknown COMPLETE BLOOD COUNT 5055850 MCHC 31.0 g/dL 9 Unknown COMPLETE BLOOD COUNT 1590418 PLATELET COUNT 319 10e9/L Unknown COMPLETE BLOOD COUNT 2412833 Mean Plt Volume 9.4 fL Unknown COMPLETE BLOOD COUNT 9805109 Neut Auto 78.0 % 9 Unknown COMPLETE BLOOD COUNT 0272679 Lymph Auto 14.4 % 06/24/19 19 Unknown COMPLETE BLOOD COUNT 8307192 Kane Auto 5.2 % 9 Unknown COMPLETE BLOOD COUNT 6897391 RDW 14.2 % 9 Unknown COMPLETE BLOOD COUNT 1073702 Eos Auto 2.1 % 9 Unknown COMPLETE BLOOD COUNT 8982231 Baso Auto 0.3 % 9 Unknown COMPLETE BLOOD COUNT 7525921 Neutrophil Abs 4.91 10e9/L Unknown COMPLETE BLOOD COUNT 9298823 Lymphocyte Abs 0.91 10e9/L Unknown COMPLETE BLOOD COUNT 1498292 Monocyte Abs 0.33 10e9/L 05/31 Unknown COMPLETE BLOOD COUNT 1496815 Eosinophil Abs 0.13 10e9/L Unknown COMPLETE BLOOD COUNT 5363736 RDW-SD 47.0 fL 9 Unknown COMPLETE BLOOD COUNT 1648885 Basophil Abs 0.02 10e9/L 05/31 Unknown THYROID STIMULATING HORMONE 20901 TSH 4.709 uIU/mL 06/23/2018 Unknown IRON 09937 Iron 52 ug/dL 06/23/2018 Unknown COMPREHENSIVE METABOLIC 85671 AST 16 U/L 2018 Unknown COMPREHENSIVE METABOLIC 11230 ALT 10 U/L 2018 Unknown COMPREHENSIVE METABOLIC 77229 BUN 27 mg/dL 2018 Unknown COMPREHENSIVE METABOLIC 54282 ALBUMIN 4.3 g/dL 2018 Unknown COMPREHENSIVE METABOLIC 49457 CHLORIDE 110 mmol/L 06/23 Unknown COMPREHENSIVE METABOLIC 43961 Bili Total 0.4 mg/dL 06/23 Unknown COMPREHENSIVE METABOLIC 36696 ALK PHOS 68 U/L 2018 Unknown COMPREHENSIVE METABOLIC 72730 SODIUM 140 mmol/L 06/23 Unknown COMPREHENSIVE METABOLIC 89196 CREATININE 1.60 mg/dL 05/31 Unknown COMPREHENSIVE METABOLIC 68226 CALCIUM 9.2 mg/dL 2018 Unknown COMPREHENSIVE METABOLIC 36955 POTASSIUM 4.6 mmol/L 06/23 Unknown COMPREHENSIVE METABOLIC 67116 Total Protein 6.8 g/dL Unknown COMPREHENSIVE METABOLIC 94614 Glucose 110 mg/dL 2018 Unknown COMPREHENSIVE METABOLIC 53098 Bicarbonate 19 mmol/L 05/31 Unknown COMPREHENSIVE METABOLIC 93332 AGAP 11 mmol/L 2018 Unknown GFR CALC 7209482 GFR Afr Amr 50 mL/min 06/23/2018 Unknown GFR CALC 0633973 GFR Non Afr Amr 41 mL/min 06/23/2018 Unk nown COMPLETE BLOOD COUNT 6918871 WBC 6.6 10e9/L 01/21/20 18 Unknown COMPLETE BLOOD COUNT 4030084 RBC 3.64 10e12/L 2017 Unknown COMPLETE BLOOD COUNT 3516086 HEMOGLOBIN 11.0 g/dL 01/21/20 18 Unknown COMPLETE BLOOD COUNT 5655912 HEMATOCRIT 34.6 % 01/21/20 18 Unknown COMPLETE BLOOD COUNT 5844710 MCV 95.1 fL 8 Unknown COMPLETE BLOOD COUNT 1961440 MCH 30.2 pg 8 Unknown COMPLETE BLOOD COUNT 8667443 MCHC 31.8 g/dL 8 Unknown COMPLETE BLOOD COUNT 3210350 PLATELET COUNT 386 10e9/L Unknown COMPLETE BLOOD COUNT 2042254 Mean Plt Volume 9.6 fL Unknown COMPLETE BLOOD COUNT 9656967 Neut Auto 76.6 % 8 Unknown COMPLETE BLOOD COUNT 5422976 Lymph Auto 15.6 % 01/21/20 18 Unknown COMPLETE BLOOD COUNT 0233359 Kane Auto 5.3 % 8 Unknown COMPLETE BLOOD COUNT 4441759 Eos Auto 2.0 % 8 Unknown COMPLETE BLOOD COUNT 0588838 RDW 13.8 % 8 Unknown COMPLETE BLOOD COUNT 6355771 Baso Auto 0.5 % 8 Unknown COMPLETE BLOOD COUNT 0535724 Neutrophil Abs 5.06 10e9/L Unknown COMPLETE BLOOD COUNT 0265761 Lymphocyte Abs 1.03 10e9/L Unknown COMPLETE BLOOD COUNT 4290127 Monocyte Abs 0.35 10e9/L 12/31 Unknown COMPLETE BLOOD COUNT 2667133 Eosinophil Abs 0.13 10e9/L Unknown COMPLETE BLOOD COUNT 7000247 RDW-SD 45.5 fL 8 Unknown COMPLETE BLOOD COUNT 2400864 Basophil Abs 0.03 10e9/L 12/31 Unknown COMPREHENSIVE METABOLIC 90495 AST 17 U/L 2017 Unknown COMPREHENSIVE METABOLIC 69678 ALT 14 U/L 2017 Unknown COMPREHENSIVE METABOLIC 65740 BUN 55 mg/dL 2017 Unknown COMPREHENSIVE METABOLIC 33657 ALBUMIN 4.2 g/dL 2017 Unknown COMPREHENSIVE METABOLIC 99671 CHLORIDE 106 mmol/L 01/20 Unknown COMPREHENSIVE METABOLIC 99716 Bili Total 0.4 mg/dL 01/20 Unknown COMPREHENSIVE METABOLIC 31574 ALK PHOS 75 U/L 2017 Unknown COMPREHENSIVE METABOLIC 57229 SODIUM 137 mmol/L 01/20 Unknown COMPREHENSIVE METABOLIC 23513 CREATININE 1.99 mg/dL 12/31 Unknown COMPREHENSIVE METABOLIC 36284 CALCIUM 9.5 mg/dL 2017 Unknown COMPREHENSIVE METABOLIC 10427 POTASSIUM 4.6 mmol/L 01/20 Unknown COMPREHENSIVE METABOLIC 69813 Total Protein 7.9 g/dL Unknown COMPREHENSIVE METABOLIC 62660 Glucose 105 mg/dL 2017 Unknown COMPREHENSIVE METABOLIC 03602 Bicarbonate 22 mmol/L 12/31 Unknown COMPREHENSIVE METABOLIC 47487 AGAP 9 mmol/L 2017 Unknown THYROID STIMULATING HORMONE 12714 TSH 6.119 uIU/mL 01/20/2018 Unknown GFR CALC 0428032 GFR Afr Amr 39 mL/min 01/20/2018 Unknown GFR CALC 5432627 GFR Non Afr Amr 32 mL/min 01/20/2018 Unk nown FREE T4 89571 T4 Free 1.11 ng/dL 01/20/2018 Unknown GFR CALC 9135376 GFR Non Afr Amr 38 mL/min 10/03/2017 Unk nown GFR CALC 7443037 GFR Afr Amr 46 mL/min 10/03/2017 Unknown COMPREHENSIVE METABOLIC 29609 AST 15 U/L 2017 Unknown COMPREHENSIVE METABOLIC 80881 ALT 10 U/L 2017 Unknown COMPREHENSIVE METABOLIC 80710 BUN 41 mg/dL 2017 Unknown COMPREHENSIVE METABOLIC 12634 ALBUMIN 4.0 g/dL 2017 Unknown COMPREHENSIVE METABOLIC 99111 CHLORIDE 105 mmol/L 10/03 Unknown COMPREHENSIVE METABOLIC 99382 Bili Total 0.4 mg/dL 10/03 Unknown COMPREHENSIVE METABOLIC 97673 ALK PHOS 71 U/L 2017 Unknown COMPREHENSIVE METABOLIC 03726 SODIUM 140 mmol/L 10/03 Unknown COMPREHENSIVE METABOLIC 13767 CREATININE 1.72 mg/dL 07/2017 Unknown COMPREHENSIVE METABOLIC 26996 CALCIUM 9.1 mg/dL 2017 Unknown COMPREHENSIVE METABOLIC 16696 POTASSIUM 4.1 mmol/L 10/03 Unknown COMPREHENSIVE METABOLIC 31222 Total Protein 6.5 g/dL Unknown COMPREHENSIVE METABOLIC 53955 Glucose 101 mg/dL 2017 Unknown COMPREHENSIVE METABOLIC 14159 Bicarbonate 23 mmol/L 07/2017 Unknown COMPREHENSIVE METABOLIC 39394 AGAP 12 mmol/L 2017 Unknown FREE T4 43923 T4 Free 0.81 ng/dL 10/03/2017 Unknown THYROID STIMULATING HORMONE 58791 TSH 10.964 uIU/m L 10/03/2017 Unknown COMPLETE BLOOD COUNT 9443696 WBC 5.6 10e9/L 10/04/19 18 Unknown COMPLETE BLOOD COUNT 9950817 RBC 3.36 10e12/L 2017 Unknown COMPLETE BLOOD COUNT 3003254 HEMOGLOBIN 10.3 g/dL 10/04/19 18 Unknown COMPLETE BLOOD COUNT 5194795 HEMATOCRIT 32.0 % 10/04/19 18 Unknown COMPLETE BLOOD COUNT 9250609 MCV 95.2 fL 8 Unknown COMPLETE BLOOD COUNT 7153027 MCH 30.7 pg 8 Unknown COMPLETE BLOOD COUNT 5219187 MCHC 32.2 g/dL 8 Unknown COMPLETE BLOOD COUNT 4187325 PLATELET COUNT 250 10e9/L 07/2017 Unknown COMPLETE BLOOD COUNT 5222017 Mean Plt Volume 10.2 fL 07/2017 Unknown COMPLETE BLOOD COUNT 8490242 Neut Auto 75.9 % 8 Unknown COMPLETE BLOOD COUNT 2648909 Lymph Auto 17.2 % 10/04/19 18 Unknown COMPLETE BLOOD COUNT 7438324 Kane Auto 5.3 % 8 Unknown COMPLETE BLOOD COUNT 5143143 RDW 14.0 % 8 Unknown COMPLETE BLOOD COUNT 3598436 Eos Auto 1.2 % 8 Unknown COMPLETE BLOOD COUNT 5916636 Baso Auto 0.4 % 8 Unknown COMPLETE BLOOD COUNT 4549520 Neutrophil Abs 4.25 10e9/L Unknown COMPLETE BLOOD COUNT 7547657 Lymphocyte Abs 0.96 10e9/L Unknown COMPLETE BLOOD COUNT 6074816 Monocyte Abs 0.30 10e9/L 07/2017 Unknown COMPLETE BLOOD COUNT 9494727 Eosinophil Abs 0.07 10e9/L Unknown COMPLETE BLOOD COUNT 8511162 RDW-SD 45.8 fL 8 Unknown COMPLETE BLOOD COUNT 7109749 Basophil Abs 0.02 10e9/L 07/2017 Unknown FREE T4 37415 T4 Free 0.87 ng/dL 07/17/2017 Unknown COMPREHENSIVE METABOLIC 60498 AST 19 U/L 2017 Unknown COMPREHENSIVE METABOLIC 65873 ALT 13 U/L 2017 Unknown COMPREHENSIVE METABOLIC 31465 BUN 48 mg/dL 2017 Unknown COMPREHENSIVE METABOLIC 91840 ALBUMIN 4.4 g/dL 2017 Unknown COMPREHENSIVE METABOLIC 22140 CHLORIDE 105 mmol/L 07/17 Unknown COMPREHENSIVE METABOLIC 88635 Bili Total 0.4 mg/dL 07/17 Unknown COMPREHENSIVE METABOLIC 88257 ALK PHOS 64 U/L 2017 Unknown COMPREHENSIVE METABOLIC 85185 SODIUM 141 mmol/L 07/17 Unknown COMPREHENSIVE METABOLIC 05226 CREATININE 1.72 mg/dL 06/30 Unknown COMPREHENSIVE METABOLIC 27685 CALCIUM 9.8 mg/dL 2017 Unknown COMPREHENSIVE METABOLIC 09635 POTASSIUM 4.6 mmol/L 07/17 Unknown COMPREHENSIVE METABOLIC 73434 Total Protein 7.0 g/dL Unknown COMPREHENSIVE METABOLIC 86295 Glucose 105 mg/dL 2017 Unknown COMPREHENSIVE METABOLIC 13795 Bicarbonate 25 mmol/L 06/30 Unknown COMPREHENSIVE METABOLIC 80827 AGAP 11 mmol/L 2017 Unknown LIPID GROUP 44689 Cholesterol 162 mg/dL 07/17/2017 Unkno wn LIPID GROUP 66296 Triglyceride 126 mg/dL 07/17/2017 Unkn own LIPID GROUP 80573 HDL CHOLESTEROL 39 mg/dL 07/17/2017 U nknown LIPID GROUP 42666 Chol/HDL Ratio 4.15 ratio 07/17/2017 U nknown LIPID GROUP 91835 NON-HDL Chol 123 mg/dL 07/17/2017 Unkn own LIPID GROUP 10032 LDL Cholesterol 98 mg/dL 07/17/2017 U nknown GLYCOSYLATED HEMOGLOBIN TEST 05431 Hgb A1c 02880-1 5.0 % 0 07/17/2017 Unknown THYROID STIMULATING HORMONE 74757 TSH 28.780 uIU/m L 07/17/2017 Unknown MEAN GLUC 3088846 Calc Mean Gluc 97 mg/dL 07/17/2017 Unkn own GFR CALC 2269140 GFR Non Afr Amr 38 mL/min 07/17/2017 Unk nown GFR CALC 9452786 GFR Afr Amr 46 mL/min 07/17/2017 Unknown COMPLETE BLOOD COUNT 0314918 WBC 5.8 10e9/L 07/18/19 18 Unknown COMPLETE BLOOD COUNT 2346898 RBC 3.47 10e12/L 2017 Unknown COMPLETE BLOOD COUNT 2457847 HEMOGLOBIN 10.7 g/dL 07/18/19 18 Unknown COMPLETE BLOOD COUNT 1924689 HEMATOCRIT 34.0 % 07/18/19 18 Unknown COMPLETE BLOOD COUNT 2185419 MCV 98.0 fL 8 Unknown COMPLETE BLOOD COUNT 5552359 MCH 30.8 pg 8 Unknown COMPLETE BLOOD COUNT 7034595 MCHC 31.5 g/dL 8 Unknown COMPLETE BLOOD COUNT 8313918 PLATELET COUNT 254 10e9/L Unknown COMPLETE BLOOD COUNT 7114276 Mean Plt Volume 10.0 fL Unknown COMPLETE BLOOD COUNT 8619494 Neut Auto 77.2 % 8 Unknown COMPLETE BLOOD COUNT 5811279 Lymph Auto 15.2 % 07/18/19 18 Unknown COMPLETE BLOOD COUNT 0662150 Kane Auto 5.4 % 8 Unknown COMPLETE BLOOD COUNT 3514171 RDW 13.9 % 8 Unknown COMPLETE BLOOD COUNT 4261932 Eos Auto 1.7 % 8 Unknown COMPLETE BLOOD COUNT 3092479 Baso Auto 0.5 % 8 Unknown COMPLETE BLOOD COUNT 6927514 Neutrophil Abs 4.48 10e9/L Unknown COMPLETE BLOOD COUNT 2985637 Lymphocyte Abs 0.88 10e9/L Unknown COMPLETE BLOOD COUNT 0187265 Monocyte Abs 0.31 10e9/L 06/30 Unknown COMPLETE BLOOD COUNT 8243139 Eosinophil Abs 0.10 10e9/L Unknown COMPLETE BLOOD COUNT 2197887 RDW-SD 48.0 fL 8 Unknown COMPLETE BLOOD COUNT 1836648 Basophil Abs 0.03 10e9/L 06/30 Unknown FREE T4 02720 T4 Free 0.79 ng/dL 01/31/2017 Unknown GLYCOSYLATED HEMOGLOBIN TEST 65122 Hgb A1c 70310-5 5.2 % 1 04/01/2016 Unknown MEAN GLUC 6037347 Calc Mean Gluc 103 mg/dL 01/30/2017 Unkn own IRON 95672 Iron 62 ug/dL 01/29/2017 Unknown COMPREHENSIVE METABOLIC 87984 AST 25 U/L 2016 Unknown COMPREHENSIVE METABOLIC 56688 ALT 29 U/L 2016 Unknown COMPREHENSIVE METABOLIC 66621 BUN 41 mg/dL 2016 Unknown COMPREHENSIVE METABOLIC 93248 ALBUMIN 4.4 g/dL 2016 Unknown COMPREHENSIVE METABOLIC 79001 CHLORIDE 111 mmol/L 01/29 Unknown COMPREHENSIVE METABOLIC 01147 Bili Total 0.3 mg/dL 01/29 Unknown COMPREHENSIVE METABOLIC 33531 ALK PHOS 68 U/L 2016 Unknown COMPREHENSIVE METABOLIC 22846 SODIUM 142 mmol/L 01/29 Unknown COMPREHENSIVE METABOLIC 20208 CREATININE 1.69 mg/dL 01/01 Unknown COMPREHENSIVE METABOLIC 35135 CALCIUM 9.0 mg/dL 2016 Unknown COMPREHENSIVE METABOLIC 35536 POTASSIUM 4.0 mmol/L 01/29 Unknown COMPREHENSIVE METABOLIC 75533 Total Protein 6.9 g/dL Unknown COMPREHENSIVE METABOLIC 63177 Glucose 166 mg/dL 2016 Unknown COMPREHENSIVE METABOLIC 59391 Bicarbonate 22 mmol/L 01/01 Unknown COMPREHENSIVE METABOLIC 53941 AGAP 9 mmol/L 2016 Unknown VITAMIN B 12 99236 VITAMIN B12 603 pg/mL 01/29/2017 Unkn own COMPLETE BLOOD COUNT 1489135 WBC 5.7 10e9/L 01/30/20 17 Unknown COMPLETE BLOOD COUNT 1975015 RBC 3.56 10e12/L 2016 Unknown COMPLETE BLOOD COUNT 2453552 HEMOGLOBIN 10.7 g/dL 01/30/20 17 Unknown COMPLETE BLOOD COUNT 4812525 HEMATOCRIT 33.8 % 01/30/20 17 Unknown COMPLETE BLOOD COUNT 1902928 MCV 94.9 fL 7 Unknown COMPLETE BLOOD COUNT 1486978 MCH 30.1 pg 7 Unknown COMPLETE BLOOD COUNT 2241915 MCHC 31.7 g/dL 7 Unknown COMPLETE BLOOD COUNT 6982230 PLATELET COUNT 284 10e9/L Unknown COMPLETE BLOOD COUNT 3934849 Mean Plt Volume 10.0 fL Unknown COMPLETE BLOOD COUNT 6061039 Neut Auto 79.4 % 7 Unknown COMPLETE BLOOD COUNT 7555618 Lymph Auto 13.6 % 01/30/20 17 Unknown COMPLETE BLOOD COUNT 6095597 Kane Auto 4.4 % 7 Unknown COMPLETE BLOOD COUNT 6384810 Eos Auto 2.1 % 7 Unknown COMPLETE BLOOD COUNT 9241276 RDW 14.9 % 7 Unknown COMPLETE BLOOD COUNT 6747695 Baso Auto 0.5 % 7 Unknown COMPLETE BLOOD COUNT 1693941 Neutrophil Abs 4.53 10e9/L Unknown COMPLETE BLOOD COUNT 1839225 Lymphocyte Abs 0.78 10e9/L Unknown COMPLETE BLOOD COUNT 1465447 Monocyte Abs 0.25 10e9/L 01/01 Unknown COMPLETE BLOOD COUNT 8916914 Eosinophil Abs 0.12 10e9/L Unknown COMPLETE BLOOD COUNT 5916923 Basophil Abs 0.03 10e9/L 01/01 Unknown COMPLETE BLOOD COUNT 9432139 RDW-SD 49.6 fL 7 Unknown THYROID STIMULATING HORMONE 57682 TSH 26.132 uIU/m L 01/29/2017 Unknown GFR CALC 9133097 GFR Non Afr Amr 39 mL/min 01/29/2017 Unk nown GFR CALC 6720882 GFR Afr Amr 47 mL/min 01/29/2017 Unknown COMPREHENSIVE METABOLIC 96487 AST 19 U/L 2016 Unknown COMPREHENSIVE METABOLIC 28537 ALT 19 U/L 2016 Unknown COMPREHENSIVE METABOLIC 21447 BUN 30 mg/dL 2016 Unknown COMPREHENSIVE METABOLIC 24457 ALBUMIN 3.9 g/dL 2016 Unknown COMPREHENSIVE METABOLIC 74329 CHLORIDE 107 mmol/L 07/16 Unknown COMPREHENSIVE METABOLIC 14773 Bili Total 0.4 mg/dL 07/16 Unknown COMPREHENSIVE METABOLIC 62961 ALK PHOS 56 U/L 2016 Unknown COMPREHENSIVE METABOLIC 13112 SODIUM 139 mmol/L 07/16 Unknown COMPREHENSIVE METABOLIC 71430 CREATININE 1.50 mg/dL 06/30 Unknown COMPREHENSIVE METABOLIC 90148 CALCIUM 8.7 mg/dL 2016 Unknown COMPREHENSIVE METABOLIC 71257 POTASSIUM 4.2 mmol/L 07/16 Unknown COMPREHENSIVE METABOLIC 64746 Total Protein 6.5 g/dL Unknown COMPREHENSIVE METABOLIC 84097 Glucose 139 mg/dL 2016 Unknown COMPREHENSIVE METABOLIC 75618 Bicarbonate 20 mmol/L 06/30 Unknown COMPREHENSIVE METABOLIC 78794 AGAP 12 mmol/L 2016 Unknown COMPLETE BLOOD COUNT 2288732 WBC 5.7 10e9/L 07/17/19 17 Unknown COMPLETE BLOOD COUNT 2723473 RBC 3.10 10e12/L 2016 Unknown COMPLETE BLOOD COUNT 4917312 HEMOGLOBIN 9.4 g/dL 07/17/19 17 Unknown COMPLETE BLOOD COUNT 0607121 HEMATOCRIT 29.6 % 07/17/19 17 Unknown COMPLETE BLOOD COUNT 1456880 MCV 95.5 fL 7 Unknown COMPLETE BLOOD COUNT 2502532 MCH 30.3 pg 7 Unknown COMPLETE BLOOD COUNT 8330779 MCHC 31.8 g/dL 7 Unknown COMPLETE BLOOD COUNT 0356461 PLATELET COUNT 286 10e9/L Unknown COMPLETE BLOOD COUNT 3651666 Mean Plt Volume 9.9 fL Unknown COMPLETE BLOOD COUNT 7806381 Neut Auto 79.4 % 7 Unknown COMPLETE BLOOD COUNT 0051783 Lymph Auto 14.5 % 07/17/19 17 Unknown COMPLETE BLOOD COUNT 2174189 Kane Auto 4.6 % 7 Unknown COMPLETE BLOOD COUNT 8612815 Eos Auto 1.1 % 7 Unknown COMPLETE BLOOD COUNT 8217499 RDW 14.2 % 7 Unknown COMPLETE BLOOD COUNT 7920713 Baso Auto 0.4 % 7 Unknown COMPLETE BLOOD COUNT 7101498 Neutrophil Abs 4.53 10e9/L Unknown COMPLETE BLOOD COUNT 8327361 Lymphocyte Abs 0.83 10e9/L Unknown COMPLETE BLOOD COUNT [id number] Monocyte Abs 0.26 10e9/L 06/30 Unknown COMPLETE BLOOD COUNT [id number] Eosinophil Abs 0.06 10e9/L Unknown COMPLETE BLOOD COUNT [id number] Basophil Abs 0.02 10e9/L 06/30 Unknown COMPLETE BLOOD COUNT [id number] RDW-SD 47.4 fL 7 Unknown GFR CALC [id number] GFR Afr Amr 54 mL/min 07/16/2016 Unknown GFR CALC [id number] GFR Non Afr Amr 44 mL/min 07/16/2016 Unk nown COMPLETE BLOOD COUNT [id number] WBC 4.3 10e9/L 11/08/19 16 Unknown COMPLETE BLOOD COUNT [id number] RBC 3.22 10e12/L 2015 Unknown COMPLETE BLOOD COUNT [id number] HEMOGLOBIN 9.5 g/dL 11/08/19 16 Unknown COMPLETE BLOOD COUNT [id number] HEMATOCRIT 29.7 % 11/08/19 16 Unknown COMPLETE BLOOD COUNT [id number] MCV 92.2 fL 6 Unknown COMPLETE BLOOD COUNT [id number] MCH 29.5 pg 6 Unknown COMPLETE BLOOD COUNT [id number] MCHC 32.0 g/dL 6 Unknown COMPLETE BLOOD COUNT [id number] PLATELET COUNT 269 10e9/L 12/2015 Unknown COMPLETE BLOOD COUNT [id number] Mean Plt Volume 9.3 fL 12/2015 Unknown COMPLETE BLOOD COUNT [id number] Neut Auto 71.4 % 6 Unknown COMPLETE BLOOD COUNT [id number] Lymph Auto 20.2 % 11/08/19 16 Unknown COMPLETE BLOOD COUNT [id number] Kane Auto 5.1 % 6 Unknown COMPLETE BLOOD COUNT [id number] Eos Auto 2.6 % 6 Unknown COMPLETE BLOOD COUNT [id number] RDW 15.2 % 6 Unknown COMPLETE BLOOD COUNT [id number] Baso Auto 0.7 % 6 Unknown COMPLETE BLOOD COUNT [id number] Neutrophil Abs 3.07 10e9/L Unknown COMPLETE BLOOD COUNT [id number] Lymphocyte Abs 0.87 10e9/L Unknown COMPLETE BLOOD COUNT [id number] Monocyte Abs 0.22 10e9/L 12/2015 Unknown COMPLETE BLOOD COUNT [id number] Eosinophil Abs 0.11 10e9/L Unknown COMPLETE BLOOD COUNT [id number] RDW-SD 49.0 fL 6 Unknown COMPLETE BLOOD COUNT [id number] Basophil Abs 0.03 10e9/L 12/2015 Unknown GFR CALC [id number] GFR Non Afr Amr 42 mL/min 11/08/2015 Unk nown GFR CALC [id number] GFR Afr Amr 51 mL/min 11/08/2015 [place] [address] Glucose 102 mg/dL 11/07 [place] [address] CREATININE 1.57 mg/dL 12/2015 [place] [address] BUN 18 mg/dL 11/07 [place] [address] SODIUM 140 mmol/L 12/2015 [place] [address] POTASSIUM 3.8 mmol/L 12/2015 [place] [address] CHLORIDE 113 mmol/L 12/2015 [place] [address] Bicarbonate 21 mmol/L 12/2015 [place] [address] AGAP 6 mmol/L 11/07 [place] [address] CALCIUM 8.8 mg/dL 11/07 Unknown COMPLETE BLOOD COUNT [id number] WBC 8.3 10e9/L 10/26/19 16 Unknown COMPLETE BLOOD COUNT [id number] RBC 2.55 10e12/L 2015 Unknown COMPLETE BLOOD COUNT [id number] HEMOGLOBIN 7.7 g/dL 10/26/19 16 Unknown COMPLETE BLOOD COUNT [id number] HEMATOCRIT 24.0 % 10/26/19 16 Unknown COMPLETE BLOOD COUNT [id number] MCV 94.1 fL 6 Unknown COMPLETE BLOOD COUNT [id number] MCH 30.2 pg 6 Unknown COMPLETE BLOOD COUNT 6414890 MCHC 32.1 g/dL 6 Unknown COMPLETE BLOOD COUNT [id number] PLATELET COUNT 292 10e9/L Unknown COMPLETE BLOOD COUNT 2248917 Mean Plt Volume 9.8 fL Unknown COMPLETE BLOOD COUNT 3315496 Neut Auto 83.8 % 6 Unknown COMPLETE BLOOD COUNT [id number] Lymph Auto 11.3 % 10/26/19 16 Unknown COMPLETE BLOOD COUNT [id number] Kane Auto 4.1 % 6 Unknown COMPLETE BLOOD COUNT [id number] RDW 14.7 % 6 Unknown COMPLETE BLOOD COUNT 1109781 Eos Auto 0.7 % 6 Unknown COMPLETE BLOOD COUNT [id number] Baso Auto 0.1 % 6 Unknown COMPLETE BLOOD COUNT [id number] Neutrophil Abs 6.96 10e9/L Unknown COMPLETE BLOOD COUNT [id number] Lymphocyte Abs 0.94 10e9/L Unknown COMPLETE BLOOD COUNT [id number] Monocyte Abs 0.34 10e9/L 09/30 Unknown COMPLETE BLOOD COUNT [id number] Eosinophil Abs 0.06 10e9/L Unknown COMPLETE BLOOD COUNT [id number] Basophil Abs 0.01 10e9/L 09/30 Unknown COMPLETE BLOOD COUNT [id number] RDW-SD 48.2 fL 6 Unknown LIPASE 32007 Lipase Lvl 24 IU/L 10/26/2015 Unknown FREE T4 52719 T4 Free 1.15 ng/dL 10/26/2015 Unknown COMPREHENSIVE METABOLIC 17270 AST 12 U/L 2015 Unknown COMPREHENSIVE METABOLIC 46052 ALT 9 U/L 2015 Unknown COMPREHENSIVE METABOLIC 12271 BUN 92 mg/dL 2015 Unknown COMPREHENSIVE METABOLIC 08773 ALBUMIN 3.8 g/dL 2015 Unknown COMPREHENSIVE METABOLIC 74002 CHLORIDE 98 mmol/L 2015 Unknown COMPREHENSIVE METABOLIC 84144 Bili Total 0.4 mg/dL 10/25 Unknown COMPREHENSIVE METABOLIC 15335 ALK PHOS 53 U/L 2015 Unknown COMPREHENSIVE METABOLIC 05062 SODIUM 139 mmol/L 10/25 Unknown COMPREHENSIVE METABOLIC 66281 CREATININE 4.70 mg/dL 09/30 Unknown COMPREHENSIVE METABOLIC 66565 CALCIUM 9.1 mg/dL 2015 Unknown COMPREHENSIVE METABOLIC 27284 POTASSIUM 4.5 mmol/L 10/25 Unknown COMPREHENSIVE METABOLIC 31101 Total Protein 6.6 g/dL Unknown COMPREHENSIVE METABOLIC 66741 Glucose 128 mg/dL 2015 Unknown COMPREHENSIVE METABOLIC 79049 Bicarbonate 29 mmol/L 09/30 Unknown COMPREHENSIVE METABOLIC 94929 AGAP 12 mmol/L 2015 Unknown GFR CALC 0344430 GFR Non Afr Amr 12 mL/min 10/26/2015 Unk nown GFR CALC [id number] GFR Afr Amr 14 mL/min 10/26/2015 Unknown GLYCOSYLATED HEMOGLOBIN TEST 31311 Hgb A1c 81444-3 5.0 % 0 10/26/2015 Unknown AMYLASE 46723 Amylase Lvl 45 IU/L 10/26/2015 Unknown THYROID STIMULATING HORMONE 66378 TSH 6.114 uIU/mL 10/26/2015 Unknown MEAN GLUC 4497182 Mean Glucose 97 mg/dL 10/26/2015 Unknow n VITAMIN B 12 FOLIC ACID 26503|40227 VIT B 12 961 PG/ML 11/2012 Unknown VITAMIN B 12 FOLIC ACID 84878|45018 FOLIC ACID >24.0 NG/ML 1 05/10/2012 Unknown COMPREHENSIVE METABOLIC 91142 AST 19 U/L 2012 Unknown COMPREHENSIVE METABOLIC 59912 ALT 19 IU/L 2012 Unknown COMPREHENSIVE METABOLIC 22395 BUN 21 MG/DL 2012 Unknown COMPREHENSIVE METABOLIC 45648 ALBUMIN 4.4 GM/DL 2012 Unknown COMPREHENSIVE METABOLIC 99463 CHLORIDE 102 MMOL/L 03/09 Unknown COMPREHENSIVE METABOLIC 02135 BILI TOT 0.4 MG/DL 2012 Unknown COMPREHENSIVE METABOLIC 47367 ALK PHOS 60 U/L 2012 Unknown COMPREHENSIVE METABOLIC 55439 SODIUM 137 MMOL/L 03/09 Unknown COMPREHENSIVE METABOLIC 95029 CREATININE 1.36 MG/DL 11/2012 Unknown COMPREHENSIVE METABOLIC 25003 CALCIUM 9.7 MG/DL 2012 Unknown COMPREHENSIVE METABOLIC 54835 POTASSIUM 4.3 MMOL/L 03/09 Unknown COMPREHENSIVE METABOLIC 89101 PROT TOT 6.8 GM/DL 2012 Unknown COMPREHENSIVE METABOLIC 12075 Glucose 143 MG/DL 2012 Unknown COMPREHENSIVE METABOLIC 02360 BICARB 27 MMOL/L 2012 Unknown COMPREHENSIVE METABOLIC 91582 ANION GAP 8 MEQ/L 2012 Unknown C-REACTIVE PROTEIN (CRP) QUANT 49840 CRP 0.8 MG/DL 03/09/2013 Unknown COMPLETE BLOOD COUNT 5551779 WBC 7.6 10e9/L 03/09/20 13 Unknown COMPLETE BLOOD COUNT 5670611 RBC 3.78 10e12/L 2012 Unknown COMPLETE BLOOD COUNT 2899173 HGB 11.3 g/dL 3 Unknown COMPLETE BLOOD COUNT 2461072 HCT DET 35.6 % 3 Unknown COMPLETE BLOOD COUNT 3104495 MCV 94.2 fL 3 Unknown COMPLETE BLOOD COUNT 6806656 MCH 29.9 pg 3 Unknown COMPLETE BLOOD COUNT 9667734 MCHC 31.7 g/dL 3 Unknown COMPLETE BLOOD COUNT 1457303 PLT 314 10e9/L 03/09/20 13 Unknown COMPLETE BLOOD COUNT 6383188 MPV 9.7 fL 3 Unknown COMPLETE BLOOD COUNT 3814895 TORITO % 78.7 % 3 Unknown COMPLETE BLOOD COUNT 3557288 LY % 13.7 % 3 Unknown COMPLETE BLOOD COUNT 8412358 MON % 5.0 % 3 Unknown COMPLETE BLOOD COUNT 6938325 EOS % 2.1 % 3 Unknown COMPLETE BLOOD COUNT 7560988 BASO % 0.5 % 3 Unknown COMPLETE BLOOD COUNT 7377243 RDW 13.7 % 3 Unknown COMPLETE BLOOD COUNT 1915443 ABS TORITO 5.98 10e9/L 013 Unknown COMPLETE BLOOD COUNT 4784785 ABS LYMPH 1.04 10e9/L 013 Unknown COMPLETE BLOOD COUNT 1009608 ABS MONO 0.38 10e9/L 013 Unknown COMPLETE BLOOD COUNT 1171105 ABS EOS 0.16 10e9/L 013 Unknown COMPLETE BLOOD COUNT 9344191 ABS BASO 0.04 10e9/L 013 Unknown COMPLETE BLOOD COUNT 6381146 RDW-SD 45.7 fL 3 Unknown FREE T4 20677 FREE T4 1.12 NG/DL 03/09/2013 Unknown GFR CALC 7889521 GFR AA >60 ML/MIN 03/09/2013 Unknown GFR CALC 4142889 GFR NON-AA 50.0L ML/MIN 03/09/2013 Unkno wn THYROID STIMULATING HORMONE 61684 TSH 6.689 uIU/ML 03/09/2013 Unknown IRON 98668 IRON TEST 58 UG/DL 03/09/2013 Unknown COMPLETE BLOOD COUNT 66761 WBC 6.0 10e9/L 11/30/19 10 Unknown COMPLETE BLOOD COUNT 35468 RBC 4.29 10e12/L 2009 Unknown COMPLETE BLOOD COUNT 50745 HGB 12.8 g/dL 0 Unknown COMPLETE BLOOD COUNT 71232 HCT DET 39.3 % 0 Unknown COMPLETE BLOOD COUNT 80809 MCV 91.6 fL 0 Unknown COMPLETE BLOOD COUNT 13925 MCH 29.8 pg 0 Unknown COMPLETE BLOOD COUNT 04627 MCHC 32.6 g/dL 0 Unknown COMPLETE BLOOD COUNT 57840 PLT 262 10e9/L 11/30/19 10 Unknown COMPLETE BLOOD COUNT 31020 MPV 9.8 fL 0 Unknown COMPLETE BLOOD COUNT 76726 TORITO % 71.4 % 0 Unknown COMPLETE BLOOD COUNT 70937 LY % 20.0 % 0 Unknown COMPLETE BLOOD COUNT 62547 MON % 7.5 % 0 Unknown COMPLETE BLOOD COUNT 77704 EOS % 0.8 % 0 Unknown COMPLETE BLOOD COUNT 23689 BASO % 0.3 % 0 Unknown COMPLETE BLOOD COUNT 66963 RDW 13.5 % 0 Unknown COMPLETE BLOOD COUNT 09661 ABS TORITO 4.28 10e9/L 010 Unknown COMPLETE BLOOD COUNT 90018 ABS LYMPH 1.20 10e9/L 010 Unknown COMPLETE BLOOD COUNT 43780 ABS MONO 0.45 10e9/L 010 Unknown COMPLETE BLOOD COUNT 85804 ABS EOS 0.05 10e9/L 010 Unknown COMPLETE BLOOD COUNT 89386 ABS BASO 0.02 10e9/L 010 Unknown COMPLETE BLOOD COUNT 19309 RDW-SD 44.4 fL 0 Unknown URIC ACID 40656 URIC ACID 9.5 MG/DL 11/29/2009 Unknown GFR CALC 6397749 GFR AA 55.0L ML/MIN 11/29/2009 Unknow n GFR CALC 0667549 GFR NON-AA 46.0L ML/MIN 11/29/2009 Unkno wn COMPREHENSIVE METABOLIC 90764 AST 14 U/L 2009 Unknown COMPREHENSIVE METABOLIC 57219 ALT 12 IU/L 2009 Unknown COMPREHENSIVE METABOLIC 03123 BUN 23 MG/DL 2009 Unknown COMPREHENSIVE METABOLIC 44892 ALBUMIN 4.5 GM/DL 2009 Unknown COMPREHENSIVE METABOLIC 43007 CHLORIDE 104 MMOL/L 11/29 Unknown COMPREHENSIVE METABOLIC 43445 BILI TOT 0.5 MG/DL 2009 Unknown COMPREHENSIVE METABOLIC 79538 ALK PHOS 58 U/L 2009 Unknown COMPREHENSIVE METABOLIC 43786 SODIUM 138 MMOL/L 11/29 Unknown COMPREHENSIVE METABOLIC 02704 CREATININE 1.49 MG/DL 11/01 Unknown COMPREHENSIVE METABOLIC 19097 CALCIUM 9.5 MG/DL 2009 Unknown COMPREHENSIVE METABOLIC 05378 POTASSIUM 4.2 MMOL/L 11/29 Unknown COMPREHENSIVE METABOLIC 14006 PROT TOT 6.9 GM/DL 2009 Unknown COMPREHENSIVE METABOLIC 89207 Glucose 159 MG/DL 2009 Unknown COMPREHENSIVE METABOLIC 91637 BICARB 24 MMOL/L 2009 Unknown COMPREHENSIVE METABOLIC 60673 ANION GAP 10 MEQ/L 2009 Unknown Procedures Procedure Codes Date PPPS, subseq visit CPT-4: G0439 06/29/2019 FLU VACC PRSV FREE INC ANTIG 65 AND OLDER CPT-4: 17339 12/25/2018 FLU VACC PRSV FREE INC ANTIG 65 AND OLDER CPT-4: 11813 12/25/2018 ADMIN INFLUENZA VIRUS VAC CPT-4: G0008 12/25/2018 ROUTINE VENIPUNCTURE CPT-4: 28057 12/22/2018 ASSAY OF FREE THYROXINE CPT-4: 87588 12/22/2018 ASSAY THYROID STIM HORMONE CPT-4: 67860 12/22/2018 COMPREHEN METABOLIC PANEL CPT-4: 46105 12/22/2018 COMPLETE CBC W/AUTO DIFF WBC CPT-4: 87257 12/22/2018 ASSAY OF IRON CPT-4: 08319 12/22/2018 ASSAY OF FERRITIN CPT-4: 77376 12/22/2018 VITAMIN B-12 CPT-4: 37696 12/22/2018 ROUTINE VENIPUNCTURE CPT-4: 58264 06/23/2018 COMPLETE CBC W/AUTO DIFF WBC CPT-4: 93641 06/23/2018 COMPREHEN METABOLIC PANEL CPT-4: 29004 06/23/2018 ASSAY OF IRON CPT-4: 19110 06/23/2018 ASSAY THYROID STIM HORMONE CPT-4: 82495 06/23/2018 ASSAY OF FERRITIN CPT-4: 41128 06/23/2018 VITAMIN B-12 CPT-4: 10443 06/23/2018 ROUTINE VENIPUNCTURE CPT-4: 65712 01/20/2018 COMPLETE CBC W/AUTO DIFF WBC CPT-4: 57038 01/20/2018 COMPREHEN METABOLIC PANEL CPT-4: 44242 01/20/2018 ASSAY OF FREE THYROXINE CPT-4: 11032 01/20/2018 ASSAY THYROID STIM HORMONE CPT-4: 39964 01/20/2018 ROUTINE VENIPUNCTURE CPT-4: 19639 10/03/2017 ASSAY THYROID STIM HORMONE CPT-4: 85374 10/03/2017 ASSAY OF FREE THYROXINE CPT-4: 79798 10/03/2017 COMPLETE CBC W/AUTO DIFF WBC CPT-4: 66795 10/03/2017 COMPREHEN METABOLIC PANEL CPT-4: 16157 10/03/2017 ROUTINE VENIPUNCTURE CPT-4: 73027 07/17/2017 ASSAY OF FREE THYROXINE CPT-4: 88438 07/17/2017 ASSAY THYROID STIM HORMONE CPT-4: 50474 07/17/2017 COMPREHEN METABOLIC PANEL CPT-4: 26259 07/17/2017 COMPLETE CBC W/AUTO DIFF WBC CPT-4: 78055 07/17/2017 LIPID PANEL CPT-4: 80472 07/17/2017 A1C HPLC CPT-4: 13288 07/17/2017 ROUTINE VENIPUNCTURE CPT-4: 72461 01/29/2017 ASSAY THYROID STIM HORMONE CPT-4: 66400 01/29/2017 COMPREHEN METABOLIC PANEL CPT-4: 96168 01/29/2017 COMPLETE CBC W/AUTO DIFF WBC CPT-4: 64162 01/29/2017 ASSAY OF IRON CPT-4: 51729 01/29/2017 VITAMIN B-12 CPT-4: 77908 01/29/2017 A1C HPLC CPT-4: 75944 01/29/2017 ASSAY OF FREE THYROXINE CPT-4: 37433 01/29/2017 ROUTINE VENIPUNCTURE CPT-4: 67777 07/16/2016 COMPREHEN METABOLIC PANEL CPT-4: 26592 07/16/2016 COMPLETE CBC W/AUTO DIFF WBC CPT-4: 33641 07/16/2016 ROUTINE VENIPUNCTURE CPT-4: 88780 03/09/2013 ASSAY OF FREE THYROXINE CPT-4: 90897 03/09/2013 ASSAY THYROID STIM HORMONE CPT-4: 48471 03/09/2013 COMPREHEN METABOLIC PANEL CPT-4: 88318 03/09/2013 COMPLETE CBC W/AUTO DIFF WBC CPT-4: 89307 03/09/2013 C-REACTIVE PROTEIN CPT-4: 98618 03/09/2013 VITAMIN B 12 FOLIC ACID CPT-4: 23419|32782 03/09/2013 ASSAY OF IRON CPT-4: 78438 03/09/2013 PRESCRIP TRANSMIT VIA ERX SY CPT-4: G8553 03/09/2013 ASSAY OF BLOOD/URIC ACID CPT-4: 78371 11/29/2009 COMPLETE CBC W/AUTO DIFF WBC CPT-4: 92075 11/29/2009 COMPREHEN METABOLIC PANEL CPT-4: 07047 11/29/2009 ROUTINE VENIPUNCTURE CPT-4: 11459 11/29/2009 PRESCRIP TRANSMIT VIA ERX SY CPT-4: G8553 11/29/2009 Vital Signs Date Vital 06/29/2019 Blood Pressure 1: 126/54 Code: 8480-6 BMI: 19.7 Code: 09313-4 Heart Rate 1: 72 bpm Height: 5'7" [...] 1: 136/62 Code: 8480-6 BMI: 20.5 Code: 62023-9 Heart Rate 1: 76 bpm Height: 5'8" Respiratory Rate: 20 bpm SpO2: 96% Tempera ture: 36.6 (C) / 97.8 (F) Weight: 135 lbs 10/10/2017 Blood Pressure 1: 126/56 Code: 8480-6 BMI: 21.3 Code: 86564-6 Heart Rate 1: 72 bpm Height: 5'8" Respiratory Rate: 20 bpm SpO2: 96% Tempera ture: 36.8 (C) / 98.2 (F) Weight: 140 lbs 07/17/2017 Blood Pressure 1: 124/56 Code: 8480-6 BMI: 21.0 Code: 83007-0 Heart Rate 1: 68 bpm Height: 5'8" Respiratory Rate: 20 bpm Temperature: 36 .6 (C) / 97.9 (F) Weight: 138 lbs 01/29/2017 Blood Pressure 1: 142/48 Code: 8480-6 BMI: 20.8 Code: 86956-4 Heart Rate 1: 86 bpm Height: 5'8" Respiratory Rate: 20 bpm SpO2: 98% Tempera ture: 36.3 (C) / 97.3 (F) Weight: 137 lbs 07/16/2016 Blood Pressure 1: 126/54 Code: 8480-6 BMI: 22.4 Code: 13860-8 Heart Rate 1: 84 bpm Height: 5'8" Respiratory Rate: 20 bpm SpO2: 96% Tempera ture: 37.0 (C) / 98.6 (F) Weight: 147 lbs 01/17/2016 Blood Pressure 1: 128/64 Code: 8480-6 BMI: 20.2 Code: 98071-2 Heart Rate 1: 84 bpm Height: 5'8" Respiratory Rate: 20 bpm Temperature: 36 .8 (C) / 98.2 (F) Weight: 133 lbs 12/13/2015 Blood Pressure 1: 114/48 Code: 8480-6 BMI: 19.2 Code: 75668-6 Heart Rate 1: 76 bpm Height: 5'8" Respiratory Rate: 20 bpm SpO2: 95% Tempera ture: 36.8 (C) / 98.2 (F) Weight: 126 lbs 11/08/2015 Blood Pressure 1: 116/48 Code: 8480-6 BMI: 22.4 Code: 70138-0 Heart Rate 1: 84 bpm Height: 5'8" Respiratory Rate: 20 bpm Temperature: 36 .7 (C) / 98.1 (F) Weight: 147 lbs 10/26/2015 Blood Pressure 1: 114/48 Code: 8480-6 BMI: 20.2 Code: 21306-3 Heart Rate 1: 100 bpm Height: 5'8" Respiratory Rate: 20 bpm Temperature: 36 .9 (C) / 98.4 (F) Weight: 133 lbs 03/09/2013 Blood Pressure 1: 154/78 Code: 8480-6 BMI: 25.5 Code: 84344-5 Heart Rate 1: 68 bpm Height: 5'8" Respiratory Rate: 20 bpm Temperature: 36 .9 (C) / 98.5 (F) Weight: 168 lbs 11/29/2009 Blood Pressure 1: 122/72 Code: 8480-6 BMI: 27.1 Code: 23166-1 Heart Rate 1: 76 bpm Height: 5'8" [...] 11/29/2009 Encounters Encounter Performer Location Codes Date ([id number]) NURSE/OUTPATIENT VISIT EST Diagnosis: FLU VACCINE[ICD10: Z23] Honey TORRES DO [facility] CPT-4: 98290 12/25/2018 ([id number]) OFFICE/OUTPATIENT VISIT EST Diagnosis: Essential (primary) hypertension[ICD10: I10] Diagnosis: Hypothyroidism, unspecified[ICD10: E03.9] Diagnosis: Anemia, unspecified[ICD10: D64.9] Diagnosis: Abnormal weight loss[ICD10: R63.4] Diagnosis: Disease of esophagus, 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] Honey KABA DO [facility] CPT-4: 26894 12/22/2018 ([id number]) OFFICE/OUTPATIENT VISIT EST Diagnosis: Pain in left knee[ICD10: M25.562] Honey KABA DO [facility] CPT-4: 88829 07/30/2018 ([id number]) OFFICE/OUTPATIENT VISIT EST Diagnosis: Anemia, unspecified[ICD10: D64.9] Diagnosis: Hypothyroidism, unspecified[ICD10: E03.9] Diagnosis: Essential (primary) hypertension[ICD10: I10] Honey KABA DO [facility] CPT-4: 32115 06/23/2018 ([id number]) OFFICE/OUTPATIENT VISIT EST Diagnosis: Hypothyroidism, unspecified[ICD10: E03.9] Diagnosis: Anemia, unspecified[ICD10: D64.9] Diagnosis: Disease of esophagus, 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] Honey KABA DO [facility] CPT-4: 63258 01/20/2018 ([id number]) OFFICE/OUTPATIENT VISIT EST Diagnosis: Hypothyroidism, unspecified[ICD10: E03.9] Diagnosis: Anemia, unspecified[ICD10: D64.9] Diagnosis: Disease of esophagus, 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] Honey KABA DO [facility] CPT-4: 41277 10/10/2017 ([id number]) NURSE/OUTPATIENT VISIT EST Diagnosis: Hypothyroidism, unspecified[ICD10: E03.9] Diagnosis: Anemia, unspecified[ICD10: D64.9] Diagnosis: Localized edema[ICD10: R60.0] Honey KABA DO [facility] CPT-4: 32871 10/03/2017 ([id number]) OFFICE/OUTPATIENT VISIT EST Diagnosis: Hypothyroidism, unspecified[ICD10: E03.9] Diagnosis: Anemia, unspecified[ICD10: D64.9] Diagnosis: Duodenal ulcer, unspecified as acute or chronic, without hemorrhage or perforation[ICD10: K26.9] Diagnosis: Disease of esophagus, 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] Diagnosis: Hyperglycemia, unspecified[ICD10: R73.9] Honey KABA DO [facility] CPT-4: 07417 07/17/2017 ([id number]) OFFICE/OUTPATIENT VISIT EST Diagnosis: Abnormal weight loss[ICD10: R63.4] Diagnosis: Diarrhea, unspecified[ICD10: R19.7] Diagnosis: Anemia, unspecified[ICD10: D64.9] Diagnosis: Hyperglycemia, unspecified[ICD10: R73.9] Honey KABA DO [facility] CPT-4: 41093 01/29/2017 ([id number]) OFFICE/OUTPATIENT VISIT EST Diagnosis: Diarrhea, unspecified[ICD10: R19.7] Diagnosis: Localized edema[ICD10: R60.0] Diagnosis: Anemia, unspecified[ICD10: D64.9] Honey KABA [employer] [facility] CPT-4: 60112 07/16/2016 ([id number]) OFFICE/OUTPATIENT VISIT EST Diagnosis: Duodenal ulcer, unspecified as acute or chronic, without hemorrhage or perforation[ICD10: K26.9] Diagnosis: Disease of esophagus, 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] Diagnosis: Abnormal weight loss[ICD10: R63.4] Diagnosis: Diarrhea, unspecified[ICD10: R19.7] Honey MODavid JOHNSON Leta KABA [employer] [facility] CPT-4: 12518 01/17/2016 OFFICE/OUTPATIENT VISIT EST Diagnosis: Duodenal ulcer, unspecified as acute or chronic, without hemorrhage or perforation[ICD10: K26.9] Diagnosis: Abnormal weight loss[ICD10: R63.4] Diagnosis: Diarrhea, unspecified[ICD10: R19.7] Diagnosis: Disease of esophagus, 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] [employer] KABA DO [facility] CPT-4: 58248 12/13/2015 ([id number]) OFFICE/OUTPATIENT VISIT EST Diagnosis: Duodenal ulcer, unspecified as acute or chronic, without hemorrhage or perforation[ICD10: K26.9] Diagnosis: Disease of esophagus, 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] Honey MÉNDEZ Leta KABA [employer] CPT-4: 49934 11/08/2015 ([id number]) OFFICE/OUTPATIENT VISIT EST Diagnosis: Nausea with vomiting, unspecified[ICD10: R11.2] Diagnosis: Toxic gastroenteritis and colitis[ICD10: K52.1] Diagnosis: Abnormal weight loss[ICD10: R63.4] Honey CHAVES DANIELLE KABA [employer] CPT-4: 45675 10/26/2015 ([id number]) OFFICE/OUTPATIENT VISIT EST Diagnosis: DIARRHEA[ICD9: 787.91] Diagnosis: MALAISE AND FATIGUE[ICD9: 780.79] Diagnosis: ANEMIA NOS[ICD9: 285.9] Honey MÉNDEZ Leta TORRES [employer] CPT-4: 48995 03/09/2013 ([id number]) OFFICE/OUTPATIENT VISIT, EST Honey GLEZ RamonaBrendan VICTORINA [employer] CPT-4: 97507 11/29/2009 Plan of Care Planned Activity Notes Codes Status Date Visit Diagnosis Plan: Hypothyroidism, unspecified Disc ussion: Check TSH, Free T4 ICD-9 : 244.9 ICD-10 : E03.9 06/29/2019 Visit Diagnosis Plan: Encounter for [facility] adult medical examination with abnormal findings [...] : R63.4 06/29/2019 Appointment: Honey Kaba WPtel: [address] [place], [place] [phone] [place] INJECTION 12/25/2018 Visit Diagnosis Plan: Disease [...] ICD-10 : I10 12/22/2018 Appointment: Honey Kabatel: [address] [place] [address] US FOLLOW UP 12/22/2018 Appointment: Honey Kabatel: [address] [place] [address] US CANCELED 12/16/2018 Visit Diagnosis Plan: Pain in left knee Discussion: RI CE Topical icy hot Notify if worsens ICD-9 : 719.46 ICD-10 : M25.562 07/30/2018 Appointment: Honey Kabatel: [address] [place] [address] US FOLLOW UP 07/30/2018 Visit Diagnosis Plan: Essential (primary) hypertension Discussion: Stable ICD-9 : 401.9 ICD-10 : I10 06/23/2018 Visit Diagnosis Plan: Anemia, unspecified Discussion: Check CBC, iron ICD-9 : 285.9 ICD-10 : D64.9 06/23/2018 Visit Diagnosis Plan: Hypothyroidism, unspecified Disc ussion: Check TSH, Free T4 Follow Up: 6 months ICD-9 : 244.9 ICD-10 : E03.9 06/23/2018 Appointment: Honey Kabatel: [address] [place], [place] [phone] [place] FOLLOW UP 06/23/2018 Visit Diagnosis Plan: [...] ICD-10 : D64.9 01/20/2018 Appointment: Honey Kabatel: [address] [place] [address] FOLLOW UP 01/20/2018 Patient Education: Patient Medication Summary Completed 01/20/2018 Appointment: Honey Kabatel: [address] [place] [address] US CANCELED 01/13/2018 Visit Diagnosis Plan: Hypothyroidism, [...] ICD-10 : D64.9 10/10/2017 Appointment: Honey Kabatel: [address] [place], [place] [address] US FOLLOW UP 10/10/2017 Patient Education: Patient Medication Summary Completed 10/10/2017 Appointment: Honey Kabatel: [address] [place], [place] [phone] US LAB 10/03/2017 Patient Education: Patient Medication [...] : D64.9 07/17/2017 Appointment: Honey Kaba WPtel[facility] [facility] 07/17/2017 Patient Education: Patient Medication Summary Completed 07/17/2017 Patient Education: Patient Medication Summary Completed 02/01/2017 Care Plan: US EXAM OF HEAD AND NECK LOIN C : 48107-7 Pending 02/01/2017 Visit Diagnosis Plan: Anemia, unspecified [...] R19.7 01/29/2017 Appointment: Honey Kaba [facility]Ptel[facility] [phone] [facility] [facility] 01/29/2017 Patient Education: Patient Medication Summary Completed 01/29/2017 Appointment: Honey Kaba WPtel: [address] [place], [place] [id number] 01/16/17 1455---refilled carvedilol for patient to (javier) [...] any furth... 07/16/2016 Appointment: Honey Kaba WPtel: [address] [place], [place] [phone] 07/12 confirmed ~sl FOLLOW UP 07/16/2016 Patient Education: Patient Medication Summary Completed 07/16/2016 Visit Plan: Continue current meds Patien t wants to hold on any further workup on esophageal mass--wants quality of life at this time rather then any workup or treatment for cancer 01/17/2016 Appointment: Honey Kaba WPtel: [facility] 01/15 lm~sl...confirmed~lb FOLLOW UP 12/30 Patient Education: Patient Medication Summary Completed 01/17/2016 Visit Plan: Continue pantoprazole at 40m g daily Decrease sucralfate to BID Decrease Coreg to 12.5mg po BID Add colestid 1 gram daily Patient still does not want to do further evaluation on esophagus mass Diet as tolerated 12/13/2015 Appointment: Honey Kaba WPtel: [address] [place] [id number] 12/11 confirmed~sl FOLLOW UP 12/13/2015 Patient Education: Patient Medication Summary Completed 12/13/2015 Visit Plan: Continue off NSAIDs Continue protonix Check CBC and Chem 7 Pathology results from EGD discussed Patient not sure if he wants to repeat EGD for another biopsy of esophageal mass--sees Dr. Wang tomorrow Recheck 1month 11/08/2015 Appointment: Honey Kaba WPtel: [address] [place], [place] [phone] 11/06 confirmed~sl WORK IN 11/08/2015 Patient Education: Patient Medication Summary Completed 11/08/2015 Visit Plan: Check CBC, CMP, TSH, Free T4 , HbA1C, Amylase, Lipase Check CT scan of abdomen/pelvis Will need EGD and colonoscopy pending results of above Could also be gallbladder related but big concern for cancer Protonix daily and zofran prn 10/26/2015 Appointment: Honey Kaba WPtel: [address] [place], [place] [phone] 10/24 confirmed~sl ACUTE ILLNESS 10/26/2015 Patient Education: Patient Medication Summary Completed 10/26/2015 Care Plan: CT PELVIS W/O DYE LOINC : 361 08-9 Pending 10/26/2015 Care Plan: CT ABDOMEN W/O DYE LOINC : 36 103-0 Pending 10/26/2015 Appointment: Mara Stewart [address] [facility] RESCHEDULED 10/11/2015 Appointment: Honey Kaba WPtel: [address] [place], [place] [phone] ACUTE ILLNESS 12/09/2013 Appointment: Honey Kaba WPtel: [address] [place], [place] [phone] ACUTE ILLNESS 03/09/2013 Patient Education: Patient Medication [...]
--- OUTSIDE RECORDS SUMMARY | 2019-08-15 18:38 | XMS REPORT | Continuity of Care Document ---
Author Organization Unknown Address Unknown Phone Unavailable Allergies Active Description Code Type Severity Reaction Onset Reported/Identified Relationship to Patient Clinical Status Yes Penicillins [id number] Drug Aller gy Unknown N/A 10/26/2015 Medications There is no data. Problems Date Dx Coded Attending Type Code Diagnosis Diagnosed By 10/27/2015 ORENDER DO, HONEY S Ot D64.9 ANEMIA, UNSPECIFIED 10/27/2015 ORENDER DO, HONEY S Ot I10 ESSENTIAL (PRIMARY) HYPERTENSION 10/27/2015 ORENDER DO, HONEY S Ot I25.10 ATHSCL HEART DISEASE OF [place] CORONARY 10/27/2015 ORENDER DO, HONEY S Ot N17.9 ACUTE KIDNEY FAILURE, UNSPECIFIED 10/27/2015 ORENDER DO, HONEY S Ot R11.2 NAUSEA WITH VOMITING, UNSPECIFIED 10/27/2015 ORENDER DO, HONEY S Ot R19.7 DIARRHEA, UNSPECIFIED 10/27/2015 ORENDER DO, HONEY S Ot R63.4 ABNORMAL WEIGHT LOSS 10/27/2015 ORENDER DO, HONEY S Ot D64.9 ANEMIA, UNSPECIFIED 10/27/2015 ORENDER DO, HONEY S Ot I10 ESSENTIAL (PRIMARY) HYPERTENSION 10/27/2015 ORENDER DO, HONEY S Ot I25.10 ATHSCL HEART DISEASE OF [place] CORONARY 10/27/2015 ORENDER DO, HONEY S Ot N17.9 ACUTE KIDNEY FAILURE, UNSPECIFIED 10/27/2015 ORENDER DO, HONEY S Ot R11.2 NAUSEA WITH VOMITING, UNSPECIFIED 10/27/2015 ORENDER DO, HONEY S Ot R19.7 DIARRHEA, UNSPECIFIED 10/27/2015 ORENDER DO, HONEY S Ot R63.4 ABNORMAL WEIGHT LOSS 10/28/2015 ORENDER DO, HONEY S Ot D64.9 ANEMIA, UNSPECIFIED 10/28/2015 ORENDER DO, HONEY S Ot I10 ESSENTIAL (PRIMARY) HYPERTENSION 10/28/2015 ORENDER DO, HONEY S Ot I25.10 ATHSCL HEART DISEASE OF [place] CORONARY 10/28/2015 ORENDER DO, HONEY S Ot N17.9 ACUTE KIDNEY FAILURE, UNSPECIFIED 10/28/2015 ORENDER DO, HONEY S Ot R11.2 NAUSEA WITH VOMITING, UNSPECIFIED 10/28/2015 ORENDER DO, HONEY S Ot R19.7 DIARRHEA, UNSPECIFIED 10/28/2015 ORENDER DO, HONEY S Ot R63.4 ABNORMAL WEIGHT LOSS 10/28/2015 ORENDER DO, HONEY S Ot D64.9 ANEMIA, UNSPECIFIED 10/28/2015 ORENDER DO, HONEY S Ot I10 ESSENTIAL (PRIMARY) HYPERTENSION 10/28/2015 ORENDER DO, HONEY S Ot I25.10 ATHSCL HEART DISEASE OF [place] CORONARY 10/28/2015 ORENDER DO, HONEY S Ot N17.9 ACUTE KIDNEY FAILURE, UNSPECIFIED 10/28/2015 ORENDER DO, HONEY S Ot R11.2 NAUSEA WITH VOMITING, UNSPECIFIED 10/28/2015 ORENDER DO, HONEY S Ot R19.7 DIARRHEA, UNSPECIFIED 10/28/2015 ORENDER DO, HONEY S Ot R63.4 ABNORMAL WEIGHT LOSS 10/28/2015 ORENDER DO, HONEY S Ot D64.9 ANEMIA, UNSPECIFIED 10/28/2015 ORENDER DO, HONEY S Ot I10 ESSENTIAL (PRIMARY) HYPERTENSION 10/28/2015 ORENDER DO, HONEY S Ot I25.10 ATHSCL HEART DISEASE OF [place] CORONARY 10/28/2015 ORENDER DO, HONEY S Ot N17.9 ACUTE KIDNEY FAILURE, UNSPECIFIED 10/28/2015 ORENDER DO, HONEY S Ot R11.2 NAUSEA WITH VOMITING, UNSPECIFIED 10/28/2015 ORENDER DO, HONEY S Ot R19.7 DIARRHEA, UNSPECIFIED 10/28/2015 ORENDER DO, HONEY S Ot R63.4 ABNORMAL WEIGHT LOSS 10/29/2015 ORENDER DO, HONEY S Ot D64.9 ANEMIA, UNSPECIFIED 10/29/2015 ORENDER DO, HONEY S Ot I10 ESSENTIAL (PRIMARY) HYPERTENSION 10/29/2015 ORENDER DO, HONEY S Ot I25.10 ATHSCL HEART DISEASE OF [place] CORONARY 10/29/2015 ORENDER DO, HONEY S Ot N17.9 ACUTE KIDNEY FAILURE, UNSPECIFIED 10/29/2015 ORENDER DO, HONEY S Ot R11.2 NAUSEA WITH VOMITING, UNSPECIFIED 10/29/2015 ORENDER DO, HONEY S Ot R19.7 DIARRHEA, UNSPECIFIED 10/29/2015 ORENDER DO, HONEY S Ot R63.4 ABNORMAL WEIGHT LOSS 10/30/2015 ORENDER DO, HONEY S Ot D64.9 ANEMIA, UNSPECIFIED 10/30/2015 ORENDER DO, HONEY S Ot I10 ESSENTIAL (PRIMARY) HYPERTENSION 10/30/2015 ORENDER DO, HONEY S Ot I25.10 ATHSCL HEART DISEASE OF [place] CORONARY 10/30/2015 ORENDER DO, HONEY S Ot N17.9 ACUTE KIDNEY FAILURE, UNSPECIFIED 10/30/2015 ORENDER DO, HONEY S Ot R11.2 NAUSEA WITH VOMITING, UNSPECIFIED 10/30/2015 ORENDER DO, HONEY S Ot R19.7 DIARRHEA, UNSPECIFIED 10/30/2015 ORENDER DO, HONEY S Ot R63.4 ABNORMAL WEIGHT LOSS 10/31/2015 ORENDER DO, HONEY S Ot D64.9 ANEMIA, UNSPECIFIED 10/31/2015 ORENDER DO, HONEY S Ot I10 ESSENTIAL (PRIMARY) HYPERTENSION 10/31/2015 ORENDER DO, HONEY S Ot I25.10 ATHSCL HEART DISEASE OF [place] CORONARY 10/31/2015 ORENDER DO, HONEY S Ot N17.9 ACUTE KIDNEY FAILURE, UNSPECIFIED 10/31/2015 ORENDER DO, HONEY S Ot R11.2 NAUSEA WITH VOMITING, UNSPECIFIED 10/31/2015 ORENDER DO, HONEY S Ot R19.7 DIARRHEA, UNSPECIFIED 10/31/2015 ORENDER DO, HONEY S Ot R63.4 ABNORMAL WEIGHT LOSS 10/31/2015 ORENDER DO, HONEY S Ot D64.9 ANEMIA, UNSPECIFIED 10/31/2015 ORENDER DO, HONEY S Ot I10 ESSENTIAL (PRIMARY) HYPERTENSION 10/31/2015 ORENDER DO, HONEY S Ot I25.10 ATHSCL HEART DISEASE OF [place] CORONARY 10/31/2015 ORENDER DO, HONEY S Ot N17.9 ACUTE KIDNEY FAILURE, UNSPECIFIED 10/31/2015 ORENDER DO, HONEY S Ot R11.2 NAUSEA WITH VOMITING, UNSPECIFIED 10/31/2015 ORENDER DO, HONEY S Ot R19.7 DIARRHEA, UNSPECIFIED 10/31/2015 ORENDER DO, HONEY S Ot R63.4 ABNORMAL WEIGHT LOSS 10/31/2015 ORENDER DO, HONEY S Ot D64.9 ANEMIA, UNSPECIFIED 10/31/2015 ORENDER DO, HONEY S Ot I10 ESSENTIAL (PRIMARY) HYPERTENSION 10/31/2015 ORENDER DO, HONEY S Ot I25.10 ATHSCL HEART DISEASE OF [place] CORONARY 10/31/2015 ORENDER DO, HONEY S Ot N17.9 ACUTE KIDNEY FAILURE, UNSPECIFIED 10/31/2015 ORENDER DO, HONEY S Ot R11.2 NAUSEA WITH VOMITING, UNSPECIFIED 10/31/2015 ORENDER DO, HONEY S Ot R19.7 DIARRHEA, UNSPECIFIED 10/31/2015 ORENDER DO, HONEY S Ot R63.4 ABNORMAL WEIGHT LOSS 10/31/2015 ORENDER DO, HONEY S Ot D64.9 ANEMIA, UNSPECIFIED 10/31/2015 ORENDER DO, HONEY S Ot I10 ESSENTIAL (PRIMARY) HYPERTENSION 10/31/2015 ORENDER DO, HONEY S Ot I25.10 ATHSCL HEART DISEASE OF [place] CORONARY 10/31/2015 ORENDER DO, HONEY S Ot N17.9 ACUTE KIDNEY FAILURE, UNSPECIFIED 10/31/2015 ORENDER DO, HONEY S Ot R11.2 NAUSEA WITH VOMITING, UNSPECIFIED 10/31/2015 ORENDER DO, HONEY S Ot R19.7 DIARRHEA, UNSPECIFIED 10/31/2015 ORENDER DO, HONEY S Ot R63.4 ABNORMAL WEIGHT LOSS 10/31/2015 ORENDER DO, HONEY S Ot D64.9 ANEMIA, UNSPECIFIED 10/31/2015 ORENDER DO, HONEY S Ot I10 ESSENTIAL (PRIMARY) HYPERTENSION 10/31/2015 ORENDER DO, HONEY S Ot I25.10 ATHSCL HEART DISEASE OF [place] CORONARY 10/31/2015 ORENDER DO, HONEY S Ot N17.9 ACUTE KIDNEY FAILURE, UNSPECIFIED 10/31/2015 ORENDER DO, HONEY S Ot R11.2 NAUSEA WITH VOMITING, UNSPECIFIED 10/31/2015 ORENDER DO, HONEY S Ot R19.7 DIARRHEA, UNSPECIFIED 10/31/2015 ORENDER DO, HONEY S Ot R63.4 ABNORMAL WEIGHT LOSS 11/01/2015 ORENDER DO, HONEY S Ot D64.9 ANEMIA, UNSPECIFIED 11/01/2015 ORENDER DO, HONEY S Ot I10 ESSENTIAL (PRIMARY) HYPERTENSION 11/01/2015 ORENDER DO, HONEY S Ot I25.10 ATHSCL HEART DISEASE OF [place] CORONARY 11/01/2015 ORENDER DO, HONEY S Ot N17.9 ACUTE KIDNEY FAILURE, UNSPECIFIED 11/01/2015 ORENDER DO, HONEY S Ot R11.2 NAUSEA WITH VOMITING, UNSPECIFIED 11/01/2015 ORENDER DO, HONEY S Ot R19.7 DIARRHEA, UNSPECIFIED 11/01/2015 ORENDER DO, HONEY S Ot R63.4 ABNORMAL WEIGHT LOSS 11/01/2015 ORENDER DO, HONEY S Ot D64.9 ANEMIA, UNSPECIFIED 11/01/2015 ORENDER DO, HONEY S Ot I10 ESSENTIAL (PRIMARY) HYPERTENSION 11/01/2015 ORENDER DO, HONEY S Ot I25.10 ATHSCL HEART DISEASE OF [place] CORONARY 11/01/2015 ORENDER DO, HONEY S Ot N17.9 ACUTE KIDNEY FAILURE, UNSPECIFIED 11/01/2015 ORENDER DO, HONEY S Ot R11.2 NAUSEA WITH VOMITING, UNSPECIFIED 11/01/2015 ORENDER DO, HONEY S Ot R19.7 DIARRHEA, UNSPECIFIED 11/01/2015 ORENDER DO, HONEY S Ot R63.4 ABNORMAL WEIGHT LOSS 11/01/2015 ORENDER DO, HONEY S Ot D64.9 ANEMIA, UNSPECIFIED 11/01/2015 ORENDER DO, HONEY S Ot I10 ESSENTIAL (PRIMARY) HYPERTENSION 11/01/2015 MARILIANDER DO, HONEY S Ot I25.10 ATHSCL HEART DISEASE OF [place] CORONARY 11/01/2015 ORENDER DO, HONEY S Ot K21.0 GASTRO-ESOPHAGEAL REFLUX DISEASE WITH ES 11/01/2015 ORENDER DO, HONEY S Ot K21.9 GASTRO-ESOPHAGEAL REFLUX DISEASE WITHOUT 11/01/2015 ORENDER DO, HONEY S Ot K26.9 DUODENAL ULCER, UNSP ACUTE OR CHRONIC 11/01/2015 ORENDER DO, HONEY S Ot K29.70 GASTRITIS, UNSPECIFIED, WITHOUT BLEEDING 11/01/2015 ORENDER DO, HONEY S Ot K44.9 DIAPHRAGMATIC HERNIA WITHOUT OBSTRUCTION 11/01/2015 ORENDER DO, HONEY S Ot K56.7 ILEUS, UNSPECIFIED 11/01/2015 ORENDER DO, HONEY S Ot K57.30 DVRTCLOS OF LG INT W/O PERFORATION OR AB 11/01/2015 ORENDER DO, HONEY S Ot N17.9 ACUTE KIDNEY FAILURE, UNSPECIFIED 11/01/2015 ORENDER DO, HONEY S Ot R11.2 NAUSEA WITH VOMITING, UNSPECIFIED 11/01/2015 ORENDER DO, HONEY S Ot R19.7 DIARRHEA, UNSPECIFIED 11/01/2015 ORENDER DO, HONEY S Ot R63.4 ABNORMAL WEIGHT LOSS 11/01/2015 ORENDER DO, HONEY S Ot Z95.810 PRESENCE OF AUTOMATIC (IMPLANTABLE) CARD 02/26/2017 ORENDER DO, HONEY S Ot R94.6 ABNORMAL RESULTS OF THYROID FUNCTION MISSY 03/06/2017 ORENDER DO, HONEY S Ot R94.6 ABNORMAL RESULTS OF THYROID FUNCTION MISSY 04/29/2017 ORENDER DO, HONEY S Ot R94.6 ABNORMAL RESULTS OF THYROID FUNCTION MISSY 09/06/2017 ORENDER DO, HONEY S Ot R94.6 ABNORMAL RESULTS OF THYROID FUNCTION MISSY 02/10/2018 ORENDER DO, HONEY S Ot R94.6 ABNORMAL RESULTS OF THYROID FUNCTION MISSY 02/10/2018 CARLOS EDUARDO ALVAREZ APRN Ot I25.10 ATHSCL HEART DISEASE OF [place] CORONARY 02/10/2018 CARLOS EDUARDO ALVAREZ APRN Ot R04 .0 EPISTAXIS 02/10/2018 CARLOS EDUARDO ALVAREZ APRN Ot Z79.02 MANAGER SUPPLY CHAIN (CURRENT) USE OF ANTITHROMBOTI 02/10/2018 CARLOS EDUARDO ALVAREZ APRN Ot Z79.82 LONGTERM (CURRENT) USE OF ASPIRIN 02/10/2018 CARLOS EDUARDO ALVAREZ APRN Ot Z88 .0 ALLERGY STATUS TO PENICILLIN 02/10/2018 CARLOS EDUARDO ALVAREZ APRN Ot Z95.810 PRESENCE OF AUTOMATIC (IMPLANTABLE) CARD 02/12/2018 CARLOS EDUARDO ALVAREZ APRN Ot I25.10 ATHSCL HEART DISEASE OF [place] CORONARY 02/12/2018 CARLOS EDUARDO ALVAREZ APRN Ot R04 .0 EPISTAXIS 02/12/2018 CARLOS EDUARDO ALVAREZ APRN Ot Z79.02 MANAGER SUPPLY CHAIN (CURRENT) USE OF ANTITHROMBOTI 02/12/2018 CARLOS EDUARDO ALVAREZ APRN Ot Z79.82 MANAGER SUPPLY CHAIN (CURRENT) USE OF ASPIRIN 02/12/2018 CARLOS EDUARDO ALVAREZ APRN Ot Z88 .0 ALLERGY STATUS TO PENICILLIN 02/12/2018 CARLOS EDUARDO ALVAREZ APRN Ot Z95.810 PRESENCE OF AUTOMATIC (IMPLANTABLE) CARD 02/25/2018 ORENDER DO, HONEY S Ot R94.6 ABNORMAL RESULTS OF THYROID FUNCTION MISSY 02/25/2018 CARLOS EDUARDO ALVAREZ APRN Ot I25.10 ATHSCL HEART DISEASE OF [place] CORONARY 02/25/2018 CARLOS EDUARDO ALVAREZ APRN Ot R04 .0 EPISTAXIS 02/25/2018 CARLOS EDUARDO ALVAREZ APRN Ot Z79.02 MANAGER SUPPLY CHAIN (CURRENT) USE OF ANTITHROMBOTI 02/25/2018 CARLOS EDAURDO ALVAREZ APRN Ot Z79.82 MANAGER SUPPLY CHAIN (CURRENT) USE OF ASPIRIN 02/25/2018 CARLOS EDUARDO ALVAREZ APRN Ot Z88 .0 ALLERGY STATUS TO PENICILLIN 02/25/2018 CARLOS EDUARDO ALVAREZ APRN Ot Z95.810 PRESENCE OF AUTOMATIC (IMPLANTABLE) CARD 03/05/2018 ORENDER DO, HONEY S Ot R94.6 ABNORMAL RESULTS OF THYROID FUNCTION MISSY 07/06/2018 ORENDER DO, HONEY S Ot R94.6 ABNORMAL RESULTS OF THYROID FUNCTION MISSY 06/29/2019 W D64.9 Anem ia, unspecified Orender, Honey S. 06/29/2019 W E03.9 Hypo thyroidism, unspecified Orender, Honey S. 06/29/2019 W E78.2 Mixe d hyperlipidemia Orender, Honey S. 06/29/2019 W I10 Essent ial (primary) hypertension Orender, Honey S. 06/29/2019 W R63.4 Abno rmal weight loss Orender, Honey S. 06/29/2019 W Z00.01 Enc ounter for general adult medical examination with abnormal findings Orender, Honey S. 06/29/2019 W D64.9 Anem ia, unspecified Orender, Honey S. 06/29/2019 W E03.9 Hypo thyroidism, unspecified Orender, Honey S. 06/29/2019 W E78.2 Mixe d hyperlipidemia Orender, Honey S. 06/29/2019 W I10 Essent ial (primary) hypertension Orender, Honey S. 06/29/2019 W R63.4 Abno rmal weight loss Orender, Honey S. 06/29/2019 W Z00.01 Enc ounter for general adult medical examination with abnormal findings Orender, Honey S. 06/29/2019 W D64.9 Anem ia, unspecified Orender, Honey S. 06/29/2019 W E03.9 Hypo thyroidism, unspecified Orender, Honey S. 06/29/2019 W E78.2 Mixe d hyperlipidemia Orender, Honey S. 06/29/2019 W I10 Essent ial (primary) hypertension Orender, Honey S. 06/29/2019 W R63.4 Abno rmal weight loss Orender, Honey S. 06/29/2019 W Z00.01 Enc ounter for general adult medical examination with abnormal findings Orender, Honey S. Procedures Code Description Performed By Per selvin On [id number] EX CISION OF LOWER ESOPHAGUS, ENDO, DIAGN 10/28/2015 [id number] EX CISION OF STOMACH, ENDO, DIAGN 10/28/2015 [id number] EX CISION OF LOWER ESOPHAGUS, ENDO, DIAGN 11/01/2015 [id number] IN SPECTION OF LOWER INTESTINAL TRACT, EN 11/01/2015 Results Test Result Range RED CELLS LEUKO REDUCED AS1 - 10/27/15 1 3:04 RED CELLS LEUKO REDUCED AS1 T RANSFUSED 10/27/15 1438 NR Blood type T Indirect antibody screen [facility] - 10/27/15 13:04 ABO+Rh group AP NR Transfusion band number [id number] NR Blood group antibody screen NEGATIVE NR [id number] - 10/27/15 13:04 Erythropoietin 9.5 % 2.5-18.4 Serum iron and total iron binding capaci ty panel - 10/27/15 13:04 Serum or plasma iron measurement (mass/volume) 42 % 40-180 Total iron binding capacity and transferrin saturation measurement 20 % 15-50 Iron binding capacity [mass/volume] in serum or plasma 214 % 280-380 UIBC (unsaturated iron binding capacity) 172 % 55-450 Serum or plasma ferritin measurement (mass/volume) 178 % 25- 300 Cyanocobalamin measurement - 10/27/15 13 :04 Vitamin B12 706 pg/mL 200-1000 Stool occult blood screen - 10/27/15 15: 26 Stool gastrointestinal hemoglobin detection NEGATI VE NEGATIVE Clostridium difficile detection - 15:26 C DIFF MOLECULAR RESULT Negative for toxigen ic C diff by DNA amplification [facility] Stool bacteria identification by culture - 10/27/15 15:26 Stool bacteria identification by culture N2 [facility] Whole blood hemoglobin and hematocrit [facility] - 10/27/15 22:20 Venous blood hemoglobin measurement (mass/volume) 8.1 g/dL 13.3-17.7 Blood hematocrit (volume fraction) 26 % 40-54 Complete blood count (CBC) with automate d white blood cell (WBC) differential - 10/28/15 05:07 Blood leukocytes automated count (number/volume) 7.6 10*3/uL 4.3-11.0 Blood erythrocytes automated count (number/volume) 2.63 10*6/uL 4.35-5.85 Venous blood hemoglobin measurement (mass/volume) 7.9 g/dL 13.3-17.7 Blood hematocrit (volume fraction) 25 % 40-54 Automated erythrocyte mean corpuscular volume 93 [ foz_us] 80-99 Automated erythrocyte mean corpuscular h emoglobin (mass per erythrocyte) 30 pg 25-34 Automated erythrocyte mean corpuscular h emoglobin concentration measurement (mass/volume) 32 g/dL 32-36 Automated erythrocyte distribution width ratio 14. 3 % 10.0- 14.5 Automated blood platelet count (count/volume) 190 10*3/uL 130-400 Automated blood platelet mean volume measurement 9.5 [foz_us] 7.4-10.4 Automated blood neutrophils/100 leukocytes 85 % 42-75 Automated blood lymphocytes/100 leukocytes 8 % 12-44 Blood monocytes/100 leukocytes 5 % 0-12 Automated blood eosinophils/100 leukocytes 1 % 0-10 Automated blood basophils/100 leukocytes 0 % 0-10 Blood neutrophils automated count (number/volume) 6.4 10*3 1.8-7.8 Blood lymphocytes automated count (number/volume) 0.6 10*3 1.0-4.0 Blood monocytes automated count (number/volume) 0. 4 10*3 0.0-1.0 Automated eosinophil count 0.1 10*3/uL 0 .0-0.3 Automated blood basophil count (count/volume) 0.0 10*3/uL 0.0-0.1 Whole blood basic metabolic panel - 09/30 12/15 05:07 Serum or plasma sodium measurement (moles/volume) 143 mmol/L 135-145 Serum or plasma potassium measurement (moles/volume) 4.0 mmol/L 3.6-5.0 Serum or plasma chloride measurement (moles/volume) 108 mmol/L 98-107 Carbon dioxide 23 mmol/L 21-32 Serum or plasma anion gap determination (moles/volume) 12 mmol/L 5-14 Serum or plasma urea nitrogen measurement (mass/volume ) 89 mg/dL 7-18 Serum or plasma creatinine measurement (mass/volume) 4.41 mg/dL 0.60-1.30 Serum or plasma urea nitrogen/creatinine mass ratio 20 NRG Serum or plasma creatinine measurement w ith calculation of estimated glomerular filtration rate 13 NRG Serum or plasma glucose measurement (mass/volume) 89 mg/dL 70-105 Serum or plasma calcium measurement (mass/volume) 8.1 mg/dL 8.5-10.1 Whole blood hemoglobin and hematocrit pa kenn[facility] - 10/28/15 22:10 Venous blood hemoglobin measurement (mass/volume) 10.4 g/dL 13.3-17.7 Blood hematocrit (volume fraction) 31 % 40-54 Whole blood hemoglobin and hematocrit [facility] 10/29/15 04:45 Venous blood hemoglobin measurement (mass/volume) 9.9 g/dL 13.3-17.7 Blood hematocrit (volume fraction) 30 % 40-54 Comprehensive metabolic panel - 10/29/15 04:45 Serum or plasma sodium measurement (moles/volume) 142 mmol/L 135-145 Serum or plasma potassium measurement (moles/volume) 3.6 mmol/L 3.6-5.0 Serum or plasma chloride measurement (moles/volume) 112 mmol/L 98-107 Carbon dioxide 20 mmol/L 21-32 Serum or plasma anion gap determination (moles/volume) 10 mmol/L 5-14 Serum or plasma urea nitrogen measurement (mass/volume ) 67 mg/dL 7-18 Serum or plasma creatinine measurement (mass/volume) 2.96 mg/dL 0.60-1.30 Serum or plasma urea nitrogen/creatinine mass ratio 23 NRG Serum or plasma creatinine measurement w ith calculation of estimated glomerular filtration rate 20 NRG Serum or plasma glucose measurement (mass/volume) 87 mg/dL 70-105 Serum or plasma calcium measurement (mass/volume) 7.9 mg/dL 8.5-10.1 Serum or plasma total bilirubin measurement (mass/volu me) 0.6 mg/dL 0.1-1.0 Serum or plasma alkaline phosphatase yi surement (enzymatic activity/volume) 58 U/L 40-136 Serum or plasma aspartate aminotransfera se measurement (enzymatic activity/volume) 17 U/L 5-34 Serum or plasma alanine aminotransferase measurement (enzymatic activity/volume) 11 U/L 0-55 Serum or plasma protein measurement (mass/volume) 5.1 g/dL 6.4-8.2 Serum or plasma albumin measurement (mass/volume) 2.9 g/dL 3.2-4.5 Whole blood hemoglobin and hematocrit [facility] 10/29/15 14:18 Venous blood hemoglobin measurement (mass/volume) 9.8 g/dL 13.3-17.7 Blood hematocrit (volume fraction) 30 % 40-54 Whole blood hemoglobin and hematocrit [facility] 10/29/15 21:53 Venous blood hemoglobin measurement (mass/volume) 10.7 g/dL 13.3-17.7 Blood hematocrit (volume fraction) 32 % 40-54 Whole blood hemoglobin and hematocrit pa kenneth - 10/30/15 05:14 Venous blood hemoglobin measurement (mass/volume) 9.4 g/dL 13.3-17.7 Blood hematocrit (volume fraction) 28 % 40-54 Whole blood basic metabolic panel - 10/01 04/16 05:14 Serum or plasma sodium measurement (moles/volume) 141 mmol/L 135-145 Serum or plasma potassium measurement (moles/volume) 3.5 mmol/L 3.6-5.0 Serum or plasma chloride measurement (moles/volume) 115 mmol/L 98-107 Carbon dioxide 17 mmol/L 21-32 Serum or plasma anion gap determination (moles/volume) 9 mmol/L 5-14 Serum or plasma urea nitrogen measurement (mass/volume ) 48 mg/dL 7-18 Serum or plasma creatinine measurement (mass/volume) 2.27 mg/dL 0.60-1.30 Serum or plasma urea nitrogen/creatinine mass ratio 21 NRG Serum or plasma creatinine measurement w ith calculation of estimated glomerular filtration rate 28 NRG Serum or plasma glucose measurement (mass/volume) 86 mg/dL 70-105 Serum or plasma calcium measurement (mass/volume) 7.8 mg/dL 8.5-10.1 Venous blood hemoglobin measurement (mas s/volume) - 10/31/15 04:35 Venous blood hemoglobin measurement (mass/volume) 9.6 g/dL 13.3-17.7 Whole blood basic metabolic panel - 04/16 04:35 Serum or plasma sodium measurement (moles/volume) 141 mmol/L 135-145 Serum or plasma potassium measurement (moles/volume) 3.5 mmol/L 3.6-5.0 Serum or plasma chloride measurement (moles/volume) 116 mmol/L 98-107 Carbon dioxide 17 mmol/L 21-32 Serum or plasma anion gap determination (moles/volume) 8 mmol/L 5-14 Serum or plasma urea nitrogen measurement (mass/volume ) 29 mg/dL 7-18 Serum or plasma creatinine measurement (mass/volume) 1.80 mg/dL 0.60-1.30 Serum or plasma urea nitrogen/creatinine mass ratio 16 NRG Serum or plasma creatinine measurement w ith calculation of estimated glomerular filtration rate 36 NRG Serum or plasma glucose measurement (mass/volume) 84 mg/dL 70-105 Serum or plasma calcium measurement (mass/volume) 7.7 mg/dL 8.5-10.1 Magnesium - 10/31/15 04:35 Magnesium 1.4 mg/dL 1.8-2.4 Whole blood basic metabolic panel - 05/17 05:25 Serum or plasma sodium measurement (moles/volume) 141 mmol/L 135-145 Serum or plasma potassium measurement (moles/volume) 3.6 mmol/L 3.6-5.0 Serum or plasma chloride measurement (moles/volume) 117 mmol/L 98-107 Carbon dioxide 17 mmol/L 21-32 Serum or plasma anion gap determination (moles/volume) 7 mmol/L 5-14 Serum or plasma urea nitrogen measurement (mass/volume ) 18 mg/dL 7-18 Serum or plasma creatinine measurement (mass/volume) 1.54 mg/dL 0.60-1.30 Serum or plasma urea nitrogen/creatinine mass ratio 12 NRG Serum or plasma creatinine measurement w ith calculation of estimated glomerular filtration rate 43 NRG Serum or plasma glucose measurement (mass/volume) 84 mg/dL 70-105 Serum or plasma calcium measurement (mass/volume) 7.8 mg/dL 8.5-10.1 Complete blood count (CBC) with automate d white blood cell (WBC) differential - 11/01/15 10:23 Blood leukocytes automated count (number/volume) 4.8 10*3/uL 4.3-11.0 Blood erythrocytes automated count (number/volume) 3.21 10*6/uL 4.35-5.85 Venous blood hemoglobin measurement (mass/volume) 9.6 g/dL 13.3-17.7 Blood hematocrit (volume fraction) 29 % 40-54 Automated erythrocyte mean corpuscular volume 91 [ foz_us] 80-99 Automated erythrocyte mean corpuscular h emoglobin (mass per erythrocyte) 30 pg 25-34 Automated erythrocyte mean corpuscular h emoglobin concentration measurement (mass/volume) 33 g/dL 32-36 Automated erythrocyte distribution width ratio 14. 9 % 10.0- 14.5 Automated blood platelet count (count/volume) 191 10*3/uL 130-400 Automated blood platelet mean volume measurement 9.6 [foz_us] 7.4-10.4 Automated blood neutrophils/100 leukocytes 79 % 42-75 Automated blood lymphocytes/100 leukocytes 14 % 12-44 Blood monocytes/100 leukocytes 5 % 0-12 Automated blood eosinophils/100 leukocytes 2 % 0-10 Automated blood basophils/100 leukocytes 1 % 0-10 Blood neutrophils automated count (number/volume) 3.8 10*3 1.8-7.8 Blood lymphocytes automated count (number/volume) 0.7 10*3 1.0-4.0 Blood monocytes automated count (number/volume) 0. 2 10*3 0.0-1.0 Automated eosinophil count 0.1 10*3/uL 0 .0-0.3 Automated blood basophil count (count/volume) 0.0 10*3/uL 0.0-0.1 Automated blood complete blood count (he mogram) panel - 02/10/18 17:45 Blood leukocytes automated count (number/volume) 8.0 10*3/uL 4.3-11.0 Blood erythrocytes automated count (number/volume) 3.73 10*6/uL 4.35-5.85 Venous blood hemoglobin measurement (mass/volume) 11.5 g/dL 13.3-17.7 Blood hematocrit (volume fraction) 35 % 40-54 Automated erythrocyte mean corpuscular volume 94 [ foz_us] 80-99 Automated erythrocyte mean corpuscular h emoglobin (mass per erythrocyte) 31 pg 25-34 Automated erythrocyte mean corpuscular h emoglobin concentration measurement (mass/volume) 33 g/dL 32-36 Automated erythrocyte distribution width ratio 13. 8 % 10.0- 14.5 Automated blood platelet count (count/volume) 339 10*3/uL 130-400 Automated blood platelet mean volume measurement 9.3 [foz_us] 7.4-10.4 Encounters ACCT No. Visit Date/Time Discharge Status Pt. Type Provider Facility Loc./Unit Complaint 10/20/09 12/18/2018 23:20:01 12/18/2018 23:59 :59 CLS Outpatient [id number] 06/29/2019 09:29:00 Document Registration [id number] 02/10/2018 14:00:00 018 18:56:00 DIS Emergency CARLOS EDUARDO ALVAREZ APRN [facility] ER NOSE BLEED [id number] 02/04/2017 14:53:00 017 23:59:59 CLS Outpatient HONEY PRAJAPATI DO [facility] RAD ABN THYROID LAB S [id number] 10/27/2015 11:07:00 016 17:06:00 DIS Inpatient HONEY PRAJAPATI DO [facility] 4TH ANEMIA,KIDNEY F AILURE
--- NOTE | 2019-08-15 18:46 | ED General ---
General Stated Complaint: NOSE BLEED/TAKES ASPIRIN Source of Information: Patient Exam Limitations: No Limitations History of Present Illness Date Seen by Provider: August 15, 2019 Time Seen by Provider: 18:42 Initial Comments To ER with a right-sided nosebleed onset 20 minutes ago. He takes aspirin. History of a right-sided nosebleed one year ago. Scheduled to follow-up with Dr. Chatman next month for recheck. Timing/Duration: 1-2 Days Severity: Moderate Allergies and Home Medications Allergies Coded Allergies: Penicillins (Verified Allergy, Unknown, 10/26/15) Home Medications Aspirin 81 Mg Tablet.dr, 81 MG PO HS, (Reported) Carvedilol 25 Mg Tablet, 25 MG PO BID, (Reported) Minoxidil 10 Mg Tab, 10 MG PO DAILY, (Reported) Minoxidil 2.5 Mg Tablet, 2.5 MG PO HS, (Reported) Multivit-Min/FA/Lycopene/Lut 1 Each Tablet, 1 TAB PO DAILY, (Reported) Ondansetron HCl 4 Mg Tablet, 4 MG PO Q4H PRN for NAUSEA, (Reported) Pantoprazole Sodium 40 Mg Tablet.dr, 40 MG PO DAILY, (Reported) Sucralfate 1 Gm Tablet, 1 GM PO ACHS Prescribed by: ELAINE PRAKASH on 11/01/15 0916 Patient Home Medication List Home Medication List Reviewed: Yes Review of Systems Review of Systems Constitutional: see HPI EENTM: see HPI Respiratory: no symptoms reported Cardiovascular: no symptoms reported Genitourinary: no symptoms reported Musculoskeletal: no symptoms reported Skin: no symptoms reported Psychiatric/Neurological: No Symptoms Reported Hematologic/Lymphatic: No Symptoms Reported Past Duyihmc-Srbfvn-Ldvave Hx Patient Social History Recent Foreign Travel: No Contact w/Someone Who Travel: No Recent Hopitalizations: No Immunizations Up To Date Date of Pneumonia Vaccine: Sep 29, 2013 Date of Influenza Vaccine: Dec 30, 2014 Seasonal Allergies Seasonal Allergies: No Past Medical History Respiratory: No 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 9.6oz. 63.454769ms; 18.9 BMI Method:Stated General Appearance: No Apparent Distress, WD/WN Eyes: Bilateral Eye Normal Inspection, Bilateral Eye PERRL, Bilateral Eye EOMI HEENT: PERRL/EOMI, TMs Normal, Other (slow drip of blood from the right nostril. The source of this bleeding could not be identified. A 7.5 cm anterior/posterior Rhino Rocket was inserted) Respiratory: No Accessory Muscle Use, No Respiratory Distress Gastrointestinal: Non Tender, Soft Neurologic/Psychiatric: Alert, Oriented x3 Skin: Normal Color, Warm/Dry Progress/Results/Core Measures Suspected Sepsis SIRS Temperature: Pulse: Respiratory Rate: Blood Pressure / Mean: Results/Orders My Orders Orders - CARLOS EDUARDO ALVAREZ APRN Cbc No Diff (08/15/19 20:31) Medications Given in ED Current Medications Medications Dose Ordered Sig/Joaquim Route Start Time Stop Time Status Last Admin Dose Admin Oxymetazoline HCl 30 ml STK-MED ONCE .ROUTE 08/15/19 18:26 08/15/19 18:34 DC 08/15/19 18:30 30 ML Vital Signs/I&O 08/15/19 18:30 Temp 36.8 Pulse 85 Resp 18 B/P (MAP) 157/81 (106) Pulse Ox 98 Capillary Refill : Departure Communication (Admissions) 1942-Packing removed at this time. will observe. 2044-packing has been reinserted because of some oozing. At this time there is no blood in the oropharynx and no blood coming out the front. We will discharge to home with packing in place, return tomorrow for packing removal. Impression Primary Impression: Epistaxis Disposition: HOME, SELF-CARE Condition: Stable Departure-Patient Inst. Decision time for Depature: 18:45 Referrals: HONEY PRAJAPATI DO (PCP/Family) Primary Care Physician Patient Instructions: Nosebleeds Add. Discharge Instructions: Return to ER tomorrow evening whenever convenient for you to have the packing removed. Return to ER before then for any concerning symptoms. CARLOS EDUARDO ALVAREZ APRN August 15, 2019 18:45
--- NOTE | 2019-08-15 19:35 | NUR ---
Tito ALVAREZ APRN REMOVED RHINO ROCKET FROM RIGHT NARE AT THIS TIME. WILL OBSERVE FOR ANY FURTHER BLEEDING.
--- NOTE | 2019-08-15 20:45 | NUR ---
2ND 7.5 RHINO ROCKET INSERTED TO RIGHT NARE BY Tito ALVAREZ APRN.
[2019-08-15 20:47] LABS: HEMOGLOBIN 11.9 G/DL (13.3-17.7); RED CELL DISTRIBUTION WIDTH 13.3 % (10.0-14.5); WHITE BLOOD COUNT 8.7 10^3/uL (4.3-11.0)
[2019-08-15 20:55] VITALS: BP 127/54
== END 2019-08-15 20:55 | disposition home or self-care (01) ==
LOC: EDUNIT# 18:26 → ER 18:27
DX: R04.0 Epistaxis (principal); Z79.82 Long term (current) use of aspirin; Z95.810 Presence of automatic (implantable) cardiac defibrillator
CPT/HCPCS: 36415; 85027

== ENCOUNTER 2019-08-16 15:30 | Emergency (ER) | payer MEDICARE, OTHER ==
[~2019-08-16] VITALS: Ht 175.3 cm; Wt 69.0 kg
[~2019-08-16 15:30] MED LIST changes: -OXYMETAZOLINE (AFRIN) 0.05% NA 30 ML BTL ONE
--- NOTE | 2019-08-16 15:33 | ED Suture Removal/Wound Check ---
Suture/Wound Re-check Suture Removal/Wound Recheck : Progress Returns today to have rapid Rhino removed from the right nostril General Appearance: WD/WN, no apparent distress Neuro/Tendon: normal sensation, normal motor functions Skin Exam: normal color, warm/dry Physical Exam Vital Signs Capillary Refill : General Appearance: WD/WN, no apparent distress Neck: non-tender, full range of motion Respiratory: normal breath sounds, no respiratory distress, no accessory muscle use Extremities: normal range of motion, non-tender Neurologic/Psychiatric: alert, normal mood/affect Skin: normal color, warm/dry Departure Communication (Admissions) Packing was removed without any difficulty, there was no blood in the oropharynx or in the right nostril. Impression Primary Impression: History of epistaxis Disposition: HOME, SELF-CARE Condition: Stable Departure-Patient Inst. Decision time for Depature: 15:33 Referrals: HONEY PRAJAPATI DO (PCP/Family) Primary Care Physician Patient Instructions: Nosebleeds (DC) Add. Discharge Instructions: All discharge instructions reviewed with patient and/or family. Voiced understanding. CARLOS EDUARDO ALVAREZ APRN August 16, 2019 15:33
[2019-08-16 15:34] VITALS: BP 134/65
== END 2019-08-16 15:40 | disposition home or self-care (01) ==
LOC: EDUNIT# 15:30 → ER 15:31
DX: Z48.89 Encounter for other specified surgical aftercare (principal); R04.0 Epistaxis
CPT/HCPCS: 99281